=== PATIENT | female | born 1950 | race Caucasian/White ===

== ENCOUNTER 2020-04-10 10:45 | Outpatient (REF) | payer MEDICARE, MEDICAID, SELFPAY ==
[2020-04-10 12:10] LABS: Hematocrit 45.1 % (37-47); Hemoglobin 14.9 g/dl (12.0-16.0); Mean Corpuscular Hemoglobin 31.2 pg (27.0-33.0); Mean Corpuscular Volume 94.4 fL (80-98); Mean Platelet Volume 10.3 fL (9.4-12.3); Platelet Count 227 X10*3/uL (160-400); Red Blood Count 4.78 X10*6/uL (4.20-5.50); Red Cell Distribution Width 13.5 % (11.0-16.0); White Blood Count 7.3 X10*3/uL (4.8-10.8)
[2020-04-10 12:42] LABS: B Type Natriuretic Peptide 208 pg/mL (<100)
[2020-04-10 12:43] LABS: Anion Gap 13 (12-20); Blood Urea Nitrogen 15 mg/dL (9-16); Calcium 8.9 mg/dL (8.4-10.2); Carbon Dioxide 24 mmol/L (22-29); Chloride 105 mmol/L (96-108); Estimated Glomerular Filt Rate 46; Glucose Random 132 mg/dL (60-115); Magnesium 2.1 mg/dL (1.6-2.6); Potassium 4.4 mmol/l (3.3-5.1); Sodium 138 mmol/L (135-145)
== END 2020-04-10 10:46 | disposition home or self-care (01) ==
LOC: HO.LAB 10:45
PROVIDERS: PCP Internal Medicine; Visit Provider Nurse Practitioner Family
DX: I42.9 Cardiomyopathy, unspecified (principal)
CPT/HCPCS: 36415; 80048; 83735; 83880; 85027

== ENCOUNTER → 2020-04-11 12:43 | Outpatient (REF) | payer MEDICARE, MEDICAID, SELFPAY ==
--- NOTE | 2020-04-11 12:42 | CA_ITS ---
Transthoracic Echocardiogram Patient (Last, First, Middle): Florinda Parker L Gender: Female Date of : 1950 Age: 69 Procedure Date: 04/11/2020 Procedure Type: Transthoracic Echocardiogram Location: OP Height: 154.94 cm Weight: 56.7 kg BSA: 1.55 m2 Heart Rate: bpm BP: 116 / 56 mmHg Counter Server: [email or web address] Referring MD: Yady Marsh [employer]ITCH[employer] RECEPTIONIST-Rigo Symptoms: OTHER HYPERTROPHIC CARDIOMYOPATHY Study Quality: Fair, Contrast used ECG Rhythm: Sinus Conclusions: - 1. Moderate to severe LV systolic dysfunction with regional wall motion abnormality in LAD territory with LVEF of 30-35% with impaired relaxation filling pattern 2. Cardiac valvular Doppler within normal limits 3. Normal RV systolic pressure 4. No gross pericardial effusion Findings Procedure Information Contrast agent, definity, is being given per protocol without apparent complications. Left Ventricle Normal left ventricular cavity size. There is mildly increased left ventricular wall thickness. The left ventricular systolic function is moderate to severely decreased. The visually estimated ejection fraction is between 30-35%. There is evidence of regional wall motion abnormalities. Spectral Doppler is indicative of an impaired relaxation filling pattern. E/E prime ratio is between 8 and 15 consistent with indeterminate filling pressures. Wall Motion Rest Echo Findings The basal inferior and basal inferoseptal segments are hypokinetic. The apical anterior, apical septum, mid inferoseptal, and mid anteroseptal segments are akinetic. The apex segment is dyskinetic. All other scored wall segments showed normal motion. Right Ventricle Normal right ventricular cavity size and systolic function. There is an ICD wire seen in the right ventricle. Atria The left atrium is normal in size. There is no evidence of interatrial shunt. The right atrium is normal in size. Aortic Valve The aortic valve structure and function is likely normal. There is no aortic valve stenosis. There is no aortic valve regurgitation. Mitral Valve Likely normal mitral valve structure and function. There is trace mitral valve regurgitation. There is no mitral valve stenosis. Pulmonic Valve The pulmonic valve was not well visualized. Tricuspid Valve Normal tricuspid valve structure. There is trace tricuspid valve regurgitation. The right ventricular systolic pressure is normal. The right ventricular systolic pressure is 13 mmHg. Normal right atrial pressure. There is no evidence of pulmonary hypertension. Great Vessels All visible segments of the aorta are normal in size. The pulmonary artery was not well visualized. Venous The inferior vena cava is normal in size and collapses greater than 50% with inspiration. Pericardium/Pleural Prominent epicardial adipose tissue noted. There is no evidence of pericardial effusion. Prior Study Comparison Changes noted compared to prior study dated: 03/17/2018. LV systolic function is marginally reduced Measurements 2D Linear Measurements IVSd: 1.32 0.6-0.9/0.6-1.0 cm LVIDd: 3.86 3.9-5.3/4.2-5.9 cm LVIDd Index: 2.49 2.4-3.2/2.2-3.1 cm/m2 LVIDs: 3.02 2.0-3.6 cm LVPWd: 1.32 0.7-1.1 cm Ao Root: 3.00 2.1-3.5 cm LA Diam: 3.40 2.7-3.8/3.0-4.0 cm LAIDs Index: 2.19 1.5-2.3 cm/m2 LV Mass: 225.80 67-162/88-224 g LV Mass Index: 145.68 43-95/49-115 g/m2 LVOT Diam: 2.10 3.0+(-)1.3 cm 2D Systolic Function EF 4C: 31.60 >55% EF 2C: 30.80 >55% Mitral Valve MV Pk E: 0.32 MV PK A: 1.32 MV Decel Time: 92.00 E/A: 0.20 E'Lateral: 3.77 E'Medial: 3.87 E/E' Med: 8.30 E/E' Lat: 8.50 PHT: 27.00 MVA PHT: 8.15 Decel Larue: 3.46 Aortic Valve AoV Pk Quincy: 1.17 AoV Mn Quincy: 0.71 AoV VTI: 0.23 AoV Pk Grad: 5.00 Aov Mn Grad: 3.00 LESIA Cont.VTI: 2.35 LVOT LVOT Pk Quincy: 0.86 LVOT Mn Quincy: 0.52 LVOT VTI: 0.15 LVOT Pk Grad: 3.00 LVOT Mn Grad: 1.00 LVOT Diam: 2.10 LVOT Area: 3.46 Diastolic Function MV Pk E: 0.32 MV Pk A: 1.32 E/A: 0.20 E'Medial: 3.87 E/E' Med: 8.30 E' Laterial: 3.77 E/E' Lat: 8.50 Tricuspid Valve TR Pk Quincy: 1.56 TR Pk Grad: 10.00 RA Press: 3.00 RVSP: 13.00 Great Vessels Aorta Ao Root-2D: 3.00 2.0-3.7 cm Pulmonary Valve PV Pk Quincy: 1.07 Peak PV Grad: 5.00 Updated in Other Vendor System with Status of Final Adis Abdi MD electronically signed on 04/12/2020 9:30:12 AM with status of Final
== END ==
LOC: HO.CARD 12:43
PROVIDERS: PCP Internal Medicine; Visit Provider Nurse Practitioner Family
DX: I42.2 Other hypertrophic cardiomyopathy (principal)
CPT/HCPCS: 93306; Q9957

== ENCOUNTER → 2020-04-24 11:46 | Outpatient (BNVA) | payer MEDICARE, MEDICAID, SELFPAY | PROVIDERS: PCP Internal Medicine; Visit Provider Internal Medicine | DX: J44.9 Chronic obstructive pulmonary disease, unspecified (principal); J30.9 Allergic rhinitis, unspecified; Z79.899 Other long term (current) drug therapy | CPT/HCPCS: 99212 ==

== ENCOUNTER → 2020-06-27 12:38 | Outpatient (BNVA) | payer MEDICARE, MEDICAID, SELFPAY | PROVIDERS: PCP Internal Medicine; Visit Provider Internal Medicine Cardiovascular Disease | DX: Z45.02 Encounter for adjustment and management of automatic implantable cardiac defibrillator (principal); I25.10 Atherosclerotic heart disease of native coronary artery without angina pectoris; I50.20 Unspecified systolic (congestive) heart failure; I25.5 Ischemic cardiomyopathy | CPT/HCPCS: 93005; 99212 ==

== ENCOUNTER 2020-08-02 16:17 | Outpatient (REF) | payer MEDICARE, MEDICAID, SELFPAY ==
--- NOTE | ~2020-08-02 | CT_ITS ---
EXAMINATION: CT HEAD WITHOUT CONTRAST CLINICAL INFORMATION: Cerebellar ataxia. COMPARISON: 12/24/2019 TECHNIQUE: Contiguous axial imaging was performed from the skull base to vertex without intravenous administration of contrast. This CT examination was performed using dose optimization techniques as appropriate, variously including the following: *Automated exposure control *Adjustment of mA and/or kV according to patient size (this includes techniques or standardized protocols for targeted exams where dose is matched to indication/reason for exam; i.e. extremities or head) *Use of iterative reconstruction technique DLP: 674 mGy-cm. FINDINGS: There is no evidence of acute intracranial hemorrhage or territorial infarction. No abnormal mass effect or midline shift is seen. Vieyra to white matter differentiation is well preserved. No extra-axial fluid collections are identified. Mild cerebral volume loss with mild sulcal and ventricular prominence. Stable calcification in the right basal ganglia. [id number] periventricular deep white matter hypodensities, nonspecific, likely reflecting chronic small vessel ischemic disease. Evidence of prior left temporal craniotomy. Redemonstrated clip in the region of the left middle cerebral artery. The mastoid air cells and visualized portions of the paranasal sinuses are well aerated. CT/CT head/brain wo con IMPRESSION: No CT evidence of acute intracranial pathology. Chronic changes as detailed above.
== END 2020-08-02 16:18 | disposition home or self-care (01) ==
LOC: HO.CT 16:17
PROVIDERS: PCP Internal Medicine; Visit Provider Psychiatry & Neurology Neurology
DX: G11.9 Hereditary ataxia, unspecified (principal)
CPT/HCPCS: 70450

== ENCOUNTER 2020-08-09 20:42 | Emergency (ER) | payer MEDICARE, MEDICAID, SELFPAY ==
[2020-08-09 20:56] VITALS: BP 136/65; PULSE 52; PULSE 60; RESP 17; TEMP 36.4; O2SAT 96; BMI 26.0
[2020-08-09 21:03] LABS: Glucose, Whole Blood 238 mg/dL (60-115)
[2020-08-09 22:00] VITALS: BP 147/87; PULSE 63; RESP 16; TEMP 36.6; O2SAT 96
--- NOTE | 2020-08-09 22:21 | ECG_ITS ---
Test Reason : DIZZINESS Blood Pressure : / mmHG Vent. Rate : 054 BPM Atrial Rate : 054 BPM P-R Int : 160 ms QRS Dur : 086 ms QT Int : 456 ms P-R-T Axes : 067 -15 072 degrees QTc Int : 432 ms Sinus bradycardia Nonspecific ST and T wave abnormality No significant changes when compared with the previous EKG of 24 december 2019 Referred By: Hong Busch Electronically Signed By:JESUS LICONA
--- NOTE | 2020-08-09 22:24 | ED_ITS ---
HPI - General Adult General Chief complaint: Dizziness Stated complaint: WORSENING DIZZINESS Time Seen by Provider: 08/09/20 22:06 Source: patient Mode of arrival: ambulatory Limitations: language barrier (Monegasque speaking only, aerial photograph interpreter used) History of Present Illness HPI narrative: 70-year-old female who presents emergency department for evaluation of dizziness x1 week. She states the dizziness has been int ermittent. She describes the dizziness as a room spinning sensation. The dizziness is triggered by head movement especially if she turns her head to the left. She states that she closed her eyes and stays still the dizziness resolves. She states the dizziness got worse last night and today therefore she came to the emergency department for evaluation. She denied headache, nausea, vomiting, chest pain, shortness of breath, dyspnea on exertion, cough, new weakness. She states that both her legs are weak and she has a tingling sensation in both legs which is chronic. She denies any change in her bowel movements. Related Data Home Medications Medication Instructions Recorded Confirmed fluticasone propionate 220 INHALATION 03/04/20 06/27/20 mcg/actuation HFA aerosol inhaler glipizide 5 mg tablet mg PO 03/04/20 06/27/20 montelukast 10 mg tablet mg PO 03/04/20 06/27/20 nitroglycerin 0.4 mg/hr TOPICAL 03/04/20 06/27/20 transdermal 24 hour patch omeprazole 20 mg capsule,delayed mg PO 03/04/20 06/27/20 release paroxetine HCl 20 mg tablet mg PO 03/04/20 06/27/20 primidone 50 mg tablet mg PO 03/04/20 06/27/20 tiotropium bromide 18 mcg capsule INHALATION 03/04/20 06/27/20 with inhalation device aspirin 81 mg tablet,delayed 81 mg PO DAILY 06/27/20 release calcium carbonate 500 mg calcium 500 mg PO DAILY 06/27/20 (1,250 mg) tablet cholecalciferol (vitamin D3) 25 25 mcg PO DAILY 06/27/20 mcg (1,000 unit) capsule ezetimibe 10 mg tablet 10 mg PO DAILY tab 06/27/20 06/27/20 ferrous sulfate 325 mg (65 mg 325 mg PO DAILY 06/27/20 iron) tablet fluticasone propionate 220 1 puff INHALATION BID 06/27/20 mcg/actuation HFA aerosol inhaler furosemide 20 mg tablet 20 mg PO .three times a week tab 06/27/20 06/27/20 metoprolol tartrate 50 mg tablet 50 mg PO BID 06/27/20 primidone 50 mg tablet 50 mg PO BEDTIME 06/27/20 rosuvastatin 40 mg tablet 40 mg PO DAILY tab 06/27/20 06/27/20 Previous Rx's Medication Instructions Recorded tiotropium bromide 2.5 2 puff INHALATION QAM 30 Days #4 g 04/24/20 mcg/actuation mist for inhalation ticagrelor 60 mg tablet 60 mg PO BID 90 Days #180 tab 05/31/20 ranolazine 500 mg tablet,extended 500 mg PO BID 90 Days #180 tab 08/01/20 release,12 hr meclizine [Dramamine Less Drowsy] 25 mg PO TID PRN #20 tab 08/10/20 Allergies Allergy/AdvReac Type Severity Reaction Status Date / Time ibuprofen [From Motrin] Allergy Mild HEART Verified 04/24/20 12:01 PALPITATIONS Review of Systems Review of Systems: Yes all other systems are reviewed and are negative Neurologic: Reports Abnormal speech present [facility] Past Medical History Medical History Allergic rhinitis CAD (coronary artery disease) COPD (chronic obstructive pulmonary disease) Heart failure with reduced ejection fraction HTN (hypertension) Hyperlipidemia ICD (implantable cardioverter-defibrillator) in place Ischemic cardiomyopathy Surgical History History of implantable cardioverter-defibrillator (ICD) placement Hx of cardiac cath Stented coronary artery Family History Family History Father No problems noted. Mother CVD (cardiovascular disease) Diabetes Social History Social History Alcohol intake: never Smoking Status: Never smoker Use of substances other than those prescribed or required for medical reasons: No Advance Directives: No Advance Directives Information Provided: No Physical Exam Vital Signs: Vital Signs: Last Vital Signs Temp 98.0 F 08/09/20 23:17 Pulse 54 08/09/20 23:17 Resp 20 08/09/20 23:17 BP 135/46 L 08/09/20 23:17 Pulse Ox 96 08/09/20 23:17 Body Mass Index 26.0 Const: General: cooperative and healthy appearing Orientation/consciou sness: oriented to person and oriented to place Limitations: no limitations HENMT: Head: Yes normal to inspection, Yes normocephalic and Yes atraumatic Ears: external ears normal General nose exam: Normal external nose present Face and sinus: Yes normal facial exam Mouth: Normal oral and palatal mucosa present Throat: Yes posterior oropharynx normal Eyes: Periorbital: periorbital findings normal Eyelids: Yes eyelids normal Conjunctivae: conjunctivae normal Sclerae: sclerae normal Corneas: corneas normal Pupils: Equal, round and reactive pupils present EOM: Nystagmus present (Lateral nystagmus) Direct Ophthalmoscopy: normal light reflex Neck: Neck: Yes full ROM, Yes no lymphadenopathy, Yes no meningeal signs, Yes trachea midline and Yes supple Chest: Chest palpation & inspection: normal inspection of the chest and normal palpation of entire chest wall Resp: Effort & Inspection: normal respiratory effort and able to speak in complete sentences Auscultation: clear to auscultation bilaterally Cardio: Rate: regular rate Rhythm: regular rhythm Heart sounds: S1 normal heart sound present, S2 normal heart sound present and no murmurs GI: Inspection: Yes normal to inspection Palpation (GI): Soft to palpation, nontender, no guarding, not rigid and No hepatosplenomegaly present : General: Yes no CVA tenderness Back/Spine/Pelvis: Back: no CVA tenderness Cervical Spine: normal cervical lordosis Thoracic/Lumbar Spine: thoracic and lumbar spine normal to inspection Skin: Lesions: no lesions Rashes: no rashes Wounds: no wounds Neuro: General: oriented to person, oriented to place and no meningeal signs Cranial nerves: Yes CN's II-XII intact bilaterally, Yes Equal, round and reactive pupils present and Yes Nystagmus present (Lateral nystagmus) Cognition (Neuro): normal cognition Speech: Abnormal speech present Motor exam (neuro): 5/5 motor strength present throughout Extrem: General: Yes normal to inspection and Yes full ROM Psych: Appearance: well kempt Mental Status: mental status grossly normal Speech and movement: Normal speech and movement present Affect: normal affect Attitude: cooperative Thought process: Normal thought process present Thought content: Normal thought content present Course Course Course Narrative: 70-year-old female who presents emergency department for evaluation of vertigo like symptoms x1 week, worse times 24 hours, triggered by head movement. Examination did reveal lateral nystagmus otherwise was unremarkable. I did order laboratory evaluation on this patient given her extensive cardiac history. I also ordered meclizine 25 mg orally. 0010: The patient is feeling significantly better after receiving the meclizine. She states that her dizziness has resolved. The patient's 12 lead EKG was unremarkable. Laboratory evaluation was unremarkable except for a detec table troponin of 5.0. Given her presentation, I do not think that she has had myocardial injury is the cause of her dizziness and I believe that her symptoms are secondary to positional vertigo. I did discuss this with the patient. She was discharged home with a prescription for meclizine and advised to follow-up with her doctor in 2 days for re-evaluation and return if her symptoms get worse or if she develops any new symptoms that are concerning to her. Medical Decision Making Lab Data Result diagrams: 08/09/20 22:50 08/09/20 22:50 Labs: Lab Results 08/09/20 08/09/20 08/09/20 Range/Units 20:59 22:50 22:50 WBC 7.6 (4.8-10.8) X10*3/uL RBC 4.38 (4.20-5.50) X10*6/uL Hgb 13.4 (12.0-16.0) g/dl Hct 40.7 (37-47) % MCV 92.9 (80-98) fL MCH 30.6 (27.0-33.0) pg MCHC 32.9 (31.0-35.0) g/dl RDW 14.1 (11.0-16.0) % Plt Count 186 (160-400) X10*3/uL MPV 9.9 (9.4-12.3) fL Immature Gran % (Auto) 0.3 (0.0-0.4) % Neut % (Auto) 58.3 (45-73) % Lymph % (Auto) 25.4 (20-40) % Ocean % (Auto) 10.7 (2-11) % Eos % (Auto) 4.0 (0-4) % Baso % (Auto) 1.3 (0-2) % Lymph # (Auto) 1.9 (1.2-4.9) X10*3/uL Ocean # (Auto) 0.8 (0.1-1.2) X10*3/uL Eos # (Auto) 0.3 (0.0-0.4) X10*3/uL Baso # (Auto) 0.1 (0.0-0.2) X10*3/uL Abs Immat Gran (auto) 0.02 (0.00-0.03) X10*3/uL Absolute Neuts (auto) 4.4 (2.0-8.3) X10*3/uL Absolute Nucleated RBC 0.000 (0.0-0.012) X10*3/uL Nucleated RBC % (auto) 0.0 (0.0-0.2) /100WBC Sodium 136 (135-145) mmol/L Potassium 4.4 (3.3-5.1) mmol/L Chloride 107 (96-108) mmol/L Carbon Dioxide 24 (22-29) mmol/L Anion Gap 9 L (12-20) BUN 20 H (9-16) mg/dL Creatinine 1.07 (0.5-1.4) mg/dL Estim Creat Clear Calc 41.5 Estimated GFR 51 POC Glucose 238 H (60-115) mg/dL Random Glucose 161 H (60-115) mg/dL Calcium 8.7 (8.4-10.2) mg/dL Total Bilirubin 0.4 (0.0-1.0) mg/dL AST 24 (5-31) U/L ALT 21 (0-31) U/L Alkaline Phosphatase 68 (39-117) U/L Troponin I High Sens (<3.5-17.0) ng/L Total Protein 6.2 L (6.5-8.0) g/dL Albumin 3.7 (3.5-5.0) g/dL 08/09/20 Range/Units 22:50 WBC (4.8-10.8) X10*3/uL RBC (4.20-5.50) X10*6/uL Hgb (12.0-16.0) g/dl Hct (37-47) % MCV (80-98) fL MCH (27.0-33.0) pg MCHC (31.0-35.0) g/dl RDW (11.0-16.0) % Plt Count (160-400) X10*3/uL MPV (9.4-12.3) fL Immature Gran % (Auto) (0.0-0.4) % Neut % (Auto) (45-73) % Lymph % (Auto) (20-40) % Ocean % (Auto) (2-11) % Eos % (Auto) (0-4) % Baso % (Auto) (0-2) % Lymph # (Auto) (1.2-4.9) X10*3/uL Ocean # (Auto) (0.1-1.2) X10*3/uL Eos # (Auto) (0.0-0.4) X10*3/uL Baso # (Auto) (0.0-0.2) X10*3/uL Abs Immat Gran (auto) (0.00-0.03) X10*3/uL Absolute Neuts (auto) (2.0-8.3) X10*3/uL Absolute Nucleated RBC (0.0-0.012) X10*3/uL Nucleated RBC % (auto) (0.0-0.2) /100WBC Sodium (135-145) mmol/L Potassium (3.3-5.1) mmol/L Chloride (96-108) mmol/L Carbon Dioxide (22-29) mmol/L Anion Gap (12-20) BUN (9-16) mg/dL Creatinine (0.5-1.4) mg/dL Estim Creat Clear Calc Estimated GFR POC Glucose (60-115) mg/dL Random Glucose (60-115) mg/dL Calcium (8.4-10.2) mg/dL Total Bilirubin (0.0-1.0) mg/dL AST (5-31) U/L ALT (0-31) U/L Alkaline Phosphatase (39-117) U/L Troponin I High Sens 5.0 (<3.5-17.0) ng/L Total Protein (6.5-8.0) g/dL Albumin (3.5-5.0) g/dL ECG Data Attestation: I personally reviewed and interpreted this ECG as follows: Interpretation: 2247: Sinus bradycardia with a rate of 54, normal [place], QRS and QTC intervals, no T-wave abnormalities, no ST segment elevation, no ST segment depression, this is a normal EKG except for the bradycardia. Discharge Plan Discharge Clinical Impression: Benign paroxysmal positional vertigo Qualifiers: Laterality: unspecified laterality Qualified Code(s): H81.10 - Benign paroxysmal vertigo, unspecified ear Patient Disposition: Home, Self-Care Instructions: Benign Paroxysmal Positional Vertigo (ED) Additional Instructions: Your laboratory evaluation was unremarkable. Your symptoms are consistent with benign positional vertigo which is caused by the balance mechanism in your inner ear. This is sometimes caused by a viral infection and can last 2-3 weeks. Take meclizine 25 mg pills, 1 pill 3 times a day as needed for dizziness. Follow-up with your doctor in 2 days. Please return to the emergency department if your symptoms get worse or if you develop any symptoms that are concerning to you. Prescriptions: New meclizine [Dramamine Less Drowsy] 25 mg tablet 25 mg PO TID PRN (Reason: dizziness) Qty: 20 RF: 0 No Action ticagrelor [Brilinta] 60 mg tablet 60 mg PO BID 90 Days Qty: 180 RF: 1 ranolazine 500 mg tablet extended release 12 hr 500 mg PO BID 90 Days Qty: 180 RF: 1 Spiriva with HandiHaler 18 mcg capsule, w/inhalation device inhalation RF: 0 montelukast 10 mg tablet PO RF: 0 paroxetine HCl 20 mg tablet PO RF: 0 nitroglycerin 0.4 mg/hr patch 24 hour topical RF: 0 glipizide 5 mg tablet PO RF: 0 primidone 50 mg tablet PO RF: 0 omeprazole 20 mg capsule,delayed release(DR/EC) PO RF: 0 Flovent HFA 220 mcg/actuation HFA aerosol inhaler inhalation RF: 0 furosemide 20 mg tablet 20 mg PO .three times a week RF: 0 ezetimibe 10 mg tablet 10 mg PO DAILY RF: 0 rosuvastatin 40 mg tablet 40 mg PO DAILY RF: 0 Spiriva Respimat 2.5 mcg/actuation mist 2 puff inhalation QAM 30 Days Qty: 4 RF: 3 aspirin [Adult Low Dose Aspirin] 81 mg tablet,delayed release (DR/EC) 81 mg PO DAILY RF: 0 metoprolol tartrate 50 mg tablet 50 mg PO BID RF: 0 ferrous sulfate 325 mg (65 mg iron) tablet 325 mg PO DAILY RF: 0 calcium carbonate [Calcium 500] 500 mg calcium (1,250 mg) tablet 500 mg PO DAILY RF: 0 primidone 50 mg tablet 50 mg PO BEDTIME RF: 0 Flovent HFA 220 mcg/actuation HFA aerosol inhaler 1 puff inhalation BID RF: 0 cholecalciferol (vitamin D3) 25 mcg (1,000 unit) capsule 25 mcg PO DAILY RF: 0
[2020-08-09] MEDS: Meclizine HCl 25 MG TABLET PO (22:52)
[2020-08-09 22:59] LABS: MANUAL DIFF FLAG NO
[2020-08-09 23:00] LABS: Basophils Absolute Auto 0.1 X10*3/uL (0.0-0.2); Basophils Percent Auto 1.3 % (0-2); Eosinophils Absolute Auto 0.3 X10*3/uL (0.0-0.4); Hematocrit 40.7 % (37-47); Hemoglobin 13.4 g/dl (12.0-16.0); Imm Gran Abs Auto 0.02 X10*3/uL (0.00-0.03); Imm Gran Pct Auto 0.3 % (0.0-0.4); Lymphocytes Absolute Auto 1.9 X10*3/uL (1.2-4.9); Lymphocytes Percent Auto 25.4 % (20-40); Mean Corpuscular HGB Conc 32.9 g/dl (31.0-35.0); Mean Corpuscular Hemoglobin 30.6 pg (27.0-33.0); Mean Corpuscular Volume 92.9 fL (80-98); Mean Platelet Volume 9.9 fL (9.4-12.3); Monocytes Absolute Auto 0.8 X10*3/uL (0.1-1.2); Monocytes Percent Auto 10.7 % (2-11); Neutrophils Absolute Auto 4.4 X10*3/uL (2.0-8.3); Neutrophils Percent Auto 58.3 % (45-73); Platelet Count 186 X10*3/uL (160-400); Red Blood Count 4.38 X10*6/uL (4.20-5.50); Red Cell Distribution Width 14.1 % (11.0-16.0); White Blood Count 7.6 X10*3/uL (4.8-10.8)
[2020-08-09 23:17] VITALS: BP 135/46; PULSE 54; RESP 20; TEMP 36.7; O2SAT 96
[2020-08-09 23:21] LABS: Alanine Aminotransferase 21 U/L (0-31); Albumin Level 3.7 g/dL (3.5-5.0); Alkaline Phosphatase 68 U/L (39-117); Anion Gap 9 (12-20); Aspartate Amino Transferase 24 U/L (5-31); Bilirubin Total 0.4 mg/dL (0.0-1.0); Blood Urea Nitrogen 20 mg/dL (9-16); Calcium 8.7 mg/dL (8.4-10.2); Carbon Dioxide 24 mmol/L (22-29); Chloride 107 mmol/L (96-108); Creatinine Clr Calc Pharmacy 41.5; Estimated Glomerular Filt Rate 51; Glucose Random 161 mg/dL (60-115); Potassium 4.4 mmol/L (3.3-5.1); Sodium 136 mmol/L (135-145); Total Protein 6.2 g/dL (6.5-8.0)
[2020-08-10 00:21] VITALS: BP 136/69; PULSE 55; RESP 16; O2SAT 95
== END 2020-08-10 00:50 | disposition home or self-care (01) ==
PROVIDERS: Emergency Provider Emergency Medicine Emergency Medical Services
DX: H81.10 Benign paroxysmal vertigo, unspecified ear (principal); I11.0 Hypertensive heart disease with heart failure; I50.20 Unspecified systolic (congestive) heart failure; E78.5 Hyperlipidemia, unspecified; Z79.899 Other long term (current) drug therapy; Z95.810 Presence of automatic (implantable) cardiac defibrillator
CPT/HCPCS: 36415; 80053; 82947; 84484; 85025; 93005; 99283; 99284

== ENCOUNTER → 2020-08-28 11:14 | Outpatient (BNVA) | payer MEDICARE, MEDICAID, SELFPAY | PROVIDERS: PCP Internal Medicine; Visit Provider Internal Medicine | DX: J44.9 Chronic obstructive pulmonary disease, unspecified (principal); J30.9 Allergic rhinitis, unspecified; Z79.51 Long term (current) use of inhaled steroids; Z79.899 Other long term (current) drug therapy | CPT/HCPCS: 99212 ==

== ENCOUNTER → 2021-01-11 11:08 | Outpatient (BNVA) | payer MEDICARE, MEDICAID, SELFPAY | PROVIDERS: PCP Internal Medicine; Visit Provider Internal Medicine | DX: J44.9 Chronic obstructive pulmonary disease, unspecified (principal); J30.9 Allergic rhinitis, unspecified | CPT/HCPCS: 99212 ==

== ENCOUNTER 2021-01-24 12:01 | Outpatient (REF) | payer MEDICARE, MEDICAID, SELFPAY ==
--- NOTE | ~2021-01-24 | MM_ITS ---
EXAMINATION: MM SCREENING DIGITAL BREAST TOMOSYNTHESIS, BILATERAL CLINICAL INFORMATION: History infiltrating ductal cancer right breast 2012. Due for yearly. COMPARISON: Mammography: 11/06/2012, 10/22/2012, 10/15/2012 TECHNIQUE: Digital breast tomosynthesis is performed in both the craniocaudal and mediolateral oblique views along with computer-aided detection (CAD). Synthesized 2D images are generated from the tomosynthesis. Additional left MLO view is provided. FINDINGS: The breasts are heterogeneously dense, which may obscure small masses (ACR BI-RADS breast composition Category c). There are post therapy changes since prior mammography right breast with reduced breast size and scarring posterior 12:00 position. There is benign dystrophic calcification in the scar. There is a new ribbon shaped biopsy clip marker anterior 8:00 right breast overlying a smooth nodule. Both breasts have some scattered punctate benign round calcifications and there are a few scattered benign coarse round calcifications on each side. The left breast shows no interval mass or architectural abnormality or developing density. There is a pacemaker generator overlying and partly obscuring left axilla on MLO view. MM/MM tomosynthesis screening BI IMPRESSION: 1. No mammographic evidence of malignancy. 2. Post therapy changes right breast. ASSESSMENT: BI-RADS 2: Benign RECOMMENDATION: Routine annual mammography screening. This patient's information was entered into a reminder system with a target due date for their next mammogram.
== END 2021-01-24 12:02 | disposition home or self-care (01) ==
LOC: HO.MAMMO 12:01
PROVIDERS: PCP Internal Medicine; Visit Provider Internal Medicine
DX: Z12.31 Encounter for screening mammogram for malignant neoplasm of breast (principal)
CPT/HCPCS: 77063; 77067

== ENCOUNTER → 2021-02-07 13:46 | Outpatient (BNVA) | payer MEDICARE, MEDICAID, SELFPAY | PROVIDERS: PCP Internal Medicine; Referring Provider Internal Medicine; Visit Provider Nurse Practitioner Family | DX: I25.5 Ischemic cardiomyopathy (principal); I25.10 Atherosclerotic heart disease of native coronary artery without angina pectoris; I11.0 Hypertensive heart disease with heart failure; I50.20 Unspecified systolic (congestive) heart failure; E78.5 Hyperlipidemia, unspecified; Z87.891 Personal history of nicotine dependence; Z95.5 Presence of coronary angioplasty implant and graft; Z95.810 Presence of automatic (implantable) cardiac defibrillator | CPT/HCPCS: 99212 ==

== ENCOUNTER 2021-04-15 06:41 | Inpatient (IN) | payer MEDICARE, MEDICAID, SELFPAY ==
[2021-04-15] VITALS (9 sets, daily range): BP systolic 100–151; BP diastolic 52–94; PULSE 71–93; RESP 12–22; TEMP 36.6–36.8; O2SAT 94–98; BMI 22.8
--- NOTE | ~2021-04-15 | CT_ITS ---
EXAMINATION: CT HEAD WITHOUT CONTRAST CLINICAL INFORMATION: Confusion. COMPARISON: CT head August 02, 2020 TECHNIQUE: Contiguous axial imaging was performed from the skull base to vertex without intravenous administration of contrast. Coronal and sagittal reformatted images are performed at the CT scanner. [This CT examination was performed using dose optimization techniques as appropriate, variously including the following: *Automated exposure control *Adjustment of mA and/or kV according to patient size (this includes techniques or standardized protocols for targeted exams where dose is matched to indication/reason for exam; i.e. extremities or head) *Use of iterative reconstruction technique] DLP: 581 mGy-cm. FINDINGS: There is no evidence of acute intracranial hemorrhage or acute territorial infarction. No abnormal mass-effect or midline shift is seen. Vieyra to white matter differentiation is well preserved. No extra-axial fluid collections are identified. There is generalized global volume loss. There is mild prominence of the ventricles and the sulci . There is mild hypodensity of the periventricular white matter due to chronic small vessel ischemic disease. There are vascular calcifications of the internal carotid arteries bilaterally. Status post left temporofrontal parietal craniotomy. Surgical clip in the left middle cranial fossa near the middle cerebral artery. This does cause streak artifact. The mastoid air cells and visualized portions of the paranasal sinuses are well-aerated. CT/CT head/brain wo con IMPRESSION: No acute intracranial pathology.
--- NOTE | ~2021-04-15 | XR_ITS ---
EXAMINATION: XR CHEST CLINICAL INFORMATION: Chest pain. COMPARISON: 10/08/2019 portable chest. TECHNIQUE: Frontal view of the chest was obtained. FINDINGS: Support devices: Left-sided pacemaker device without abnormality or change. The lungs are clear. Coronary artery stents overlie the cardiac silhouette without interval change. The mediastinal structures are unremarkable. XR/XR chest 1V IMPRESSION: No acute cardiopulmonary process.
--- NOTE | 2021-04-15 07:11 | ECG_ITS ---
Test Reason : CHEST PAIN Blood Pressure : / mmHG Vent. Rate : 082 BPM Atrial Rate : 082 BPM P-R Int : 148 ms QRS Dur : 092 ms QT Int : 366 ms P-R-T Axes : 060 019 076 degrees QTc Int : 427 ms Normal sinus rhythm Nonspecific T wave abnormality ST elevation in Septal leads Abnormal ECG When compared with ECG of 09-AUG-2020 22:47, Vent. rate has increased BY 28 BPM T wave inversion now evident in Lateral leads Referred By: Ani Calderón Electronically Signed By:SASHA AHN MD
--- NOTE | 2021-04-15 07:22 | ED_ITS ---
HPI - Chest Pain General Chief Complaint: Chest Pain Stated Complaint: chest pain Time Seen by Provider: 04/15/21 07:13 History of Present Illness HPI narrative: Patient is a 70-year-old female with a history of coronary artery disease. Status post RI x4. Status post stent to the LAD. Last echo showed an EF of 35%. Status post AICD. Presented today with having chest pain that woke h er up. Positive shortness of breath. Radiate to the neck. Received nitro from EMS. Symptoms seems to be improved. No cough no congestion or upper respiratory symptoms. Patient received her coronavirus vaccine. Related Data Home Medications Medication Instructions Recorded Confirmed glipizide 5 mg tablet mg PO 03/04/20 02/07/21 montelukast 10 mg tablet mg PO 03/04/20 02/07/21 aspirin 81 mg tablet,delayed 81 mg PO DAILY 06/27/20 02/07/21 release (Adult Low Dose Aspirin) calcium carbonate 500 mg calcium 500 mg PO DAILY 06/27/20 02/07/21 (1,250 mg) tablet (Calcium 500) cholecalciferol (vitamin D3) 25 25 mcg PO DAILY 06/27/20 02/07/21 mcg (1,000 unit) capsule ferrous sulfate 325 mg (65 mg 325 mg PO DAILY 06/27/20 02/07/21 iron) tablet fluticasone propionate 220 1 puff INHALATION BID 06/27/20 02/07/21 mcg/actuation HFA aerosol inhaler (Flovent HFA) furosemide 20 mg tablet 20 mg PO .three times a week tab 06/27/20 02/07/21 primidone 50 mg tablet 50 mg PO BEDTIME 06/27/20 02/07/21 meclizine 25 mg tablet 25 mg PO DAILY PRN 08/28/20 02/07/21 clonazepam 0.5 mg tablet 0.5 mg PO DAILY 01/11/21 02/07/21 omeprazole 20 mg capsule,delayed 20 mg PO DAILY cap 02/07/21 02/07/21 release paroxetine HCl 20 mg tablet 20 mg PO tab 02/07/21 02/07/21 Previous Rx's Medication Instructions Recorded meclizine 25 mg tablet (Dramamine 25 mg PO TID PRN #20 tab 08/10/20 Less Drowsy) ticagrelor 60 mg tablet (Brilinta) 60 mg PO BID #60 tab 12/08/20 Ventolin HFA 90 mcg/actuation 2 puff INHALATION Q4-6H PRN 30 01/11/21 aerosol inhaler (albuterol sulfate) Days #18 g NS Spiriva Respimat 2.5 mcg/actuation 2 puff INHALATION QAM #4 g NS 01/29/21 solution for inhalation (tiotropium bromide) ranolazine 500 mg tablet,extended 500 mg PO BID 90 Days #180 tab 02/09/21 release,12 hr valsartan 40 mg tablet (Diovan) 40 mg PO DAILY 30 Days #30 tab 02/19/21 ezetimibe 10 mg tablet 10 mg PO DAILY #30 tab 03/12/21 nitroglycerin 0.4 mg/hr 1 patch TOPICAL DAILY #30 patch 03/12/21 transdermal 24 hour patch rosuvastatin 40 mg tablet 40 mg PO DAILY #30 tab 03/12/21 metoprolol tartrate 50 mg tablet 50 mg PO BID 90 Days #180 tab 04/12/21 Allergies Allergy/AdvReac Type Severity Reaction Status Date / Time ibuprofen [From Motrin] Allergy Mild HEART Verified 01/11/21 11:22 PALPITATIONS PMFSH Past Medical History Medical History Allergic rhinitis CAD (coronary artery disease) COPD (chronic obstructive pulmonary disease) Heart failure with reduced ejection fraction HTN (hypertension) Hyperlipidemia ICD (implantable cardioverter-defibrillator) in place Ischemic cardiomyopathy Surgical History History of implantable cardioverter-defibrillator (ICD) placement Hx of cardiac cath Stented coronary artery Family History Family History Father No problems noted. Mother CVD (cardiovascular disease) Diabetes Social History Social History Alcohol intake: never Patient Tobacco Use Status: Former Tobacco user Years Smoked: 40 years Advance Directives: No Advance Directives Information Provided: No Physical Exam Vital Signs: Vital Signs: Last Vital Signs Temp 97.8 F 04/15/21 06:50 Pulse 79 04/15/21 10:48 Resp 22 H 04/15/21 10:48 BP 100/53 L 04/15/21 10:48 Pulse Ox 96 04/15/21 10:48 Body Mass Index 22.8 MDM - Chest Pain MDM Narrative Medical decision making narrative: Positive chest pain relieved with nitroglycerin. Patient's EKG is unchanged. A 2nd set of troponin was done. It was unchanged state in the 40s range. Patient's pain is now completely relieved. Case discussed with cardiology. Keira with admission to [facility] for angina. Case discussed with hospitalist team. Medical Records Data Attestation: I reviewed the patient's medical records. Lab Data Attestation: I reviewed the patient's lab results. Result diagrams: 04/15/21 07:18 04/15/21 07:18 Labs: Lab Results 04/15/21 04/15/21 04/15/21 Range/Units 07:18 07:18 07:18 WBC 8.1 (4.8-10.8) X10*3/uL RBC 4.71 (4.20-5.50) X10*6/uL Hgb 14.4 (12.0-16.0) g/dl Hct 42.2 (37.0-47.0) % MCV 89.6 (80.0-98.0) fL MCH 30.6 (27.0-33.0) pg MCHC 34.1 (31.0-35.0) g/dl RDW 14.0 (11.0-16.0) % Plt Count 167 (160-400) X10*3/uL MPV 10.0 (9.4-12.3) fL Immature Gran % (Auto) 0.4 (0.0-0.4) % Neut % (Auto) 61.7 (45-73) % Lymph % (Auto) 22.2 (20-40) % [place]itch[place] % (Auto) 9.7 (2-11) % Eos % (Auto) 4.9 H (0-4) % Baso % (Auto) 1.1 (0-2) % Lymph # (Auto) 1.8 (1.2-4.9) X10*3/uL [place] # (Auto) 0.8 (0.1-1.2) X10*3/uL Eos # (Auto) 0.4 (0.0-0.4) X10*3/uL Baso # (Auto) 0.1 (0.0-0.2) X10*3/uL Abs Immat Gran (auto) 0.03 (0.00-0.03) X10*3/uL Absolute Neuts (auto) 5.0 (2.0-8.3) x10*3/uL Absolute Nucleated RBC 0.000 (0.0-0.012) X10*3/uL Nucleated RBC % (auto) 0.0 (0.0-0.2) /100WBC Sodium 138 (135-145) mmol/L Potassium 3.4 D (3.3-5.1) mmol/L Chloride 108 (96-108) mmol/L Carbon Dioxide 21 L (22-29) mmol/L Anion Gap 12 (12-20) BUN 15 (9-16) mg/dL Creatinine 0.93 (0.5-1.4) mg/dL Estim Creat Clear Calc 44.5 Estimated GFR 60 Random Glucose 129 H (60-115) mg/dL Calcium 8.8 (8.4-10.2) mg/dL Troponin I High Sens 42.1 H* (<3.5-17.0) ng/L COVID-19 (SAILAJA) (Negative) COVID-19 Clin Com 04/15/21 04/15/21 Range/Units 07:30 08:51 WBC (4.8-10.8) X10*3/uL RBC (4.20-5.50) X10*6/uL Hgb (12.0-16.0) g/dl Hct (37.0-47.0) % MCV (80.0-98.0) fL MCH (27.0-33.0) pg MCHC (31.0-35.0) g/dl RDW (11.0-16.0) % Plt Count (160-400) X10*3/uL MPV (9.4-12.3) fL Immature Gran % (Auto) (0.0-0.4) % Neut % (Auto) (45-73) % Lymph % (Auto) (20-40) % [place] % (Auto) (2-11) % Eos % (Auto) (0-4) % Baso % (Auto) (0-2) % Lymph # (Auto) (1.2-4.9) X10*3/uL [place] # (Auto) (0.1-1.2) X10*3/uL Eos # (Auto) (0.0-0.4) X10*3/uL Baso # (Auto) (0.0-0.2) X10*3/uL Abs Immat Gran (auto) (0.00-0.03) X10*3/uL Absolute Neuts (auto) (2.0-8.3) x10*3/uL Absolute Nucleated RBC (0.0-0.012) X10*3/uL Nucleated RBC % (auto) (0.0-0.2) /100WBC Sodium (135-145) mmol/L Potassium (3.3-5.1) mmol/L Chloride (96-108) mmol/L Carbon Dioxide (22-29) mmol/L Anion Gap (12-20) BUN (9-16) mg/dL Creatinine (0.5-1.4) mg/dL Estim Creat Clear Calc Estimated GFR Random Glucose (60-115) mg/dL Calcium (8.4-10.2) mg/dL Troponin I High Sens 40.3 H* (<3.5-17.0) ng/L COVID-19 (SAILAJA) Negative (Negative) COVID-19 Clin Com See Note Discharge Plan Discharge Clinical Impression: Unstable angina pectoris Patient Disposition: Admitted As Inpatient Prescriptions: No Action ticagrelor [Brilinta] 60 mg tablet 60 mg PO BID Qty: 60 RF: 5 albuterol sulfate [Ventolin HFA] 90 mcg/actuation HFA aerosol inhaler 2 puff inhalation Q4-6H PRN (Reason: shortness of breath or wheezing) 30 Days Qty: 18 RF: 3 Spiriva Respimat 2.5 mcg/actuation mist 2 puff inhalation QAM Qty: 4 RF: 3 ranolazine 500 mg tablet extended release 12 hr 500 mg PO BID 90 Days Qty: 180 RF: 1 valsartan [Diovan] 40 mg tablet 40 mg PO DAILY 30 Days Qty: 30 RF: 3 rosuvastatin 40 mg tablet 40 mg PO DAILY Qty: 30 RF: 5 ezetimibe 10 mg tablet 10 mg PO DAILY Qty: 30 RF: 5 nitroglycerin 0.4 mg/hr patch 24 hour 1 patch topical DAILY Qty: 30 RF: 5 metoprolol tartrate 50 mg tablet 50 mg PO BID 90 Days Qty: 180 RF: 1 meclizine [Dramamine Less Drowsy] 25 mg tablet 25 mg PO TID PRN (Reason: dizziness) Qty: 20 RF: 0 montelukast 10 mg tablet PO RF: 0 glipizide 5 mg tablet PO RF: 0 furosemide 20 mg tablet 20 mg PO .three times a week RF: 0 omeprazole 20 mg capsule,delayed release(DR/EC) 20 mg PO DAILY RF: 0 paroxetine HCl 20 mg tablet 20 mg PO RF: 0 aspirin [Adult Low Dose Aspirin] 81 mg tablet,delayed release (DR/EC) 81 mg PO DAILY RF: 0 ferrous sulfate 325 mg (65 mg iron) tablet 325 mg PO DAILY RF: 0 calcium carbonate [Calcium 500] 500 mg calcium (1,250 mg) tablet 500 mg PO DAILY RF: 0 primidone 50 mg tablet 50 mg PO BEDTIME RF: 0 Flovent HFA 220 mcg/actuation HFA aerosol inhaler 1 puff inhalation BID RF: 0 cholecalciferol (vitamin D3) 25 mcg (1,000 unit) capsule 25 mcg PO DAILY RF: 0 meclizine 25 mg tablet 25 mg PO DAILY PRNRF: 0 clonazepam 0.5 mg tablet 0.5 mg PO DAILY RF: 0
--- NOTE | 2021-04-15 07:22 | PC.NURSE ---
pt received in bed, A/O x 3. Indonesian speaking. Pt reports constant chest pain since 2am, similar to previous MIs. Seen by ED MD. Pt now c/p CP 01/16.
[2021-04-15 07:24] LABS: MANUAL DIFF FLAG NO
[2021-04-15] MEDS: Nitroglycerin 2 % Oint 1 GM Packet 0.5 INCH TRANSDERMA (07:27)
[2021-04-15 07:35] LABS: Basophils Absolute Auto 0.1 X10*3/uL (0.0-0.2); Basophils Percent Auto 1.1 % (0-2); Eosinophils Absolute Auto 0.4 X10*3/uL (0.0-0.4); Eosinophils Percent Auto 4.9 % (0-4); Hematocrit 42.2 % (37.0-47.0); Hemoglobin 14.4 g/dl (12.0-16.0); Imm Gran Abs Auto 0.03 X10*3/uL (0.00-0.03); Imm Gran Pct Auto 0.4 % (0.0-0.4); Lymphocytes Absolute Auto 1.8 X10*3/uL (1.2-4.9); Lymphocytes Percent Auto 22.2 % (20-40); Mean Corpuscular HGB Conc 34.1 g/dl (31.0-35.0); Mean Corpuscular Hemoglobin 30.6 pg (27.0-33.0); Mean Corpuscular Volume 89.6 fL (80.0-98.0); Monocytes Absolute Auto 0.8 X10*3/uL (0.1-1.2); Monocytes Percent Auto 9.7 % (2-11); Neutrophils Percent Auto 61.7 % (45-73); Platelet Count 167 X10*3/uL (160-400); Red Blood Count 4.71 X10*6/uL (4.20-5.50); White Blood Count 8.1 X10*3/uL (4.8-10.8)
[2021-04-15 07:39] LABS: Anion Gap 12 (12-20); Blood Urea Nitrogen 15 mg/dL (9-16); Calcium 8.8 mg/dL (8.4-10.2); Carbon Dioxide 21 mmol/L (22-29); Chloride 108 mmol/L (96-108); Creatinine Clr Calc Pharmacy 44.5; Estimated Glomerular Filt Rate 60; Glucose Random 129 mg/dL (60-115); Potassium 3.4 mmol/L (3.3-5.1); Sodium 138 mmol/L (135-145)
[2021-04-15 07:47] LABS: Troponin-I High Sensitivity 42.1 ng/L (<3.5-17.0)
[2021-04-15 08:06] LABS: COVID-19 Test Negative (Negative)
[2021-04-15 09:33] LABS: Troponin-I High Sensitivity 40.3 ng/L (<3.5-17.0)
--- NOTE | 2021-04-15 09:54 | ECG_ITS ---
Test Reason : CHEST PAIN Blood Pressure : / mmHG Vent. Rate : 074 BPM Atrial Rate : 074 BPM P-R Int : 156 ms QRS Dur : 084 ms QT Int : 368 ms P-R-T Axes : 056 003 055 degrees QTc Int : 408 ms Normal sinus rhythm Nonspecific T wave abnormality Intra-ventricular conduction delay Abnormal ECG No significant changes seen Referred By: Ani Calderón Electronically Signed By:SASHA AHN MD
--- NOTE | 2021-04-15 11:47 | PC.NURSE ---
patient a&o, family at bedside, cardiac catheterization technician nsr 80s, vss, pt denies chest pain at this time, pharmacy is at bedside doing med req for the room, will continue to monitor
--- NOTE | 2021-04-15 11:50 | PC.NURSE ---
called pharmacy for missing med
--- NOTE | 2021-04-15 12:15 | PC.NURSE ---
hospitalist in speaking with patient
--- NOTE | 2021-04-15 12:24 | P.HPHOSP_ITS ---
History of Present Illness Date of Service: 04/15/21 Attending physician on admission: Fred Kent Chief Complaint: Chest pain, elevated troponin 70-year-old female with history of coronary artery disease status post stent x4last stent was in 2014, history of cardiomyopathy has ICD, rhinitis, COPD, heart failure with ejection fraction reduced, hypertension, hyperlipidemia: She came to the hospital because of chest pain which started yesterday evening, she said she had constant pain, in the center of the chest, pressure type nonradiating, reproducible, worsen with cough. Also she said pain worsen with lying down. She said the pain was continuous until she was brought by the ambulance ,received aspirin in ambulance, also received nitroglycerin as per ED. She said 1st she started with headache then also neck pain and back pain and subsequently started to have chest pain. ED physician discussed the case with Cardiology and recommended-admit for angina. She is symptom free now. Has dry cough occasionally clear sputum for 1 month at night. Denies any shortness of breath or abdominal pain or fever or chills or nausea or vomiting Denies any cough Denies any weakness or numbness. Past medical history: As above. Lab imaging EKG personally reviewed and interpreted :BMP seems fine, EKG unchanged from before. Elevated troponin is range of 40 , flat. cxr: IMPRESSION: No acute cardiopulmonary process. Review of Systems Review of Systems: As above Yes all other systems are reviewed and are negative [facility] Medical History Allergic rhinitis CAD (coronary artery disease) COPD (chronic obstructive pulmonary disease) Heart failure with reduced ejection fraction HTN (hypertension) Hyperlipidemia ICD (implantable cardioverter-defibrillator) in place Ischemic cardiomyopathy Family History Father No problems noted. Mother CVD (cardiovascular disease) Diabetes Surgical History History of implantable cardioverter-defibrillator (ICD) placement Hx of cardiac cath Stented coronary artery Social History Alcohol intake: never Patient Tobacco Use Status: Former Tobacco user Years Smoked: 40 years Advance Directives: No Advance Directives Information Provided: No Meds Allergies Allergy/AdvReac Type Severity Reaction Status Date / Time ibuprofen [From Motrin] Allergy Mild HEART Verified 01/11/21 11:22 PALPITATIONS Active Medications: Current Medications Pharmacy Consult (Consult Rx Perform Med Rec) 1 each MISCELLANE ONCE PRN PRN Reason: Consult order Sodium Chloride (0.9 % Sodium Chloride Flush 3 Ml Syringe) [facility] Medications Medication Instructions Recorded Confirmed Last Taken Type glipizide 5 mg tablet 10 mg PO BID 03/04/20 04/15/21 04/14/21 History montelukast 10 mg tablet 10 mg PO DAILY 03/04/20 04/15/21 04/14/21 History aspirin 81 mg tablet,delayed 81 mg PO DAILY 06/27/20 04/15/21 04/14/21 History release (Adult Low Dose Aspirin) cholecalciferol (vitamin D3) 25 50 mcg PO DAILY 06/27/20 04/15/21 04/14/21 History mcg (1,000 unit) capsule ferrous sulfate 325 mg (65 mg 325 mg PO DAILY 06/27/20 04/15/21 04/14/21 History iron) tablet fluticasone propionate 220 1 puff INHALATION BID 06/27/20 04/15/21 Unknown History mcg/actuation HFA aerosol inhaler (Flovent HFA) primidone 50 mg tablet 50 mg PO TID 06/27/20 04/15/21 04/14/21 History paroxetine HCl 20 mg tablet 20 mg PO DAILY tab 02/07/21 04/15/21 04/14/21 History albuterol sulfate 90 mcg/actuation 2 puff INHALATION Q4H PRN 04/15/21 04/15/21 Unknown History aerosol inhaler (Ventolin HFA) calcium carbonate 600 mg calcium 1 tab PO DAILY 04/15/21 04/15/21 04/14/21 History (1,500 mg) tablet (Calcium) carbidopa 25 mg-levodopa 100 mg 1 tab PO TID 04/15/21 04/15/21 04/14/21 History tablet meclizine 25 mg tablet 1 tab PO TID PRN 04/15/21 04/15/21 Unknown History omeprazole 20 mg capsule,delayed 1 cap PO DAILY 04/15/21 04/15/21 04/14/21 History release tiotropium bromide 2.5 2 puff INHALATION DAILY 04/15/21 04/15/21 04/14/21 History mcg/actuation mist for inhalation (Spiriva Respimat) Physical Exam Vital Signs and Narrative: Vital Signs: Last Vital Signs Temp 98.2 F 04/15/21 11:42 Pulse 88 04/15/21 11:42 Resp 17 04/15/21 11:42 BP 104/84 04/15/21 11:42 Pulse Ox 95 04/15/21 11:42 Body Mass Index 22.8 Physical exam: Appearance: Average build [place] Islander-speaking woman, not in distress Eyes: Pupils equal, round and reactive to light.? Sclera nonicteric.? ENT: Pharynx normal.? Moist mucous membranes. cvs: rrr, [id number] , has ICD left upper pectoral area. res: clear to auscultation ,no rhonchii or wheezing abd: no rebound or guarding ,nt, bs present. ext pulses present , no cyanosis ,Gait well balanced well coordinated. neuro: axo3 , nonfocal. Results Labs CBC and Chem 7: 04/15/21 07:18 04/15/21 07:18 Labs: Laboratory Results - last 24 hr 04/15/21 04/15/21 04/15/21 07:18 07:18 07:18 MCV 89.6 MCH 30.6 MCHC 34.1 RDW 14.0 Plt Count 167 MPV 10.0 Immature Gran % (Auto) 0.4 Neut % (Auto) 61.7 Lymph % (Auto) 22.2 [place] % (Auto) 9.7 Eos % (Auto) 4.9 H Baso % (Auto) 1.1 Lymph # (Auto) 1.8 [place] # (Auto) 0.8 Eos # (Auto) 0.4 Baso # (Auto) 0.1 Abs Immat Gran (auto) 0.03 Absolute Neuts (auto) 5.0 Absolute Nucleated RBC 0.000 Nucleated RBC % (auto) 0.0 Anion Gap 12 Estim Creat Clear Calc 44.5 Estimated GFR 60 Random Glucose 129 H Calcium 8.8 Troponin I High Sens 42.1 H* COVID-19 (SAILAJA) COVID-19 Clin Com 04/15/21 04/15/21 07:30 08:51 MCV MCH MCHC RDW Plt Count MPV Immature Gran % (Auto) Neut % (Auto) Lymph % (Auto) [place] % (Auto) Eos % (Auto) Baso % (Auto) Lymph # (Auto) [place] # (Auto) Eos # (Auto) Baso # (Auto) Abs Immat Gran (auto) Absolute Neuts (auto) Absolute Nucleated RBC Nucleated RBC % (auto) Anion Gap Estim Creat Clear Calc Estimated GFR Random Glucose Calcium Troponin I High Sens 40.3 H* COVID-19 (SAILAJA) Negative COVID-19 Clin Com See Note Imaging Radiologist's Impressions: Impressions Chest X-Ray 04/15/21 07:11 IMPRESSION: No acute cardiopulmonary process. Assessment and Plan (1) Unstable angina pectoris: Status: Acute (2) ICD (implantable cardioverter-defibrillator) in place: Status: Acute (3) CAD (coronary artery disease): Status: Acute 70-year-old female with history of coronary artery disease status post stent in 2013, , cardiomyopathy, status post ICD, HF with preserved EF: Came to the hospital because of chest pain. 1. Chest pain: Possible unstable angina Troponin flat EKG unchanged Chest pain-free Received aspirin in ambulance, given nitro On aspirin, statin,birlilanta,beta-hilary, ntg, ronalzine Continue Lovenox If patient has chest pain again we will repeat EKG, troponin. 2. Cardiomyopathy/ status post ICD, HF with preserved EF: Has ICD, euvolemic. On valsartan and beta-hilary 3. htn: continue home meds. 4. Hyperlipidemia: Continue statin 5. COPD: stable,Continue albuterol, spriva, montelukast 6.dm: Fingersticks with sliding scale coverage Hold p.o. dm medications 7. dvt prophylax : on lovenox. Above management discussed with patient and patient's Mr. Dakota gaona [id number], also taken( phone number is [phone]). Management with blood thinner as well as continue tele monitoring and cardiology evaluation they both understand and agreement with the plan , also discussed code status patient is full code, time spent 70 minutes. Quality Stroke Does the patient have a stroke diagnosis?: No VTE Prior VTE?: No VTE Risk Level:: Medical - moderate - high VTE Device Contraindication: Patient Refused VTE Drug Contraindication: N/A - Med Ordered
--- NOTE | 2021-04-15 12:24 | PHA.MEDREC ---
Pharmacy Consult ? Medication Reconciliation Pharmacy has completed the medication reconciliation. Patient had medication list from 12/2020 with many discrepancies and dose changes. Verified with patient that anastrozole, lasix were discontinued and doses were changed on valsartan and brilinta. We went over each line of the medication list I prepped with patient, myself, her , and the ese teacher. Brilinta dose is now 60mg BID, and valsartan is 40mg QD. She states she uses flovent PRN, and does not use the nitro patch on a regular basis. Thanks Beatris Yang Pharm D
[2021-04-15] MEDS: PARoxetine HCL 20 MG TABLET PO (13:18)
[2021-04-15] MEDS: Ezetimibe 10 MG TABLET PO (13:18)
[2021-04-15] MEDS: Metoprolol Tartrate 50 MG TABLET PO ×2 (13:18→20:31)
[2021-04-15] MEDS: Cholecalciferol (Vitamin D3) 25 MCG TABLET 50 MCG PO (13:18)
[2021-04-15] MEDS: Ferrous Sulfate 324 MG TABLET.DR PO (13:18)
[2021-04-15] MEDS: Enoxaparin Sodium 60 MG/0.6 ML SYRINGE 55 MG SUBCUT (13:19)
[2021-04-15] MEDS: Primidone 50 MG TABLET PO ×2 (15:40→21:46)
[2021-04-15] MEDS: Carbidopa/Levodopa 25/100 TABLET 1 TAB PO ×2 (15:40→20:31)
--- NOTE | 2021-04-15 15:42 | PC.NURSE ---
patient a&ox3, campus monitor intact, vss, pt medicated per order, family at bedside, will continue to monitor.
[2021-04-15 16:50] LABS: Glucose, Whole Blood 127 mg/dL (60-115)
[2021-04-15] MEDS: Omeprazole 20 MG CAPSULE.DR PO (18:17)
[2021-04-15] MEDS: 0.9 % Sodium Chloride Flush 3 ML SYRINGE IVFLUSH (18:18)
--- NOTE | 2021-04-15 18:30 | PC.NURSE ---
patient a&o, ambulated to bathroom [facility] assist, family at bedside who brought in dinner for her, pt ate 100% of her dinner, no c/o pain or discomfort, will continue to monitor.
[2021-04-15 19:56] LABS: Glucose, Whole Blood 138 mg/dL (60-115)
[2021-04-15] MEDS: Atorvastatin Calcium 80 MG TABLET PO (20:31)
[2021-04-15] MEDS: Montelukast Sodium 10 MG TABLET PO (20:31)
--- NOTE | 2021-04-15 20:58 | PC.NURSE ---
rt called for flovent
--- NOTE | 2021-04-15 20:58 | PC.NURSE ---
pharmacy called for missing meds
[2021-04-15] MEDS: Ranolazine 500 MG TAB.ER.12H PO (21:46)
[2021-04-16] VITALS (11 sets, daily range): BP systolic 114–169; BP diastolic 62–84; PULSE 63–85; RESP 17–24; TEMP 36.4–37.1; O2SAT 92–98
[2021-04-16] MEDS: Enoxaparin Sodium 60 MG/0.6 ML SYRINGE 55 MG SUBCUT (02:18)
[2021-04-16 07:06] LABS: Hematocrit 44.5 % (37.0-47.0); Hemoglobin 14.9 g/dl (12.0-16.0); Mean Corpuscular HGB Conc 33.5 g/dl (31.0-35.0); Mean Corpuscular Hemoglobin 30.1 pg (27.0-33.0); Mean Corpuscular Volume 89.9 fL (80.0-98.0); Platelet Count 181 X10*3/uL (160-400); Red Blood Count 4.95 X10*6/uL (4.20-5.50); White Blood Count 8.4 X10*3/uL (4.8-10.8)
[2021-04-16 07:24] LABS: Glucose, Whole Blood 147 mg/dL (60-115)
[2021-04-16] MEDS: Omeprazole 20 MG CAPSULE.DR PO ×2 (07:24→16:08)
[2021-04-16] MEDS: Carbidopa/Levodopa 25/100 TABLET 1 TAB PO ×3 (08:19→22:31)
[2021-04-16] MEDS: Cholecalciferol (Vitamin D3) 25 MCG TABLET 50 MCG PO (08:19)
[2021-04-16] MEDS: Ezetimibe 10 MG TABLET PO (08:19)
[2021-04-16] MEDS: Nitroglycerin 0.4 MG PATCH.TD24 TRANSDERMA (08:19)
[2021-04-16] MEDS: Aspirin Enteric Coated 81 MG TABLET.DR PO (08:19)
[2021-04-16] MEDS: PARoxetine HCL 20 MG TABLET PO (08:19)
[2021-04-16] MEDS: Metoprolol Tartrate 50 MG TABLET PO ×2 (08:19→22:31)
[2021-04-16] MEDS: Ferrous Sulfate 324 MG TABLET.DR PO (08:19)
[2021-04-16] MEDS: Ranolazine 500 MG TAB.ER.12H PO ×2 (09:25→22:31)
[2021-04-16] MEDS: Primidone 50 MG TABLET PO ×3 (09:25→22:31)
[2021-04-16] MEDS: methylPREDNISolone Sod Succ 40 MG/ML VIAL IVPUSH (10:45)
[2021-04-16] MEDS: ALPRAZolam 0.5 MG TABLET PO (10:45)
[2021-04-16] MEDS: Albuterol/Iprat 2.5/0.5MG 3 ML AMPUL.NEB INHALE ×3 (11:26→20:25)
--- NOTE | 2021-04-16 11:45 | P.CONCA_ITS ---
History of Present Illness History of Present Illness Date of Service: 04/16/21 Chief complaint: chest pain, elevated troponins Narrative: This is a cardiology consultation regarding chest pain. She is usually followed up in our office and she has numerous medical comorbidities including ischemic cardiomyopathy, coronary artery disease, LAD stents, ICD, hypertension among others. The consultation is for evaluation chest pain, but I questioned her repeatedly with a fixed route bus operator and she states that she never had any chest pain or so. From H&P however, she came because of chest pain which is constant central chest pressure, nonradiating and worse with cough. Patient continues to deny this and she states she came rather because of shortness of breath. Since arrival, she feels that she has improved a lot. Review of Systems Review of Systems: Yes all other systems are reviewed and are negative Cardiovascular: Cardiovascular: Reports as per HPI, Reports no additional cardiovascular complaints, Denies acrocyanosis, Denies cool extremities, Denies painful fingertips, Denies chest pain, Denies chest pain at rest, Denies diaphoresis, Denies syncope, Denies irregular heart rhythm, Denies claudication, Denies leg edema, Denies lightheadedness, Denies palpitations and Reports dyspnea Respiratory: Respiratory: Reports dyspnea Neurologic: Denies syncope Endocrine: Endocrine: Denies palpitations PMFSH Past Medical History Medical History Allergic rhinitis CAD (coronary artery disease) COPD (chronic obstructive pulmonary disease) Heart failure with reduced ejection fraction HTN (hypertension) Hyperlipidemia ICD (implantable cardioverter-defibrillator) in place Ischemic cardiomyopathy Family History Family History Father No problems noted. Mother CVD (cardiovascular disease) Diabetes Surgical History Surgical History History of implantable cardioverter-defibrillator (ICD) placement Hx of cardiac cath Stented coronary artery Social History Social History Alcohol intake: never Patient Tobacco Use Status: Former Tobacco user Years Smoked: 40 years Use of substances other than those prescribed or required for medical reasons: No Advance Directives: No Advance Directives Information Provided: No Meds Allergies Allergy/AdvReac Type Severity Reaction Status Date / Time ibuprofen [From Motrin] Allergy Mild HEART Verified 01/11/21 11:22 PALPITATIONS Active Medications: Current Medications Albuterol Sulfate (Albuterol Sulfate 90 Mcg 8 Gm Inhaler) 2 puff INHALE Q4H PRN PRN Reason: wheezing Albuterol/Ipratropium (Albuterol/Iprat 2.5/0.5mg 3 Ml Ampul.Neb) 3 ml INHALE R Q4H WHILE AWAKE [facility] Last Admin: 04/16/21 11:26 Dose: 3 ml Documented by: Albuterol/Ipratropium (Albuterol/Iprat 2.5/0.5mg 3 Ml Ampul.Neb) 3 ml INHALE RQ4H WHILE AWAKE PRN PRN Reason: sob Aspirin (Aspirin Enteric Coated 81 Mg Tablet.) 81 mg PO DAILY [facility] Last Admin: 04/16/21 08:19 Dose: 81 mg Documented by: Atorvastatin Calcium (Atorvastatin Calcium 80 Mg Tablet) 80 mg PO BEDTIME [facility] Last Admin: 04/15/21 20:31 Dose: 80 mg Documented by: Calcium Carbonate (Calcium Carbonate 500 Mg Tablet) 500 mg PO DAILY [facility] Last Admin: 04/16/21 08:19 Dose: 500 mg Documented by: Carbidopa/Levodopa (Carbidopa/Levodopa 25/100 Tablet) 1 tab PO TID [facility] Last Admin: 04/16/21 08:19 Dose: 1 tab Documented by: Dextrose (Dextrose 50 % 25 Gm/50 Ml Vial) 25 gm IVPUSH Q15M PRN; Protocol PRN Reason: per Hypoglycemia Standing Ord. Ezetimibe (Ezetimibe 10 Mg Tablet) 10 mg PO DAILY [facility] Last Admin: 04/16/21 08:19 Dose: 10 mg Documented by: Enoxaparin Sodium (Enoxaparin Sodium 60 Mg/0.6 Ml Syringe) 55 mg 1 mg/kg (55 mg) SUBCUT Q12H [facility] Last Admin: 04/16/21 02:18 Dose: 55 mg Documented by: Ferrous Sulfate (Ferrous Sulfate 324 Mg Tablet.) 324 mg PO DAILY [facility] Last Admin: 04/16/21 08:19 Dose: 324 mg Documented by: Fluticasone Propionate (Fluticasone Propionate 250 Mcg Blst.W.Dev) 1 puff INHALE RBID [facility] Last Admin: 04/16/21 08:43 Dose: Not Given Documented by: Glucose (Glucose Gel 15 Gm Gel..Gram.) 15 gm PO Q15M PRN; Protocol PRN Reason: per Hypoglycemia Standing Ord. Insulin Human Lispro (Insulin Lispro 100 Unit/Ml 3 Ml Vial) 0 unit SUBCUT QIDACHS [facility]; Protocol Last Admin: 04/16/21 07:27 Dose: Not Given Documented by: Meclizine HCl (Meclizine Hcl 25 Mg Tablet) 25 mg PO TID PRN PRN Reason: dizziness Metoprolol Tartrate (Metoprolol Tartrate 50 Mg Tablet) 50 mg PO BID [facility]; Protocol Last Admin: 04/16/21 08:19 Dose: 50 mg Documented by: Montelukast Sodium (Montelukast Sodium 10 Mg Tablet) 10 mg PO BEDTIME [facility] Last Admin: 04/15/21 20:31 Dose: 10 mg Documented by: Nitroglycerin (Nitroglycerin 0.4 Mg Patch.Td24) 0.4 mg TRANSDERMA DAILY [facility]; Protocol Last Admin: 04/16/21 08:19 Dose: 0.4 mg Documented by: Patient Own Medication ( Ticagrelor 60 Mg) 1 each PO BID [facility] Last Admin: 04/16/21 08:29 Dose: 1 each Documented by: Omeprazole (Omeprazole 20 Mg Capsule.Dr) 20 mg PO BID@0630,1630 [facility] Last Admin: 04/16/21 07:24 Dose: 20 mg Documented by: Paroxetine HCl (Paroxetine Hcl 20 Mg Tablet) 20 mg PO DAILY [facility] Last Admin: 04/16/21 08:19 Dose: 20 mg Documented by: Pharmacy Consult (Consult Rx Perform Med Rec) 1 each MISCELLANE ONCE PRN PRN Reason: Consult order Prednisone (Prednisone 20 Mg Tablet) 40 mg PO DAILY [facility] Primidone (Primidone 50 Mg Tablet) 50 mg PO TID [facility] Last Admin: 04/16/21 09:25 Dose: 50 mg Documented by: Ranolazine (Ranolazine 500 Mg Tab.Er.12h) 500 mg PO BID [facility] Last Admin: 04/16/21 09:25 Dose: 500 mg Documented by: Sodium Chloride (0.9 % Sodium Chloride Flush 3 Ml Syringe) 3 ml IVFLUSH QSHIFT [facility] Last Admin: 04/16/21 07:27 Dose: Not Given Documented by: Tiotropium [place] (Tiotropium [place] 18 Mcg Cap.W.Dev) 2 puff INHALE RDAILY [facility] Last Admin: 04/16/21 08:36 Dose: 2 puff Documented by: Vitamin D (Cholecalciferol (Vitamin D3) 25 Mcg Tablet) 50 mcg PO DAILY [facility] Last Admin: 04/16/21 08:19 Dose: 50 mcg Documented by: Home Medications Medication Instructions Recorded Confirmed Last Taken Type glipizide 5 mg tablet 10 mg PO BID 03/04/20 04/15/21 04/14/21 History montelukast 10 mg tablet 10 mg PO DAILY 03/04/20 04/15/21 04/14/21 History aspirin 81 mg tablet,delayed 81 mg PO DAILY 06/27/20 04/15/21 04/14/21 History release (Adult Low Dose Aspirin) cholecalciferol (vitamin D3) 25 50 mcg PO DAILY 06/27/20 04/15/21 04/14/21 Histo ry mcg (1,000 unit) capsule ferrous sulfate 325 mg (65 mg 325 mg PO DAILY 06/27/20 04/15/21 04/14/21 History iron) tablet fluticasone propionate 220 1 puff INHALATION BID 06/27/20 04/15/21 Unknown History mcg/actuation HFA aerosol inhaler (Flovent HFA) primidone 50 mg tablet 50 mg PO TID 06/27/20 04/15/21 04/14/21 History paroxetine HCl 20 mg tablet 20 mg PO DAILY tab 02/07/21 04/15/21 04/14/21 History albuterol sulfate 90 mcg/actuation 2 puff INHALATION Q4H PRN 04/15/21 04/15/21 Unknown History aerosol inhaler (Ventolin HFA) calcium carbonate 600 mg calcium 1 tab PO DAILY 04/15/21 04/15/21 04/14/21 History (1,500 mg) tablet (Calcium) carbidopa 25 mg-levodopa 100 mg 1 tab PO TID 04/15/21 04/15/21 04/14/21 History tablet meclizine 25 mg tablet 1 tab PO TID PRN 04/15/21 04/15/21 Unknown History omeprazole 20 mg capsule,delayed 1 cap PO DAILY 04/15/21 04/15/21 04/14/21 History release tiotropium bromide 2.5 2 puff INHALATION DAILY 04/15/21 04/15/21 04/14/21 History mcg/actuation mist for inhalation (Spiriva Respimat) Physical Exam Vital Signs: Vital Signs: Last Vital Signs Temp 98.2 F 04/15/21 19:27 Pulse 65 04/16/21 11:26 Resp 24 H 04/16/21 09:28 BP 154/71 H 04/16/21 09:28 Pulse Ox 96 04/16/21 09:28 Body Mass Index 22.8 Const: General: cooperative and no acute distress HENMT: Other: Unremarkable Neck: Neck: Yes normal visual inspection Chest: Chest palpation & inspection: normal inspection of the chest Resp: Auscultation: clear to auscultation bilaterally, no crackles and no wheezes Cardio: Jugular venous distension: no JVD Palpation: normal PMI Heart sounds: S1 normal heart sound present, S2 normal heart sound present, no gallops, no murmurs and no rubs GI: Palpation (GI): Soft to palpation Back/Spine/Pelvis: Other: unremarkable Skin: General skin exam: no rashes or lesions noted Neuro: Cranial nerves: Yes Other cranial nerve findings present Extrem: General: Yes no clubbing, cyanosis or edema Psych: Mental Status: other Results Labs and Meds Result diagrams: 04/16/21 06:49 04/15/21 07:18 Lab results: Laboratory Results - last 24 hr 04/15/21 04/15/21 04/16/21 16:47 19:52 06:49 WBC 8.4 RBC 4.95 Hgb 14.9 Hct 44.5 MCV 89.9 MCH 30.1 MCHC 33.5 RDW 14.0 Plt Count 181 MPV 10.0 Absolute Nucleated RBC 0.000 Nucleated RBC % (auto) 0.0 POC Glucose 127 H 138 H 04/16/21 07:16 WBC RBC Hgb Hct MCV MCH MCHC RDW Plt Count MPV Absolute Nucleated RBC Nucleated RBC % (auto) POC Glucose 147 H Assessment and Plan (1) Precordial chest pain: Status: Acute (2) SOB (shortness of breath): Status: Acute (3) Atherosclerotic cardiovascular disease: Status: Acute (4) Acute on chronic systolic (congestive) heart failure: Status: Acute (5) Ischemic cardiomyopathy: Status: Acute (6) ICD (implantable cardioverter-defibrillator) in place: Status: Acute (7) COPD (chronic obstructive pulmonary disease): Status: Acute Cardiac catheterization data reviewed from 2017. At that time, she had patent LAD and diagonal stent. Mild unchanged plaque in the circumflex and right coronary arteries. Comment on cardiac catheterization was that she had elevated troponins at least on 3 occasions, but negative findings on angiogram. Hence suspected vasospasm or microvascular disease. At the current time, troponin is flat and slightly elevated at 42 and 40. Last echocardiogram was in 2019 that shows LAD territory wall motion abnormality and EF of 30-35%. EKG shows sinus rhythm and nonspecific ST-T changes. Cannot exclude old septal infarct. Chest x-ray is unremarkable and shows nothing acute. Otherwise, vital signs show slightly elevated blood pressures at about 169/84 but otherwise unremarkable. Overall, no clear etiology to explain her symptoms. Possible mild heart failure exacerbation. Does not sound like acute coronary syndrome either. Does not need therapeutic Lovenox. Continue antiplatelet regimen as per home meds. Also on ranolazine that may be continued if she can bring it. On beta-blockers, statins, Zetia and may remain on these. Procedures Date of Service Date of Service: 04/16/21
[2021-04-16 12:00] LABS: Glucose, Whole Blood 134 mg/dL (60-115)
--- NOTE | 2021-04-16 12:26 | P.PNIM_ITS ---
Subjective Subjective Date of Service: 04/16/21 Interval History: Chest pain, elevated troponin, asthma excerebation Review of Systems Denies any chest pain, seems anxious and says short of breath.. Has some dry cough Denies any nausea vomiting or abdominal pain or fever or chills or weakness numbness. Physical Exam Vital Signs: Vital Signs: Last Vital Signs Temp 98.8 F 04/16/21 11:55 Pulse 70 04/16/21 11:55 Resp 17 04/16/21 11:55 BP 117/69 04/16/21 11:55 Pulse Ox 96 04/16/21 11:55 Body Mass Index 22.8 Physical exam: Appearance:? Anxious,not in distress Eyes: Pupils equal, round and reactive to light.? Sclera nonicteric.? ENT: Pharynx normal.? Moist mucous membranes. cvs: rrr, [id number] , has ICD left upper pectoral area. res: air entry fair , has some rhonchii abd: no rebound or guarding ,nt, bs present. ext pulses present , no cyanosis ,Gait well balanced well coordinated. neuro: axo3 , nonfocal. Objective Data Active Medications Albuterol Sulfate (Albuterol Sulfate 90 Mcg 8 Gm Inhaler) 2 puff INHALE Q4H PRN PRN Reason: wheezing Albuterol/Ipratropium (Albuterol/Iprat 2.5/0.5mg 3 Ml Ampul.Neb) 3 ml INHALE RQ4H WHILE AWAKE [facility] Last Admin: 04/16/21 11:26 Dose: 3 ml Documented by: NAKIA Albuterol/Ipratropium (Albuterol/Iprat 2.5/0.5mg 3 Ml Ampul.Neb) 3 ml INHALE RQ4H WHILE AWAKE PRN PRN Reason: sob Aspirin (Aspirin Enteric Coated 81 Mg Tablet.) 81 mg PO DAILY [facility] Last Admin: 04/16/21 08:19 Dose: 81 mg Documented by: BRYAN Atorvastatin Calcium (Atorvastatin Calcium 80 Mg Tablet) 80 mg PO BEDTIME [facility] Last Admin: 04/15/21 20:31 Dose: 80 mg Documented by: JEFFSOC Calcium Carbonate (Calcium Carbonate 500 Mg Tablet) 500 mg PO DAILY [facility] Last Admin: 04/16/21 08:19 Dose: 500 mg Documented by: BRYAN Carbidopa/Levodopa (Carbidopa/Levodopa 25/100 Tablet) 1 tab PO TID [facility] Last Admin: 04/16/21 08:19 Dose: 1 tab Documented by: BRYAN Dextrose (Dextrose 50 % 25 Gm/50 Ml Vial) 25 gm IVPUSH Q15M PRN; Protocol PRN Reason: per Hypoglycemia Standing Ord. Ezetimibe (Ezetimibe 10 Mg Tablet) 10 mg PO DAILY [facility] Last Admin: 04/16/21 08:19 Dose: 10 mg Documented by: BRYAN Ferrous Sulfate (Ferrous Sulfate 324 Mg Tablet.Dr) 324 mg PO DAILY [facility] Last Admin: 04/16/21 08:19 Dose: 324 mg Documented by: BRYAN Fluticasone Propionate (Fluticasone Propionate 250 Mcg Blst.W.Dev) 1 puff INHALE RBID [facility] Last Admin: 04/16/21 08:43 Dose: Not Given Documented by: NAKIA Non-Admin Reason: Patient Refused Glucose (Glucose Gel 15 Gm Gel..Gram.) 15 gm PO Q15M PRN; Protocol PRN Reason: per Hypoglycemia Standing Ord. Insulin Human Lispro (Insulin Lispro 100 Unit/Ml 3 Ml Vial) 0 unit SUBCUT QIDACHS [facility]; Protocol Last Admin: 04/16/21 12:23 Dose: Not Given Documented by: BRYAN Non-Admin Reason: No Insulin Coverage Meclizine HCl (Meclizine Hcl 25 Mg Tablet) 25 mg PO TID PRN PRN Reason: dizziness Metoprolol Tartrate (Metoprolol Tartrate 50 Mg Tablet) 50 mg PO BID [facility]; Protocol Last Admin: 04/16/21 08:19 Dose: 50 mg Documented by: BRYAN Montelukast Sodium (Montelukast Sodium 10 Mg Tablet) 10 mg PO BEDTIME [facility] Last Admin: 04/15/21 20:31 Dose: 10 mg Documented by: FRANCHESCA Nitroglycerin (Nitroglycerin 0.4 Mg Patch.Td24) 0.4 mg TRANSDERMA DAILY [facility]; Protocol Last Admin: 04/16/21 08:19 Dose: 0.4 mg Documented by: BRYAN Patient Own Medication ( Ticagrelor 60 Mg) 1 each PO BID [facility] Last Admin: 04/16/21 08:29 Dose: 1 each Documented by: BRYAN Omeprazole (Omeprazole 20 Mg Capsule.Dr) 20 mg PO BID@0630,1630 [facility] Last Admin: 04/16/21 07:24 Dose: 20 mg Documented by: BRYAN Paroxetine HCl (Paroxetine Hcl 20 Mg Tablet) 20 mg PO DAILY [facility] Last Admin: 04/16/21 08:19 Dose: 20 mg Documented by: BRYAN Pharmacy Consult (Consult Rx Perform Med Rec) 1 each MISCELLANE ONCE PRN PRN Reason: Consult order Prednisone (Prednisone 20 Mg Tablet) 40 mg PO DAILY [facility] Primidone (Primidone 50 Mg Tablet) 50 mg PO TID [facility] Last Admin: 04/16/21 09:25 Dose: 50 mg Documented by: BRYAN Ranolazine (Ranolazine 500 Mg Tab.Er.12h) 500 mg PO BID [facility] Last Admin: 04/16/21 09:25 Dose: 500 mg Documented by: BRYAN Sodium Chloride (0.9 % Sodium Chloride Flush 3 Ml Syringe) 3 ml IVFLUSH QSHIFT [facility] Last Admin: 04/16/21 07:27 Dose: Not Given Documented by: BRYAN Non-Admin Reason: Med Not Available Tiotropium [place] (Tiotropium [place] 18 Mcg Cap.W.Dev) 2 puff INHALE RDAILY [facility] Last Admin: 04/16/21 08:36 Dose: 2 puff Documented by: NAKIA Vitamin D (Cholecalciferol (Vitamin D3) 25 Mcg Tablet) 50 mcg PO DAILY [facility] Last Admin: 04/16/21 08:19 Dose: 50 mcg Documented by: BRYAN Labs CBC & Chem 7: 04/16/21 06:49 04/15/21 07:18 Labs: Laboratory Results - last 24 hr 04/15/21 04/15/21 04/16/21 16:47 19:52 06:49 MCV 89.9 MCH 30.1 MCHC 33.5 RDW 14.0 Plt Count 181 MPV 10.0 Absolute Nucleated RBC 0.000 Nucleated RBC % (auto) 0.0 POC Glucose 127 H 138 H 04/16/21 04/16/21 07:16 11:52 MCV MCH MCHC RDW Plt Count MPV Absolute Nucleated RBC Nucleated RBC % (auto) POC Glucose 147 H 134 H Assessment and Plan (1) Acute on chronic systolic (congestive) heart failure: Status: Acute (2) Heart failure with reduced ejection fraction: Status: Acute Assessment and Plan: ?70-year-old female with history of coronary artery disease status post stent in 2013, , cardiomyopathy, status post ICD, HF with preserved EF:? Came to the hospital because of chest pain. 1. Chest pain:? Possible unstable angina Troponin flat EKG unchanged Chest pain-free Received aspirin in ambulance, given nitro On aspirin, statin,birlilanta,beta-hilary, ntg, ronalzine and Lovenox cardiology eval pending 2. Cardiomyopathy/ status post ICD, HF with preserved EF: Has ICD, euvolemic. On valsartan? and beta-hilary 3. htn: continue home meds. 4. Hyperlipidemia:? Continue statin 5. mild asthma /COPDexcerebation:? hold albuterol, spriva, montelukast added nebs and steriods 6.dm:? Fingersticks with sliding scale coverage Hold p.o. dm medications 7. dvt prophylax : on lovenox. Quality Stroke Does the patient have a stroke diagnosis?: No VTE Prior VTE?: No VTE Risk Level:: Medical - moderate - high VTE Device Contraindication: Patient Refused VTE Drug Contraindication: N/A - Med Ordered
[2021-04-16 15:27] LABS: Glucose, Whole Blood 164 mg/dL (60-115)
[2021-04-16] MEDS: Furosemide 20 MG/2 ML VIAL IVPUSH (16:08)
--- NOTE | 2021-04-16 16:49 | MHC.CM.PN ---
CM met with admitted patient with bed assignment pending. Pt is a bit confused. Talking about needing to vote for [facility]. Pt knows she is in the hospital and can answer most CM questions. IMM reviewed with patient and daughter, and signed per protocol 04/16/2021@ 1605. HCP on file. HCP/daughter Renetta Wyman. Lives with son Andrea Sosa. Pt has [employer] through [employer]. Pt says 32 hours/week. Daughter is unsure of hours. Pt has a cane, wheelchair and walker. Pt states she does not use the wheelchair. Daughter tells CM that pt has Parkinson's along with her bad heart . Pt fully vaccinated with Moderna. Pt and daughter agreeable to PT evaluation. Dr. Kent notified. D/c plan is probable [facility]. Pt is agreeable, but daughter is unsure if pt will go. Daughter would like her mother to go to rehab in [place]. Referrals placed. CM to follow for d/c needs.
[2021-04-16 18:49] LABS: Ammonia 22 umol/L (13-55)
[2021-04-16 18:53] LABS: Alanine Aminotransferase 13 U/L (0-31); Albumin Level 4.5 g/dL (3.5-5.0); Alkaline Phosphatase 102 U/L (39-117); Aspartate Amino Transferase 18 U/L (5-31); Bilirubin Direct 0.2 mg/dL (0.0-0.5); Bilirubin Total 0.6 mg/dL (0.0-1.0); Total Protein 7.8 g/dL (6.5-8.0)
[2021-04-16 20:07] LABS: Appearance Urine CLEAR; Color Urine YELLOW; Glucose Urine UA 250 MG/DL (NEG); Leukocyte Esterase Urine NEG (NEG); Nitrite Urine NEG (NEG); PH 5.5 (5.0-8.0); Specific Gravity - Urine 1.015 (1.005-1.025); Urine Blood TRACE (NEG); Urine Ketones NEG (NEG); Urine Protein NEG (NEG-TRACE)
[2021-04-16 20:22] LABS: Glucose, Whole Blood 317 mg/dL (60-115)
[2021-04-16 20:23] LABS: Bacteria Urine TRACE /LPF; Hyaline Casts Urine 0-2 /LPF; Squamous Epithelial Cell Urine TRACE /LPF; WBC Urine 0-2 /HPF (0-4)
[2021-04-16] MEDS: Insulin Lispro 100 UNIT/ML 3 ML VIAL SUBCUT (22:31)
[2021-04-16] MEDS: Montelukast Sodium 10 MG TABLET PO (22:31)
[2021-04-16] MEDS: Atorvastatin Calcium 80 MG TABLET PO (22:31)
[2021-04-16] MEDS: 0.9 % Sodium Chloride Flush 3 ML SYRINGE IVFLUSH (22:38)
[2021-04-17] VITALS (8 sets, daily range): BP systolic 106–110; BP diastolic 50–70; PULSE 50–85; RESP 16–18; TEMP 36.5–37.4; O2SAT 92–99; BMI 22.8
[2021-04-17] MEDS: Omeprazole 20 MG CAPSULE.DR PO ×2 (05:06→15:45)
--- NOTE | 2021-04-17 06:06 | PC.NURSE ---
pt resting throughout night with family at bedside, pt confused which family reports is new since being admitted for chest pain. alert to person and able to say birthday but otherwise confused to place and situation. 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 q2hour neuros all night remain stable. Md at bedside to see pt.
[2021-04-17] MEDS: Albuterol/Iprat 2.5/0.5MG 3 ML AMPUL.NEB INHALE ×2 (07:57→15:28)
[2021-04-17] MEDS: Fluticasone Propionate 250 MCG BLST.W.DEV 1 PUFF INHALE (07:57)
[2021-04-17 08:08] LABS: Glucose, Whole Blood 126 mg/dL (60-115)
[2021-04-17] MEDS: Primidone 50 MG TABLET PO ×2 (09:11→15:45)
[2021-04-17] MEDS: Aspirin Enteric Coated 81 MG TABLET.DR PO (09:11)
[2021-04-17] MEDS: Ferrous Sulfate 324 MG TABLET.DR PO (09:11)
[2021-04-17] MEDS: Ezetimibe 10 MG TABLET PO (09:11)
[2021-04-17] MEDS: Ranolazine 500 MG TAB.ER.12H PO (09:12)
[2021-04-17] MEDS: Metoprolol Tartrate 50 MG TABLET PO (09:12)
[2021-04-17] MEDS: Cholecalciferol (Vitamin D3) 25 MCG TABLET 50 MCG PO (09:12)
[2021-04-17] MEDS: PARoxetine HCL 20 MG TABLET PO (09:14)
[2021-04-17] MEDS: Carbidopa/Levodopa 25/100 TABLET 1 TAB PO ×2 (09:16→15:45)
[2021-04-17] MEDS: Nitroglycerin 0.4 MG PATCH.TD24 TRANSDERMA (09:16)
[2021-04-17] MEDS: 0.9 % Sodium Chloride Flush 3 ML SYRINGE IVFLUSH ×2 (09:20→15:45)
--- NOTE | 2021-04-17 11:01 | PM.PNCARD ---
Subjective Subjective Date of Service: 04/17/21 Interval history: States that she is fine. No cardiac complaints. Review of Systems Review of Systems Yes all other systems are reviewed and are negative Cardiovascular: Reports as per HPI, Reports no additional cardiovascular complaints, Denies acrocyanosis, Denies cool extremities, Denies painful fingertips, Denies chest pain, Denies chest pain at rest, Denies diaphoresis, Denies syncope, Denies irregular heart rhythm, Denies claudication, Denies leg edema, Denies lightheadedness, Denies palpitations and Reports dyspnea Respiratory: Reports dyspnea Denies syncope Endocrine: Denies palpitations Physical Exam Vital Signs: Last Vital Signs Temp 97.9 F 04/17/21 07:35 Pulse 85 04/17/21 09:16 Resp 18 04/17/21 07:35 BP 106/50 L 04/17/21 09:16 Pulse Ox 93 04/17/21 07:35 Body Mass Index 22.8 Const General: cooperative and no acute distress HENAL Other: Unremarkable Neck Neck: Yes normal visual inspection Chest Chest palpation & inspection: normal inspection of the chest Resp Auscultation: clear to auscultation bilaterally, no crackles and no wheezes Cardio Jugular venous distension: no JVD Palpation: normal PMI Heart sounds: S1 normal heart sound present, S2 normal heart sound present, no gallops, no murmurs and no rubs GI Palpation (GI): Soft to palpation Back/Spine/Pelvis Other: unremarkable Skin General skin exam: no rashes or lesions noted Neuro Cranial nerves: Yes Other cranial nerve findings present Extrem General: Yes no clubbing, cyanosis or edema Psych Mental Status: other Results Labs and Meds Result diagrams: 04/16/21 06:49 04/15/21 07:18 Lab results: Laboratory Results - last 24 hr 04/16/21 04/16/21 04/16/21 11:52 13:15 16:04 POC Glucose 134 H 164 H Total Bilirubin Direct Bilirubin AST ALT Alkaline Phosphatase Ammonia Total Protein Albumin Urine Color Cancelled Urine Appearance Cancelled Urine pH Cancelled Ur Specific [place] Cancelled Urine Protein Cancelled Urine Glucose (UA) Cancelled Urine Ketones Cancelled Urine Blood Cancelled Urine Nitrite Cancelled Ur Leukocyte Esterase Cancelled Urine RBC Urine WBC Ur Squamous Epith Cells Urine Bacteria Hyaline Casts 04/16/21 04/16/21 04/16/21 18:30 18:30 19:45 POC Glucose Total Bilirubin 0.6 Direct Bilirubin 0.2 AST 18 ALT 13 Alkaline Phosphatase 102 D Ammonia 22 Total Protein 7.8 D Albumin 4.5 D Urine Color YELLOW Urine Appearance CLEAR Urine pH 5.5 Ur Specific [place] 1.015 Urine Protein NEG Urine Glucose (UA) 250 H Urine Ketones NEG Urine Blood TRACE Urine Nitrite NEG Ur Leukocyte Esterase NEG Urine RBC 5-9 H Urine WBC 0-2 Ur Squamous Epith Cells TRACE Urine Bacteria TRACE Hyaline Casts 0-2 04/16/21 04/17/21 20:19 07:41 POC Glucose 317 H 126 H Total Bilirubin Direct Bilirubin AST ALT Alkaline Phosphatase Ammonia Total Protein Albumin Urine Color Urine Appearance Urine pH Ur Specific [place] Urine Protein Urine Glucose (UA) Urine Ketones Urine Blood Urine Nitrite Ur Leukocyte Esterase Urine RBC Urine WBC Ur Squamous Epith Cells Urine Bacteria Hyaline Casts Imaging Radiologist's impression: Impressions Head CT 04/16/21 18:12 IMPRESSION: No acute intracranial pathology. Progress Note: A&P Assessment and plan (1) Precordial chest pain: Status: Acute (2) SOB (shortness of breath): Status: Acute (3) Atherosclerotic cardiovascular disease: Status: Acute (4) Acute on chronic systolic (congestive) heart failure: Status: Acute (5) Ischemic cardiomyopathy: Status: Acute (6) ICD (implantable cardioverter-defibrillator) in place: Status: Acute (7) COPD (chronic obstructive pulmonary disease): Status: Acute Assessment and Plan: Cardiac catheterization data reviewed from 2017. At that time, she had patent LAD and diagonal stent. Mild unchanged plaque in the circumflex and right coronary arteries. Comment on cardiac catheterization was that she had elevated troponins at least on 3 occasions, but negative findings on angiogram. Hence suspected vasospasm or microvascular disease. At the current time, troponin is flat and slightly elevated at 42 and 40. Last echocardiogram was in 2020 that shows LAD territory wall motion abnormality and EF of 30-35%. EKG shows sinus rhythm and nonspecific ST-T changes. Cannot exclude old septal infarct. Chest x-ray is unremarkable and shows nothing acute. Otherwise, vital signs show slightly elevated blood pressures at about 169/84 but otherwise unremarkable- improved since admit and now normal. Overall, no clear etiology to explain her symptoms. Possible mild heart failure exacerbation. Episode of resolved microvascular angina vs vasospasm??. Does not sound like acute coronary syndrome either. Does not need therapeutic Lovenox. Continue antiplatelet regimen as per home meds. Also on ranolazine that may be continued if she can bring it. On beta-blockers, statins, Zetia and may remain on these. Fu in office. Fall Risk Details Current Medications: Current Medications Albuterol Sulfate (Albuterol Sulfate 90 Mcg 8 Gm Inhaler) 2 puff INHALE Q4H PRN PRN Reason: wheezing Albuterol/Ipratropium (Albuterol/Iprat 2.5/0.5mg 3 Ml Ampul.Neb) 3 ml INHALE RQ4H WHILE AWAKE [facility] Last Admin: 04/17/21 07:57 Dose: 3 ml Documented by: Albuterol/Ipratropium (Albuterol/Iprat 2.5/0.5mg 3 Ml Ampul.Neb) 3 ml INHALE RQ4H WHILE AWAKE PRN PRN Reason: sob Aspirin (Aspirin Enteric Coated 81 Mg Tablet.) 81 mg PO DAILY [facility] Last Admin: 04/17/21 09:11 Dose: 81 mg Documented by: Atorvastatin Calcium (Atorvastatin Calcium 80 Mg Tablet) 80 mg PO BEDTIME [facility] Last Admin: 04/16/21 22:31 Dose: 80 mg Documented by: Calcium Carbonate (Calcium Carbonate 500 Mg Tablet) 500 mg PO DAILY [facility] Last Admin: 04/17/21 09:12 Dose: 500 mg Documented by: Carbidopa/Levodopa (Carbidopa/Levodopa 25/100 Tablet) 1 tab PO TID [facility] Last Admin: 04/17/21 09:16 Dose: 1 tab Documented by: Dextrose (Dextrose 50 % 25 Gm/50 Ml Vial) 25 gm IVPUSH Q15M PRN; Protocol PRN Reason: per Hypoglycemia Standing Ord. Ezetimibe (Ezetimibe 10 Mg Tablet) 10 mg PO DAILY [facility] Last Admin: 04/17/21 09:11 Dose: 10 mg Documented by: Ferrous Sulfate (Ferrous Sulfate 324 Mg Tablet.) 324 mg PO DAILY [facility] Last Admin: 04/17/21 09:11 Dose: 324 mg Documented by: Fluticasone Propionate (Fluticasone Propionate 250 Mcg Blst.W.Dev) 1 puff INHALE RBID [facility] Last Admin: 04/17/21 07:57 Dose: 1 puff Documented by: Furosemide (Furosemide 20 Mg/2 Ml Vial) 20 mg IVPUSH DAILY [facility]; Protocol Last Admin: 04/17/21 09:51 Dose: Not Given Documented by: Glucose (Glucose Gel 15 Gm Gel..Gram.) 15 gm PO Q15M PRN; Protocol PRN Reason: per Hypoglycemia Standing Ord. Insulin Human Lispro (Insulin Lispro 100 Unit/Ml 3 Ml Vial) 0 unit SUBCUT QIDACHS [facility]; Protocol Last Admin: 04/17/21 09:19 Dose: Not Given Documented by: Meclizine HCl (Meclizine Hcl 25 Mg Tablet) 25 mg PO TID PRN PRN Reason: dizziness Metoprolol Tartrate (Metoprolol Tartrate 50 Mg Tablet) 50 mg PO BID [facility]; Protocol Last Admin: 04/17/21 09:12 Dose: 50 mg Documented by: Montelukast Sodium (Montelukast Sodium 10 Mg Tablet) 10 mg PO BEDTIME [facility] Last Admin: 04/16/21 22:31 Dose: 10 mg Documented by: Nitroglycerin (Nitroglycerin 0.4 Mg Patch.Td24) 0.4 mg TRANSDERMA DAILY [facility]; Protocol Last Admin: 04/17/21 09:16 Dose: 0.4 mg Documented by: Patient Own Medication ( Ticagrelor 60 Mg) 1 each PO BID [facility] Last Admin: 04/17/21 09:22 Dose: 1 each Documented by: Omeprazole (Omeprazole 20 Mg Capsule.Dr) 20 mg PO BID@0630,1630 [facility] Last Admin: 04/17/21 05:06 Dose: 20 mg Documented by: Paroxetine HCl (Paroxetine Hcl 20 Mg Tablet) 20 mg PO DAILY [facility] Last Admin: 04/17/21 09:14 Dose: 20 mg Documented by: Pharmacy Consult (Consult Rx Perform Med Rec) 1 each MISCELLANE ONCE PRN PRN Reason: Consult order Primidone (Primidone 50 Mg Tablet) 50 mg PO TID [facility] Last Admin: 04/17/21 09:11 Dose: 50 mg Documented by: Ranolazine (Ranolazine 500 Mg Tab.Er.12h) 500 mg PO BID [facility] Last Admin: 04/17/21 09:12 Dose: 500 mg Documented by: Sodium Chloride (0.9 % Sodium Chloride Flush 3 Ml Syringe) 3 ml IVFLUSH QSHIFT [facility] Last Admin: 04/17/21 09:20 Dose: 3 ml Documented by: Tiotropium [place] (Tiotropium [place] 18 Mcg Cap.W.Dev) 2 puff INHALE RDAILY [facility] Last Admin: 04/17/21 07:57 Dose: 2 puff Documented by: Vitamin D (Cholecalciferol (Vitamin D3) 25 Mcg Tablet) 50 mcg PO DAILY [facility] Last Admin: 04/17/21 09:12 Dose: 50 mcg Documented by: Time Spent With Patient Time: Total time spent is greater than 50% in coordination of care (as documented) at patient's floor/unit and/or counseling patient: Time with patient: less than 15 minutes Progress Note: Quality Stroke Does the patient have a stroke diagnosis?: No Procedures Date of Service Date of Service: 04/17/21
[2021-04-17 11:28] LABS: Glucose, Whole Blood 221 mg/dL (60-115)
[2021-04-17] MEDS: Insulin Lispro 100 UNIT/ML 3 ML VIAL SUBCUT (12:03)
--- NOTE | 2021-04-17 14:57 | PM.DS ---
DS: Providers Provider Date of Service: 04/17/21 Date of admission: 04/15/21 12:18 Date of discharge: 04/17/21 Primary care physician: Dilshad Morrell MD Consults: 04/15/21 11:35 Consult to Cardiology Routine Consulting Provider: Adis Abdi Reason for consultation: chest pain , elevated troponins Has provider been notified: No 04/16/21 17:41 Consult to Neurology Routine Consulting Provider: [facility] Reason for consultation: ams unclear, hx of parkinson dis Has provider been notified: No DS: Diagnosis Discharge Diagnosis (1) Precordial chest pain: Status: Acute (2) SOB (shortness of breath): Status: Acute (3) Atherosclerotic cardiovascular disease: Status: Acute (4) Acute on chronic systolic (congestive) heart failure: Status: Acute (5) Ischemic cardiomyopathy: Status: Acute (6) ICD (implantable cardioverter-defibrillator) in place: Status: Acute (7) COPD (chronic obstructive pulmonary disease): Status: Acute DS: Summary Hospital Course Hospital Course: This is a 70-year-old Kyrgyz-speaking female with past medical history of coronary artery disease status post stent in 2013, COPD, CHF with reduced ejection fraction, hypertension, hyperlipidemia, ICD in place and ischemic cardiomyopathy who presented to the hospital on 04/15 with complaints of chest pain. Patient underwent extensive workup including troponin which were 40 and 41, EKG showed no suggestive of ACS. Patient was evaluated by Cardiology, of from her cardiac catheterization from 2017 were reviewed , at that time patient had patent LAD and diagonal stent. Mild on change [place]h in the circumflex and right coronary arteries. Her chest pain is suspected to be microvascular angina versus vasospasm. She has no chest pain at this time with complete resolution of her symptoms. Patient also was treated for mild volume overload with IV Lasix. Patient is currently euvolemic. Cardiology recommended discharge on antiplatelet regimen as per home dose, ranolazine, beta-hilary, statin, aspirin and Zetia Patient developed acute confusion on 04/16, CT head was negative. MRI cannot be conducted as patient has an ICD that is not MRI compatible. She currently is alert and oriented x3. No acute complaints, no neurological deficits Patient follow-up outpatient with Cardiology Spoke to her daughter at length, if patient develops any acute neurological deficits to return to the hospital. Time Spent with Patient Time attestation: Total time spent providing and/or coordinating discharge services: Discharge coordination time: Greater than 30 minutes Quality: Stroke Does the patient have a stroke diagnosis?: No Physical Exam Vital Signs: Vital Signs: Last Vital Signs Temp 97.7 F 04/17/21 11:05 Pulse 63 04/17/21 11:05 Resp 18 04/17/21 11:05 BP 109/55 L 04/17/21 11:05 Pulse Ox 95 04/17/21 11:05 Body Mass Index 22.8 Const: General: cooperative and no acute distress Orientation/consciousness: patient oriented x3 Eyes: Pupils: Equal, round and reactive pupils present Resp: Effort & Inspection: normal respiratory effort, able to speak in complete sentences and abnormal respiratory pattern Auscultation: clear to auscultation bilaterally Cardio: Rate: regular rate Rhythm: regular rhythm GI: Palpation (GI): Soft to palpation Auscultation: normal bowel sounds Neuro: General: patient oriented x3 Cranial nerves: Yes Equal, round and reactive pupils present Cognition (Neuro): normal cognition Extrem: General: Yes normal to inspection and Yes no pedal edema DS: Data Data Completed and Pending Labs on day of discharge: Laboratory Results - last 24 hr 04/16/21 04/16/21 04/16/21 13:15 16:04 18:30 POC Glucose 164 H Total Bilirubin 0.6 Direct Bilirubin 0.2 AST 18 ALT 13 Alkaline Phosphatase 102 D Ammonia Total Protein 7.8 D Albumin 4.5 D Urine Color Cancelled Urine Appearance Cancelled Urine pH Cancelled Ur Specific [place] Cancelled Urine Protein Cancelled Urine Glucose (UA) Cancelled Urine Ketones Cancelled Urine Blood Cancelled Urine Nitrite Cancelled Ur Leukocyte Esterase Cancelled Urine RBC Urine WBC Ur Squamous Epith Cells Urine Bacteria Hyaline Casts 04/16/21 04/16/21 04/16/21 18:30 19:45 20:19 POC Glucose 317 H Total Bilirubin Direct Bilirubin AST ALT Alkaline Phosphatase Ammonia 22 Total Protein Albumin Urine Color YELLOW Urine Appearance CLEAR Urine pH 5.5 Ur Specific [place] 1.015 Urine Protein NEG Urine Glucose (UA) 250 H Urine Ketones NEG Urine Blood TRACE Urine Nitrite NEG Ur Leukocyte Esterase NEG Urine RBC 5-9 H Urine WBC 0-2 Ur Squamous Epith Cells TRACE Urine Bacteria TRACE Hyaline Casts 0-2 11/09/21 11/09/21 07:41 11:04 POC Glucose 126 H 221 H Total Bilirubin Direct Bilirubin AST ALT Alkaline Phosphatase Ammonia Total Protein Albumin Urine Color Urine Appearance Urine pH Ur Specific [place] Urine Protein Urine Glucose (UA) Urine Ketones Urine Blood Urine Nitrite Ur Leukocyte Esterase Urine RBC Urine WBC Ur Squamous Epith Cells Urine Bacteria Hyaline Casts Discharge Plan Discharge Patient Disposition: Home, Self-Care Discharge Diagnosis: Chest pain, CHF exacerbation Referrals: Dilshad Morrell MD [Primary Care Provider] - 1 Week Adis Abdi MD [Physician] - 1 Week Discharge Medications: Continued ticagrelor [Brilinta] 60 mg tablet 60 mg PO BID Qty: 60 RF: 5 ranolazine 500 mg tablet extended release 12 hr 500 mg PO BID 90 Days Qty: 180 RF: 1 valsartan [Diovan] 40 mg tablet 40 mg PO DAILY 30 Days Qty: 30 RF: 3 rosuvastatin 40 mg tablet 40 mg PO DAILY Qty: 30 RF: 5 ezetimibe 10 mg tablet 10 mg PO DAILY Qty: 30 RF: 5 nitroglycerin 0.4 mg/hr patch 24 hour 1 patch topical DAILY Qty: 30 RF: 5 metoprolol tartrate 50 mg tablet 50 mg PO BID 90 Days Qty: 180 RF: 1 calcium carbonate [Calcium 600] 600 mg calcium (1,500 mg) tablet 1 tab PO DAILY RF: 0 omeprazole 20 mg capsule,delayed release(DR/EC) 1 cap PO DAILY RF: 0 albuterol sulfate [Ventolin HFA] 90 mcg/actuation HFA aerosol inhaler 2 puff inhalation Q4H PRN (Reason: wheezing) RF: 0 carbidopa-levodopa 25-100 mg tablet 1 tab PO TID RF: 0 meclizine 25 mg tablet 1 tab PO TID PRN (Reason: dizziness) RF: 0 Spiriva Respimat 2.5 mcg/actuation mist 2 puff inhalation DAILY RF: 0 montelukast 10 mg tablet 10 mg PO DAILY RF: 0 glipizide 5 mg tablet 10 mg PO BID RF: 0 paroxetine HCl 20 mg tablet 20 mg PO DAILY RF: 0 aspirin [Adult Low Dose Aspirin] 81 mg tablet,delayed release (DR/EC) 81 mg PO DAILY RF: 0 ferrous sulfate 325 mg (65 mg iron) tablet 325 mg PO DAILY RF: 0 primidone 50 mg tablet 50 mg PO TID RF: 0 Flovent HFA 220 mcg/actuation HFA aerosol inhaler 1 puff inhalation BID RF: 0 cholecalciferol (vitamin D3) 25 mcg (1,000 unit) capsule 50 mcg PO DAILY RF: 0 Discharge Orders: Discharge Order (Routine); Ordered 04/17/21 Ordered By: Renu Mojica Diet: advance to usual diet Activity on Discharge: As tolerated Stand Alone Forms: Patient Portal Discharge page Care Plan Goals: Patient admitted to the hospital for evaluation of chest pain. Evaluated by Cardiology, no clear etiology of chest pain. No new changes on EKG, troponin remained flat with no significant elevation of troponin. She has been chest free for 2 days, continue aspirin, statin, Brilinta, beta-hilary, p.r.n. nitroglycerin, ranolazine Patient also has history of heart failure, felt to be in mild CHF exacerbation, received Lasix IV and is now euvolemic. Follow cardiology outpatient Health Concerns: Chest pain Plan of Treatment: Continue to follow-up with cardiology Continue home medications Assessment: As above
--- NOTE | 2021-04-17 14:58 | MHC.CM.PN ---
IMM 04/16/21 [id number] Chest pain is discharged to home today. No home services needed. Family is providing transportation home.
[2021-04-17 16:30] LABS: Glucose, Whole Blood 118 mg/dL (60-115)
== END 2021-04-17 18:29 | disposition home or self-care (01) | DRG 291 ==
LOC: HO.ED 11:27 → HO.EDOVER 12:27 → HO.IMC 04-16 16:00
PROVIDERS: Admitting Provider Internal Medicine; Emergency Provider Emergency Medicine Emergency Medical Services; PCP Internal Medicine; Visit Provider Internal Medicine
DX: I11.0 Hypertensive heart disease with heart failure (principal); I50.23 Acute on chronic systolic (congestive) heart failure; Z20.822 Contact with and (suspected) exposure to COVID-19; E78.5 Hyperlipidemia, unspecified; J44.9 Chronic obstructive pulmonary disease, unspecified; I25.5 Ischemic cardiomyopathy; Z87.891 Personal history of nicotine dependence; R07.2 Precordial pain; I25.10 Atherosclerotic heart disease of native coronary artery without angina pectoris; Z95.810 Presence of automatic (implantable) cardiac defibrillator; I25.2 Old myocardial infarction; Z88.6 Allergy status to analgesic agent; Z79.51 Long term (current) use of inhaled steroids; Z79.82 Long term (current) use of aspirin; Z79.899 Other long term (current) drug therapy
CPT/HCPCS: 36415; 70450; 71045; 80048; 80076; 81001; 81003; 82140; 82947; 84484; 85025; 85027; 87635; 93005; 94640; 94645; 96372; 99285; J1650; J1940; J2920

== ENCOUNTER → 2021-04-25 10:51 | Outpatient (BNVA) | payer MEDICARE, MEDICAID, SELFPAY | PROVIDERS: PCP Internal Medicine; Visit Provider Internal Medicine | DX: J44.9 Chronic obstructive pulmonary disease, unspecified (principal); J30.9 Allergic rhinitis, unspecified; R06.00 Dyspnea, unspecified; I25.10 Atherosclerotic heart disease of native coronary artery without angina pectoris; I25.5 Ischemic cardiomyopathy; I11.0 Hypertensive heart disease with heart failure; I50.20 Unspecified systolic (congestive) heart failure; E78.5 Hyperlipidemia, unspecified; Z87.891 Personal history of nicotine dependence; Z88.8 Allergy status to other drugs, medicaments and biological substances; Z95.5 Presence of coronary angioplasty implant and graft; Z95.810 Presence of automatic (implantable) cardiac defibrillator; Z98.890 Other specified postprocedural states; Z79.82 Long term (current) use of aspirin; Z79.84 Long term (current) use of oral hypoglycemic drugs; Z79.899 Other long term (current) drug therapy | CPT/HCPCS: 99212 ==

== ENCOUNTER → 2021-06-27 13:52 | Outpatient (REF) | payer MEDICARE, MEDICAID, SELFPAY ==
--- NOTE | 2021-06-27 13:59 | CA_ITS ---
Transthoracic Echocardiogram Patient (Last, First, Middle): Florinda Oconnell L Gender: Female Date of : 1950 Age: 70 Procedure Date: 06/27/2021 Procedure Type: Transthoracic Echocardiogram Location: OP Height: 157.48 cm Weight: 56.7 kg BSA: 1.57 m2 Heart Rate: bpm BP: 124 / 60 mmHg Dyer Helper: VH Referring MD: Yady Marsh [employer] Symptoms: I50.20 - Unspecified systolic (congestive) heart failure Study Quality: Fair ECG Rhythm: Sinus Conclusions: - 1. Severe LV systolic dysfunction with LVEF of 20-25% with grade 1 diastolic dysfunction 2. Normal cardiac valvular Doppler 3. Normal RV systolic pressure 4. No significant pericardial effusion Findings Left Ventricle Normal left ventricular cavity size. There is normal left ventricular wall thickness. The left ventricular systolic function is severely decreased. The visually estimated ejection fraction is between 20-25%. Spectral Doppler is indicative of an impaired relaxation filling pattern. E/E prime ratio is <8, consistent with normal filling pressures. Evidence suggests grade I (mild) diastolic dysfunction. Wall Motion Rest Echo Findings The apical inferior segment is hypokinetic. The anteroseptal wall, the apical anterior, mid anterior, and mid inferoseptal segments are akinetic. The apex segment is dyskinetic. All other scored wall segments showed normal motion. Right Ventricle Normal right ventricular cavity size and systolic function. There is an ICD wire seen in the right ventricle. Atria The left atrium is normal in size. Interatrial shunt cannot be excluded. The right atrium is normal in size. Aortic Valve The aortic valve structure and function is likely normal. There is no aortic valve stenosis. There is no aortic valve regurgitation. Mitral Valve There is mild anterior and posterior mitral leaflet thickening. There is trace mitral valve regurgitation. There is no mitral valve stenosis. Pulmonic Valve The pulmonic valve was not well visualized. Tricuspid Valve There is trace tricuspid valve regurgitation. The right ventricular systolic pressure is normal. The right ventricular systolic pressure is 13 mmHg. There is no evidence of pulmonary hypertension. Great Vessels All visible segments of the aorta are normal in size. The pulmonary artery was not well visualized. Venous The inferior vena cava is normal in size and collapses greater than 50% with inspiration. Pericardium/Pleural There is no evidence of pericardial effusion. Prior Study Comparison Changes noted compared to prior study dated: 04/11/2020. LV systolic function is reduced Measurements 2D Linear Measurements IVSd: 0.81 0.6-0.9/0.6-1.0 cm LVIDd: 4.92 3.9-5.3/4.2-5.9 cm LVIDd Index: 3.13 2.4-3.2/2.2-3.1 cm/m2 LVIDs: 3.85 2.0-3.6 cm LVPWd: 0.92 0.7-1.1 cm Ao Root: 2.70 2.1-3.5 cm LA Diam: 3.30 2.7-3.8/3.0-4.0 cm LAIDs Index: 2.10 1.5-2.3 cm/m2 LV Mass: 299.28 67-162/88-224 g LV Mass Index: 190.63 43-95/49-115 g/m2 LVOT Diam: 1.90 3.0+(-)1.3 cm 2D Systolic Function EF 4C: 19.40 >55% EF 2C: 23.30 >55% EF BiP: 19.90 >55% Mitral Valve MV Pk E: 0.42 MV PK A: 1.12 MV Decel Time: 117.00 E/A: 0.40 E'Lateral: 4.24 E'Medial: 3.48 E/E' Med: 12.00 E/E' Lat: 9.80 PHT: 34.00 MVA PHT: 6.47 Decel [place]: 3.54 Aortic Valve AoV Pk [place]: 1.13 AoV Mn [place]: 0.72 AoV VTI: 0.24 AoV Pk Grad: 5.00 Aov Mn Grad: 3.00 LESIA Cont.VTI: 1.92 LVOT LVOT Pk [place]: 0.73 LVOT Mn [place]: 0.47 LVOT VTI: 0.16 LVOT Pk Grad: 2.00 LVOT Mn Grad: 1.00 LVOT Diam: 1.90 LVOT Area: 2.84 Diastolic Function MV Pk E: 0.42 MV Pk A: 1.12 E/A: 0.40 E'Medial: 3.48 E/E' Med: 12.00 E' Laterial: 4.24 E/E' Lat: 9.80 Right Ventricle TAPSE (mm): 17.00 TVS' [place]: 11.00 Tricuspid Valve TR Pk [place]: 1.56 TR Pk Grad: 10.00 RA Press: 3.00 RVSP: 13.00 Great Vessels Aorta Ao Root-2D: 2.70 2.0-3.7 cm Ao Asc: 3.10 2.1-3.4 cm Pulmonary Valve PV Pk [place]: 0.86 Peak PV Grad: 3.00 Updated in Other Vendor System with Status of Final Adis Abdi MD electronically signed on 06/28/2021 8:23:19 AM with status of Final
== END ==
LOC: HO.CARD 13:52
PROVIDERS: Visit Provider Nurse Practitioner Family
DX: I25.10 Atherosclerotic heart disease of native coronary artery without angina pectoris (principal); I25.5 Ischemic cardiomyopathy; I50.20 Unspecified systolic (congestive) heart failure
CPT/HCPCS: 93306

== ENCOUNTER 2021-07-10 | Outpatient (REF) | payer MEDICARE, MEDICAID, SELFPAY ==
--- NOTE | ~2021-07-10 | CT_ITS ---
EXAMINATION: CT HEAD WITHOUT CONTRAST CLINICAL INFORMATION: Altered mental status. COMPARISON: CT brain 04/16/2021 and 06/24/2007. TECHNIQUE: Contiguous axial imaging was performed from the skull base to vertex without intravenous administration of contrast. This CT examination was performed using dose optimization techniques as appropriate, variously including the following: *Automated exposure control *Adjustment of mA and/or kV according to patient size (this includes techniques or standardized protocols for targeted exams where dose is matched to indication/reason for exam; i.e. extremities or head) *Use of iterative reconstruction technique DLP: 654 mGy-cm FINDINGS: There is no evidence of acute intracranial hemorrhage or territorial infarction. No abnormal mass effect or midline shift is seen. Vieyra to white matter differentiation is well preserved. No extra-axial fluid collections are identified. 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 The lateral ventricles are symmetrical but enlarged. There is diffuse periventricular hypodensity suggestive of chronic small vessel ischemic changes in both cerebral hemispheres. There is no edema or mass effect. Bone windows reveals frontal craniotomy with a lateral plate for stabilization. No calvarial fracture seen. The soft tissues are normal. CT/CT head/brain wo con IMPRESSION: No acute intracranial process seen. There is left frontal craniotomy with a left aneurysm clip present since 06/24/2007. Mild cerebral volume loss with chronic small vessel ischemic changes.
== END 2021-07-10 00:01 ==
LOC: HO.CT
PROVIDERS: Visit Provider Internal Medicine
DX: R41.82 Altered mental status, unspecified (principal)
CPT/HCPCS: 70450

== ENCOUNTER → 2021-07-31 08:20 | Outpatient (BNVA) | payer MEDICARE, MEDICAID, SELFPAY | PROVIDERS: PCP Internal Medicine; Referring Provider Internal Medicine; Visit Provider Internal Medicine Cardiovascular Disease | DX: Z45.02 Encounter for adjustment and management of automatic implantable cardiac defibrillator (principal); I25.10 Atherosclerotic heart disease of native coronary artery without angina pectoris; I50.20 Unspecified systolic (congestive) heart failure; I95.9 Hypotension, unspecified | CPT/HCPCS: 99212 ==

== ENCOUNTER → 2021-08-23 10:56 | Outpatient (BNVA) | payer MEDICARE, MEDICAID, SELFPAY | PROVIDERS: PCP Internal Medicine; Visit Provider Internal Medicine | DX: J44.9 Chronic obstructive pulmonary disease, unspecified (principal); J30.9 Allergic rhinitis, unspecified | CPT/HCPCS: 99212 ==

== ENCOUNTER → 2021-12-24 10:26 | Outpatient (BNVA) | payer MEDICARE, MEDICAID, SELFPAY | PROVIDERS: PCP Internal Medicine; Visit Provider Internal Medicine | DX: J44.9 Chronic obstructive pulmonary disease, unspecified (principal); J30.9 Allergic rhinitis, unspecified; Z79.899 Other long term (current) drug therapy | CPT/HCPCS: 94010; 99212; Q3014 ==

== ENCOUNTER 2022-01-30 12:14 | Outpatient (REF) | payer MEDICARE, MEDICAID, SELFPAY ==
--- NOTE | ~2022-01-30 | MM_ITS ---
EXAMINATION: MM SCREENING DIGITAL BREAST TOMOSYNTHESIS, BILATERAL CLINICAL INFORMATION: Screening. Asymptomatic. Status post right lumpectomy. COMPARISON: Mammography: 01/24/2021 and studies dating back to 07/19/2011. TECHNIQUE: Digital breast tomosynthesis is performed in both the craniocaudal and mediolateral oblique views along with computer-aided detection (CAD). Synthesized 2D images are generated from the tomosynthesis. FINDINGS: The breasts are heterogeneously dense, which may obscure small masses (ACR BI-RADS breast composition Category c). Postsurgical changes seen upper outer aspect of the right breast. There is a grouping of calcifications present in the upper outer aspect of the left breast, approximately 5 cm from the nipple, for which spot magnification views in craniocaudal and 90-degree mediolateral views are recommended. Pacemaker powerpack seen about the left axilla. MM/MM tomosynthesis screening BI IMPRESSION: Density with calcifications upper outer aspect of the left breast. Further evaluation as described. ASSESSMENT: BI-RADS 0: Incomplete - Need Additional Imaging Evaluation. RECOMMENDATION: 1. Additional views of the left breast. 2. Targeted ultrasound if warranted after review of the additional views. 3. Radiology department staff will contact the patient for additional imaging.
== END 2022-01-30 12:15 | disposition home or self-care (01) ==
LOC: HO.MAMMO 12:14
PROVIDERS: Visit Provider Internal Medicine
DX: Z12.31 Encounter for screening mammogram for malignant neoplasm of breast (principal)
CPT/HCPCS: 77063; 77067

== ENCOUNTER 2022-02-19 14:28 | Outpatient (REF) | payer MEDICARE, MEDICAID, SELFPAY ==
--- NOTE | ~2022-02-19 | MM_ITS ---
EXAMINATION: MM DIAGNOSTIC DIGITAL MAMMOGRAPHY, LEFT CLINICAL INFORMATION: Recall from screening for question of grouped calcifications upper outer left breast. Prior history right lumpectomy for IDC, 2013. COMPARISON: Mammography: 01/30/2022, 01/24/2021 TECHNIQUE: Digital mammography is performed in the following views: Magnification left CC, magnification exaggerated left CC, magnification left ML. FINDINGS: The breasts are heterogeneously dense, which may obscure small masses (ACR BI-RADS breast composition Category c). The additional magnification views show no grouped calcifications in the upper outer left breast. Fibroglandular densities are stable. There is a pacemaker generator overlying and partly obscuring the lower left axilla. Skin contours are smooth. Results are discussed with the patient and her family at time of visit. MM/MM added views LT IMPRESSION: Additional views show no grouped calcifications in the upper outer left breast. ASSESSMENT: BI-RADS 2: Benign RECOMMENDATION: Routine annual mammography screening. This patient's information was entered into a reminder system with a target due date for their next mammogram.
== END 2022-02-19 14:29 | disposition home or self-care (01) ==
LOC: HO.MAMMO 14:28
PROVIDERS: PCP Internal Medicine; Visit Provider Internal Medicine
DX: R92.2 Inconclusive mammogram (principal)
CPT/HCPCS: 77061; 77065

== ENCOUNTER 2022-02-20 09:37 | Outpatient (REF) | payer MEDICARE, MEDICAID, SELFPAY ==
[2022-02-20 10:24] LABS: MANUAL DIFF FLAG NO
[2022-02-20 11:30] LABS: Basophils Absolute Auto 0.1 X10*3/uL (0.0-0.2); Eosinophils Absolute Auto 0.5 X10*3/uL (0.0-0.4); Eosinophils Percent Auto 5.5 % (0-4); Hematocrit 38.4 % (37.0-47.0); Hemoglobin 12.5 g/dl (12.0-16.0); Imm Gran Abs Auto 0.08 X10*3/uL (0.00-0.03); Imm Gran Pct Auto 0.9 % (0.0-0.4); Lymphocytes Absolute Auto 1.4 X10*3/uL (1.2-4.9); Lymphocytes Percent Auto 15.3 % (20-40); Mean Corpuscular HGB Conc 32.6 g/dl (31.0-35.0); Mean Corpuscular Hemoglobin 33.2 pg (27.0-33.0); Mean Corpuscular Volume 102.1 fL (80.0-98.0); Monocytes Absolute Auto 0.9 X10*3/uL (0.1-1.2); Monocytes Percent Auto 9.4 % (2-11); Neutrophils Absolute Auto 6.3 x10*3/uL (2.0-8.3); Neutrophils Percent Auto 67.9 % (45-73); Platelet Count 209 X10*3/uL (160-400); Red Blood Count 3.76 X10*6/uL (4.20-5.50); Red Cell Distribution Width 14.6 % (11.0-16.0); White Blood Count 9.3 X10*3/uL (4.8-10.8)
[2022-02-20 12:21] LABS: Albumin Level 3.7 g/dL (3.5-5.0); Anion Gap 14 (12-20); Blood Urea Nitrogen 18 mg/dL (9-16); Carbon Dioxide 23 mmol/L (22-29); Chloride 110 mmol/L (96-108); Estimated Glomerular Filt Rate 49; Iron 121 mcg/dL (30-160); Percent Iron Saturation 43 % (15-50); Phosphorus 3.5 mg/dL (2.7-4.5); Potassium 4.6 mmol/L (3.3-5.1); Sodium 142 mmol/L (135-145); Total Iron Binding Capacity 283 mcg/dL (228-428); Unsaturated Iron Binding 162 ug/dL
[2022-02-20 12:23] LABS: Vitamin D 25-OH Total 46.8 ng/mL (>30)
[2022-02-21 14:02] LABS: PTHI 91 pg/mL (16-77)
== END 2022-02-20 09:38 | disposition home or self-care (01) ==
LOC: HO.LAB 09:37
PROVIDERS: PCP Internal Medicine; Visit Provider Internal Medicine Nephrology
DX: N18.4 Chronic kidney disease, stage 4 (severe) (principal); D63.1 Anemia in chronic kidney disease
CPT/HCPCS: 36415; 80051; 82040; 82306; 82310; 82565; 83540; 83735; 83970; 84100; 84520; 85025

== ENCOUNTER → 2022-05-14 14:18 | Outpatient (BNVA) | payer MEDICARE, MEDICAID, SELFPAY | PROVIDERS: PCP Internal Medicine; Referring Provider Internal Medicine; Visit Provider Nurse Practitioner Family | DX: I25.5 Ischemic cardiomyopathy (principal); I50.20 Unspecified systolic (congestive) heart failure; I25.10 Atherosclerotic heart disease of native coronary artery without angina pectoris; I10 Essential (primary) hypertension; E78.5 Hyperlipidemia, unspecified; Z95.810 Presence of automatic (implantable) cardiac defibrillator; Z95.5 Presence of coronary angioplasty implant and graft; Z98.890 Other specified postprocedural states; Z79.4 Long term (current) use of insulin; Z79.899 Other long term (current) drug therapy | CPT/HCPCS: 93005; 99212 ==

== ENCOUNTER → 2022-06-26 11:44 | Outpatient (BNVA) | payer MEDICARE, MEDICAID, SELFPAY | PROVIDERS: PCP Internal Medicine; Visit Provider Internal Medicine | DX: J44.9 Chronic obstructive pulmonary disease, unspecified (principal); J30.9 Allergic rhinitis, unspecified; Z79.899 Other long term (current) drug therapy | CPT/HCPCS: 99212 ==

== ENCOUNTER → 2022-08-12 12:27 | Outpatient (BNVA) | payer MEDICARE, MEDICAID, SELFPAY | PROVIDERS: PCP Internal Medicine; Referring Provider Internal Medicine; Visit Provider Internal Medicine Cardiovascular Disease | DX: Z13.89 Encounter for screening for other disorder (principal) ==

== ENCOUNTER → 2022-11-11 10:12 | Outpatient (BNVA) | payer MEDICARE, MEDICAID, SELFPAY | PROVIDERS: PCP Internal Medicine; Referring Provider Internal Medicine; Visit Provider Internal Medicine Cardiovascular Disease | DX: Z45.010 Encounter for checking and testing of cardiac pacemaker pulse generator [battery] (principal); I50.20 Unspecified systolic (congestive) heart failure; I25.10 Atherosclerotic heart disease of native coronary artery without angina pectoris | CPT/HCPCS: 99202; 99212 ==

== ENCOUNTER 2022-12-09 06:49 | Day surgery (SDC) | payer MEDICARE, MEDICAID, SELFPAY ==
[2022-12-06 09:48] VITALS: BMI 50.4
--- NOTE | 2022-12-06 09:49 | HO.ANESPROP2 ---
Documented by User: Deysi Farley NP 12/06/22 09:56 HPI - Anesthesia Eval Consult details Narrative: 72yo F for Pacemaker Generator Change Single ICD in situ (ischemic CMP) CAD with recurrent PCI in LAD territory stenting due to restenoses as well as a stent thrombosis - prolonged DAPT Dementia - daughter signs consent [facility] Active Problems Active Problems: All Active Problems (Updated 12/06/22 @ 09:14 by Smita Herrera RN) Implantable cardioverter-defibrillator (ICD) at end of battery life (Acute) Pacemaker generator end of life (Acute) Ischemic cardiomyopathy (Acute) ICD (implantable cardioverter-defibrillator) in place (Acute) Heart failure with reduced ejection fraction (Acute) CAD (coronary artery disease) (Acute) COPD (chronic obstructive pulmonary disease) (Acute) Hyperlipidemia (Acute) HTN (hypertension) (Acute) Allergic rhinitis (Acute) Past Medical History Medical History (Updated 12/06/22 @ 09:14 by Smita Herrera RN) Allergic rhinitis Atherosclerotic cardiovascular disease CAD (coronary artery disease) Cancer COPD (chronic obstructive pulmonary disease) COPD (chronic obstructive pulmonary disease) Dementia Diabetes Heart failure with reduced ejection fraction HTN (hypertension) Hx of radiation therapy Hyperlipidemia ICD (implantable cardioverter-defibrillator) in place Ischemic cardiomyopathy NSTEMI (non-ST elevated myocardial infarction) Osteoarthritis Paget disease of bone Renal insufficiency Schizophrenia TIA (transient ischemic attack) Family History Family History Father No problems noted. Mother CVD (cardiovascular disease) Diabetes Surgical History Surgical History (Updated 12/06/22 @ 09:15 by Smita Herrera RN) History of implantable cardioverter-defibrillator (ICD) placement Hx of breast biopsy Hx of cardiac cath Stented coronary artery Social History Social History Household Members: Family Housing: Apartment Are you a primary career services assistant to a significant other at home: No Do you presently have visiting nurse or other home services: Yes (nurse and KETTLE HAND) Alcohol intake: never Patient Tobacco Use Status: Former Tobacco user Years Smoked: 40 years Second Hand Smoke Exposure: No Use of substances other than those prescribed or required for medical reasons: No Have you been hit, kicked, punched, or otherwise hurt by someone within the past year? If so, by whom?: No Are you DNR?: No Advance Directives: Yes Advance Directives Information Provided: Yes Advance Directives on File: Yes Advance Directives Date on File: 07/16/21 Recently lost weight without trying: No Eating poorly because of decreased appetite: No Nutrition Risks: No Nutritional Risk Patient : No : No Poor oral hygiene: Yes (no teeth on top and bottom) service: No Current occupational status: retired Meds Allergies Allergy/AdvReac Type Severity Reaction Status Date / Time ibuprofen [From Motrin] Allergy Mild HEART Verified 11/11/22 11:22 PALPITATIONS Home Medications Medication Instructions Recorded Confirmed Last Taken Type montelukast 10 mg tablet 10 mg PO DAILY 03/04/20 12/05/22 04/14/21 History aspirin 81 mg tablet,delayed 81 mg PO DAILY 06/27/20 12/05/22 12/07/22 History release (Adult Low Dose Aspirin) cholecalciferol (vitamin D3) 25 50 mcg PO DAILY 06/27/20 12/05/22 04/14/21 History mcg (1,000 unit) capsule ferrous sulfate 325 mg (65 mg 325 mg PO DAILY 06/27/20 12/05/22 04/14/21 History iron) tablet fluticasone propionate 220 1 puff inhalation BID 06/27/20 12/05/22 Unknown History mcg/actuation HFA aerosol inhaler (Flovent HFA) albuterol sulfate 90 mcg/actuation 2 puff inhalation Q4H PRN wheezing 04/15/21 12/05/22 Unknown History aerosol inhaler (Ventolin HFA) omeprazole 20 mg capsule,delayed 20 mg PO DAILY 07/31/21 12/05/22 12/09/22 History release glipizide 5 mg tablet 10 mg PO BID 12/24/21 12/05/22 04/14/21 History quetiapine 50 mg tablet 50 mg PO BEDTIME 12/24/21 12/05/22 Unknown History atorvastatin 20 mg tablet 20 mg PO DAILY 05/14/22 12/05/22 Unknown History paroxetine HCl 10 mg tablet 5 mg PO DAILY 05/14/22 12/05/22 12/09/22 History Exam Exam Date and Time: December 06, 2022 0949 Pertinent Lab Results Pertinent Lab Results: Laboratory Tests 02/20/22 02/20/22 10:23 10:23 WBC 9.3 Hgb 12.5 Hct 38.4 Plt Count 209 Sodium 142 Potassium 4.6 D Chloride 110 H Carbon Dioxide 23 BUN 18 H Creatinine 1.10 Narrative Narrative: Cardiac Device Check 11/2022 Details: Single-chamber [facility] ICD in place.? Programmed in VVI at 40 beats per minute.? No major arrhythmias noted.? Ventricular pacing thresholds are better.? Reprogrammed to enhance battery life.? Ventricular sensing is excellent.? Pacing and shock lead impedance is stable.? Battery life is BOBO ECHO 2021 Conclusions: -? 1. Severe LV systolic dysfunction with LVEF of 20-25% with? ? grade 1 diastolic dysfunction? 2. Normal cardiac valvular Doppler ? 3. Normal RV systolic pressure ? 4. No significant pericardial effusion ?? Assessment and Plan Assessment Anesthesia Assessment: Chart Reviewed Documented by User: Starla Bragg MD 12/09/22 09:03 [facility] Past Medical History Medical History (Updated 12/06/22 @ 09:14 by Smita Herrera RN) Allergic rhinitis Atherosclerotic cardiovascular disease CAD (coronary artery disease) Cancer COPD (chronic obstructive pulmonary disease) COPD (chronic obstructive pulmonary disease) Dementia Diabetes Heart failure with reduced ejection fraction HTN (hypertension) Hx of radiation therapy Hyperlipidemia ICD (implantable cardioverter-defibrillator) in place Ischemic cardiomyopathy NSTEMI (non-ST elevated myocardial infarction) Osteoarthritis Paget disease of bone Renal insufficiency Schizophrenia TIA (transient ischemic attack) Family History Family History Father No problems noted. Mother CVD (cardiovascular disease) Diabetes Family history of problems with anesthesia: No Surgical History Surgical History (Updated 12/06/22 @ 09:15 by Smita Herrera RN) History of implantable cardioverter-defibrillator (ICD) placement Hx of breast biopsy Hx of cardiac cath Stented coronary artery History of Problems with Anesthesia: No Social History Social History Household Members: Family Housing: Apartment Are you a primary career services assistant to a significant other at home: No Do you presently have visiting nurse or other home services: Yes (nurse and KETTLE HAND) Alcohol intake: never Patient Tobacco Use Status: Former Tobacco user Years Smoked: 40 years Second Hand Smoke Exposure: No Use of substances other than those prescribed or required for medical reasons: No Have you been hit, kicked, punched, or otherwise hurt by someone within the past year? If so, by whom?: No Are you DNR?: No Advance Directives: Yes Advance Directives Information Provided: Yes Advance Directives on File: Yes Advance Directives Date on File: 07/16/21 Recently lost weight without trying: No Eating poorly because of decreased appetite: No Nutrition Risks: No Nutritional Risk Patient : No : No Poor oral hygiene: Yes (no teeth on top and bottom) service: No Current occupational status: retired [employer] Allergies Allergy/AdvReac Type Severity Reaction Status Date / Time ibuprofen [From Motrin] Allergy Mild HEART Verified 11/11/22 11:22 PALPITATIONS Home Medications Medication Instructions Recorded Confirmed Last Taken Type montelukast 10 mg tablet 10 mg PO DAILY 03/04/20 12/05/22 04/14/21 History aspirin 81 mg tablet,delayed 81 mg PO DAILY 06/27/20 12/05/22 12/07/22 History release (Adult Low Dose Aspirin) cholecalciferol (vitamin D3) 25 50 mcg PO DAILY 06/27/20 12/05/22 04/14/21 History mcg (1,000 unit) capsule ferrous sulfate 325 mg (65 mg 325 mg PO DAILY 06/27/20 12/05/22 04/14/21 History iron) tablet fluticasone propionate 220 1 puff inhalation BID 06/27/20 12/05/22 Unknown History mcg/actuation HFA aerosol inhaler (Flovent HFA) albuterol sulfate 90 mcg/actuation 2 puff inhalation Q4H PRN wheezing 04/15/21 12/05/22 Unknown History aerosol inhaler (Ventolin HFA) omeprazole 20 mg capsule,delayed 20 mg PO DAILY 07/31/21 12/05/22 12/09/22 History release glipizide 5 mg tablet 10 mg PO BID 12/24/21 12/05/22 04/14/21 History quetiapine 50 mg tablet 50 mg PO BEDTIME 12/24/21 12/05/22 Unknown History atorvastatin 20 mg tablet 20 mg PO DAILY 05/14/22 12/05/22 Unknown History paroxetine HCl 10 mg tablet 5 mg PO DAILY 05/14/22 12/05/22 12/09/22 History Exam Airway Mallampati Class: II TM Dist: >3cm Neck ROM: Full Denture: Upper Heart: rr Lungs: cta Assessment and Plan Assessment Anesthesia Assessment: Anesthesia Plan Discussed Final Anesthetic Review Family History of Problems with Anesthesia: No History of Problems with Anesthesia: No NPO: Yes ASA Class: III Final Preanesthetic Review: No Changes in Pt Med Stat, Meds/Allgs Chart Reviewed, Consent Obtained/Reviewed and Anes Risks/Benef Reviewed Patient Risk: Intermediate Procedure Risk: Intermediate Anesthetic Plan Anesthetic Plan: MAC: Disposition: Standard PACU
--- NOTE | 2022-12-06 16:24 | MHC.SHP ---
Pre-Procedural Eval Section A Date of Service: 12/06/22 The patient is an INPATIENT: No Changes since office visit: No Cold of Flu in the past 2 weeks, No New Medical Problems, No Changes in Medication and No Patient answered all questions The History & Physical has been completed within 30 days and I have reviewed it.: Yes Section B Chief Complaint: Encounter for checking and testing of cardiac pace Allergies: Allergies Allergy/AdvReac Type Severity Reaction Status Date / Time ibuprofen [From Motrin] Allergy Mild HEART Verified 11/11/22 11:22 PALPITATIONS Plan I have reviewed the history and physical and performed a pertinent physical examination on my patient. No changes have occurred unless specified. Time Spent With Patient Time: Total time managing care of this patient today ____ minutes.
[2022-12-09 07:56] VITALS: BMI 21.2
[2022-12-09 08:17] VITALS: BP 127/46; PULSE 57; RESP 16; TEMP 36.8; O2SAT 98
--- NOTE | 2022-12-09 10:01 | W.PM.OPN ---
Operative Note Operative Note Date of Service: 12/09/22 Narrative: Preoperative diagnosis: [] ICD generator depletion Postop diagnosis: [] Same Procedure [] replace ICD generator/battery Surgeon: [] Fito Autocad Detailer: [] naveed [place] Type of Anesthesia: [] MAC Indication for surgery: [] End of life generator Findings: EBL minimal Patient brought to the operating room, placed on operative table in a supine position, after adequate level of MAC anesthesia was induced, the left neck and chest were prepped and draped in usual sterile fashion. Using 1% lidocaine/0.5% Marcaine infiltration of the incision and pocket site of the generator, incision was made through the previous scar from the prior surgery and carried down through skin, subcutaneous tissue, where marked cicatrization scarring were encountered. Dissection own to the generator pocket was uneventfully accomplished. The generator pocket was identified and entered sharply. Uneventful enucleation of the generator was performed. Single lead was removed from the old generator and connected to a new generator and screwed in appropriately and was secured. Battery was returned to the pocket. This was tested by [facility] and was found to be in good working order. For specifics of sensing and capture, please refer to [facility]'s work sheet. Wound was irrigated, secured hemostasis, and closed using interrupted inverted dermal 3-0 Vicryl sutures followed by Steri-Strips and sterile dressing. Sponge, needle, and instrument counts reported correct. Patient tolerated the procedure well and emerged from anesthesia in stable condition. EBL minimal
[2022-12-09 10:06] VITALS: BP 102/60; PULSE 73; RESP 16; TEMP 36.6; O2SAT 97
[2022-12-09 10:21] VITALS: BP 113/89; PULSE 66; RESP 18; TEMP 36.4; O2SAT 97
== END 2022-12-09 11:06 | disposition home or self-care (01) ==
PROVIDERS: PCP Internal Medicine; Visit Provider Surgery
PROC: (CPT 33262; principal; 2022-12-09 09:20)
DX: T82.111A Breakdown (mechanical) of cardiac pulse generator (battery), initial encounter (principal); Y71.2 Prosthetic and other implants, materials and accessory cardiovascular devices associated with adverse incidents; Y92.9 Unspecified place or not applicable; I11.0 Hypertensive heart disease with heart failure; I50.20 Unspecified systolic (congestive) heart failure; I25.10 Atherosclerotic heart disease of native coronary artery without angina pectoris; J44.9 Chronic obstructive pulmonary disease, unspecified; Z79.899 Other long term (current) drug therapy
CPT/HCPCS: 33262; 82947; C1722; J0690

== ENCOUNTER → 2022-12-17 23:59 | Outpatient (BNV) | payer MEDICARE, MEDICAID, SELFPAY ==
--- NOTE | 2022-12-17 10:53 | MHC.OFFVIS ---
Intake Intake Visit Reasons: Remote Device Check- [facility] Allergies ibuprofen [From Motrin] Allergy (Mild, Verified 11/11/22 11:22) HEART PALPITATIONS PFSH Medical History (Updated 12/06/22 @ 09:14 by Smita Herrera, RN) Allergic rhinitis Atherosclerotic cardiovascular disease CAD (coronary artery disease) Cancer COPD (chronic obstructive pulmonary disease) COPD (chronic obstructive pulmonary disease) Dementia Diabetes Heart failure with reduced ejection fraction HTN (hypertension) Hx of radiation therapy Hyperlipidemia ICD (implantable cardioverter-defibrillator) in place Ischemic cardiomyopathy NSTEMI (non-ST elevated myocardial infarction) Osteoarthritis Paget disease of bone Renal insufficiency Schizophrenia TIA (transient ischemic attack) Surgical History (Updated 12/06/22 @ 09:15 by Smita Herrera, RN) History of implantable cardioverter-defibrillator (ICD) placement Hx of breast biopsy Hx of cardiac cath Stented coronary artery Family History Father No problems noted. Mother CVD (cardiovascular disease) Diabetes Social History Household Members: Family Housing: Apartment Are you a primary post acute care nurse practitioner to a significant other at home: No Do you presently have visiting nurse or other home services: Yes (nurse and INFORMATION TECHNOLOGY COORDINATOR) Alcohol intake: never Patient Tobacco Use Status: Former Tobacco user Years Smoked: 40 years Second Hand Smoke Exposure: No Advance Directives Date on File: 07/16/21 service: No Current occupational status: retired Office Procedures Cardiac Device Check Cardiac Device Check Details: Remote ICD check report generated 12/17/2022. ICD function is adequate. [id number] Cardiac Interrogation, implant defibrillator w/interim Procedure code (CPT) selection complete Coding Level of Care Code Procedure Only Diagnoses CPT Codes Cardiac Device Check - Cardiac Device 13: [id number] Cardiac Interrogation, implant defibrillator w/interim ([id number])
== END ==
PROVIDERS: PCP Internal Medicine; Visit Provider Internal Medicine Cardiovascular Disease
DX: I25.5 Ischemic cardiomyopathy (principal); Z95.810 Presence of automatic (implantable) cardiac defibrillator
CPT/HCPCS: 93295

== ENCOUNTER 2022-12-18 09:25 | Outpatient (AMB) | payer MEDICARE, MEDICAID, SELFPAY ==
[2022-12-18 09:32] VITALS: BP 125/57; PULSE 77; BMI 23.6
--- NOTE | 2022-12-18 09:32 | A.OFFVIS_ITS ---
Intake Vital Signs 12/18/22 09:32 Height 5 ft 1 in Weight 125 lb BMI 23.6 BP 125/57 L Blood Pressure Location Rt brachial Position Sitting Pulse 77 Intake Visit Reasons: S/P pacemaker generator change Intake Note: Patient here s/p pacemaker. Patient reports incision healing well. Denies bleeding or itch. Clicking Machine Operator Required: No Allergies ibuprofen [From Motrin] Allergy (Mild, Verified 12/18/22 09:33) HEART PALPITATIONS HPI HPI Comments History of Present Illness Details Patient presents with her Grand daughter status post pacemaker generator change. There are no wound issues or complaints. Patient is otherwise doing well. [facility] Medical History Allergic rhinitis Atherosclerotic cardiovascular disease CAD (coronary artery disease) Cancer COPD (chronic obstructive pulmonary disease) COPD (chronic obstructive pulmonary disease) Dementia Diabetes Heart failure with reduced ejection fraction HTN (hypertension) Hx of radiation therapy Hyperlipidemia ICD (implantable cardioverter-defibrillator) in place Ischemic cardiomyopathy NSTEMI (non-ST elevated myocardial infarction) Osteoarthritis Paget disease of bone Renal insufficiency Schizophrenia TIA (transient ischemic attack) Surgical History History of implantable cardioverter-defibrillator (ICD) placement Hx of breast biopsy Hx of cardiac cath Stented coronary artery Family History Father No problems noted. Mother CVD (cardiovascular disease) Diabetes Social History Household Members: Family Housing: Apartment Are you a primary patient care associate to a significant other at home: No Do you presently have visiting nurse or other home services: Yes (nurse and INSOLE AND HEEL STIFFENER) Alcohol intake: never Patient Tobacco Use Status: Former Tobacco user Years Smoked: 40 years Second Hand Smoke Exposure: No Advance Directives Date on File: 07/16/21 service: No Current occupational status: retired Physical Exam Vital Signs: Last Vital Signs Pulse 77 12/18/22 09:32 BP 125/57 L 12/18/22 09:32 BMI result Body Mass Index 23.6 Chest Other: Wound is clean dry and intact. Assessment & Plan Assessment & Plan (1) Pacemaker generator end of life: Code(s): Z45.010 - Encounter for checking and testing of cardiac pacemaker pulse generator [battery] (2) Implantable cardioverter-defibrillator (ICD) at end of battery life: Code(s): Z45.02 - Encounter for adjustment and management of automatic implantable cardiac defibrillator Plan Patient granddaughter have been given local instructions, she will follow-up [facility] She is also scheduled to follow up with Cardiology for her usual surveillance. Coding Level of Care Code Global (35318) Diagnoses Pacemaker generator end of life Z45.010 Implantable cardioverter-defibrillator (ICD) at end of battery life Z45.02
== END 2022-12-18 09:46 | disposition home or self-care (01) ==
PROVIDERS: PCP Internal Medicine; Visit Provider Surgery
DX: Z48.812 Encounter for surgical aftercare following surgery on the circulatory system (principal); Z95.0 Presence of cardiac pacemaker
CPT/HCPCS: 99024

== ENCOUNTER → 2022-12-18 09:25 | Outpatient (BNVA) | payer MEDICARE, MEDICAID, SELFPAY | PROVIDERS: PCP Internal Medicine; Visit Provider Surgery ==

== ENCOUNTER → 2023-01-06 23:59 | Outpatient (BNV) | payer MEDICARE, MEDICAID, SELFPAY ==
--- NOTE | 2023-01-08 14:40 | A.OFFVIS_ITS ---
Intake Intake Visit Reasons: Remote HF Monitoring- [facility] Allergies ibuprofen [From Motrin] Allergy (Mild, Verified 12/18/22 09:33) HEART PALPITATIONS PFSH Medical History Allergic rhinitis Atherosclerotic cardiovascular disease CAD (coronary artery disease) Cancer COPD (chronic obstructive pulmonary disease) COPD (chronic obstructive pulmonary disease) Dementia Diabetes Heart failure with reduced ejection fraction HTN (hypertension) Hx of radiation therapy Hyperlipidemia ICD (implantable cardioverter-defibrillator) in place Ischemic cardiomyopathy NSTEMI (non-ST elevated myocardial infarction) Osteoarthritis Paget disease of bone Renal insufficiency Schizophrenia TIA (transient ischemic attack) Surgical History History of implantable cardioverter-defibrillator (ICD) placement Hx of breast biopsy Hx of cardiac cath Stented coronary artery Family History Father No problems noted. Mother CVD (cardiovascular disease) Diabetes Social History Household Members: Family Housing: Apartment Are you a primary urgent care nurse practitioner to a significant other at home: No Do you presently have visiting nurse or other home services: Yes (nurse and DIGESTER OPERATOR HELPER) Alcohol intake: never Patient Tobacco Use Status: Former Tobacco user Years Smoked: 40 years Second Hand Smoke Exposure: No Advance Directives Date on File: 07/16/21 service: No Current occupational status: retired Office Procedures Cardiac Device Check Cardiac Device Check Details: Remote heart failure report generated 01/06/2023. Heart failure parameters are stable [id number] Cardiac Device Interrogation, cardio physiologic monitor Procedure code (CPT) selection complete Coding Level of Care Code Procedure Only Diagnoses CPT Codes Cardiac Device Check - Cardiac Device 15: [id number] Cardiac Device Interrogation, cardio physiologic monitor ([id number])
== END ==
PROVIDERS: PCP Internal Medicine; Visit Provider Internal Medicine Cardiovascular Disease
DX: I50.20 Unspecified systolic (congestive) heart failure (principal); Z95.810 Presence of automatic (implantable) cardiac defibrillator
CPT/HCPCS: 93297

== ENCOUNTER 2023-01-14 14:55 | Outpatient (AMB) | payer MEDICARE, MEDICAID, SELFPAY ==
--- NOTE | 2023-01-14 15:20 | A.OFFVIS_ITS ---
Intake Vital Signs 01/14/23 15:21 Height 5 ft 1 in Weight 123 lb 7.342 oz BMI 23.3 BP 110/72 Blood Pressure Location Lt brachial Position Sitting Pulse 73 Intake Visit Reasons: 2 month follow up Intake Note: 2 month follow-up with [facility] Fire Hydrant Operator Required: Yes Store Clerk Checker: Store Clerk Checker Present Accompanied by: Grand Child Allergies ibuprofen [From Motrin] Allergy (Mild, Verified 12/18/22 09:33) HEART PALPITATIONS Medication List - Last Reconciled 01/14/23 by Adis Abdi MD albuterol sulfate 90 mcg/actuation (Ventolin HFA) 2 puffs inhalation Q4H PRN aspirin (Adult Low Dose Aspirin) 81 mg PO DAILY atorvastatin 20 mg PO DAILY blood pressure test kit-medium As directed cholecalciferol (vitamin D3) 50 mcg PO DAILY ezetimibe 10 mg PO QPM ferrous sulfate 325 mg PO DAILY fluticasone propionate 220 mcg/actuation (Flovent HFA) 1 puff inhalation BID PRN glipizide 10 mg PO BID inhalational spacing device (Vortex Holding Chamber) As directed metoprolol tartrate 50 mg PO BID montelukast 10 mg PO DAILY omeprazole 20 mg PO DAILY paroxetine HCl 5 mg PO DAILY quetiapine 50 mg PO BEDTIME ranolazine ER 500 mg PO BID ticagrelor (Brilinta) 60 mg PO BID valsartan (Diovan) 20 mg (1/2 x 40 mg) PO DAILY 30 days HPI HPI Comments History of Present Illness Details Florinda comes for follow-up. As per the director of field sales she has had more cognitive issues. She recently underwent pulse generator change for ICD. She has done well. Denies any cardiac symptoms. Denies any progressive shortness of breath, orthopnea, PND. No lightheadedness, syncope, ICD discharge. Takes all her medications as prescribed. [facility] Medical History Allergic rhinitis Atherosclerotic cardiovascular disease CAD (coronary artery disease) Cancer COPD (chronic obstructive pulmonary disease) COPD (chronic obstructive pulmonary disease) Dementia Diabetes Heart failure with reduced ejection fraction HTN (hypertension) Hx of radiation therapy Hyperlipidemia ICD (implantable cardioverter-defibrillator) in place Ischemic cardiomyopathy NSTEMI (non-ST elevated myocardial infarction) Osteoarthritis Paget disease of bone Renal insufficiency Schizophrenia TIA (transient ischemic attack) Surgical History History of implantable cardioverter-defibrillator (ICD) placement Hx of breast biopsy Hx of cardiac cath Stented coronary artery Family History Father No problems noted. Mother CVD (cardiovascular disease) Diabetes Social History Household Members: Family Housing: Apartment Are you a primary progressive care unit registered nurse to a significant other at home: No Do you presently have visiting nurse or other home services: Yes (nurse and GUN SEALING MACHINE OPERATOR) Alcohol intake: never Patient Tobacco Use Status: Former Tobacco user Years Smoked: 40 years Second Hand Smoke Exposure: No Advance Directives Date on File: 07/16/21 service: No Current occupational status: retired Review of Systems Const Denies chills, Denies fatigue, Denies fever(s), Denies frequent falls, Denies weakness, Denies weight gain and Denies weight loss ENT Denies dizziness Card Denies chest pain, Denies leg edema, Denies lightheadedness, Denies palpitations, Denies dyspnea, Denies dyspnea on exertion, Denies orthopnea and Denies other (loss of consciousness) Resp Denies cough, Denies dyspnea and Denies dyspnea on exertion GI Denies hematochezia and Denies change in stool character Musc Denies abnormal gait, Denies muscle weakness, Denies numbness, Denies radiating pain into limb and Denies tingling Neuro Denies abnormal gait, Denies dizziness, Denies frequent falls, Denies numbness, Denies tingling and Denies weakness Endo Denies fatigue and Denies palpitations Physical Exam Vital Signs: Last Vital Signs Pulse 73 01/14/23 15:21 BP 110/72 01/14/23 15:21 BMI result Body Mass Index 23.3 Const General: cooperative, comfortable and no acute distress Neck Neck: Yes normal visual inspection and Yes no JVD Resp Effort & Inspection: normal respiratory effort Auscultation: clear to auscultation bilaterally, no crackles, no rales, no rho nchi and no wheezes Cardio Jugular venous distension: no JVD Rate: regular rate Rhythm: regular rhythm Heart sounds: S1 normal heart sound present, S2 normal heart sound present, no gallops, no murmurs and no rubs GI Inspection: Yes normal to inspection Extrem General: Yes normal to inspection Psych Appearance: grossly normal Mental Status: mental status grossly normal Speech and movement: Normal speech and movement present Office Procedures Cardiac Device Check Cardiac Device Check Details: Single-chamber [facility] ICD in place. Programmed in VVI at 40 beats per minute. No significant arrhythmias detected. Ventricular pacing thresholds excellent and reprogrammed to enhance battery life. Atrial sensing is excellent. Pacing and shock lead impedance is stable. Battery life is excellent at 10 years [id number] Cardiac Device Check, single lead implantable defibrillator Procedure code (CPT) selection complete Assessment & Plan Assessment & Plan (1) ICD (implantable cardioverter-defibrillator) in place: Code(s): Z95.810 - Presence of automatic (implantable) cardiac defibrillator Plan: ICD in place for secondary prevention with recent battery change. ICD is working well. Will follow remotely for heart failure as well as device check. Will follow up in the clinic in 6 months time. (2) Heart failure with reduced ejection fraction: Code(s): I50.20 - Unspecified systolic (congestive) heart failure Plan: Heart failure with reduced ejection fraction secondary to ischemic cardiomy opathy. Clinically euvolemic and well compensated. Continue current management with neurohormonal modulation with valsartan and metoprolol. Cannot titrate up due to low blood pressure. Clinically appears to be euvolemic and well compensated. Currently not on any diuretic regimen. Advised daily weight monitoring avoidance of salt loading. (3) CAD (coronary artery disease): Code(s): I25.10 - Atherosclerotic heart disease of samish coronary artery without angina pectoris Plan: CAD with apical infarct and dyskinetic segment with recurrent PCIs to LAD for stent thrombosis. Has done very well with prolonged dual antiplatelet therapy with no recurrent hospitalizations. Continue the same. Tolerating this therapy well. Also has done well with metoprolol and Ally Teran seen therapy. Complete smoking cessation was advised. Continue high-intensity statin therapy with Zetia to target goal LDL closer to 60 mg/dL. Follow up in the clinic in 6 months time, sooner p.r.n.. Thank you for allowing me to partake in her care Coding Level of Care Code Est Pt Level 4 (35150) Diagnoses ICD (implantable cardioverter-defibrillator) in place Z95.810 Heart failure with reduced ejection fraction I50.20 CAD (coronary artery disease) I25.10 CPT Codes Cardiac Device Check - Cardiac Device 4: [id number] Cardiac Device Check, single lead implantable defibrillator ([id number])
[2023-01-14 15:21] VITALS: BP 110/72; PULSE 73; BMI 23.3
== END 2023-01-14 15:52 | disposition home or self-care (01) ==
PROVIDERS: PCP Internal Medicine; Referring Provider Internal Medicine; Visit Provider Internal Medicine Cardiovascular Disease
DX: I50.20 Unspecified systolic (congestive) heart failure (principal); I25.10 Atherosclerotic heart disease of native coronary artery without angina pectoris; Z95.810 Presence of automatic (implantable) cardiac defibrillator
CPT/HCPCS: 93282; 99214

== ENCOUNTER → 2023-01-14 14:55 | Outpatient (BNVA) | payer MEDICARE, MEDICAID, SELFPAY | PROVIDERS: PCP Internal Medicine; Referring Provider Internal Medicine; Visit Provider Internal Medicine Cardiovascular Disease | DX: I25.5 Ischemic cardiomyopathy (principal); I25.10 Atherosclerotic heart disease of native coronary artery without angina pectoris; I21.4 Non-ST elevation (NSTEMI) myocardial infarction; I50.20 Unspecified systolic (congestive) heart failure; I11.0 Hypertensive heart disease with heart failure; Z87.891 Personal history of nicotine dependence; Z45.010 Encounter for checking and testing of cardiac pacemaker pulse generator [battery]; Z79.82 Long term (current) use of aspirin | CPT/HCPCS: 99212 ==

== ENCOUNTER 2023-02-05 13:56 | Outpatient (AMB) | payer MEDICARE, MEDICAID, SELFPAY ==
[2023-02-05 14:00] VITALS: BP 116/70; PULSE 69; O2SAT 98; BMI 23.5
--- NOTE | 2023-02-05 14:00 | MHC.OFFVIS ---
Intake Vital Signs 02/05/23 14:00 Height 5 ft 1 in Weight 124 lb 8.979 oz BMI 23.5 BP 116/70 Blood Pressure Location Rt brachial Position Sitting Pulse 69 Pulse Source Pulse Oximeter Pulse Oximetry (%) 98 Oxygen Delivery Method Room Air Intake Visit Reasons: COPD Edge Roller Required: No Allergies ibuprofen [From Motrin] Allergy (Mild, Verified 02/05/23 14:07) HEART PALPITATIONS Medication List - Last Reconciled 02/05/23 by Marija Barrera MD albuterol sulfate 90 mcg/actuation (Ventolin HFA) 2 puffs inhalation Q4H PRN aspirin (Adult Low Dose Aspirin) 81 mg PO DAILY atorvastatin 20 mg PO DAILY blood pressure test kit-medium As directed cholecalciferol (vitamin D3) 50 mcg PO DAILY ezetimibe 10 mg PO QPM ferrous sulfate 325 mg PO DAILY fluticasone propionate 220 mcg/actuation (Flovent HFA) 1 puff inhalation BID PRN glipizide 10 mg PO BID inhalational spacing device (Vortex Holding Chamber) As directed metoprolol tartrate 50 mg PO BID montelukast 10 mg PO DAILY omeprazole 20 mg PO DAILY paroxetine HCl 5 mg PO DAILY quetiapine 50 mg PO BEDTIME ranolazine ER 500 mg PO BID ticagrelor (Brilinta) 60 mg PO BID valsartan (Diovan) 20 mg (1/2 x 40 mg) PO DAILY 30 days Do you need a note to return to daycare/school/sports/work: No HPI COPD HPI Details 72 YEARS OLD FEMALE, VERY PLEASANT, COMES ACCOMPANIED BY HER SENIOR CYTOGENETICS LABORATORY DIRECTOR. DENIES ANY COUGH OR WHEEZING, AND SHORTNESS OF BREATH ON WALKING AROUND IS ALSO MUCH. LESS THAN BEFORE. SENIOR CYTOGENETICS LABORATORY DIRECTOR TELLS ME THAT SHE STARTED SMOKING A FEW CIGARETTES OFF AND ON, RECENTLY SHE HAS HAD CARDIAC ISSUES AND HAS A NEW PACEMAKER( ICD ) IMPLANTED SHE HAS HISTORY OF ALLERGIC RHINITIS BUT DENIES ANY NASAL CONGESTION OR POSTNASAL DRIP AT THIS TIME. [facility] Medical History Allergic rhinitis Atherosclerotic cardiovascular disease CAD (coronary artery disease) Cancer COPD (chronic obstructive pulmonary disease) COPD (chronic obstructive pulmonary disease) Dementia Diabetes Heart failure with reduced ejection fraction HTN (hypertension) Hx of radiation therapy Hyperlipidemia ICD (implantable cardioverter-defibrillator) in place Ischemic cardiomyopathy NSTEMI (non-ST elevated myocardial infarction) Osteoarthritis Paget disease of bone Renal insufficiency Schizophrenia TIA (transient ischemic attack) Surgical History History of implantable cardioverter-defibrillator (ICD) placement Hx of breast biopsy Hx of cardiac cath Stented coronary artery Family History Father No problems noted. Mother CVD (cardiovascular disease) Diabetes Social History Household Members: Family Housing: Apartment Are you a primary client care manager to a significant other at home: No Do you presently have visiting nurse or other home services: Yes (nurse and SENIOR CYTOGENETICS LABORATORY DIRECTOR) Alcohol intake: never Patient Tobacco Use Status: Former Tobacco user Years Smoked: 40 years Second Hand Smoke Exposure: No Advance Directives Date on File: 07/16/21 service: No Current occupational status: retired Review of Systems Const All systems reviewed & are unremarkable except as noted in HPI and below Denies weakness Eyes Reports no additional complaints ENT Denies dizziness Card Denies chest pain, Denies chest pain with activity, Denies syncope, Denies rapid heart rate, Denies pedal edema, Denies edema, Denies leg edema, Denies lightheadedness, Denies palpitations, Denies dyspnea, Denies dyspnea on exertion and Denies orthopnea Resp Denies cough, Denies dyspnea and Denies dyspnea on exertion GI Denies hematochezia and Denies change in stool character Reports no additional complaints Musc Denies abnormal gait, Denies muscle weakness, Denies numbness, Denies radiating pain into limb and Denies tingling Skin/Breast Reports system reviewed and no additional complaints, except as documented Neuro Denies abnormal gait, Denies dizziness, Denies syncope, Denies numbness, Denies tingling and Denies weakness Psych Reports depression (Controlled with med) Endo Denies palpitations Physical Exam Const General: comfortable, no acute distress, alert and awake Orientation/consciousness: patient oriented x3 HEENT Head: Yes normal to inspection General nose exam: No nasal polyps present and No nasal discharge present Face and sinus: Yes sinuses nontender Mouth: oropharynx normal Throat: Yes posterior oropharynx normal Eyes General: appearance normal, both eyes and all related structures Neck Neck: Yes normal visual inspection, Yes no lymphadenopathy, Yes trachea midline and Yes no JVD Thyroid: Thyroid normal Chest Chest palpation & inspection: normal inspection of the chest (HAS PACEMAKER BATTERY IN LEFT PECTORAL AREA), normal palpation of entire chest wall and no tenderness Resp Other: Percussion note is resonant, breath sounds are distant on both sides with prolonged expiratory phase. No wheezes rhonchi or crepitations are heard . Cardio Palpation: normal PMI and other (ICD in place) Rate: regular rate Rhythm: regular rhythm Heart sounds: no gallops and no murmurs GI Palpation (GI): Soft to palpation, nontender, No hepatosplenomegaly present and no masses Auscultation: normal bowel sounds Back/Spine/Pelvis Thoracic/Lumbar Spine: thoracic and lumbar spine normal to inspection Skin General skin exam: no rashes or lesions noted Neuro General: patient oriented x3 and no focal motor deficits Cranial nerves: Yes CN's II-XII intact bilaterally Cognition (Neuro): abnormal cognition (Mild to moderate memory loss) Extrem General: Yes normal to inspection, Yes no clubbing, cyanosis or edema and Yes no calf tenderness Psych Appearance: grossly normal and well kempt Speech and movement: Normal speech and movement present Assessment & Plan Assessment & Plan (1) COPD (chronic obstructive pulmonary disease): Comment: She does have MILD TO MODERATE degree of obstructive airway disorder, Seems to be well controlled at this time with the current medical regimen. Advised to continue: FLOVENT-220 , MAY REDUCED TO 1 PUFF B.I.D. AND INCREASE TO 2 PUFFS B.I.D. IF SHE HAS ANY INCREASE IN THE RESPIRATORY SYMPTOMS. ProAir HFA 2 puffs Q 4-6 hours p.r.n.( with a spacer ) Code(s): J44.9 - Chronic obstructive pulmonary disease, unspecified (2) Allergic rhinitis: Comment: Mild, remains well controlled . Continue using Montelukast 10 mg daily , Loratadine 10 mg once a day , only PRN . Code(s): J30.9 - Allergic rhinitis, unspecified Coding Level of Care Code Est Pt Level 3 (43759) Diagnoses COPD (chronic obstructive pulmonary disease) J44.9 Allergic rhinitis J30.9
== END 2023-02-05 14:13 | disposition home or self-care (01) ==
PROVIDERS: PCP Internal Medicine; Visit Provider Internal Medicine
DX: J44.9 Chronic obstructive pulmonary disease, unspecified (principal); J30.9 Allergic rhinitis, unspecified
CPT/HCPCS: 99213

== ENCOUNTER → 2023-02-05 13:56 | Outpatient (BNVA) | payer MEDICARE, MEDICAID, SELFPAY | PROVIDERS: PCP Internal Medicine; Visit Provider Internal Medicine | DX: J44.9 Chronic obstructive pulmonary disease, unspecified (principal); J30.9 Allergic rhinitis, unspecified; Z79.899 Other long term (current) drug therapy | CPT/HCPCS: 99212 ==

== ENCOUNTER → 2023-02-13 23:59 | Outpatient (BNV) | payer MEDICARE, MEDICAID, SELFPAY ==
--- NOTE | 2023-02-13 11:24 | MHC.OFFVIS ---
Intake Intake Visit Reasons: Remote ICD Check- [facility] Allergies ibuprofen [From Motrin] Allergy (Mild, Verified 02/05/23 14:07) HEART PALPITATIONS PFSH Medical History Allergic rhinitis Atherosclerotic cardiovascular disease CAD (coronary artery disease) Cancer COPD (chronic obstructive pulmonary disease) COPD (chronic obstructive pulmonary disease) Dementia Diabetes Heart failure with reduced ejection fraction HTN (hypertension) Hx of radiation therapy Hyperlipidemia ICD (implantable cardioverter-defibrillator) in place Ischemic cardiomyopathy NSTEMI (non-ST elevated myocardial infarction) Osteoarthritis Paget disease of bone Renal insufficiency Schizophrenia TIA (transient ischemic attack) Surgical History History of implantable cardioverter-defibrillator (ICD) placement Hx of breast biopsy Hx of cardiac cath Stented coronary artery Family History Father No problems noted. Mother CVD (cardiovascular disease) Diabetes Social History Household Members: Family Housing: Apartment Are you a primary field care advocate to a significant other at home: No Do you presently have visiting nurse or other home services: Yes (nurse and WELDER APPRENTICE ARC) Alcohol intake: never Patient Tobacco Use Status: Former Tobacco user Years Smoked: 40 years Second Hand Smoke Exposure: No Advance Directives Date on File: 07/16/21 service: No Current occupational status: retired Office Procedures Cardiac Device Check Cardiac Device Check Details: Remote ICD report generated 02/13/2023. ICD function is adequate [id number] Cardiac Interrogation, implant defibrillator w/interim Procedure code (CPT) selection complete Coding Level of Care Code Procedure Only CPT Codes Cardiac Device Check - Cardiac Device 13: [id number] Cardiac Interrogation, implant defibrillator w/interim ([id number])
== END ==
PROVIDERS: PCP Internal Medicine; Visit Provider Internal Medicine Cardiovascular Disease
DX: I25.5 Ischemic cardiomyopathy (principal); Z95.810 Presence of automatic (implantable) cardiac defibrillator
CPT/HCPCS: 93295

== ENCOUNTER → 2023-03-03 23:59 | Outpatient (BNV) | payer MEDICARE, MEDICAID, SELFPAY ==
--- NOTE | 2023-03-03 15:30 | MHC.OFFVIS ---
Intake Intake Visit Reasons: Remote HF monitoring- [facility] Allergies ibuprofen [From Motrin] Allergy (Mild, Verified 02/05/23 14:07) HEART PALPITATIONS PFSH Medical History Allergic rhinitis Atherosclerotic cardiovascular disease CAD (coronary artery disease) Cancer COPD (chronic obstructive pulmonary disease) COPD (chronic obstructive pulmonary disease) Dementia Diabetes Heart failure with reduced ejection fraction HTN (hypertension) Hx of radiation therapy Hyperlipidemia ICD (implantable cardioverter-defibrillator) in place Ischemic cardiomyopathy NSTEMI (non-ST elevated myocardial infarction) Osteoarthritis Paget disease of bone Renal insufficiency Schizophrenia TIA (transient ischemic attack) Surgical History History of implantable cardioverter-defibrillator (ICD) placement Hx of breast biopsy Hx of cardiac cath Stented coronary artery Family History Father No problems noted. Mother CVD (cardiovascular disease) Diabetes Social History Household Members: Family Housing: Apartment Are you a primary intensive care nurse to a significant other at home: No Do you presently have visiting nurse or other home services: Yes (nurse and RAW SILK GRADER) Alcohol intake: never Patient Tobacco Use Status: Former Tobacco user Years Smoked: 40 years Second Hand Smoke Exposure: No Advance Directives Date on File: 07/16/21 service: No Current occupational status: retired Office Procedures Cardiac Device Check Cardiac Device Check Details: Remote heart failure report generated 03/03/2023. Heart failure parameters are stable [id number] Cardiac Device Interrogation, cardio physiologic monitor Procedure code (CPT) selection complete Coding Level of Care Code Procedure Only CPT Codes Cardiac Device Check - Cardiac Device 15: [id number] Cardiac Device Interrogation, cardio physiologic monitor ([id number])
== END ==
PROVIDERS: PCP Internal Medicine; Visit Provider Internal Medicine Cardiovascular Disease
DX: I50.20 Unspecified systolic (congestive) heart failure (principal); Z95.810 Presence of automatic (implantable) cardiac defibrillator
CPT/HCPCS: 93297

== ENCOUNTER → 2023-03-10 10:45 | Outpatient (BNV) | payer MEDICARE, MEDICAID, SELFPAY | PROVIDERS: PCP Internal Medicine; Visit Provider Radiology Diagnostic Radiology | DX: Z12.31 Encounter for screening mammogram for malignant neoplasm of breast (principal) | CPT/HCPCS: 77063; 77067 ==

== ENCOUNTER 2023-03-10 10:48 | Outpatient (REF) | payer MEDICARE, MEDICAID, SELFPAY ==
--- NOTE | ~2023-03-10 | MM_ITS ---
EXAMINATION: MM SCREENING DIGITAL BREAST TOMOSYNTHESIS, BILATERAL CLINICAL INFORMATION: Screening. Asymptomatic. The patient has a history of treated right breast cancer. COMPARISON: Mammography: This study is compared with prior exams dating back to 2013. TECHNIQUE: Digital breast tomosynthesis is performed in both the craniocaudal and mediolateral oblique views along with computer-aided detection (CAD). Synthesized 2D images are generated from the tomosynthesis. FINDINGS: The breasts are heterogeneously dense, which may obscure small masses (ACR BI-RADS breast composition Category c). There are no significant masses, abnormal calcifications, or other abnormalities. Postsurgical changes are present in the upper outer quadrant of the right breast from prior breast cancer treatment. There is a biopsy tissue marker in the small, oval mass just inferior to the right posterior nipple line the anterior depth. There are few, bilateral, benign calcifications. There is a pacemaker at the superior aspect of the left side of the chest. MM/MM tomosynthesis screening BI IMPRESSION: No mammographic evidence of malignancy. ASSESSMENT: BI-RADS BI-RADS 2 - Benign Findings RECOMMENDATION: Routine annual mammography screening. 1 year F/U This examination should not preclude the clinical evaluation of a suspicious palpable abnormality. This patient's information was entered into a reminder system with a target due date for their next mammogram.
== END 2023-03-10 10:49 | disposition home or self-care (01) ==
LOC: HO.MAMMO 10:48
PROVIDERS: PCP Internal Medicine; Visit Provider Internal Medicine
DX: Z12.31 Encounter for screening mammogram for malignant neoplasm of breast (principal)
CPT/HCPCS: 77063; 77067

== ENCOUNTER → 2023-04-03 23:59 | Outpatient (BNV) | payer MEDICARE, MEDICAID, SELFPAY ==
--- NOTE | 2023-04-03 12:36 | A.OFFVIS_ITS ---
Intake Intake Visit Reasons: Remote HF Monitoring- [facility] Allergies ibuprofen [From Motrin] Allergy (Mild, Verified 02/05/23 14:07) HEART PALPITATIONS PFSH Medical History Allergic rhinitis Atherosclerotic cardiovascular disease CAD (coronary artery disease) Cancer COPD (chronic obstructive pulmonary disease) COPD (chronic obstructive pulmonary disease) Dementia Diabetes Heart failure with reduced ejection fraction HTN (hypertension) Hx of radiation therapy Hyperlipidemia ICD (implantable cardioverter-defibrillator) in place Ischemic cardiomyopathy NSTEMI (non-ST elevated myocardial infarction) Osteoarthritis Paget disease of bone Renal insufficiency Schizophrenia TIA (transient ischemic attack) Surgical History History of implantable cardioverter-defibrillator (ICD) placement Hx of breast biopsy Hx of cardiac cath Stented coronary artery Family History Father No problems noted. Mother CVD (cardiovascular disease) Diabetes Social History Household Members: Family Housing: Apartment Are you a primary healthcare associate to a significant other at home: No Do you presently have visiting nurse or other home services: Yes (nurse and S[employer]OTH [employer] WORKER COMPOSITES) Alcohol intake: never Patient Tobacco Use Status: Former Tobacco user Years Smoked: 40 years Second Hand Smoke Exposure: No Advance Directives Date on File: 07/16/21 service: No Current occupational status: retired Office Procedures Cardiac Device Check Cardiac Device Check Details: Remote heart failure report generated 04/03/2023. Heart failure parameters are stable [id number] Cardiac Device Interrogation, cardio physiologic monitor Procedure code (CPT) selection complete Coding Level of Care Code Procedure Only CPT Codes Cardiac Device Check - Cardiac Device 15: [id number] Cardiac Device Interrogation, cardio physiologic monitor ([id number])
== END ==
PROVIDERS: PCP Internal Medicine; Visit Provider Internal Medicine Cardiovascular Disease
DX: I50.20 Unspecified systolic (congestive) heart failure (principal); Z95.810 Presence of automatic (implantable) cardiac defibrillator
CPT/HCPCS: 93297

== ENCOUNTER → 2023-05-15 23:59 | Outpatient (BNV) | payer MEDICARE, MEDICAID, SELFPAY ==
--- NOTE | 2023-05-19 14:28 | A.OFFVIS_ITS ---
Intake Intake Visit Reasons: Remote Device Check- [facility] Allergies ibuprofen [From Motrin] Allergy (Mild, Verified 02/05/23 14:07) HEART PALPITATIONS PFSH Medical History Allergic rhinitis Atherosclerotic cardiovascular disease CAD (coronary artery disease) Cancer COPD (chronic obstructive pulmonary disease) COPD (chronic obstructive pulmonary disease) Dementia Diabetes Heart failure with reduced ejection fraction HTN (hypertension) Hx of radiation therapy Hyperlipidemia ICD (implantable cardioverter-defibrillator) in place Ischemic cardiomyopathy NSTEMI (non-ST elevated myocardial infarction) Osteoarthritis Paget disease of bone Renal insufficiency Schizophrenia TIA (transient ischemic attack) Surgical History History of implantable cardioverter-defibrillator (ICD) placement Hx of breast biopsy Hx of cardiac cath Stented coronary artery Family History Father No problems noted. Mother CVD (cardiovascular disease) Diabetes Social History Household Members: Family Housing: Apartment Are you a primary client care manager to a significant other at home: No Do you presently have visiting nurse or other home services: Yes (nurse and SIGN LANGUAGE TRANSLATOR) Alcohol intake: never Comment: family at bedside Patient Tobacco Use Status: Former Tobacco user Years Smoked: 40 years Second Hand Smoke Exposure: No Advance Directives Date on File: 07/16/21 service: No Current occupational status: retired Office Procedures Cardiac Device Check Cardiac Device Check Details: Remote ICD report generated 05/15/2023. ICD function is adequate [id number] Cardiac Interrogation, implant defibrillator w/interim Procedure code (CPT) selection complete Assessment & Plan Assessment & Plan (1) ICD (implantable cardioverter-defibrillator) in place: Code(s): Z95.810 - Presence of automatic (implantable) cardiac defibrillator Plan: See above Coding Level of Care Code Procedure Only Diagnoses ICD (implantable cardioverter-defibrillator) in place Z95.810 CPT Codes Cardiac Device Check - Cardiac Device 13: [id number] Cardiac Interrogation, implant defibrillator w/interim ([id number])
== END ==
PROVIDERS: PCP Internal Medicine; Visit Provider Internal Medicine Cardiovascular Disease
DX: I25.5 Ischemic cardiomyopathy (principal); Z95.810 Presence of automatic (implantable) cardiac defibrillator
CPT/HCPCS: 93295

== ENCOUNTER → 2023-05-16 23:59 | Outpatient (BNV) | payer MEDICARE, MEDICAID, SELFPAY ==
--- NOTE | 2023-05-19 11:31 | MHC.OFFVIS ---
Intake Intake Visit Reasons: Remote HF Monitoring- [facility] Allergies ibuprofen [From Motrin] Allergy (Mild, Verified 02/05/23 14:07) HEART PALPITATIONS PFSH Medical History Allergic rhinitis Atherosclerotic cardiovascular disease CAD (coronary artery disease) Cancer COPD (chronic obstructive pulmonary disease) COPD (chronic obstructive pulmonary disease) Dementia Diabetes Heart failure with reduced ejection fraction HTN (hypertension) Hx of radiation therapy Hyperlipidemia ICD (implantable cardioverter-defibrillator) in place Ischemic cardiomyopathy NSTEMI (non-ST elevated myocardial infarction) Osteoarthritis Paget disease of bone Renal insufficiency Schizophrenia TIA (transient ischemic attack) Surgical History History of implantable cardioverter-defibrillator (ICD) placement Hx of breast biopsy Hx of cardiac cath Stented coronary artery Family History Father No problems noted. Mother CVD (cardiovascular disease) Diabetes Social History Household Members: Family Housing: Apartment Are you a primary home care scheduler to a significant other at home: No Do you presently have visiting nurse or other home services: Yes (nurse and CRYSTAL REPORT DEVELOPER) Alcohol intake: never Comment: family at bedside Patient Tobacco Use Status: Former Tobacco user Years Smoked: 40 years Second Hand Smoke Exposure: No Advance Directives Date on File: 07/16/21 service: No Current occupational status: retired Office Procedures Cardiac Device Check Cardiac Device Check Details: Remote heart failure report generated 05/16/2023. Heart failure parameters are stable [id number] Cardiac Device Interrogation, cardio physiologic monitor Procedure code (CPT) selection complete Assessment & Plan Assessment & Plan (1) ICD (implantable cardioverter-defibrillator) in place: Code(s): Z95.810 - Presence of automatic (implantable) cardiac defibrillator Plan: See above Coding Level of Care Code Procedure Only Diagnoses ICD (implantable cardioverter-defibrillator) in place Z95.810 CPT Codes Cardiac Device Check - Cardiac Device 15: [id number] Cardiac Device Interrogation, cardio physiologic monitor ([id number])
== END ==
PROVIDERS: PCP Internal Medicine; Visit Provider Internal Medicine Cardiovascular Disease
DX: I50.20 Unspecified systolic (congestive) heart failure (principal); Z95.810 Presence of automatic (implantable) cardiac defibrillator
CPT/HCPCS: 93297

== ENCOUNTER → 2023-07-07 23:59 | Outpatient (BNV) | payer MEDICARE, MEDICAID, SELFPAY ==
--- NOTE | 2023-07-08 12:46 | MHC.OFFVIS ---
Intake Intake Visit Reasons: Remote HF Monitoring- [facility] Allergies ibuprofen [From Motrin] Allergy (Mild, Verified 02/05/23 14:07) HEART PALPITATIONS PFSH Medical History Allergic rhinitis Atherosclerotic cardiovascular disease CAD (coronary artery disease) Cancer COPD (chronic obstructive pulmonary disease) COPD (chronic obstructive pulmonary disease) Dementia Diabetes Heart failure with reduced ejection fraction HTN (hypertension) Hx of radiation therapy Hyperlipidemia ICD (implantable cardioverter-defibrillator) in place Ischemic cardiomyopathy NSTEMI (non-ST elevated myocardial infarction) Osteoarthritis Paget disease of bone Renal insufficiency Schizophrenia TIA (transient ischemic attack) Surgical History History of implantable cardioverter-defibrillator (ICD) placement Hx of breast biopsy Hx of cardiac cath Stented coronary artery Family History Father No problems noted. Mother CVD (cardiovascular disease) Diabetes Social History Household Members: Family Housing: Apartment Are you a primary intensive care ambulance paramedic to a significant other at home: No Do you presently have visiting nurse or other home services: Yes (nurse and TERMITE HELPER) Alcohol intake: never Comment: family at bedside Patient Tobacco Use Status: Former Tobacco user Years Smoked: 40 years Second Hand Smoke Exposure: No Advance Directives Date on File: 07/16/21 service: No Current occupational status: retired Office Procedures Cardiac Device Check Cardiac Device Check Details: Remote heart failure report generated 07/07/2023. Heart failure parameters are stable [id number] Cardiac Device Interrogation, cardio physiologic monitor Procedure code (CPT) selection complete Assessment & Plan Assessment & Plan (1) ICD (implantable cardioverter-defibrillator) in place: Code(s): Z95.810 - Presence of automatic (implantable) cardiac defibrillator Plan: See above Coding Level of Care Code Procedure Only Diagnoses ICD (implantable cardioverter-defibrillator) in place Z95.810 CPT Codes Cardiac Device Check - Cardiac Device 15: [id number] Cardiac Device Interrogation, cardio physiologic monitor ([id number])
== END ==
PROVIDERS: PCP Internal Medicine; Visit Provider Internal Medicine Cardiovascular Disease
DX: I50.20 Unspecified systolic (congestive) heart failure (principal); Z95.810 Presence of automatic (implantable) cardiac defibrillator
CPT/HCPCS: 93297

== ENCOUNTER 2023-07-17 10:14 | Outpatient (AMB) | payer MEDICARE, MEDICAID, SELFPAY ==
[2023-07-17 10:19] VITALS: BP 114/72; PULSE 70; BMI 23.7
--- NOTE | 2023-07-17 10:19 | A.OFFVIS_ITS ---
Intake Vital Signs 07/17/23 10:19 Height 5 ft 1 in Weight 125 lb 3.561 oz BMI 23.7 BP 114/72 Blood Pressure Location Lt brachial Position Sitting Pulse 70 Pulse Source Monitor Intake Visit Reasons: 6 mth f/up w/ device ck Party Plan Sales Consultant Required: Yes Party Plan Sales Consultant Language: Turkmen Seat Maker: Seat Maker Present Allergies ibuprofen [From Motrin] Allergy (Mild, Verified 07/17/23 10:21) HEART PALPITATIONS Medication List - Last Reconciled 07/17/23 by Yayd Marsh NP-C albuterol sulfate 90 mcg/actuation (Ventolin HFA) 2 puffs inhalation Q4H PRN aspirin (Adult Low Dose Aspirin) 81 mg PO DAILY atorvastatin 20 mg PO DAILY blood pressure test kit-medium As directed cholecalciferol (vitamin D3) 50 mcg PO DAILY ezetimibe 10 mg PO QPM ferrous sulfate 325 mg PO DAILY glipizide 10 mg PO BID inhalational spacing device (Vortex Holding Chamber) As directed metoprolol tartrate 50 mg PO BID montelukast 10 mg PO DAILY omeprazole 20 mg PO DAILY paroxetine HCl 5 mg PO DAILY quetiapine 50 mg PO BEDTIME ranolazine ER 500 mg PO BID ticagrelor (Brilinta) 60 mg PO BID valsartan 20 mg (1/2 x 40 mg) PO QPM HPI 6 mth f/up w/ device ck HPI Details Florinda is a 72-year-old female with past medical history of hypertension, hyperlipidemia, ischemic cardiomyopathy, heart failure with reduced EF, CAD with LAD stents, ICD who presents for follow-up. Today she reports she has been feeling well since her last visit in January. She has not had any chest discomfort at rest or with activity. She does have some shortness of breath with walking which she says is unchanged. She does only light activities admits to being mostly sedentary. No heart palpitations, lightheadedness, presyncope, syncope, falls. No PND, orthopnea or edema. She sleeps with 2 pillows which is her norm. Takes all her meds as directed. Granddaughter is present and assisting with Turkmen interpretation at their request. She reports that patient has some mild dementia. [facility] Medical History Diabetes Renal insufficiency Hx of radiation therapy Cancer Osteoarthritis Paget disease of bone Schizophrenia Dementia TIA (transient ischemic attack) NSTEMI (non-ST elevated myocardial infarction) COPD (chronic obstructive pulmonary disease) Atherosclerotic cardiovascular disease Heart failure with reduced ejection fraction ICD (implantable cardioverter-defibrillator) in place Hyperlipidemia HTN (hypertension) CAD (coronary artery disease) Ischemic cardiomyopathy COPD (chronic obstructive pulmonary disease) Allergic rhinitis Surgical History Hx of breast biopsy Stented coronary artery Hx of cardiac cath History of implantable cardioverter-defibrillator (ICD) placement Family History Father No problems noted. Mother CVD (cardiovascular disease) Diabetes Social History Household Members: Family Housing: Apartment Are you a primary hospice spiritual care coordinator to a significant other at home: No Do you presently have visiting nurse or other home services: Yes (nurse and HOME HEALTH CARE RESPIRATORY THERAPIST) Alcohol intake: never Comment: family at bedside Patient Tobacco Use Status: Former Tobacco user Years Smoked: 40 years Second Hand Smoke Exposure: No Advance Directives Date on File: 07/16/21 service: No Current occupational status: retired Review of Systems Const All systems reviewed & are unremarkable except as noted in HPI and below ENT Denies dizziness Card Denies chest pain, Denies chest pain at rest, Denies chest pain with activity, Denies rapid heart rate, Denies pedal edema, Denies edema, Denies leg edema, Denies lightheadedness, Denies palpitations, Denies dyspnea, Reports dyspnea on exertion and Denies orthopnea Resp Denies cough, Denies dyspnea and Reports dyspnea on exertion GI Denies hematochezia and Denies change in stool character Musc Denies abnormal gait, Denies limited range of motion, Denies muscle cramps, Denies muscle weakness, Denies numbness, Denies radiating pain into limb, Denies stiffness and Denies tingling Neuro Denies abnormal gait, Denies dizziness, Denies numbness and Denies tingling Endo Denies palpitations Physical Exam Vital Signs: Last Vital Signs Pulse 70 07/17/23 10:19 BP 114/72 07/17/23 10:19 BMI result Body Mass Index 23.7 Const General: cooperative, healthy appearing, comfortable and no acute distress Orientation/consciousness: patient oriented x3 Neck Neck: Yes normal visual inspection and Yes no JVD Chest Other: ICD site left upper chest benign Resp Effort & Inspection: normal respiratory effort Auscultation: clear to auscultation bilaterally, no crackles, no rales, no rhonchi and no wheezes Cardio Jugular venous distension: no JVD Rate: regular rate Rhythm: regular rhythm Heart sounds: S1 normal heart sound present, S2 normal heart sound present, no murmurs and no rubs Neuro General: patient oriented x3 Extrem General: Yes normal to inspection and No no pedal edema Psych Appearance: grossly normal Mental Status: mental status grossly normal Speech and movement: Normal speech and movement present Office Procedures Cardiac Device Check Cardiac Device Check Details: [facility] single-chamber ICD interrogation today, V amplitude and impedance no significant change, VVI mode, low rate 40, V paced less than 1%, no VT or VF, no alerts, battery 9.6 years [id number] Cardiac Device Check, single lead implantable defibrillator Procedure code (CPT) selection complete EKG Details: Today, read by me, normal sinus rhythm, nonspecific T-wave abnormality, rate 70, QTC 460 milliseconds [id number], Complete Assessment & Plan Assessment & Plan (1) Ischemic cardiomyopathy: Code(s): I25.5 - Ischemic cardiomyopathy Plan: Known history of ischemic cardiomyopathy. Last echo done 06/27/2021 showing EF 2 0-25%, grade 1 diastolic dysfunction. Single lead ICD in place. History of prior MS with stents to the LAD. No reports of anginal sounding symptoms. On exam she has no clinical signs of decompensated heart failure. She is on valsartan and metoprolol for neurohormonal modulation. She has not requiring diuretic therapy at this time. She does report some shortness of breath when walking distances but states this is unchanged in recent months. Signs and symptoms of heart failure reviewed with her. No recent labs in our system. Will reach out to her PCP at [facility] to obtain their most recent labs. Cardiology follow-up in 6 months, sooner if needed. Will update echo prior to that visit. (2) CAD (coronary artery disease): Code(s): I25.10 - Atherosclerotic heart disease of [place] coronary artery without angina pectoris Plan: History of CAD with LAD stents. No reports of anginal symptoms. She has been on dual anti-platelet therapy with aspirin and low-dose Brilinta. Prior note indicates that she has had problems with delayed stent thrombosis and will rem ain on dual antiplatelet therapy. Continue Zetia and atorvastatin with LDL goal less than 70. Obtaining last lipids from PCP office. Continue metoprolol. Signs and symptoms of angina reviewed. (3) ICD (implantable cardioverter-defibrillator) in place: Code(s): Z95.810 - Presence of automatic (implantable) cardiac defibrillator Plan: [facility] single-chamber ICD in place. Functioning normally on interrogation today. No VT or VF. Remote monitoring in use. Next office interrogation due in 6 months. (4) Heart failure with reduced ejection fraction: Code(s): I50.20 - Unspecified systolic (congestive) heart failure Plan: Stable as above (5) Hyperlipidemia: Code(s): E78.5 - Hyperlipidemia, unspecified Plan: [place] LDL goal less than 70 in patient with known CAD and coronary stent. Continue atorvastatin and Zetia. (6) HTN (hypertension): Code(s): I10 - Essential (primary) hypertension Plan: Well controlled at present. No med changes made. Plan Time spent on chart review, documentation, interview and assessment Orders: Orders CA echo transthoracic complete 5 Months I25.5 - Ischemic cardiomyopathy Coding Level of Care Code Est Pt Level 4 (77726) Diagnoses Ischemic cardiomyopathy I25.5 CAD (coronary artery disease) I25.10 ICD (implantable cardioverter-defibrillator) in place Z95.810 Heart failure with reduced ejection fraction I50.20 Hyperlipidemia E78.5 HTN (hypertension) I10 CPT Codes Cardiac Device Check - Cardiac Device 4: [id number] Cardiac Device Check, single lead implantable defibrillator ([id number]) EKG - CPT: 00208-[id number], Complete ([id number]) Time Spent (min) 30
== END 2023-07-17 10:58 | disposition home or self-care (01) ==
PROVIDERS: PCP Internal Medicine; Visit Provider Nurse Practitioner Family
DX: I25.5 Ischemic cardiomyopathy (principal); I25.10 Atherosclerotic heart disease of native coronary artery without angina pectoris; Z95.810 Presence of automatic (implantable) cardiac defibrillator; I50.20 Unspecified systolic (congestive) heart failure; E78.5 Hyperlipidemia, unspecified; I10 Essential (primary) hypertension
CPT/HCPCS: 93282; 99214

== ENCOUNTER → 2023-07-17 10:14 | Outpatient (BNVA) | payer MEDICARE, MEDICAID, SELFPAY | PROVIDERS: PCP Internal Medicine; Visit Provider Nurse Practitioner Family | DX: Z45.02 Encounter for adjustment and management of automatic implantable cardiac defibrillator (principal); I25.5 Ischemic cardiomyopathy; I25.10 Atherosclerotic heart disease of native coronary artery without angina pectoris; I11.0 Hypertensive heart disease with heart failure; I50.20 Unspecified systolic (congestive) heart failure; E78.5 Hyperlipidemia, unspecified | CPT/HCPCS: 93005; 99212 ==

== ENCOUNTER 2023-08-07 11:18 | Outpatient (AMB) | payer MEDICARE, MEDICAID, SELFPAY ==
--- NOTE | 2023-08-07 11:25 | MHC.OFFVIS ---
Intake Vital Signs 08/07/23 11:26 Height 5 ft 1 in Weight 125 lb 10.616 oz BMI 23.7 BP 94/62 Blood Pressure Location Rt brachial Position Sitting Pulse 66 Pulse Source Pulse Oximeter Pulse Oximetry (%) 99 Oxygen Delivery Method Room Air Intake Visit Reasons: COPD Intake Note: pt is here for follow up and had a cold beginning of the week, but patito does notice when she walks she gets short of breath and tired, pt does have nebulizer at home but has not had medication for it in a while, can they have a refill to have on hand for prn and also albuterol hfa needs refill also Central Lab Technician Required: No Allergies ibuprofen [From Motrin] Allergy (Mild, Verified 08/07/23 11:32) HEART PALPITATIONS Medication List - Last Reconciled 08/07/23 by Marija Barrera MD albuterol sulfate 90 mcg/actuation (Ventolin HFA) 2 puffs inhalation Q4H PRN aspirin (Adult Low Dose Aspirin) 81 mg PO DAILY atorvastatin 20 mg PO DAILY blood pressure test kit-medium As directed cholecalciferol (vitamin D3) 50 mcg PO DAILY ezetimibe 10 mg PO QPM ferrous sulfate 325 mg PO DAILY glipizide 10 mg PO BID inhalational spacing device (Vortex Holding Chamber) As directed metoprolol tartrate 50 mg PO BID montelukast 10 mg PO DAILY omeprazole 20 mg PO DAILY paroxetine HCl 5 mg PO DAILY quetiapine 50 mg PO BEDTIME ranolazine ER 500 mg PO BID ticagrelor (Brilinta) 60 mg PO BID valsartan 20 mg (1/2 x 40 mg) PO QPM Do you need a note to return to daycare/school/sports/work: No HPI COPD HPI Details 73 YEARS OLD VERY PLEASANT FEMALE COMES IN TODAY AFTER 6 MONTHS FOR FOLLOW-UP. HER GRANDDAUGHTER WHO IS ALSO READERS' ADVISORY SERVICE LIBRARIAN COMES ALONG WITH HER. ACCORDING TO THE GRANDDAUGHTER SHE HAS BEEN DOING VERY WELL BUT ABOUT A WEEK AGO SHE HAD SYMPTOMS. OF COLD WHICH ARE NOW RESOLVED THE ONLY MEDICINE SHE TAKES REGULARLY FOR HER ALLERGIC RHINITIS AND ASTHMA IS MONTELUKAST 10 MG DAILY. SHE DOES USE ALBUTEROL HFA ( VENTOLIN) 2 PUFFS Q 6 HOURS BUT ONLY ONCE IN A WHILE. SHE ALSO HAS A NEBULIZER AT HOME BUT DOES NOT HAVE THE SOLUTION( ALBUTEROL) PFSH Medical History Diabetes Renal insufficiency Hx of radiation therapy Cancer Osteoarthritis Paget disease of bone Schizophrenia Dementia TIA (transient ischemic attack) NSTEMI (non-ST elevated myocardial infarction) COPD (chronic obstructive pulmonary disease) Atherosclerotic cardiovascular disease Heart failure with reduced ejection fraction ICD (implantable cardioverter-defibrillator) in place Hyperlipidemia HTN (hypertension) CAD (coronary artery disease) Ischemic cardiomyopathy COPD (chronic obstructive pulmonary disease) Allergic rhinitis Surgical History Hx of breast biopsy Stented coronary artery Hx of cardiac cath History of implantable cardioverter-defibrillator (ICD) placement Family History Father No problems noted. Mother CVD (cardiovascular disease) Diabetes Social History Household Members: Family Housing: Apartment Are you a primary childcare worker to a significant other at home: No Do you presently have visiting nurse or other home services: Yes (nurse and READERS' ADVISORY SERVICE LIBRARIAN) Alcohol intake: never Comment: family at bedside Patient Tobacco Use Status: Former Tobacco user Years Smoked: 40 years Second Hand Smoke Exposure: No Advance Directives Date on File: 07/16/21 service: No Current occupational status: retired Review of Systems Const All systems reviewed & are unremarkable except as noted in HPI and below Denies weakness Eyes Reports no additional complaints ENT Denies dizziness Card Denies chest pain, Denies chest pain with activity, Denies syncope, Denies rapid heart rate, Denies pedal edema, Denies edema, Denies leg edema, Denies lightheadedness, Denies palpitations, Denies dyspnea, Denies dyspnea on exertion and Denies orthopnea Resp Denies cough, Denies dyspnea and Denies dyspnea on exertion GI Denies hematochezia and Denies change in stool character Reports no additional complaints Musc Denies abnormal gait, Denies muscle weakness, Denies numbness, Denies radiating pain into limb and Denies tingling Skin/Breast Reports system reviewed and no additional complaints, except as documented Neuro Denies abnormal gait, Denies dizziness, Denies syncope, Denies numbness, Denies tingling and Denies weakness Psych Reports depression (Controlled with med) Endo Denies palpitations Physical Exam Vital Signs: Last Vital Signs Pulse 66 08/07/23 11:26 BP 94/62 08/07/23 11:26 Pulse Ox 99 08/07/23 11:26 Oxygen Delivery Method Room Air 08/07/23 11:26 BMI result Body Mass Index 23.7 Const General: comfortable, no acute distress, alert and awake Orientation/consciousness: patient oriented x3 HEENT Head: Yes normal to inspection General nose exam: No nasal polyps present and No nasal discharge present Face and sinus: Yes sinuses nontender Mouth: oropharynx normal Throat: Yes posterior oropharynx normal Eyes General: appearance normal, both eyes and all related structures Neck Neck: Yes normal visual inspection, Yes no lymphadenopathy, Yes trachea midline and Yes no JVD Thyroid: Thyroid normal Chest Chest palpation & inspection: normal inspection of the chest (HAS PACEMAKER BATTERY IN LEFT PECTORAL AREA), normal palpation of entire chest wall and no tenderness Resp Other: Percussion note is resonant, breath sounds are distant on both sides with prolonged expiratory phase. No wheezes rhonchi or crepitations are heard . Cardio Palpation: normal PMI and other (ICD in place) Rate: regular rate Rhythm: regular rhythm Heart sounds: no gallops and no murmurs GI Palpation (GI): Soft to palpation, nontender, No hepatosplenomegaly present and no masses Auscultation: normal bowel sounds Back/Spine/Pelvis Thoracic/Lumbar Spine: thoracic and lumbar spine normal to inspection Skin General skin exam: no rashes or lesions noted Neuro General: patient oriented x3 and no focal motor deficits Cranial nerves: Yes CN's II-XII intact bilaterally Cognition (Neuro): abnormal cognition (Mild to moderate memory loss) Extrem General: Yes normal to inspection, Yes no clubbing, cyanosis or edema and Yes no calf tenderness Psych Appearance: grossly normal and well kempt Speech and movement: Normal speech and movement present Assessment & Plan Assessment & Plan (1) Allergic rhinitis: Comment: Mild, remains well controlled . Code(s): J30.9 - Allergic rhinitis, unspecified Plan: Continue using Montelukast 10 mg daily , Loratadine 10 mg once a day , only PRN . (2) COPD (chronic obstructive pulmonary disease): Comment: She does have MILD TO MODERATE degree of obstructive airway disorder, Seems to be well controlled at this time with the current medical regimen. Code(s): J44.9 - Chronic obstructive pulmonary disease, unspecified Plan: CONTINUE : NO NEED TO USE FLOVENT-220 PROAIR HFA 2 puffs Q 4-6 hours p.r.n. ALTERNATIVELY MAY USE ALBUTEROL SOLUTION IN THE NEBULIZER Q 4-6 HOURS P.R.N.. Medications: New albuterol sulfate 2.5 mg (6 mL) inhalation Q4-6H PRN 75 mL 2RF shortness of breath or wheezing 2 months Changed From albuterol sulfate 90 mcg/actuation (Ventolin HFA) 2 puffs inhalation Q4H PRN wheezing To albuterol sulfate 90 mcg/actuation (Ventolin HFA) 2 puffs inhalation Q4H 30 days PRN 8.5 grams 5RF wheezing Refilled inhalational spacing device (Vortex Holding Chamber) As directed 1 ea 0RF Coding Level of Care Code Est Pt Level 3 (26363) Diagnoses Allergic rhinitis J30.9 COPD (chronic obstructive pulmonary disease) J44.9
[2023-08-07 11:26] VITALS: BP 94/62; PULSE 66; O2SAT 99; BMI 23.7
== END 2023-08-07 11:43 | disposition home or self-care (01) ==
PROVIDERS: PCP Internal Medicine; Visit Provider Internal Medicine
DX: J30.9 Allergic rhinitis, unspecified (principal); J44.9 Chronic obstructive pulmonary disease, unspecified
CPT/HCPCS: 99213

== ENCOUNTER → 2023-08-07 11:18 | Outpatient (BNVA) | payer MEDICARE, MEDICAID, SELFPAY | PROVIDERS: PCP Internal Medicine; Visit Provider Internal Medicine | DX: J44.9 Chronic obstructive pulmonary disease, unspecified (principal); J30.9 Allergic rhinitis, unspecified | CPT/HCPCS: 99212 ==

== ENCOUNTER → 2023-08-14 23:59 | Outpatient (BNV) | payer MEDICARE, MEDICAID, SELFPAY ==
--- NOTE | 2023-08-18 15:52 | MHC.OFFVIS ---
Intake Intake Visit Reasons: Remote ICD Check- [facility] Allergies ibuprofen [From Motrin] Allergy (Mild, Verified 08/07/23 11:32) HEART PALPITATIONS PFSH Medical History Diabetes Renal insufficiency Hx of radiation therapy Cancer Osteoarthritis Paget disease of bone Schizophrenia Dementia TIA (transient ischemic attack) NSTEMI (non-ST elevated myocardial infarction) COPD (chronic obstructive pulmonary disease) Atherosclerotic cardiovascular disease Heart failure with reduced ejection fraction ICD (implantable cardioverter-defibrillator) in place Hyperlipidemia HTN (hypertension) CAD (coronary artery disease) Ischemic cardiomyopathy COPD (chronic obstructive pulmonary disease) Allergic rhinitis Surgical History Hx of breast biopsy Stented coronary artery Hx of cardiac cath History of implantable cardioverter-defibrillator (ICD) placement Family History Father No problems noted. 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 ICD function is adequate [id number] Cardiac Interrogation, implant defibrillator w/interim Procedure code (CPT) selection complete Assessment & Plan Assessment & Plan (1) ICD (implantable cardioverter-defibrillator) in place: Code(s): Z95.810 - Presence of automatic (implantable) cardiac defibrillator Plan: See above Coding Level of Care Code Procedure Only Diagnoses ICD (implantable cardioverter-defibrillator) in place Z95.810 CPT Codes Cardiac Device Check - Cardiac Device 13: [id number] Cardiac Interrogation, implant defibrillator w/interim ([id number])
== END ==
PROVIDERS: PCP Internal Medicine; Visit Provider Internal Medicine Cardiovascular Disease
DX: I25.5 Ischemic cardiomyopathy (principal); Z95.810 Presence of automatic (implantable) cardiac defibrillator
CPT/HCPCS: 93295

== ENCOUNTER → 2023-08-18 23:59 | Outpatient (BNV) | payer MEDICARE, MEDICAID, SELFPAY ==
--- NOTE | 2023-08-18 15:40 | MHC.OFFVIS ---
Intake Intake Visit Reasons: Remote HF Monitoring- [facility] Allergies ibuprofen [From Motrin] Allergy (Mild, Verified 08/07/23 11:32) HEART PALPITATIONS PFSH Medical History Diabetes Renal insufficiency Hx of radiation therapy Cancer Osteoarthritis Paget disease of bone Schizophrenia Dementia TIA (transient ischemic attack) NSTEMI (non-ST elevated myocardial infarction) COPD (chronic obstructive pulmonary disease) Atherosclerotic cardiovascular disease Heart failure with reduced ejection fraction ICD (implantable cardioverter-defibrillator) in place Hyperlipidemia HTN (hypertension) CAD (coronary artery disease) Ischemic cardiomyopathy COPD (chronic obstructive pulmonary disease) Allergic rhinitis Surgical History Hx of breast biopsy Stented coronary artery Hx of cardiac cath History of implantable cardioverter-defibrillator (ICD) placement Family History Father No problems noted. Mother CVD (cardiovascular disease) Diabetes Social History Household Members: Family Housing: Apartment Are you a primary animal care assistant to a significant other at home: No Do you presently have visiting nurse or other home services: Yes (nurse and FIRE PROTECTION FABRICATOR) Alcohol intake: never Comment: family at bedside Patient Tobacco Use Status: Former Tobacco user Years Smoked: 40 years Second Hand Smoke Exposure: No Advance Directives Date on File: 07/16/21 service: No Current occupational status: retired Office Procedures Cardiac Device Check Cardiac Device Check Details: Remote heart failure report generated 08/18/2023. Heart failure parameters are stable [id number] Cardiac Device Interrogation, cardio physiologic monitor Procedure code (CPT) selection complete Assessment & Plan Assessment & Plan (1) ICD (implantable cardioverter-defibrillator) in place: Code(s): Z95.810 - Presence of automatic (implantable) cardiac defibrillator Plan: See above Coding Level of Care Code Procedure Only Diagnoses ICD (implantable cardioverter-defibrillator) in place Z95.810 CPT Codes Cardiac Device Check - Cardiac Device 15: [id number] Cardiac Device Interrogation, cardio physiologic monitor ([id number])
== END ==
PROVIDERS: PCP Internal Medicine; Visit Provider Internal Medicine Cardiovascular Disease
DX: I50.20 Unspecified systolic (congestive) heart failure (principal); Z95.810 Presence of automatic (implantable) cardiac defibrillator
CPT/HCPCS: 93297

== ENCOUNTER → 2023-11-13 23:59 | Outpatient (BNV) | payer MEDICARE, MEDICAID, SELFPAY ==
--- NOTE | 2023-11-14 13:41 | MHC.OFFVIS ---
Intake Visit Reasons: Remote ICD Check- [facility] Allergies ibuprofen [From Motrin] Allergy (Mild, Verified 08/07/23 11:32) HEART PALPITATIONS PFSH Medical History Diabetes Renal insufficiency Hx of radiation therapy Cancer Osteoarthritis Paget disease of bone Schizophrenia Dementia TIA (transient ischemic attack) NSTEMI (non-ST elevated myocardial infarction) COPD (chronic obstructive pulmonary disease) Atherosclerotic cardiovascular disease Heart failure with reduced ejection fraction ICD (implantable cardioverter-defibrillator) in place Hyperlipidemia HTN (hypertension) CAD (coronary artery disease) Ischemic cardiomyopathy COPD (chronic obstructive pulmonary disease) Allergic rhinitis Surgical History Hx of breast biopsy Stented coronary artery Hx of cardiac cath History of implantable cardioverter-defibrillator (ICD) placement Family History Father No problems noted. 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 ICD function is adequate [id number] Cardiac Interrogation, implant defibrillator w/interim Procedure code (CPT) selection complete Assessment & Plan Assessment & Plan (1) ICD (implantable cardioverter-defibrillator) in place: Code(s): Z95.810 - Presence of automatic (implantable) cardiac defibrillator Category: Medical Plan: See above Coding Level of Care Code Procedure Only Diagnoses ICD (implantable cardioverter-defibrillator) in place Z95.810 CPT Codes Cardiac Device Check - Cardiac Device 13: [id number] Cardiac Interrogation, implant defibrillator w/interim ([id number])
== END ==
PROVIDERS: PCP Internal Medicine; Visit Provider Internal Medicine Cardiovascular Disease
DX: Z45.02 Encounter for adjustment and management of automatic implantable cardiac defibrillator (principal)
CPT/HCPCS: 93295

== ENCOUNTER → 2023-12-17 13:52 | Outpatient (REF) | payer MEDICARE, MEDICAID, SELFPAY ==
--- NOTE | 2023-12-17 13:55 | CA_ITS ---
Transthoracic Echocardiogram Patient (Last, First, Middle): Florinda Oconnell L Gender: Female Date of : 1950 Age: 73 Procedure Date: 12/17/2023 Procedure Type: Transthoracic Echocardiogram Location: OP Height: 154.94 cm Weight: 54.43 kg BSA: 1.52 m2 Heart Rate: bpm BP: 110 / [address] Commissioner: TO Referring MD: Yady Marsh PLANER TAILERAgatha Symptoms: I25.5 - Ischemic cardiomyopathy Study Quality: Fair Conclusions: - 1. Moderately reduced LV ejection fraction at 35-40% with underlying regional wall motion abnormality consistent with ischemic cardiomyopathy with elevated filling pressures 2. Cardiac valvular Doppler was within normal limits 3. No gross pericardial effusion Findings Procedure Information The study quality is limited by the patients inability to tolerate the test. Left Ventricle Normal left ventricular cavity size. There is normal left ventricular wall thickness. The left ventricular systolic function is moderately decreased. The visually estimated ejection fraction is between 35-40%. Spectral Doppler is indicative of an impaired relaxation filling pattern. Elevated filling pressures. E/E prime ratio is >15, consistent with elevated filling pressures. Wall Motion Rest Echo Findings The apical lateral segment is hypokinetic. The apical anterior, apical inferior, apical septum, mid inferoseptal, and mid anteroseptal segments are akinetic. The apex segment is dyskinetic. All other scored wall segments showed normal motion. Right Ventricle Normal right ventricular cavity size and systolic function. There is an ICD wire seen in the right ventricle. Atria The left atrium is normal in size. Interatrial shunt cannot be excluded. The right atrium is normal in size. Aortic Valve The aortic valve structure and function is likely normal. There is no aortic valve stenosis. There is no aortic valve regurgitation. Mitral Valve There is mild anterior and posterior mitral leaflet thickening. There is mild mitral annular calcification. There is trace mitral valve regurgitation. There is no mitral valve stenosis. Pulmonic Valve The pulmonic valve is likely normal. There is trace to mild pulmonic valve regurgitation. Tricuspid Valve Likely normal tricuspid valve structure and function. Tricuspid regurgitation envelope is inadequate for calculation of right ventricular systolic pressure. Normal right atrial pressure. Great Vessels All visible segments of the aorta are normal in size. The pulmonary artery was not well visualized. Venous The inferior vena cava is normal in size and collapses greater than 50% with inspiration. Pericardium/Pleural There is no evidence of pericardial effusion. Prior Study Comparison Changes noted compared to prior study dated: 06/27/2021. LV systolic function appears to have improved Measurements 2D Linear Measurements IVSd: 1.18 0.6-0.9/0.6-1.0 cm LVIDd: 3.93 3.9-5.3/4.2-5.9 cm LVIDd Index: 2.59 2.4-3.2/2.2-3.1 cm/m2 LVIDs: 2.89 2.0-3.6 cm LVPWd: 0.79 0.7-1.1 cm LA Diam: 3.30 2.7-3.8/3.0-4.0 cm LAIDs Index: 2.17 1.5-2.3 cm/m2 LV Mass: 150.03 67-162/88-224 g LV Mass Index: 98.71 43-95/49-115 g/m2 LVOT Diam: 2.00 3.0+(-)1.3 cm 2D Systolic Function EF 4C: 34.90 >55% EF 2C: 40.60 >55% EF BiP: 38.00 >55% Mitral Valve MV Pk E: 0.41 MV PK A: 0.96 MV Decel Time: 177.00 E/A: 0.40 E'Lateral: 2.61 E'Medial: 2.39 E/E' Med: 17.00 E/E' Lat: 15.60 PHT: 52.00 MVA PHT: 4.23 Decel Ob[place]: 2.30 Aortic Valve AoV Pk Quincy: 1.13 AoV Mn [place]: 0.74 AoV VTI: 0.23 AoV Pk Grad: 5.00 Aov Mn Grad: 3.00 LESIA Cont.VTI: 2.57 LVOT LVOT Pk [place]: 0.86 LVOT Mn [place]: 0.56 LVOT VTI: 0.19 LVOT Pk Grad: 3.00 LVOT Mn Grad: 1.00 LVOT Diam: 2.00 LVOT Area: 3.14 Diastolic Function MV Pk E: 0.41 MV Pk A: 0.96 E/A: 0.40 E'Medial: 2.39 E/E' Med: 17.00 E' Laterial: 2.61 E/E' Lat: 15.60 Right Ventricle TAPSE (mm): 16.80 TVS' [place]: 10.40 Tricuspid Valve RA Press: 3.00 Great Vessels Aorta Sinus of Valsalva: 3.05 2.0-3.5 cm Ao Asc: 2.90 2.1-3.4 cm Updated in Other Vendor System with Status of Final Adis Abdi MD electronically signed on 12/17/2023 3:32:22 PM with status of Final
== END ==
LOC: HO.CARD 13:52
PROVIDERS: PCP Internal Medicine; Visit Provider Nurse Practitioner Family
DX: I25.5 Ischemic cardiomyopathy (principal)
CPT/HCPCS: 93306

== ENCOUNTER → 2023-12-17 13:55 | Outpatient (BNV) | payer MEDICARE, MEDICAID, SELFPAY | PROVIDERS: PCP Internal Medicine; Visit Provider Internal Medicine Cardiovascular Disease | DX: I25.5 Ischemic cardiomyopathy (principal); I34.81 Nonrheumatic mitral (valve) annulus calcification; I37.1 Nonrheumatic pulmonary valve insufficiency | CPT/HCPCS: 93306 ==

== ENCOUNTER 2023-12-24 02:33 | Emergency (ER) | payer MEDICARE, MEDICAID, SELFPAY ==
--- NOTE | ~2023-12-24 | XR_ITS ---
EXAMINATION: XR CHEST CLINICAL INFORMATION: Dyspnea. COMPARISON: 04/15/2021. TECHNIQUE: Frontal view of the chest was obtained. FINDINGS: The lung volumes are low. The cardiomediastinal silhouette is within normal limits and stable. A single chamber pacer is in place. There is a lateral left lung base opacity. The bony structures and soft tissues are unremarkable. XR/XR chest 1V IMPRESSION: Lateral left lung base opacity could represent infiltrate and/or atelectasis.
[2023-12-24 02:36] VITALS: BP 132/74; BP 134/57; PULSE 65; PULSE 67; RESP 19; TEMP 36.5; O2SAT 95; O2SAT 97; BMI 23.3
[2023-12-24 02:45] LABS: Glucose, Whole Blood 93 mg/dL (60-115)
--- NOTE | 2023-12-24 02:48 | ECG_ITS ---
Test Reason : DYSPNEA Blood Pressure : / mmHG Vent. Rate : 062 BPM Atrial Rate : 062 BPM P-R Int : 162 ms QRS Dur : 086 ms QT Int : 370 ms P-R-T Axes : 050 -15 084 degrees QTc Int : 375 ms Poor data quality Normal sinus rhythm T wave abnormality, consider lateral ischemia Abnormal ECG When compared with ECG of 15-APR-2021 09:48, Criteria for Septal infarct are no longer Present Referred By: Vonda Yeung Electronically Signed By:SEDA CARPENTER MD
[2023-12-24 02:54] LABS: MANUAL DIFF FLAG NO
[2023-12-24 02:55] LABS: Basophils Absolute Auto 0.1 X10*3/uL (0.0-0.2); Eosinophils Absolute Auto 0.4 X10*3/uL (0.0-0.4); Eosinophils Percent Auto 4.7 % (0-4); Hematocrit 39.2 % (37.0-47.0); Hemoglobin 13.3 g/dl (12.0-16.0); Imm Gran Abs Auto 0.04 X10*3/uL (0.00-0.03); Imm Gran Pct Auto 0.5 % (0.0-0.4); Lymphocytes Absolute Auto 1.7 X10*3/uL (1.2-4.9); Lymphocytes Percent Auto 19.2 % (20-40); Mean Corpuscular HGB Conc 33.9 g/dl (31.0-35.0); Mean Corpuscular Hemoglobin 32.8 pg (27.0-33.0); Mean Corpuscular Volume 96.6 fL (80.0-98.0); Mean Platelet Volume 9.7 fL (9.4-12.3); Neutrophils Absolute Auto 5.6 x10*3/uL (2.0-8.3); Neutrophils Percent Auto 63.6 % (45-73); Platelet Count 166 X10*3/uL (160-400); Red Blood Count 4.06 X10*6/uL (4.20-5.50); Red Cell Distribution Width 13.9 % (11.0-16.0); White Blood Count 8.8 X10*3/uL (4.8-10.8)
--- NOTE | 2023-12-24 03:10 | ED_ITS ---
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 ) History of Present Illness ED Provider: TEMI HPI Narrative: 73 yo female with PMH of ischemic cardiomyopathy s/p ICD, CAD, COPD, HTN, HLD states at 2am she was watching TV then felt short of breath this lasted about 20 minutes. She denies cough, fevers, chest pain. She felt chills as well and shaky. It didn't go away so she called 911. MD elicited complaint: shortness of breath Pertinent past history: COPD and congestive heart failure Onset (ago): hour(s) (2am) Timing: now resolved Severity: mild Exacerbating factors: movement Relieving factors: nothing Known history of: COPD and congestive heart failure Associated symptoms: other (chills) Related Data Home Medications ?Medication ?Instructions ?Recorded ?Confirmed montelukast 10 mg tablet 10 mg PO DAILY 03/04/20 08/07/23 aspirin 81 mg tablet,delayed 81 mg PO DAILY 06/27/20 08/07/23 release (Adult Low Dose Aspirin) cholecalciferol (vitamin D3) 25 50 mcg PO DAILY 06/27/20 08/07/23 mcg (1,000 unit) capsule ferrous sulfate 325 mg (65 mg 325 mg PO DAILY 06/27/20 08/07/23 iron) tablet omeprazole 20 mg capsule,delayed 20 mg PO DAILY 07/31/21 08/07/23 release glipizide 5 mg tablet 10 mg PO BID 12/24/21 08/07/23 quetiapine 50 mg tablet 50 mg PO BEDTIME 12/24/21 08/07/23 atorvastatin 20 mg tablet 20 mg PO DAILY 05/14/22 08/07/23 paroxetine HCl 10 mg tablet 5 mg PO DAILY 05/14/22 08/07/23 Previous Rx's ?Medication ?Instructions ?Recorded blood pressure test kit-[facility] #1 ea 10/31/21 valsartan 40 mg tablet 20 mg (1/2 x 40 mg) PO QPM #15 tabs 04/10/23 ranolazine 500 mg tablet,extended 500 mg PO BID #180 tabs 04/28/23 release,12 hr ezetimibe 10 mg tablet 10 mg PO QPM #30 tabs 05/14/23 ticagrelor 60 mg tablet (Brilinta) 60 mg PO BID #60 tabs 05/14/23 albuterol sulfate 1.25 mg/3 mL 2.5 mg (6 mL) inhalation Q4-6H PRN 08/07/23 solution for nebulization shortness of breath or wheezing 2 months #75 mL albuterol sulfate 90 mcg/actuation 2 puff inhalation Q4H PRN wheezing 08/07/23 aerosol inhaler (Ventolin HFA) 30 days #8.5 grams inhalational spacing device #1 ea 08/07/23 (Vortex Holding Chamber) metoprolol tartrate 50 mg tablet 50 mg PO BID #60 tabs 09/11/23 amoxicillin 500 mg-potassium 1 tab PO BID #13 tabs 12/24/23 clavulanate 125 mg tablet (Augmentin) Allergies Allergy/AdvReac Type Severity Reaction Status Date / Time ibuprofen [From Motrin] Allergy Mild HEART Verified 12/24/23 02:40 PALPITATIONS Review of Systems 2 Review of Systems: Constitutional : No Fever, pos Chills ENT/Mouth : No sore throat, No Rhinorrhea, No Swallowing Difficulty Eyes: No Eye Pain, No Swelling, No Redness Cardiovascular : No Chest Pain, positive SOB, No Orthopnea, no Edema Respiratory : No Cough, No Sputum, No Wheezing, positive dyspnea Gastrointestinal : No Nausea, No Vomiting, No Diarrhea, No abdominal Pain, No Hematochezia, No Melena Genitourinary : No Dysuria, No Urinary Frequency, No Hematuria Musculoskeletal : No joint pain, No Myalgias Skin : No Skin Lesions, No rash Neuro : No Weakness, No Numbness, No Dizziness, No Headache Psych : No Anxiety/Panic, No Depression Heme/Lymph: No Bruising, No Lymphadenopathy Endocrine : No Polyuria, No Polydipsia All other systems reviewed and are negative PMFSH Past Medical History Attestation statement: The following information was validated with the patient. Source: old records reviewed Medical History Diabetes Renal insufficiency Hx of radiation therapy Cancer Osteoarthritis Paget disease of bone Schizophrenia Dementia TIA (transient ischemic attack) NSTEMI (non-ST elevated myocardial infarction) COPD (chronic obstructive pulmonary disease) Atherosclerotic cardiovascular disease Heart failure with reduced ejection fraction ICD (implantable cardioverter-defibrillator) in place Hyperlipidemia HTN (hypertension) CAD (coronary artery disease) Ischemic cardiomyopathy COPD (chronic obstructive pulmonary disease) Allergic rhinitis Surgical History Hx of breast biopsy Stented coronary artery Hx of cardiac cath History of implantable cardioverter-defibrillator (ICD) placement Family History Family History Father No problems noted. 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) Alcohol intake: never Comment: family at bedside Patient Tobacco Use Status: Former Tobacco user Years Smoked: 40 years Smoked in Last 30 Days: No Second Hand Smoke Exposure: No Use of substances other than those prescribed or required for medical reasons: No Advance Directives: Yes Advance Directives on File: Yes Advance Directives Date on File: 07/16/21 Do you have a plan to hurt others: No Plan service: No Current occupational status: retired Physical Exam 2 Vital Signs: Vital Signs: Last Vital Signs Temp 97.6 F 12/24/23 04:14 Pulse 69 12/24/23 04:14 Resp 17 12/24/23 04:14 BP 107/50 L 12/24/23 04:14 Pulse Ox 95 12/24/23 04:14 O2 Del Method Room Air 12/24/23 04:14 BMI result Body Mass Index 23.3 Appearance: Alert. Oriented X3. No acute distress. Eyes: Pupils equal, round and reactive to light. ENT: Pharynx normal. Neck: Normal inspection. Neck supple. CVS: Normal heart rate and rhythm. Pulses normal. Respiratory: No respiratory distress. Breath sounds crackles both bases Abdomen: Soft and nontender. Skin: Skin warm and dry. pale skin color. Normal skin turgor. Extremities: No lower extremity edema. No calf ttp Neuro: Oriented X 3. No motor deficit. No sensory deficit. Medical Decision Making Medical Decision Making MDM Narrative: 73 yo female with PMH of ischemic cardiomyopathy s/p ICD, CAD, COPD, HTN, HLD here with c/o having chills and shortness of breath at 2am - the shortness of breath was at rest and is now resolved she has no chest pain or leg edema at this time will obtain basic labs, EKG, CXR and trop x 2. Denies GIB or infectious symptoms. Differential Diagnosis Differential Diagnoses: The differential diagnosis associated with the presentation includes dyspnea, CHF, anemia, atypical ACS Admission/Observation Consideration of admission/observation: Escalation of care including admission/observation considered no hypoxia, BNP wnl, trop flat x 2, feels much better will treat as possible pneumonia family and patient reassured and feel comfortable to go home. Lab Data MDM Lab Attestation statement: I reviewed the patient's lab results. 12/24/23 02:49 12/24/23 02:49 Labs: Lab Results 12/24/23 12/24/23 12/24/23 Range/Units 02:40 02:49 05:06 WBC 8.8 (4.8-10.8) X10*3/uL RBC 4.06 L (4.20-5.50) X10*6/uL Hgb 13.3 (12.0-16.0) g/dl Hct 39.2 (37.0-47.0) % MCV 96.6 (80.0-98.0) fL MCH 32.8 (27.0-33.0) pg MCHC 33.9 (31.0-35.0) g/dl RDW 13.9 (11.0-16.0) % Plt Count 166 (160-400) X10*3/uL MPV 9.7 (9.4-12.3) fL Immature Gran % (Auto) 0.5 H (0.0-0.4) % Neut % (Auto) 63.6 (45-73) % Lymph % (Auto) 19.2 L (20-40) % [place] % (Auto) 11.0 (2-11) % Eos % (Auto) 4.7 H (0-4) % Baso % (Auto) 1.0 (0-2) % Lymph # (Auto) 1.7 (1.2-4.9) X10*3/uL [place] # (Auto) 1.0 (0.1-1.2) X10*3/uL Eos # (Auto) 0.4 (0.0-0.4) X10*3/uL Baso # (Auto) 0.1 (0.0-0.2) X10*3/uL Abs Immat Gran (auto) 0.04 H (0.00-0.03) X10*3/uL Absolute Neuts (auto) 5.6 (2.0-8.3) x10*3/uL Absolute Nucleated RBC 0.000 (0.0-0.012) X10*3/uL Nucleated RBC % (auto) 0.0 (0.0-0.2) /100WBC Sodium 141 (135-145) mmol/L Potassium 4.5 (3.3-5.1) mmol/L Chloride 111 H (96-108) mmol/L Carbon Dioxide 23 (22-29) mmol/L Anion Gap 12 (12-20) BUN 19 H (9-16) mg/dL Creatinine 0.99 (0.5-1.4) mg/dL Estim Creat Clear Calc 40.0 Estimated GFR 55 POC Glucose 93 (60-115) mg/dL Random Glucose 101 (60-115) mg/dL Calcium 9.5 (8.4-10.2) mg/dL Magnesium 2.0 (1.6-2.6) mg/dL Total Bilirubin 0.5 (0.0-1.0) mg/dL Direct Bilirubin 0.2 (0.0-0.5) mg/dL AST 23 (5-31) U/L ALT 30 (0-31) U/L Alkaline Phosphatase 66 (39-117) U/L Troponin I High Sens 4.4 3.5 (<3.5-17.0) ng/L B-Natriuretic Peptide 118 H (<100) pg/mL Total Protein 6.6 (6.5-8.0) g/dL Albumin 3.9 (3.5-5.0) g/dL Independent Interpretation I performed an independent interpretation of an: EKG and Plain X-Ray (LL opacity) Interpretation: Rate: 62 Rhythm: NSR [place]: normal Normal P waves. Normal SHELLIE. Normal QRS complex. ST T wave : no TRISTEN, artifact noted qTC: 375 prior studies: The study has been interpreted contemporaneously by me. . Radiology Impression Discussion of test interpretation with radiology: I have reviewed the radiologist's reading. Independent Historian Clinical information obtained from an independent historian. History obtained from or confirmed by: EMS External Record Review External record reviewed: Inpatient record Prescription Management I considered prescription management with: Antibiotic Discharge Plan Discharge Clinical Impression: Acute dyspnea Community acquired pneumonia Qualifiers: Laterality: left Lung location: lower lobe of lung Qualified Code(s): J18.9 - Pneumonia, unspecified organism Patient Disposition: Home, Self-Care Instructions: Community Acquired Pneumonia (ED), Dyspnea (ED) Additional Instructions: return for fevers, vomiting, worsening breathing, increased confusion, pain or any other concerns On amoxicillin-clavulanate, softer bowel movements are to be expected. Call your provider if you move your bowels more than 4 times a day, your bowel movements are almost all liquid, or you get a rash.? Prescriptions: New amoxicillin-pot clavulanate [Augmentin] 500-125 mg tablet 1 tab PO BID Qty: 13 0RF No Action (DME) blood pressure test kit-medium Kit See Rx Instructions .ROUTE .MEDSUPPLY Qty: 1 0RF Rx Instructions: As directed valsartan 40 mg tablet 20 mg PO QPM Qty: 15 11RF ranolazine 500 mg tablet extended release 12 hr 500 mg PO BID Qty: 180 3RF ezetimibe 10 mg tablet 10 mg PO QPM Qty: 30 11RF Brilinta 60 mg tablet 60 mg PO BID Qty: 60 11RF metoprolol tartrate 50 mg tablet 50 mg PO BID Qty: 60 6RF omeprazole 20 mg capsule,delayed release(DR/EC) 20 mg PO DAILY montelukast 10 mg tablet 10 mg PO DAILY glipizide 5 mg tablet 10 mg PO BID aspirin [Adult Low Dose Aspirin] 81 mg tablet,delayed release (DR/EC) 81 mg PO DAILY ferrous sulfate 325 mg (65 mg iron) tablet 325 mg PO DAILY cholecalciferol (vitamin D3) 25 mcg (1,000 unit) capsule 50 mcg PO DAILY quetiapine 50 mg tablet 50 mg PO BEDTIME paroxetine HCl 10 mg tablet 5 mg PO DAILY atorvastatin 20 mg tablet 20 mg PO DAILY albuterol sulfate [Ventolin HFA] 90 mcg/actuation HFA aerosol inhaler 2 puff inhalation Q4H PRN (Reason: wheezing) 30 Days Qty: 8.5 5RF (DME) Vortex Holding Chamber Spacer See Rx Instructions .Route Qty: 1 0RF Rx Instructions: As directed albuterol sulfate 1.25 mg/3 mL solution for nebulization 2.5 mg inhalation Q4-6H PRN (Reason: shortness of breath or wheezing) 60 Days Qty: 75 2RF Print Language: Greek
--- NOTE | 2023-12-24 03:10 | PC.NURSE ---
pt biba from home, a&ox4 but confused at baseline, respirations even and unlabored. pt reporting sudden onset of tremors and shortness of breath starting this afternoon. denies chest pain, n/v/d. 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 20G placed in right ac, labs obtained and sent to lab.
[2023-12-24 03:11] LABS: Alanine Aminotransferase 30 U/L (0-31); Albumin Level 3.9 g/dL (3.5-5.0); Alkaline Phosphatase 66 U/L (39-117); Anion Gap 12 (12-20); Aspartate Amino Transferase 23 U/L (5-31); Bilirubin Direct 0.2 mg/dL (0.0-0.5); Bilirubin Total 0.5 mg/dL (0.0-1.0); Blood Urea Nitrogen 19 mg/dL (9-16); Calcium 9.5 mg/dL (8.4-10.2); Carbon Dioxide 23 mmol/L (22-29); Chloride 111 mmol/L (96-108); Estimated Glomerular Filt Rate 55; Glucose Random 101 mg/dL (60-115); Potassium 4.5 mmol/L (3.3-5.1); Sodium 141 mmol/L (135-145); Total Protein 6.6 g/dL (6.5-8.0)
[2023-12-24 03:14] LABS: B Type Natriuretic Peptide 118 pg/mL (<100); Troponin-I High Sensitivity 4.4 ng/L (<3.5-17.0)
[2023-12-24 04:14] VITALS: BP 107/50; PULSE 69; RESP 17; TEMP 36.4; O2SAT 95
[2023-12-24 05:29] LABS: Troponin-I High Sensitivity 3.5 ng/L (<3.5-17.0)
[2023-12-24] MEDS: Amoxicillin/Potassium Clav 500 MG TABLET PO (05:59)
[2023-12-24 06:05] VITALS: BP 108/59; PULSE 66; RESP 20; TEMP 37.2; O2SAT 97
== END 2023-12-24 06:06 | disposition home or self-care (01) ==
PROVIDERS: Emergency Provider Emergency Medicine; PCP Internal Medicine
DX: J18.9 Pneumonia, unspecified organism (principal); R06.00 Dyspnea, unspecified; R06.02 Shortness of breath; I10 Essential (primary) hypertension; E78.5 Hyperlipidemia, unspecified; J44.9 Chronic obstructive pulmonary disease, unspecified; Z79.899 Other long term (current) drug therapy
CPT/HCPCS: 36415; 71045; 80048; 80076; 82947; 83735; 83880; 84484; 85025; 93005; 99283; 99285

== ENCOUNTER → 2023-12-24 02:48 | Outpatient (BNV) | payer MEDICARE, MEDICAID, SELFPAY | PROVIDERS: Emergency Provider Emergency Medicine; PCP Internal Medicine; Visit Provider Internal Medicine Cardiovascular Disease | DX: R94.31 Abnormal electrocardiogram [ECG] [EKG] (principal); R06.09 Other forms of dyspnea | CPT/HCPCS: 93010 ==

== ENCOUNTER 2024-01-12 12:48 | Outpatient (AMB) | payer MEDICARE, MEDICAID, SELFPAY ==
--- NOTE | 2024-01-12 13:09 | A.OFFVIS_ITS ---
Vital Signs 01/12/24 13:10 Height 5 ft 2 in Weight 123 lb 0.287 oz BMI 22.5 BP 120/80 Blood Pressure Location Lt brachial Position Sitting Pulse 60 Intake Visit Reasons: 6m w/device ck Intake Note: 6 month follow-up with [facility] check feeling good Special Delivery Mail Carrier Required: Yes Special Delivery Mail Carrier Name: [facility] Kennel Aide: Kennel Aide Present Accompanied by: Grand Child Allergies ibuprofen [From Motrin] Allergy (Mild, Verified 12/24/23 02:40) HEART PALPITATIONS Medication List - Last Reconciled 01/12/24 by Adis Abdi MD albuterol sulfate 2.5 mg (6 mL) inhalation Q4-6H PRN 2 months albuterol sulfate 90 mcg/actuation (Ventolin HFA) 2 puffs inhalation Q4H PRN 30 days aspirin (Adult Low Dose Aspirin) 81 mg PO DAILY atorvastatin 20 mg PO DAILY blood pressure test kit-medium As directed cholecalciferol (vitamin D3) 50 mcg PO DAILY ezetimibe 10 mg PO QPM ferrous sulfate 325 mg PO DAILY glipizide 10 mg PO BID inhalational spacing device (Vortex Holding Chamber) As directed metoprolol tartrate 50 mg PO BID montelukast 10 mg PO DAILY omeprazole 20 mg PO DAILY paroxetine HCl 5 mg PO DAILY quetiapine 50 mg PO BEDTIME ranolazine ER 500 mg PO BID ticagrelor (Brilinta) 60 mg PO BID valsartan 20 mg (1/2 x 40 mg) PO QPM HPI Comments Details: Florinda comes for follow-up. No cardiac symptoms. Presents here with a granddaughter. History obtained with help of transcription typist. Patient says she does not walk much because of balance issues but does not want to use a cane. She has not had any falls. She denies any exertional chest pain or shortness of breath. No orthopnea, PND, leg edema. No palpitations, lightheadedness, syncope, ICD discharge. [facility] Medical History Diabetes Renal insufficiency Hx of radiation therapy Cancer Osteoarthritis Paget disease of bone Schizophrenia Dementia TIA (transient ischemic attack) NSTEMI (non-ST elevated myocardial infarction) COPD (chronic obstructive pulmonary disease) Atherosclerotic cardiovascular disease Heart failure with reduced ejection fraction ICD (implantable cardioverter-defibrillator) in place Hyperlipidemia HTN (hypertension) CAD (coronary artery disease) Ischemic cardiomyopathy COPD (chronic obstructive pulmonary disease) Allergic rhinitis Surgical History (Updated 01/12/24 @ 13:49 by Adis Abdi MD) Pacemaker generator end of life Implantable cardioverter-defibrillator (ICD) at end of battery life Hx of breast biopsy Stented coronary artery Hx of cardiac cath History of implantable cardioverter-defibrillator (ICD) placement Family History Father No problems noted. Mother CVD (cardiovascular disease) Diabetes Social History Household Members: Family Housing: Apartment Are you a primary housekeeper child care to a significant other at home: No Do you presently have visiting nurse or other home services: Yes (nurse and SPRING ASSEMBLER SUPERVISOR) Alcohol intake: never Comment: family at bedside Patient Tobacco Use Status: Former Tobacco user Years Smoked: 40 years Second Hand Smoke Exposure: No Advance Directives Date on File: 07/16/21 service: No Current occupational status: retired Review of Systems Const Denies chills, Denies fatigue, Denies fever(s), Denies frequent falls, Denies weakness, Denies weight gain and Denies weight loss ENT Denies dizziness Card Denies chest pain, Denies leg edema, Denies lightheadedness, Denies palpitations, Denies dyspnea, Denies dyspnea on exertion, Denies orthopnea and Denies other (loss of consciousness) Resp Denies cough, Denies dyspnea and Denies dyspnea on exertion GI Denies hematochezia and Denies change in stool character Musc Denies abnormal gait, Denies muscle weakness, Denies numbness, Denies radiating pain into limb and Denies tingling Neuro Denies abnormal gait, Denies dizziness, Denies frequent falls, Denies numbness, Denies tingling and Denies weakness Endo Denies fatigue and Denies palpitations Physical Exam Vital Signs: Last Vital Signs Pulse 60 01/12/24 13:10 BP 120/80 01/12/24 13:10 BMI result Body Mass Index 22.5 Const General: cooperative, healthy appearing, comfortable and no acute distress Orientation/consciousness: patient oriented x3 Neck Neck: Yes normal visual inspection and Yes no JVD Chest Other: ICD site left upper chest benign Resp Effort & Inspection: normal respiratory effort Auscultation: clear to auscultation bilaterally, no crackles, no rales, no rhonchi and no wheezes Cardio Jugular venous distension: no JVD Rate: regular rate Rhythm: regular rhythm Heart sounds: S1 normal heart sound present, S2 normal heart sound present, no murmurs and no rubs Neuro General: patient oriented x3 Extrem General: Yes normal to inspection and No no pedal edema Psych Appearance: grossly normal Mental Status: mental status grossly normal Speech and movement: Normal speech and movement present Office Procedures Cardiac Device Check Cardiac Device Check Details: Single-chamber [facility] ICD in place. Programmed in VVI at 40 beats per minute. No arrhythmias noted. Pacing and shock lead impedance is stable. Pacing thresholds adequate. Ventricular sensing is adequate. Battery life is excellent [id number] Cardiac Device Check, single lead implantable defibrillator Procedure code (CPT) selection complete Assessment & Plan Assessment & Plan (1) Ischemic cardiomyopathy: Code(s): I25.5 - Ischemic cardiomyopathy Category: Medical Plan: [id number] LV systolic dysfunction without any signs or symptoms of heart failure in his elderly woman. She has limited exercise activity due to her imbalance. Advised her to walk with help of a support so she has no fall issues. Continue neurohormonal modulation with valsartan as well as metoprolol therapy. Signs and symptoms of heart failure were discussed. No indication for diuretic therapy. Advised to monitor for symptoms of heart failure report to me. (2) ICD (implantable cardioverter-defibrillator) in place: Code(s): Z95.810 - Presence of automatic (implantable) cardiac defibrillator Category: Medical Plan: ICD in place for secondary prevention with history of syncope as well as ischemi c cardiomyopathy. ICD is working well. Reprogrammed for adequate functioning. (3) CAD (coronary artery disease): Code(s): I25.10 - Atherosclerotic heart disease of [place] coronary artery without angina pectoris Category: Medical Plan: CAD with LAD territory myocardial infarction with repeated infarction with subacute stent thrombosis. She has done well with dual antiplatelet therapy prolonged. Continue the same. Also has done well with current antianginal therapy with metoprolol and Ranexa with no symptoms. Continue statin and ezetimibe therapy with target goal LDL less than 60 mg/dL. Will follow up in the clinic in 6 months time, sooner p.r.n.. Thank you for allowing me to partake in her care Coding Level of Care Code Est Pt Level 4 (59920) Diagnoses Ischemic cardiomyopathy I25.5 ICD (implantable cardioverter-defibrillator) in place Z95.810 CAD (coronary artery disease) I25.10 CPT Codes Cardiac Device Check - Cardiac Device 4: [id number] Cardiac Device Check, single lead implantable defibrillator ([id number])
[2024-01-12 13:10] VITALS: BP 120/80; PULSE 60; BMI 22.5
== END 2024-01-12 13:30 | disposition home or self-care (01) ==
PROVIDERS: PCP Internal Medicine; Referring Provider Internal Medicine; Visit Provider Internal Medicine Cardiovascular Disease
DX: I25.5 Ischemic cardiomyopathy (principal); Z95.810 Presence of automatic (implantable) cardiac defibrillator; I25.10 Atherosclerotic heart disease of native coronary artery without angina pectoris
CPT/HCPCS: 93282; 99214

== ENCOUNTER → 2024-01-12 12:48 | Outpatient (BNVA) | payer MEDICARE, MEDICAID, SELFPAY | PROVIDERS: PCP Internal Medicine; Visit Provider Internal Medicine Cardiovascular Disease | DX: I25.5 Ischemic cardiomyopathy (principal); I25.10 Atherosclerotic heart disease of native coronary artery without angina pectoris; Z45.02 Encounter for adjustment and management of automatic implantable cardiac defibrillator | CPT/HCPCS: 99212 ==

== ENCOUNTER 2024-01-29 10:52 | Outpatient (REF) | payer MEDICARE, MEDICAID, SELFPAY ==
[2024-01-29 12:49] LABS: Alanine Aminotransferase 26 U/L (0-31); Albumin Level 3.8 g/dL (3.5-5.0); Alkaline Phosphatase 61 U/L (39-117); Anion Gap 14 (12-20); Aspartate Amino Transferase 25 U/L (5-31); Bilirubin Direct 0.2 mg/dL (0.0-0.5); Bilirubin Total 0.6 mg/dL (0.0-1.0); Blood Urea Nitrogen 20 mg/dL (9-16); Calcium 9.4 mg/dL (8.4-10.2); Carbon Dioxide 18 mmol/L (22-29); Chloride 110 mmol/L (96-108); Cholesterol 96 mg/dL (<200); Estimated Glomerular Filt Rate 39; Glucose Random 193 mg/dL (60-115); HDL Cholesterol 46 mg/dL (>40); LDL Cholesterol Calculated 33 mg/dL (<100); Potassium 4.1 mmol/L (3.3-5.1); Sodium 138 mmol/L (135-145); Total Protein 6.7 g/dL (6.5-8.0); Triglycerides 85 mg/dL (<150)
[2024-01-29 13:10] LABS: TSH reflex Free T4 4.58 uIU/mL (0.32-4.0)
[2024-01-29 14:09] LABS: Reflex LDLD? No
== END 2024-01-29 10:53 | disposition home or self-care (01) ==
LOC: HO.HHCL 10:52
PROVIDERS: Visit Provider Internal Medicine
DX: E11.9 Type 2 diabetes mellitus without complications (principal); E78.2 Mixed hyperlipidemia
CPT/HCPCS: 36415; 80053; 80061; 82248; 84439; 84443

== ENCOUNTER 2024-02-05 10:56 | Outpatient (AMB) | payer MEDICARE, MEDICAID, SELFPAY ==
[2024-02-05 11:27] VITALS: BP 92/60; PULSE 75; O2SAT 98; BMI 22.1
--- NOTE | 2024-02-05 11:27 | MHC.OFFVIS ---
Vital Signs 02/05/24 11:27 Height 5 ft 2 in Weight 121 lb 0.25 oz BMI 22.1 BP 92/60 Blood Pressure Location Lt brachial Position Sitting Pulse 75 Pulse Source Pulse Oximeter Pulse Oximetry (%) 98 Oxygen Delivery Method Room Air Intake Visit Reasons: COPD Intake Note: pt is here for follow and states she does get tired with walking Transformation Manager Required: No Allergies ibuprofen [From Motrin] Allergy (Mild, Verified 02/05/24 11:41) HEART PALPITATIONS Medication List - Last Reconciled 02/05/24 by Marija Barrera MD albuterol sulfate 2.5 mg (6 mL) inhalation Q4-6H PRN 2 months albuterol sulfate 90 mcg/actuation (Ventolin HFA) 2 puffs inhalation Q4H PRN 30 days aspirin (Adult Low Dose Aspirin) 81 mg PO DAILY atorvastatin 20 mg PO DAILY blood pressure test kit-medium As directed cholecalciferol (vitamin D3) 50 mcg PO DAILY ezetimibe 10 mg PO QPM ferrous sulfate 325 mg PO DAILY glipizide 10 mg PO BID inhalational spacing device (Vortex Holding Chamber) As directed metoprolol tartrate 50 mg PO BID montelukast 10 mg PO DAILY omeprazole 20 mg PO DAILY paroxetine HCl 5 mg PO DAILY quetiapine 50 mg PO BEDTIME ranolazine ER 500 mg PO BID ticagrelor (Brilinta) 60 mg PO BID valsartan 20 mg (1/2 x 40 mg) PO QPM Do you need a note to return to daycare/school/sports/work: No HPI HPI COPD: Details: 73 years old female is here after 6 months for her pulmonary follow-up. Her breathing status has been very stable, with only mild intermittent nasal congestion and mild intermittent cough. Complains of shortness of breath on walking but this is part of her general fatigue. she complains of getting tired easily. According to her daughter she does not move much and wants to keep sitting during the daytime. She has been using albuterol only once in a while not on a daily basis. [facility] Medical History Diabetes Renal insufficiency Hx of radiation therapy Cancer Osteoarthritis Paget disease of bone Schizophrenia Dementia TIA (transient ischemic attack) NSTEMI (non-ST elevated myocardial infarction) COPD (chronic obstructive pulmonary disease) Atherosclerotic cardiovascular disease Heart failure with reduced ejection fraction ICD (implantable cardioverter-defibrillator) in place Hyperlipidemia HTN (hypertension) CAD (coronary artery disease) Ischemic cardiomyopathy COPD (chronic obstructive pulmonary disease) Allergic rhinitis Surgical History Pacemaker generator end of life Implantable cardioverter-defibrillator (ICD) at end of battery life Hx of breast biopsy Stented coronary artery Hx of cardiac cath History of implantable cardioverter-defibrillator (ICD) placement Family History Father No problems noted. Mother CVD (cardiovascular disease) Diabetes Social History Household Members: Family Housing: Apartment Are you a primary healthcare prof to a significant other at home: No Do you presently have visiting nurse or other home services: Yes (nurse and TAG WRITER) Alcohol intake: never Comment: family at bedside Patient Tobacco Use Status: Former Tobacco user Years Smoked: 40 years Second Hand Smoke Exposure: No Advance Directives Date on File: 07/16/21 service: No Current occupational status: retired Review of Systems Const All systems reviewed & are unremarkable except as noted in HPI and below Denies weakness Eyes Reports no additional complaints ENT Denies dizziness Card Denies chest pain, Denies chest pain with activity, Denies syncope, Denies rapid heart rate, Denies pedal edema, Denies edema, Denies leg edema, Denies lightheadedness, Denies palpitations, Denies dyspnea, Denies dyspnea on exertion and Denies orthopnea Resp Denies cough, Denies dyspnea and Denies dyspnea on exertion GI Denies hematochezia and Denies change in stool character Reports no additional complaints Musc Denies abnormal gait, Denies muscle weakness, Denies numbness, Denies radiating pain into limb and Denies tingling Skin/Breast Reports system reviewed and no additional complaints, except as documented Neuro Denies abnormal gait, Denies dizziness, Denies syncope, Denies numbness, Denies tingling and Denies weakness Psych Reports depression (Controlled with med) Endo Denies palpitations Physical Exam Vital Signs: Last Vital Signs Pulse 75 02/05/24 11:27 BP 92/60 02/05/24 11:27 Pulse Ox 98 02/05/24 11:27 Oxygen Delivery Method Room Air 02/05/24 11:27 BMI result Body Mass Index 22.1 Const General: comfortable, no acute distress, alert and awake Orientation/consciousness: patient oriented x3 HEENT Head: Yes normal to inspection General nose exam: No nasal polyps present and No nasal discharge present Face and sinus: Yes sinuses nontender Mouth: oropharynx normal Throat: Yes posterior oropharynx normal Eyes General: appearance normal, both eyes and all related structures Neck Neck: Yes normal visual inspection, Yes no lymphadenopathy, Yes trachea midline and Yes no JVD Thyroid: Thyroid normal Chest Chest palpation & inspection: normal inspection of the chest (HAS PACEMAKER BATTERY IN LEFT PECTORAL AREA), normal palpation of entire chest wall and no tenderness Resp Other: Percussion note is resonant, breath sounds are distant on both sides with prolonged expiratory phase. No wheezes rhonchi or crepitations are heard . Cardio Palpation: normal PMI and other (ICD in place) Rate: regular rate Rhythm: regular rhythm Heart sounds: no gallops and no murmurs GI Palpation (GI): Soft to palpation, nontender, No hepatosplenomegaly present and no masses Auscultation: normal bowel sounds Back/Spine/Pelvis Thoracic/Lumbar Spine: thoracic and lumbar spine normal to inspection Skin General skin exam: no rashes or lesions noted Neuro General: patient oriented x3 and no focal motor deficits Cranial nerves: Yes CN's II-XII intact bilaterally Cognition (Neuro): abnormal cognition (Mild to moderate memory loss) Extrem General: Yes normal to inspection, Yes no clubbing, cyanosis or edema and Yes no calf tenderness Psych Appearance: grossly normal and well kempt Speech and movement: Normal speech and movement present Assessment & Plan Assessment & Plan (1) COPD (chronic obstructive pulmonary disease): Comment: She does have MILD TO MODERATE degree of obstructive airway disorder, Seems to be well controlled at this time with the current medical regimen. Code(s): J44.9 - Chronic obstructive pulmonary disease, unspecified Category: Medical Plan: continue to use albuterol HFA 2 puffs Q 6 hours only p.r.n. if there is sustained cough or wheezing (2) Allergic rhinitis: Comment: Mild, remains well controlled . Code(s): J30.9 - Allergic rhinitis, unspecified Category: Medical Plan: continue to use montelukast 10 mg once a day. Coding Level of Care Code Est Pt Level 3 (60414) Diagnoses COPD (chronic obstructive pulmonary disease) J44.9 Allergic rhinitis J30.9
== END 2024-02-05 11:42 | disposition home or self-care (01) ==
PROVIDERS: PCP Internal Medicine; Visit Provider Internal Medicine
DX: J44.9 Chronic obstructive pulmonary disease, unspecified (principal); J30.9 Allergic rhinitis, unspecified
CPT/HCPCS: 99213

== ENCOUNTER → 2024-02-05 10:56 | Outpatient (BNVA) | payer MEDICARE, MEDICAID, SELFPAY | PROVIDERS: PCP Internal Medicine; Visit Provider Internal Medicine | DX: J44.9 Chronic obstructive pulmonary disease, unspecified (principal); J30.9 Allergic rhinitis, unspecified | CPT/HCPCS: 99212 ==

== ENCOUNTER → 2024-02-12 23:59 | Outpatient (BNV) | payer MEDICARE, MEDICAID, SELFPAY ==
--- NOTE | 2024-02-16 17:25 | MHC.OFFVIS ---
Intake Visit Reasons: Remote ICD check- [facility] Allergies ibuprofen [From Motrin] Allergy (Mild, Verified 02/05/24 11:41) HEART PALPITATIONS PFSH Medical History Diabetes Renal insufficiency Hx of radiation therapy Cancer Osteoarthritis Paget disease of bone Schizophrenia Dementia TIA (transient ischemic attack) NSTEMI (non-ST elevated myocardial infarction) COPD (chronic obstructive pulmonary disease) Atherosclerotic cardiovascular disease Heart failure with reduced ejection fraction ICD (implantable cardioverter-defibrillator) in place Hyperlipidemia HTN (hypertension) CAD (coronary artery disease) Ischemic cardiomyopathy COPD (chronic obstructive pulmonary disease) Allergic rhinitis Surgical History Pacemaker generator end of life Implantable cardioverter-defibrillator (ICD) at end of battery life Hx of breast biopsy Stented coronary artery Hx of cardiac cath History of implantable cardioverter-defibrillator (ICD) placement Family History Father No problems noted. Mother CVD (cardiovascular disease) Diabetes Social History Household Members: Family Housing: Apartment Are you a primary career and technology education teacher to a significant other at home: No Do you presently have visiting nurse or other home services: Yes (nurse and TRAFFIC REPORTER) Alcohol intake: never Comment: family at bedside Patient Tobacco Use Status: Former Tobacco user Years Smoked: 40 years Second Hand Smoke Exposure: No Advance Directives Date on File: 07/16/21 service: No Current occupational status: retired Office Procedures Cardiac Device Check Cardiac Device Check Details: Remote ICD report generated 02/12/2024. ICD function is adequate [id number] Cardiac Interrogation, implant defibrillator w/interim Procedure code (CPT) selection complete Assessment & Plan Assessment & Plan (1) ICD (implantable cardioverter-defibrillator) in place: Code(s): Z95.810 - Presence of automatic (implantable) cardiac defibrillator Category: Medical Plan: See above Coding Level of Care Code Procedure Only Diagnoses ICD (implantable cardioverter-defibrillator) in place Z95.810 CPT Codes Cardiac Device Check - Cardiac Device 13: [id number] Cardiac Interrogation, implant defibrillator w/interim ([id number])
== END ==
PROVIDERS: PCP Internal Medicine; Visit Provider Internal Medicine Cardiovascular Disease
DX: Z45.02 Encounter for adjustment and management of automatic implantable cardiac defibrillator (principal)
CPT/HCPCS: 93295

== ENCOUNTER → 2024-05-13 23:59 | Outpatient (BNV) | payer MEDICARE, MEDICAID, SELFPAY ==
--- NOTE | 2024-05-18 16:14 | A.OFFVIS_ITS ---
Intake Visit Reasons: Remote ICD check- [facility] Allergies ibuprofen [From Motrin] Allergy (Mild, Verified 02/05/24 11:41) HEART PALPITATIONS PFSH Medical History Diabetes Renal insufficiency Hx of radiation therapy Cancer Osteoarthritis Paget disease of bone Schizophrenia Dementia TIA (transient ischemic attack) NSTEMI (non-ST elevated myocardial infarction) COPD (chronic obstructive pulmonary disease) Atherosclerotic cardiovascular disease Heart failure with reduced ejection fraction ICD (implantable cardioverter-defibrillator) in place Hyperlipidemia HTN (hypertension) CAD (coronary artery disease) Ischemic cardiomyopathy COPD (chronic obstructive pulmonary disease) Allergic rhinitis Surgical History Pacemaker generator end of life Implantable cardioverter-defibrillator (ICD) at end of battery life Hx of breast biopsy Stented coronary artery Hx of cardiac cath History of implantable cardioverter-defibrillator (ICD) placement Family History Father No problems noted. Mother CVD (cardiovascular disease) Diabetes Social History Household Members: Family Housing: Apartment Are you a primary home health care case manager to a significant other at home: No Do you presently have visiting nurse or other home services: Yes (nurse and CERTIFIED REGISTERED LOCKSMITH) Alcohol intake: never Comment: family at bedside Patient Tobacco Use Status: Former Tobacco user Years Smoked: 40 years Second Hand Smoke Exposure: No Advance Directives Date on File: 07/16/21 service: No Current occupational status: retired Office Procedures Cardiac Device Check Cardiac Device Check Details: Remote ICD report generated 05/13/2024. ICD function is adequate [id number] Cardiac Interrogation, implant defibrillator w/interim Procedure code (CPT) selection complete Assessment & Plan Assessment & Plan (1) ICD (implantable cardioverter-defibrillator) in place: Code(s): Z95.810 - Presence of automatic (implantable) cardiac defibrillator Category: Medical Plan: See above Coding Level of Care Code Procedure Only Diagnoses ICD (implantable cardioverter-defibrillator) in place Z95.810 CPT Codes Cardiac Device Check - Cardiac Device 13: [id number] Cardiac Interrogation, implant defibrillator w/interim ([id number])
== END ==
PROVIDERS: PCP Internal Medicine; Visit Provider Internal Medicine Cardiovascular Disease
DX: Z45.02 Encounter for adjustment and management of automatic implantable cardiac defibrillator (principal)
CPT/HCPCS: 93295

== ENCOUNTER 2024-08-25 10:39 | Outpatient (AMB) | payer MEDICARE, MEDICAID, SELFPAY ==
[2024-08-25 10:43] VITALS: BP 122/60; PULSE 72
--- NOTE | 2024-08-25 10:43 | MHC.OFFVIS ---
Vital Signs 08/25/24 10:43 Height 5 ft 2 in BMI Reason not done Patient refused/unable BP 122/60 Blood Pressure Location Lt brachial Position Sitting Pulse 72 Pulse Source Monitor Intake Visit Reasons: 6 mth f/up Reduction Furnace Operator Helper Required: Yes Reduction Furnace Operator Helper Services: Reduction Furnace Operator Helper Offered & Declined Accompanied by: Daughter Allergies ibuprofen [From Motrin] Allergy (Mild, Verified 02/05/24 11:41) HEART PALPITATIONS Medication List - Last Reviewed 08/25/24 by Bettie Hopkins albuterol sulfate 90 mcg/actuation (Ventolin HFA) 2 puffs inhalation Q4H PRN 30 days albuterol sulfate 2.5 mg (6 mL) inhalation Q4-6H PRN 2 months aspirin (Adult Low Dose Aspirin) 81 mg PO DAILY atorvastatin 20 mg PO DAILY blood pressure test kit-medium As directed cholecalciferol (vitamin D3) 50 mcg PO DAILY ezetimibe 10 mg PO QPM ferrous sulfate 325 mg PO DAILY glipizide 10 mg PO BID inhalational spacing device (Vortex Holding Chamber) As directed melatonin 5 mg PO BEDTIME PRN metoprolol tartrate 50 mg PO BID montelukast 10 mg PO DAILY omeprazole 20 mg PO DAILY paroxetine HCl 5 mg PO DAILY quetiapine 50 mg PO BEDTIME ranolazine ER 500 mg PO BID ticagrelor (Brilinta) 60 mg PO BID valsartan 20 mg PO BID HPI Comments Details: Florinda comes for follow-up. She comes in a wheelchair, accompanied by her daughter. Daughter says she is not willing to use a walker. She was very shaky when she walks for some distance. She has not had any falls. Tolerance says she does not want to use assist device. She has not had any actual cardiac symptoms. Blood pressures been much better. She has not had any shortness of breath, orthopnea, PND, leg edema. No prolonged palpitation, irregular heartbeat, lightheadedness, syncope, ICD discharge. Taking all her medications. [facility] Medical History Diabetes Renal insufficiency Hx of radiation therapy Cancer Osteoarthritis Paget disease of bone Schizophrenia Dementia TIA (transient ischemic attack) NSTEMI (non-ST elevated myocardial infarction) COPD (chronic obstructive pulmonary disease) Atherosclerotic cardiovascular disease Heart failure with reduced ejection fraction ICD (implantable cardioverter-defibrillator) in place Hyperlipidemia HTN (hypertension) CAD (coronary artery disease) Ischemic cardiomyopathy COPD (chronic obstructive pulmonary disease) Allergic rhinitis Surgical History Pacemaker generator end of life Implantable cardioverter-defibrillator (ICD) at end of battery life Hx of breast biopsy Stented coronary artery Hx of cardiac cath History of implantable cardioverter-defibrillator (ICD) placement Family History Father No problems noted. Mother CVD (cardiovascular disease) Diabetes Social History Household Members: Family Housing: Apartment Are you a primary personal care service provider to a significant other at home: No Do you presently have visiting nurse or other home services: Yes (nurse and CASH SURRENDER CALCULATOR) Alcohol intake: never Comment: family at bedside Patient Tobacco Use Status: Former Tobacco user Years Smoked: 40 years Second Hand Smoke Exposure: No Advance Directives Date on File: 07/16/21 service: No Current occupational status: retired Review of Systems Const Denies weakness ENT Denies dizziness Card Denies chest pain, Denies chest pain with activity, Denies syncope, Denies rapid heart rate, Denies pedal edema, Denies edema, Denies leg edema, Denies lightheadedness, Denies palpitations, Denies dyspnea, Denies dyspnea on exertion and Denies orthopnea Resp Denies cough, Denies dyspnea and Denies dyspnea on exertion GI Denies hematochezia and Denies change in stool character Musc Denies abnormal gait, Denies muscle cramps, Denies muscle weakness, Denies numbness, Denies radiating pain into limb and Denies tingling Neuro Denies abnormal gait, Denies dizziness, Denies syncope, Denies numbness, Denies tingling and Denies weakness Endo Denies palpitations Physical Exam Vital Signs: Last Vital Signs Pulse 72 08/25/24 10:43 BP 122/60 08/25/24 10:43 Const General: cooperative, comfortable and no acute distress Nutritional Appearance: other (Frail elderly woman) Orientation/consciousness: patient oriented x3 Limitations: wheelchair Neck Neck: Yes normal visual inspection and Yes no JVD Chest Other: ICD site left upper chest benign Resp Effort & Inspection: normal respiratory effort Auscultation: clear to auscultation bilaterally, no crackles, no rales, no rhonchi and no wheezes Cardio Jugular venous distension: no JVD Rate: regular rate Rhythm: regular rhythm Heart sounds: S1 normal heart sound present, S2 normal heart sound present, no murmurs and no rubs Neuro General: patient oriented x3 Extrem General: Yes normal to inspection and No no pedal edema Psych Appearance: grossly normal Mental Status: mental status grossly normal Speech and movement: Normal speech and movement present Office Procedures Cardiac Device Check Cardiac Device Check Details: Single-chamber [place] ICD in place. Programmed in VVI at 40 beats per minute. Ventricular pacing thresholds adequate. Ventricular sensing is adequate. Pacing and shock lead impedance is stable. Battery life is at 8.6 years [id number] Cardiac Device Check, single lead implantable defibrillator Procedure code (CPT) selection complete Assessment & Plan Assessment & Plan (1) Heart failure with reduced ejection fraction: Code(s): I50.20 - Unspecified systolic (congestive) heart failure Category: Medical Plan: Heart failure with reduced ejection fraction, clinically euvolemic and well compensated. Continue current neurohormonal modulation valsartan and metoprolol therapy. Can not uptitrate therapy due to low blood pressure. Clinically appears to be euvolemic well compensated. Heart failure management discussed. Encouraged to use assist device to avoid falls. (2) ICD (implantable cardioverter-defibrillator) in place: Code(s): Z95.810 - Presence of automatic (implantable) cardiac defibrillator Category: Medical Plan: ICD in place for secondary prevention. ICD is working well. Reprogrammed for adequate function. Will follow remotely every 3 months and for heart failure. (3) CAD (coronary artery disease): Code(s): I25.10 - Atherosclerotic heart disease of [place] coronary artery without angina pectoris Category: Medical Plan: CAD is remained stable on dual antiplatelet therapy for long time with no recurrent InStent restenosis or thrombosis which was her issue in the past. Angina symptoms have resolved with metoprolol and ranolazine treatment. Continue the same. Continue aggressive lipid modification as well as diabetes control. Goal LDL less than 60 mg/dL. Goal hemoglobin A1c less than 7%. Will follow up in the clinic in 1 year's time, sooner p.r.n.. Thank you for allowing me to partake in his care Coding Level of Care Code Est Pt Level 4 (86322) Complex EM visit Add On G2211 Diagnoses Heart failure with reduced ejection fraction I50.20 ICD (implantable cardioverter-defibrillator) in place Z95.810 CAD (coronary artery disease) I25.10 CPT Codes Cardiac Device Check - Cardiac Device 4: [id number] Cardiac Device Check, single lead implantable defibrillator ([id number])
--- OUTSIDE RECORDS SUMMARY | 2024-08-25 12:40 | XMS_ITS | Encounter Summary ---
Author Organization [employer] Address [address] [place] [address] Care Team Providers Care Scoreboard Operator Name Role Phone Dilshad Lorenzana MD Primary Care Provide r Encounter Details Date Type Department Care Team (Late st Contact Info) Description 10/16/2022 Abstract [facility] MEDICINE [address] [place] [address] Dilshad Lorenzana MD [address] [place] [address] Social History Tobacco Use Types Packs/Day Years Used Date Smoking Tobacco: Never Assessed Depression Answer Date Recorded Patient Health Questionnaire-9 Score 0 10/01/2022 Depression Answer Date Recorded Patient Health Questionnaire-2 Score 0 10/01/2022 Comments Unknown Sex and Gender Information Value Date Recorded Sex Assigned at Female 04/08/2022 10:15 AM EDT Legal Sex Female 10:15 AM EDT Gender Identity Female 04/08/2022 10:15 AM EDT Sexual Orientation Straight 04/08/2022 10 :15 AM EDT COVID-19 Exposure Response Date Recorded In the last 10 days, have yo u been in contact with someone who was confirmed or suspected to have Coronavirus/COVID-19? No / Unsure 10/01/2022 10:55 AM EDT documented as of this encounter Plan of Treatment Upcoming Encounters Date Type Department Care Team (Late st Contact Info) Description 11/04/2024 2:15 PM EDT Office Visit [facility] MEDICINE [address] [place] [address] Dilshad Lorenzana MD [address] [place] [address] documented as of this encounter Goals Goal Patient Goal Type Associated Problems Recent Progress Patient-Stated? Author Patient will adhere to medication regimen General No Reyna Yanes, Josué documented as of this encounter Procedures Procedure Name Priority Date/Time Associated Diagnosis Comments POCT FECAL IMMUNOCHEMICAL Routine 10/30/2021 11:51 AM EDT documented in this encounter Results * POCT Fecal Immunochemical Test (10/30/2021 11:51 AM EDT) Fecal Immunochemical Test Nonreactive Stool Rectal contents / Unknown 10/30/2021 11:51 AM EDT Narrative Yvette Mares - 10/30/2021 11:51 AM EDT Results were negative us Historical Provider POINT OF CARE TEST ENTER/ EDIT ORDERABLES Final Result documented in this encounter Visit Diagnoses Not on filedocumented in this encounter Additional Health Concerns Assessment Noted Time PHQ-9 Depression Total Score: 0 10/02/19 23 11:14 AM EDT documented as of this encounter Care Teams Scoreboard Operator Relationship Specialty Start Date End Date Dilshad Lorenzana MD [address] [place] [address] PCP - General Internal Medicine 04/11/[address] Scan Special Procedures Technologist 03/27/23 06/27/23 [facility] 08/08/21 documented as of this encounter
--- OUTSIDE RECORDS SUMMARY | 2024-08-25 12:40 | XMS_ITS | Clinical Summary ---
Author Organization [facility] Address [address] [place] [address] [address] [place] [address] Care Team Providers Care Renewals Specialist Name Role Phone Dilshad Lorenzana MD Primary Care Provide r Allergies Active Allergy Reactions Criticality Noted Date Comments Ibuprofen 12/26/2011 Other reaction(s): rapid heart rate, TACHYCARDIA Other reaction(s): rapid heart rate Lisinopril Cough 02/07/2017 Medications PARoxetine (Paxil) 10 MG tablet TAKE 1/2 TABLET BY MOUTH EVERY MORNING 022 Active docusate sodium (Colace) 100 MG capsuleIndication s:Constipation, unspecified constipation type TAKE 1 CAPSULE BY MOUTH AT BEDTIME NEEDED 90 capsule 3 023 Active valsartan (Diovan) 40 MG tablet TAKE 1/2 TABLET BY MOUTH EVERY EVENING 023 Active Brilinta 60 MG tablet TAKE 1 TABLET BY MOUTH TWICE DAILY IN THE MORNING AND IN THE EVENING 023 Active ranolazine (Ranexa) 500 MG 12 hr tablet TAKE 1 TABLET BY MOUTH TWICE DAILY IN THE MORNING AND IN THE EVENING 023 Active QUEtiapine (SEROquel) 50 MG tablet Take 50 mg by mouth at bedtime. 023 Active metoprolol tartrate (Lopressor) 50 MG tablet TAKE 1 TABLET BY MOUTH TWICE DAILY IN THE MORNING AND IN THE EVENING 023 Active ezetimibe (Zetia) 10 MG tablet Take 10 mg by mouth at bedtime. Active Vitamin D High Potency 25 MCG (1000 UT) capsule TAKE 2 CAPSULES BY MOUTH TWICE DAILY IN THE MORNING AND EVENING Active albuterol (Ventolin HFA) 108 (90 Base) MCG/ACT inhaler Inhale 2 puffs Every 4-6 hours as needed. Active melatonin 5 MG tabletIndications :Primary insomnia Take 1 tablet by mouth at bedtime as needed for sleep 90 tablet 3 024 Active Blood Pressure Monitor kit Check blood pressure twice a wee. Dx hypertension 1 kit 024 Active Aspirin Low Dose 81 MG EC tablet TAKE 1 TABLET BY MOUTH EVERY MORNING 90 tablet 1 024 Active omeprazole (PriLOSEC) [address] capsule TAKE 1 CAPSULE BY MOUTH EVERY MORNING BEFORE A MEAL 90 capsule 1 024 Active glucose blood (Contour Next Test) test stripIndications: Type 1 diabetes mellitus without complications (CMS/HCC) TEST BLOOD SUGAR TWICE DAILY 200 each 3 024 Active TRUEplus Lancets 33G miscIndications:T ype 2 diabetes mellitus without complications (CMS/HCC) USE DIRECTED TO TEST BLOOD SUGAR EVERY DAY 100 each 11 024 Active atorvastatin (Lipitor) 20 MG tabletIndications :Mixed hyperlipidemia TAKE 1 TABLET BY MOUTH EVERY EVENING 90 tablet 3 025 Active Ferrous Sulfate (iron) 325 (65 Fe) MG tabletIndications :Iron deficiency TAKE 1 TABLET BY MOUTH TWICE DAILY IN THE MORNING AND IN THE EVENING 180 tablet 1 Active glipiZIDE (Glucotrol) 5 MG tablet TAKE 1 TABLET BY MOUTH TWICE DAILY IN THE MORNING AND IN THE EVENING WITH FOOD 60 tablet 3 Active montelukast (Singulair) 10 MG tablet TAKE 1 TABLET BY MOUTH EVERY EVENING 30 tablet 3 025 Active atorvastatin (Lipitor) 20 MG tabletIndications :Mixed hyperlipidemia TAKE 1 TABLET BY MOUTH EVERY EVENING 90 tablet 3 024 2024 Discontinued FeroSul 325 (65 Fe) MG tabletIndications :Iron deficiency TAKE 1 TABLET BY MOUTH TWICE DAILY IN THE MORNING AND IN THE EVENING 180 tablet 1 024 2024 Discontinued montelukast (Singulair) 10 MG tablet TAKE 1 TABLET BY MOUTH EVERY EVENING 30 tablet 025 2024 Discontinued glipiZIDE (Glucotrol) 5 MG tablet TAKE 1 TABLET BY MOUTH TWICE DAILY IN THE MORNING AND IN THE EVENING WITH FOOD 60 tablet 025 2024 Discontinued Active Problems Problem Noted Date Diagnosed Date Heart failure with reduced ejection fraction 04/2024 Dementia with behavioral disturbance 10/01/2022 Assessment & Plan (01/29/2024 9:40 AM EDT): Pt here for a f/u Being followed by Neurologist. last note 06/18/2022 Currently on Primidone, and Quetapine 50 mg po qhs ( Started by Neurology ) Likely multifactorial, DDx includes Lewy Body dementia, vascular dementia, Continue following with Neurologist. Assessment & Plan (09/18/2023 2:39 PM EDT): Pt here for a f/u Being followed by Neurologist. last note 06/18/2022 Currently on Primidone, and Quetapine 50 mg po qhs ( Started by Neurology ) Likely multifactorial, DDx includes Lewy Body dementia, vascular dementia, Continue following with Neurologist. Assessment & Plan (10/01/2022 11:09 AM EDT): Pt here for a f/u Being followed by Neurologist. last note 12/11/2021 Patient has tremors and prescribed Sinemet, but discontinued. Currently on Primidone, and Quetapine 50 mg po qhs ( Started by Neurology ) Likely multifactorial, DDx includes Lewy Body dementia, vascular dementia, Continue following with Neurologist. Generalized ischemic myocardial dysfunction 09/08 Assessment & Plan (09/18/2023 2:42 PM EDT): Pt with Hx of CAD and recent CP sx thought to be microvessel angina vs vasospasm Under the care of software configuration specialist Dr Abdi, last visit 08/18/2023 Previous Cardiac cath showed: No culprit lesion Patent LAD and Diagonal stent, mild plaque LCx and RCA LVEF 35% with apical/distal anterior hypokinesis Plan from Cards 07/31/2021 was to cont: ASA, Brilinta, Zetia, rosuvastatin, metoprolol, and Diovan but if BP was difficult to control they might discontinue her Diovan Last echo 05/08/2020 shows EF 30-35%, positive regional wall motion abnormalities. Single lead [[facility]] ICD in place. History of prior [place] and stents to the LAD. Recommendations was to continue aggressive secondary risk factor modification according to ATP III guidelines Assessment & Plan (10/01/2022 11:12 AM EDT): Pt with Hx of CAD and recent CP sx thought to be microvessel angina vs vasospasm Under the care of software configuration specialist Dr Abdi, last visit 07/31/2021 televisit Previous Cardiac cath showed: No culprit lesion Patent LAD and Diagonal stent, mild plaque LCx and RCA LVEF 35% with apical/distal anterior hypokinesis Plan from Cards 07/31/2021 was to cont: ASA, Brilinta, Zetia, rosuvastatin, metoprolol, and Diovan but if BP was difficult to control they might discontinue her Diovan Last echo 05/08/2020 shows EF 30-35%, positive regional wall motion abnormalities. Single lead [[facility]] ICD in place. History of prior [place] and stents to the LAD. Recommendations was to continue aggressive secondary risk factor modification according to ATP III guidelines Anxiety 10/01/2022 Assessment & Plan (10/01/2022 2:50 PM EDT): Pt is here for a f/u Pt seeing a Psychotherapist at [facility] She is on Paxil 10 mg po qhs Elevated TSH 10/01/2022 Assessment & Plan (10/01/2022 2:52 PM EDT): Mild elevation last year, will repeat Preventative health care 10/01/2022 Assessment & Plan (09/18/2023 2:45 PM EDT): Mammogram: 03/10/2023 Pap Smear: 11/06/2002, she REFUSES a repeat Colonoscopy: Pt refuses, last minute cancelled appointment Patient refuses colorectal cancer screening. I have discussed with patient the benefits of this screening test. Despite this continues to refuse and verbalizes understanding that by doing this she is putting him/herself at risk of deadly conditions such as colon cancer. Pt has been advice to let me know if she changes her mind at any time. Assessment & Plan (10/01/2022 2:55 PM EDT): Mammogram: 02/19/2022 Birads 2 Pap Smear: 11/06/2002, she REFUSES a repeat Colonoscopy: Pt refuses, last minute cancelled appointment Patient refuses colorectal cancer screening. I have discussed with patient the benefits of this screening test. Despite this continues to refuse and verbalizes understanding that by doing this she is putting him/herself at risk of deadly conditions such as colon cancer. Pt has been advice to let me know if she changes her mind at any time. 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 Pt will continue to f/u with Neurologist, last seen 06/2022 Assessment & Plan (10/01/2022 3:05 PM EDT): Pt under the care of Neurologist Pt reports her tremor has worsened, to the point that she has fallen twice and once sustaining a laceration that required stitches. Pt will continue to f/u with Neurologist Stage 3b chronic kidney disease 02/25/2022 Assessment & Plan (09/18/2023 2:43 PM EDT): Previously referred to Nephrology Assessment & Plan (10/01/2022 3:06 PM EDT): Previously referred to Nephrology Diabetes mellitus 08/05/2014 Assessment & Plan (01/29/2024 10:22 AM EDT): Pt here for a f/u Hgb A1c 01/29/2024: 5.7 She is on a regimen: Glipizide 5 mg po 1 tab in am and 1 tab at pm pt cannot take metformin due to CKD. cannot take any thiazolidinediones due to CHF, very opposed to insulin in the past but agreeable in the future if necessary. Plan: Continue current regimen for now Eye exam 03/13/2017 Microalbumin 11/18/2019 was 37 Pt on an ARB Diovan Foot check risk of zero Pt reports compliance with Asa 81 mg po daily Pt advised to: adhere to diabetic diet check your blood sugars regularly check your feet on a daily basis Assessment & Plan (09/18/2023 2:57 PM EDT): Pt here for a f/u Hgb A1c 09/18/2023: 5.6 She is on a regimen: Glipizide 5 mg po 1 tab in am and 1 tab at pm pt cannot take metformin due to CKD. cannot take any thiazolidinediones due to CHF, very opposed to insulin in the past but agreeable in the future if necessary. Plan: Continue current regimen for now Eye exam 03/13/2017 Microalbumin 11/18/2019 was 37 Pt on an ARB Diovan Foot check risk of zero Pt reports compliance with Asa 81 mg po daily Pt advised to: adhere to diabetic diet check your blood sugars regularly check your feet on a daily basis Assessment & Plan (06/28/2023 5:00 PM EST): Fasting CBG bw 120 to 150s ,few readings in 70s today CBG 146 after ate and Hb1AC capillary 6.1 Pt on Glipizide From PCP records pt cannot take metformin due to CKD.cannot take any thiazolidinediones due to CHF, and wanted to hold on insulin -send blood glucose stripts today -offered today Covid and flu vaccine today but refuse -advised to f w PCP in next 3 mo for annual exam for chronic conditions f up Assessment & Plan (10/01/2022 11:19 AM EDT): Pt here for a f/u Hgb A1c 10/01/2022: 6.0 She is on a regimen: Glipizide 10 mg po 1 tab in am and 1 tab at pm pt cannot take metformin due to CKD. cannot take any thiazolidinediones due to CHF, very opposed to insulin in the past but agreeable in the future if necessary. Plan: Continue current regimen for now Eye exam 03/13/2017 Microalbumin 11/18/2019 was 37 Pt on an ARB Diovan Foot check risk of zero Pt reports compliance with Asa 81 mg po daily Pt advised to: adhere to diabetic diet check your blood sugars regularly check your feet on a daily basis Malignant neoplasm of central part of female lilibeth ast 11/10/2012 Assessment & Plan (10/01/2022 3:04 PM EDT): Pt with a Hx of Breast CA pathologies stage IA, pT1c N0 M0 grade 2 infiltrating ductal carcinoma of the right breast, ER/NH positive and HER-2/evelyn negative. She is s/p completion of whole breast radiation therapy as part of breast conserving management for an early stage node-negative right side breast cancer. She is no longer taking anastrozole and is being followed by Dr Becker, last seen 11/03/2018 He recommended yearly mammograms and prn f/u with him Implantable cardioverter-defibrillator (ICD) in situ 06/11/2012 Assessment & Plan (09/18/2023 2:43 PM EDT): Under the care of cardiology, last interrogated 08/2023 Assessment & Plan (10/01/2022 3:07 PM EDT): Under the care of cardiology Atypical angina 06/11/2012 Hyperlipidemia 02/27/2012 Assessment & Plan (01/29/2024 9:42 AM EDT): Pt here for a f/u Most recent lipid profile from: 09/27/2021 shows a total cholesterol: 94 triglycerides of: 88 HDL of: 42 and LDL of: 35 Currently she is suppossed to be on a regimen of: Crestor 40 mg po q pm and Zetia 10 mg po q pm plan: continue current regimen. Repeat Lipid profile , pt did not do it. Assessment & Plan (09/18/2023 2:44 PM EDT): Pt here for a f/u Most recent lipid profile from: 09/27/2021 shows a total cholesterol: 94 triglycerides of: 88 HDL of: 42 and LDL of: 35 Currently she is suppossed to be on a regimen of: Crestor 40 mg po q pm and Zetia 10 mg po q pm plan: continue current regimen. Repeat Lipid profile Assessment & Plan (10/01/2022 2:46 PM EDT): Pt here for a f/u Most recent lipid profile from: 09/27/2021 shows a total cholesterol: 94 triglycerides of: 88 HDL of: 42 and LDL of: 35 Currently she is suppossed to be on a regimen of: Crestor 40 mg po q pm and Zetia 10 mg po q pm plan: continue current regimen. Coronary artery disease involving cowlitz coronar y artery 11/26/2011 Assessment & Plan (01/29/2024 10:30 AM EDT): Under the care of cardiology, last seen 11/13/2023 Assessment & Plan (10/01/2022 3:07 PM EDT): Under the care of cardiology Essential hypertension 10/25/2011 Assessment & Plan (01/29/2024 9:40 AM EDT): Here for a follow up BP controlled She is on a regimen of: Diovan 20 mg po daily and Metoprolol 50 mg BID prescribed by Cardiology , previous visit I discussed case with her Slp Teacher Dr. Abdi. Most recent electrolytes, Bun and Creatinine done on: 02/20/2022 showed and elevated Cr. 1.10 Today will order a repeat BMP. Pt did not do it last time I ordered. Patient was referred to our MTM program she would benefit from med boxes and home delivery of medications. Assessment & Plan (09/18/2023 2:41 PM EDT): Here for a follow up BP controlled She is on a regimen of: Diovan 20 mg po daily and Metoprolol 50 mg BID prescribed by Cardiology , previous visit I discussed case with her Slp Teacher Dr. Abdi. Most recent electrolytes, Bun and Creatinine done on: 02/20/2022 showed and elevated Cr. 1.10 Today will order a repeat BMP Patient was referred to our MTM program she would benefit from med boxes and home delivery of medications. Assessment & Plan (10/01/2022 11:11 AM EDT): BP controlled She is on a regimen of: Diovan 20 mg po daily and Metoprolol 50 mg BID prescribed by Cardiology , previous visit I discussed case with her Slp Teacher Dr. Abdi. Most recent electrolytes, Bun and Creatinine done on: 08/21/2021 showed and elevated Cr. 1.61 Patient was referred to our MTM program she would benefit from med boxes and home delivery of medications. Arthropathy 09/02/2011 Chronic obstructive pulmonary disease 07/03/2011 Resolved Problems Problem Noted Date Diagnosed Date Resolved Date Acute non-ST segment elevati on myocardial infarction 02/07/2017 09/18/2023 Encounters Date Type Department Care Team Description 08/24/2024 Orders Only [facility] [address], [place] [address] Dilshad Lorenzana MD Type 2 diabetes mellitus without complication, without long-term current use of insulin ([facility]) (Primary Dx) 08/24/2024 Telephone [facility] [address] [place], [place] [id number] Amy Juarez, manager policy 08/13/2024 Telephone [facility] [address], [place] [address] Amy Juarez, RN Durable Medical Equipment 08/11/2024 Refill [facility] [address], [place] [address] Rehana Durham MD 08/05/2024 Refill [facility] [address], [place] [address] Dilshad Lorenzana MD Mixed hyperlipidemia; Iron deficiency 07/23/2024 Telephone [facility] [address], [place] [id number] Dilshad Lorenzana MD Chart Prep 07/20/2024 Telephone [facility] [address], [place] [address] Amy Juarez, RN FYI from [facility] 07/15/2024 Refill [facility] [address] [facility] [address], [place] [address] Katherin Ring ANP 06/11/2024 Refill [facility] [address] [place] [address] Sury Gutierrez MD from Last 3 Months Immunizations Name Administration Dates Next Due Influenza High-dose Quadriva lent Preservative Free 02/27/2021,03/24/2020 Influenza injectable quadriv alent IIV4 with preservative 05/14/2016 Influenza injectable quadriv alent preservative free 03/04/2019 Influenza, High Dose Seasona l, Preservative Free 03/03/2018,03/18/2017 Influenza, IIV3, injectable 03/29/2014, 1 Influenza, Split (incl. idania fied surface antigen) 04/10/2015,02/25/2013,02/13/2012 Moderna Covid-19 Vaccine 12+ 09/01/2020,08/04/19 21 Pneumococcal Conjugate PCV 13 10/29/2016 Pneumococcal Polysaccharide PPSV23 10/30/2015,,11/01/2005 Pneumococcal, Unspecified 11/01/2005 TD (adult), 2 Lf tetanus tox oid, preservative free, adsorbed 08/07/2017,05/18/1998 Tdap 12/24/2019 Social History Tobacco Use Types Packs/Day Years Used Date Smoking Tobacco: Never Passive Smoke Exposure: Never Smokeless Tobacco: Never Tobacco Cessation:Counseling Given: Not Answered Depression Answer Date Recorded Patient Health Questionnaire-9 Score 2 01/29/2024 Patient Health Questionnaire-9 Score 2 01/29/2024 Last PHQ-9: Questionnaire Data Not on file 0 01/29/2024 Housing Stability Answer Date Recorded What is your housing situation today? I have gianluca meza 03/26/[address] you li ve. Do you have problems with any of the following? None of the above 03/26/2023 Food Insecurity Answer Date Recorded Within the past 12 months, y ou worried that your food would run out before you got money to buy more: Never True 03/26/2023 Within the past 12 months,th e food you bought just didn't last and you didn't have enough money to get more: Never True Transportation Answer Date Recorded In the past 12 months, has l ack of transportation kept you from medical appts, meetings, work or from getting things needed for daily living? No 03/26/2023 Utilities Answer Date Recorded In the past 12 months, has t he electric, gas, oil or water company threatened to shut off services in your home? No 03/26/2023 Depression Answer Date Recorded Patient Health Questionnaire-2 Score 2 01/29/2024 Comments Unknown Sex and Gender Information Value Date Recorded Sex Assigned at Female 04/08/2022 10:15 AM EDT Legal Sex Female 10:15 AM EDT Gender Identity Female 04/08/2022 10:15 AM EDT Sexual Orientation Straight 04/08/2022 10 :15 AM EDT Last Filed Vital Signs Vital Sign Reading Time Taken Comments Blood Pressure 118/66 01/29/2024 10:16 AM EDT Pulse 76 01/29/2024 10:16 AM EDT Temperature 36.1 ??C (97 ??F) 01/29/2024 10:16 AM EDT Respiratory Rate 20 01/29/2024 10:16 AM EDT Oxygen Saturation 99% 09/18/2023 2:46 PM EDT Inhaled Oxygen Concentration - - Weight 56.8 kg (125 lb 3.2 oz) 01/29/2024 10:16 AM EDT Height 154.9 cm (5' 1 ) 01/29/2024 10:16 AM EDT Body Mass Index 23.66 01/29/2024 10:16 AM EDT Plan of Treatment Upcoming Encounters Date Type Department Care Team (Late st Contact Info) Description 11/04/2024 2:15 PM EDT Office Visit [facility] [address] [place] [address] Dilshad Lorenzana MD [address] [place] [address] Health Maintenance Due Date Last Done Comments CT Colonography 1950 Colonoscopy 1950 FIT DNA/Cologuard 1950 FOBT 1950 Sigmoidoscopy 1950 Diabetes: Foot Exam 1960 Eye Exam 1960 Alcohol/Substance Use Screening 1962 Zoster Vaccines (1 of 2) 2000 RSV Patients and Patients Aged 60 years or older (1 - Risk 60-74 years 1-dose series) 2010 Diabetes: Urine Protein Screening 03/28/2021 03/28/2020 Colorectal Cancer Screening 10/30/2022 FIT 10/30/2022 10/30/2021 COVID-19 Vaccine ( season) 2024 09/01/2020, 08/04/2020 Influenza Vaccine (#1) 2024 , 03/24/2020, 03/04/2019, Additional history exists Mammogram 03/10/2024 03/10/2023, 02/07, 01/30/2022, Additional history exists Diabetes: Hemoglobin A1C 07/31/2024 024, 09/18/2023, 06/26/2023, Additional history exists SDOH Screening 09/08/2024 09/09/2023 Depression Screening 01/28/2025 01/29/2024, 01/29/20 24 Lipid Panel 01/28/2025 01/29/2024, 09/08, 03/09/2021, Additional history exists Tobacco Screening 01/28/2025 01/29/2024 DTaP/Tdap/Td Vaccines (2 - Td or Tdap) 12/23/2029 12/24/2019, 08/07/2017, 05/18/1998 Pneumococcal Vaccine: 50+ Years Completed 10/29/2016, 10/30/2015, 04/10/2015, Additional history exists Hepatitis C Screening Completed 08/14/2021 HIB Vaccines Aged Out No longer eligi ble based on patient's age to complete this topic HPV Vaccines Aged Out No longer eligi ble based on patient's age to complete this topic Hepatitis A Vaccines Aged Out No long er eligible based on patient's age to complete this topic Hepatitis B Vaccines Aged Out No long er eligible based on patient's age to complete this topic IPV Vaccines Aged Out No longer eligi ble based on patient's age to complete this topic Meningococcal Vaccine Aged Out No clotilde dario eligible based on patient's age to complete this topic RSV under 20 months Aged Out No longe r eligible based on patient's age to complete this topic Rotavirus Vaccines Aged Out No longer eligible based on patient's age to complete this topic Goals Goal Patient Goal Type Associated Problems Recent Progress Patient-Stated? Author Patient will adhere to medication regimen Reyna Rose PharmD Procedures Procedure Name Priority Date/Time Associated Diagnosis Comments LIPID PANEL, STANDARD Routine 01/29/2024 10:57 AM EDT Type 2 diabetes mellitus without complication, without long-term current use of insulin (CMS/HCC) POCT GLYCOSYLATED HEMOGLOBIN (HGB A1C) Routine 01/29/2024 10:18 AM EDT Type 2 diabetes mellitus without complication, without long-term current use of insulin (CMS/HCC) BI MAMMOGRAM SCREENING TOMOSYNTHESIS BILATERAL Routine 03/10/2023 11:15 AM EDT POCT FECAL IMMUNOCHEMICAL Routine 10/30/2021 11:51 AM EDT ZZZ HISTORICAL HEPATITIS C AB W/REFL TO HCV RNA, QN, PCR Routine 08/14/2021 10:54 AM EST ALBUMIN, RANDOM URINE W/CREATININE Routine 03/28/2020 11:25 AM EDT from Last 3 Months or Most Recently Relevant to Health Maintenance Results * Lipid Panel, Standard (01/29/2024 10:57 AM EDT) Triglycerides 85 <150 mg/dL [facility] Comment:Desirable Triglyceri de: less than 150 mg/dLBorderline High Triglyceride 150-199 mg/dLHigh Triglyceride: 200-499 mg/dLVery High Triglyceride: greater than or equal to 5OO mg/dL Cholesterol 96 <200 mg/dL [facility] Comment:Desirable Cholestero l: less than 200 mg/dLBorderline High Cholesterol: 200-239 mg/dLHigh Cholesterol: greater than 239 mg/dL LDL Cholesterol Calculated 33 <100 mg/dL [facility] Comment:Desirable LDL: less than 100 mg/dLNear Optimal/Above Optimal LDL: 110- 129 mg/dLBorderline High LDL: 130-159 mg/dLHigh LDL: 160-189 mg/dLVery High LDL: greater than or equal to 190 mg/dL HDL Cholesterol 46 >40 mg/dL [facility] Comment:Desirable HDL: great er than 40 mg/dL Note: This HDL assay may give artificially low results in patients with liver disease. Blood Venous blood specimen / Unknown 01/29/2024 10:57 AM EDT 01/29/2024 12:03 PM EDT us Dilshad Amanda MD LAB BLOOD ORDERABLES Final Result [facility] [address] [place] [address] [phone] * POCT glycosylated hemoglobin (Hgb A1c) (01/29/2024 10:18 AM EDT) Hemoglobin A1C 5.7 4.0 - 6.0 % QC Media Lot # [id number] Lot# Expiration Date 82 Blood Capillary blood specimen / Unknown 01/29/2024 10:18 AM EDT Dilshad Amanda MD POINT OF CARE TEST EN TER/EDIT ORDERABLES Final Result * BI Mammogram Screening Tomosynthesis Bilateral (03/10/2023 11:15 AM EDT) Anatomical Region Laterality Modality Breast Bilateral Mammography 03/10/2023 11:1 5 AM EDT Narrative 03/30/2023 7:00 PM EDT ? [facility] ? [address] ?[place] [address] ? Mammography Report ? Signed ? Patient: Elena Gerardo,Florinda L ?MR ?? #: [id number] ? : 1950 ?Acct:[id number] ? Age/Sex: 72 / F ?ADM Date: 10/02/23 ? Loc: HO.MAMMO ? Attending Dr: Dilshad Morrell MD ? Ordering Physician: Dilshad Morrell MD ?Resu ?? lts: 2Benign Findings ? Date of Service: 03/10/23 ?Follow Up: 1 Year From Orig ?? inal Mammogram ? Procedure(s): MM tomosynthesis screening BI ?? Accession Number(s): [id number] ? cc: Dilshad Morrell MD ? EXAMINATION: ?? MM SCREENING DIGITAL BREAST TOMOSYNTHESIS, BILATERAL ? CLINICAL INFORMATION: ? Screening. Asymptomatic. ? The patient has a history of treated right breast cancer. ? COMPARISON: ?? Mammography: This study is compared with prior exams dating back to ?? 2012. ? TECHNIQUE: ?? Digital breast tomosynthesis is performed in both the craniocaudal and ?? mediolateral oblique views along with computer-aided detection (CAD). ?? Synthesized 2D images are generated from the tomosynthesis. ? FINDINGS: ?? The breasts are heterogeneously dense, which may obscure small masses ?? (ACR BI-RADS breast composition Category c). ? There are no significant masses, abnormal calcifications, or other ?? abnormalities. ? Postsurgical changes are present in the upper outer quadrant of the ?? right breast from prior breast cancer treatment. ? There is a biopsy tissue marker in the small, oval mass just inferior ?? to the right posterior nipple line the anterior depth. ? There are few, bilateral, benign calcifications. ? There is a pacemaker at the superior aspect of the left side of the ?? chest. ? MM/MM tomosynthesis screening BI ?? IMPRESSION: ?? No mammographic evidence of malignancy. ? ASSESSMENT: ? BI-RADS BI-RADS 2 - Benign Findings ? RECOMMENDATION: ?? Routine annual mammography screening. ? 1 year F/U ? This examination should not preclude the clinical evaluation of a ?? suspicious palpable abnormality. ? This patient's information was entered into a reminder system with a ?? target due date for their next mammogram. ? Dictated By: ?Tanna Gonzalez MD ? Signed By: ?<Electronically signed by Tanna Gonzalez MD in OV> ? 03/30/23 1856 ? DD/ 1115 ? TD/TT: ? Booster Pump Operator: ? Procedure Note Donvijayter, Image - 03/30/2023 [facility] [address] [place] [address] Mammography Report Signed Patient: Florinda Oconnell LMR #: [id number] : [id number]:[id number] Age/Sex: 72 / FADM Date: 03/10/23 Loc: [facility] Attending Dr: Dilshad Morrell MD Ordering Physician: Dilshad Morrell MDResu lts: 2Benign Findings Date of Service: 03/10/23Follow Up: 1 Year From [facility] Mammogram Procedure(s): MM tomosynthesis screening BI Accession Number(s): [id number] cc: Dilshad Morrell MD EXAMINATION: MM SCREENING DIGITAL BREAST TOMOSYNTHESIS, BILATERAL CLINICAL INFORMATION: Screening. Asymptomatic. The patient has a history of treated right breast cancer. COMPARISON: Mammography: This study is compared with prior exams dating back to 2013. TECHNIQUE: Digital breast tomosynthesis is performed in both the craniocaudal and mediolateral oblique views along with computer-aided detection (CAD). Synthesized 2D images are generated from the tomosynthesis. FINDINGS: The breasts are heterogeneously dense, which may obscure small masses (ACR BI-RADS breast composition Category c). There are no significant masses, abnormal calcifications, or other abnormalities. Postsurgical changes are present in the upper outer quadrant of the right breast from prior breast cancer treatment. There is a biopsy tissue marker in the small, oval mass just inferior to the right posterior nipple line the anterior depth. There are few, bilateral, benign calcifications. There is a pacemaker at the superior aspect of the left side of the chest. MM/MM tomosynthesis screening BI IMPRESSION: No mammographic evidence of malignancy. ASSESSMENT: BI-RADS BI-RADS 2 - Benign Findings RECOMMENDATION: Routine annual mammography screening. 1 year F/U This examination should not preclude the clinical evaluation of a suspicious palpable abnormality. This patient's information was entered into a reminder system with a target due date for their next mammogram. Dictated By: Tanna Gonzalez MD Signed By: <Electronically signed by Tanna Gonzalez MD in OV> 03/30/23 1856 DD/ 1115 TD/TT: Booster Pump Operator: Dilshad Amanda MD IMG BI PROCEDURES Fin al Result * POCT Fecal Immunochemical Test (10/30/2021 11:51 AM EDT) Fecal Immunochemical Test Nonreactive Stool Rectal contents / Unknown 10/30/2021 11:51 AM EDT Yvette Murrell - 10/30/2021 11:51 AM EDT Results were negative Historical Provider POINT OF CARE TEST ENTER/ EDIT ORDERABLES Final Result * HEPATITIS C AB W/REFL TO HCV RNA, QN, PCR (08/14/2021 10:54 AM EST) HEPATITIS C ANTIBODY NON-REACT ROSALINE NON-REACT ROSALINE [facility] INDEX 0.01 <1.00 [facility] Comment: ?? HCV antibody was non-reactive. There is no laboratory ?? evidence of HCV infection. ?? In most cases, no further action is required. However, if recent HCV exposure is suspected, a test for HCV RNA (test code 43488) is suggested. ?? For additional information please refer to http://education.[employer]/faq/REU60f8 (This link is being provided for informational/ educational purposes only.) ?? 08/14/2021 10:5 4 AM EST Dilshad Amanda MD HISTORICAL/NON ORDERA BLE LABS Final Result Performing Organization Address [facility] de Phone Number [facility] [address] * ALBUMIN, RANDOM URINE W/CREATININE (03/28/2020 11:25 AM EDT) Creatinine, Urine 94 20 - 275 mg/dL [facility] Microalbumin Urine 1.1 See Note: mg/dL [facility] Comment: Reference Range: ?? Reference Range Not established Microalb/Creat Ratio 12 <30 mcg/mg creat [facility] Comment: ?? The ADA defines abnormalities in albumin excretion as follows: ?? Category ? Result (mcg/mg creatinine) ?? Normal ?<30 Microalbuminuria ? 30-299 ?? Clinical albuminuria ?? > OR = 300 ?? The ADA recommends that at least two of three specimens collected within a 3-6 month period be abnormal before considering a patient to be within a diagnostic category. 03/28/2020 11:2 5 AM EDT Dilshad Amanda MD LAB URINE ORDERABLES Final Result Performing Organization Address [facility] de Phone Number [facility] [address] from Last 3 Months or Most Recently Relevant to Health Maintenance Insurance [address] [place] [address] [facility] STANDARD MEDICARE Care Teams Renewals Specialist Relationship Specialty Start Date End Date Dilshad Lorenzana MD [address] [place] [phone] PCP - General Internal Medicine 04/11/14 [employer] 08/08/21
--- OUTSIDE RECORDS SUMMARY | 2024-08-25 12:40 | XMS_ITS | Encounter Summary ---
Author Organization [employer] Address [address] [facility] 7t [place] [address] Care Team Providers Care Laborer Tin Can Name Role Phone Dilshad Lorenzana MD Primary Care Provide r Reason for Visit * Reason Comments Med Refill Encounter Details Date Type Department Care Team ([facility] st Contact Info) Description 08/11/2024 Refill [facility] MEDICINE [address] [place], [place] [phone] Rehana Durham MD [address] [place], [place] [phone] Social History Tobacco Use Types Packs/Day Years Used Date Smoking Tobacco: Never Passive Smoke Exposure: Never Smokeless Tobacco: Never Depression Answer Date Recorded Patient Health Questionnaire-9 [...] Orientation Straight 04/08/2022 10 :15 AM EDT documented as of this encounter Plan of Treatment Upcoming Encounters Date Type Department Care Team (Late st Contact Info) Description 11/04/2024 2:15 PM EDT Office Visit [facility] MED[facility] [address] [place] [address] Dilshad Lorenzana MD [address] [place] [address] documented as of this encounter Goals Goal Patient Goal Type Associated Problems Recent Progress Patient-Stated? Author Patient will adhere to medication regimen Reyna Rose, Josué documented as of this encounter Visit Diagnoses Not on filedocumented in this encounter Additional Health Concerns Assessment Noted Time PHQ-9 Depression Total Score: 2 01/29/20 24 10:17 AM EDT documented as of this encounter Care Teams Laborer Tin Can Relationship Specialty Start Date End Date Dilshad Lorenzana MD [address] [place] [address] PCP - General Internal Medicine 04/11/14 [employer] 08/08/21 documented as of this encounter
--- OUTSIDE RECORDS SUMMARY | 2024-08-25 12:40 | XMS_ITS | Encounter Summary ---
Author Organization [employer] Address [address] [facility] 7t [place] [address] Care Team Providers Care Senior Controls Analyst Name Role Phone Dilshad Lorenzana MD Primary Care Provide r Encounter Details Date Type Department Care Team (Late st Contact Info) Description 09/11/2022 Orders Only [facility] MED & PEDS [address] [place] [address] Adelita Hart LPN Social History Tobacco Use Types Packs/Day Years Used Date Smoking Tobacco: Never Assessed Comments Unknown Sex and Gender Information Value [...] Description 11/04/2024 2:15 PM EDT Office Visit [facility] MED[facility]INE [address] [place] [address] Dilshad Lorenzana MD 230 [place], [place] [phone] documented as of this encounter Visit Diagnoses Not on filedocumented in this encounter Care Teams Senior Controls Analyst Relationship Specialty Start Date End Date Dilshad Lorenzana MD [address] [place] [address] PCP - General Internal Medicine 04/11/14 Flor Matthews Hospital Director 03/27/23 06/27/23 [employer] 08/08/21 documented as of this encounter
--- OUTSIDE RECORDS SUMMARY | 2024-08-25 12:40 | XMS_ITS | Encounter Summary ---
Author Organization [employer] Address 75 [facility] 7t [place] [address] Care Team Providers Care Oracle Hyperion Consultant Name Role Phone Dilshad Lorenzana MD Primary Care Provide r Encounter Details Date Type Department Care Team (Late st Contact Info) Description 07/30/2022 Orders Only [facility] PED[facility] [address] [place] [address] Adelita Hart LPN Social History Tobacco Use [...] Description 11/04/2024 2:15 PM EDT Office Visit [facility] 230 [place] [address] Dilshad Lorenzana MD 230 [place], [place] [phone] documented as of this encounter Visit Diagnoses Not on filedocumented in this encounter Care Teams Oracle Hyperion Consultant Relationship Specialty Start Date End Date Dilshad Lornezana MD [address] [place] [address] PCP - General Internal Medicine 04/11/14 Flor Matthews Petroleum Engineering Professor 03/27/23 06/27/23 [employer] 08/08/21 documented as of this encounter
--- OUTSIDE RECORDS SUMMARY | 2024-08-25 12:40 | XMS_ITS | Encounter Summary ---
Author Organization [employer] Address [address] [facility] 7t [place] [address] Care Team Providers Care It Applications Manager Name Role Phone Dilshad Lorenzana MD Primary Care Provide r Reason for Referral * Consultation (Routine) - Authorized Specialty Diagnoses / Procedures Referred By Leighton salmon Referred To Contact Podiatry Diagnoses Type 2 diabetes mellitus without complication, without long-term current use of insulin ([facility]) Dilshad Lorenzana MD [address] [place] [address] Phone: tel: fax: Ej Burns DPM [address] [facility] [address] [place] [address] Phone: tel: fax: Referral ID Status Reason Start Date Expiration Date Visits Requested Visits Authorized [id number] Authorized Specialty Services Required 08/24/2024 08/24/2025 1 1 Encounter Details Date Type Department Care Team (Late st Contact Info) Description 08/24/2024 Orders Only [facility] MEDICINE [address] [place], [place] [phone] Dilshad Lorenzana MD 230 [place], [place] [phone] Type 2 diabetes mellitus without complication, without long-term current use of insulin ([facility]) (Primary Dx) Social History Tobacco Use Types Packs/Day Years [...] Description 11/04/2024 2:15 PM EDT Office Visit [facility] MEDICINE [address] [place], [place] [phone] Dilshad Lorenzana MD [address] [place] [address] Scheduled Referrals Name Type Priority Associated Diagnoses Orde r Schedule Referral to Podiatry Outpatient Referral Routine Type 2 diabetes mellitus without complication, without long-term current use of insulin ([facility]) Expected: 08/24/2024 (Approximate), Expires: 08/24/2025 documented as of this encounter Goals Goal Patient Goal Type Associated Problems Recent Progress Patient-Stated? Author Patient will adhere to medication regimen General Reyna Mariscal, PharmD documented as of this encounter Visit Diagnoses Diagnosis Type 2 diabetes mellitus without complication, without long-term current use of insulin ([facility])- Primary documented in this encounter Additional Health Concerns Assessment Noted Time PHQ-9 Depression Total Score: 2 01/29/20 24 10:17 AM EDT documented as of this encounter Care Teams It Applications Manager Relationship Specialty Start Date End Date Dilshad Lorenzana MD [address] [place] [address] PCP - General Internal Medicine 04/11/14 [employer] 08/08/21 documented as of this encounter
--- OUTSIDE RECORDS SUMMARY | 2024-08-25 12:40 | XMS_ITS | Encounter Summary ---
Author Organization [employer] Address [address] [facility] 7t [place] [address] Care Team Providers Care Soil Fertility Extension Specialist Name Role Phone Dilshad Lorenzana MD Primary Care Provide r Reason for Visit * Reason Onset Date Comments Referral 08/24/2024 Encounter Details Date Type Department Care Team (Late st Contact Info) Description 08/24/2024 Telephone [facility] MEDICINE 230 [place] [address] Amy Juarez, RN 230 [place] [address] Referral Social History Tobacco Use Types Packs/Day Years [...] AM EDT documented as of this encounter Miscellaneous Notes * Telephone Encounter - Amy Juarez RN - 08/24/2024 11:46 AM EDT Spoke with pt's LEIDY Downey ([facility]) who is requesting podiatry referral for pt as she has ingrown toenails documented in this encounter Plan of Treatment Upcoming Encounters Date Type Department Care Team (Late st Contact Info) Description 11/04/2024 2:15 PM EDT Office Visit [facility] MEDICINE [address] [place] [phone] Dilshad Lorenzana MD [address] [place] [phone] documented as of this encounter Goals Goal Patient Goal Type Associated Problems Recent Progress Patient-Stated? Author Patient will adhere to medication regimen General No Reyna Yanes, PharmD documented as of this encounter Visit Diagnoses Not on filedocumented in this encounter Additional Health Concerns Assessment Noted Time PHQ-9 Depression Total Score: 2 01/29/20 24 10:17 AM EDT documented as of this encounter Care Teams Soil Fertility Extension Specialist Relationship Specialty Start Date End Date Dilshad Lorenzana MD [address] [place] [address] PCP - General Internal Medicine 04/11/14 [employer] 08/08/21 documented as of this encounter
--- OUTSIDE RECORDS SUMMARY | 2024-08-25 12:40 | XMS_ITS | Clinical Summary ---
Author Organization [facility] Address [address] [facility] [address] [place] [address] Phone Care Team Providers Care Plastic Extruding Machine Operator Name Role Phone Dilshad Mccrary MD Primary Care Provider Unav ailable Allergies Active Allergy Reactions Criticality Noted Date Comments Ibuprofen 12/13/2021 Other reaction(s): rapid heart rate Lisinopril Other (see comments) 02/07/2017 Medications valsartan (DIOVAN) 40 MG tablet Take 20 mg by mouth 1 (one) time each day in the evening 11/23/2021 Active Spiriva Respimat 2.5 MCG/ACT aerosol solution INHALE 2 PUFFS BY MOUTH EVERY MORNING 11/23/2021 Active Brilinta 60 MG tablet Take 1 tablet by mouth every morning and evening 11/23/2021 Active rosuvastatin (CRESTOR) 40 MG tablet Take 40 mg by mouth 03/25/2016 Active ranolazine (RANEXA) 500 MG 12 hr tablet Take 500 mg by mouth every morning and evening 11/23/2021 Active QUEtiapine (SEROquel) 50 MG tablet Take 50 mg by mouth at bed time 11/23/2021 Active omeprazole (PriLOSEC) [address] capsule Take 20 mg by mouth 11/23/2021 Active montelukast (SINGULAIR) 10 MG tablet Take 10 mg by mouth at bed time 11/23/2021 Active metoprolol tartrate (LOPRESSOR) 50 MG tablet Take 50 mg by mouth every morning and evening 11/23/2021 Active Melatonin 5 MG tablet TAKE 1 TABLET BY MOUTH ONCE DAILY NEEDED FOR SLEEP 11/23/2021 Active ferrous sulfate 325 (65 Fe) MG EC tablet Take 325 mg by mouth 12/05/2015 Active glipiZIDE (GLUCOTROL) 5 MG tablet TAKE 1 TABLET BY MOUTH TWICE DAILY IN THE MORNING AND IN THE EVENING WITH MEALS 11/23/2021 Active ezetimibe (ZETIA) 10 MG tablet Take 10 mg by mouth at bed time 11/23/2021 Active Vitamin D High Potency 25 MCG (1000 UT) capsule TAKE 2 CAPSULES BY MOUTH TWICE DAILY IN THE MORNING AND EVENING 11/23/2021 Active Aspirin Low Dose 81 MG EC tablet Take 81 mg by mouth 11/23/2021 Active atorvastatin (LIPITOR) 20 MG tablet Take 20 mg by mouth at bed time 11/23/2021 Active PARoxetine (PAXIL) 10 MG tablet Take 5 mg by mouth every morning 11/18/2022 Active Active Problems Problem Noted Date Diagnosed Date Stage 3a chronic kidney disease 02/25/2022 Malignant neoplasm of central portion of female breast 12/13/2021 Hypertensive disorder 12/13/2021 Generalized ischemic myocardial dysfunction 12/2021 Epigastric discomfort 12/13/2021 Chronic obstructive pulmonary disease 12/13/2021 Immunizations Name Administration Dates Next Due Influenza Split 04/10/2015,02/25/2013,02/13/2012 Influenza Split High Dose Pr eservative Free IM 03/03/2018,03/18/2017 Influenza, Quadrivalent, Preservative Free 03/04 Influenza, Quadrivalent, With Preservative 05/14 Moderna SARS-COV-2 09/01/2020,08/04/2020 Pneumococcal Conjugate 13-Valent 10/29/2016 Pneumococcal Polysaccharide 10/30/2015, 5,11/01/2005 Pneumococcal, Unspecified 11/01/2005 Td 08/07/2017,05/18/1998 Tdap 12/24/2019 Family History Relation Status Comments Father Mother Social History Tobacco Use Types Packs/Day Years Used Date Smoking Tobacco: Never Smokeless Tobacco: Never Tobacco Cessation:Counseling Given: Not Answered Alcohol Use Standard Drinks/Week Comments Not Currently 0 (1 standard drink = 0.6 oz pur e alcohol) Comments Unknown Sex and Gender Information Value Date Recorded Sex Assigned at Not on file Legal Sex Female 3:00 PM EDT Gender Identity Not on file Sexual Orientation Not on file Last Filed Vital Signs Vital Sign Reading Time Taken Comments Blood Pressure 119/59 11/24/2023 2:34 PM EDT Pulse 68 11/24/2023 2:34 PM EDT Temperature - - Respiratory Rate - - Oxygen Saturation 96% 11/24/2023 2:34 PM EDT Inhaled Oxygen Concentration - - Weight 56.1 kg (123 lb 9.6 oz) 11/24/2023 2:34 P M EDT Height - - Body Mass Index - - Plan of Treatment Upcoming Encounters Date Type Department Care Team (Late st Contact Info) Description 11/29/2024 2:15 PM EDT Office Visit [facility] [address] [place] [phone] Maulik Flynn MD [address] [facility] [address] [place] [address] Health Maintenance Due Date Last Done Comments Breast Cancer Screening 1950 Colorectal Cancer Screening: Annual FOBT 1999 Colorectal Cancer Screening: Colonoscopy 1999 Colorectal Cancer Screening: Sigmoidoscopy 1999 Diabetes: Ophthalmology Exam 12/02/2022 Diabetes: Pedal Pulse Checked 12/02/2022 Diabetes: Sensory Foot Exam 12/02/2022 Diabetes: Visual Foot Exam 12/02/2022 Diabetes: Hemoglobin A1C 12/18/2023 09/18/2023 Influenza Vaccine (#1) 2024 9, 03/03/2018, 03/18/2017, Additional history exists Pneumococcal Vaccine: 65+ Years Completed 10/29/2016, 10/30/2015, 04/10/2015, Additional history exists Hepatitis B Vaccine Aged Out No longe r eligible based on patient's age to complete this topic Insurance [place]ID [place] Care Teams Plastic Extruding Machine Operator Relationship Specialty Start Date End Date Dilshad Mccrary MD PCP - General Internal Medicine 09/26/21
--- OUTSIDE RECORDS SUMMARY | 2024-08-25 12:40 | XMS_ITS | Encounter Summary ---
Author Organization [employer] Address 75 [facility] 7t [place] [address] Care Team Providers Care Veterinary Medicine Teacher Name Role Phone Dilshad Lorenzana MD Primary Care Provide r Encounter Details Date Type Department Care Team (Late st Contact Info) Description 06/27/2022 Orders Only [facility] CHC MED & PEDS [address] [place] [address] Adelita Hart LPN Social History Tobacco Use [...] Description 11/04/2024 2:15 PM EDT Office Visit [facility] MEDICINE 230 [place] [address] Dilshad Lorenzana MD 230 [place], [place] [phone] documented as of this encounter Visit Diagnoses Not on filedocumented in this encounter Care Teams Veterinary Medicine Teacher Relationship Specialty Start Date End Date Dilshad Loreznana MD [address] [place] [address] PCP - General Internal Medicine 04/11/14 Flor Matthews Candle Wrapping Machine Operator 03/27/23 06/27/23 [employer] 08/08/21 documented as of this encounter
--- OUTSIDE RECORDS SUMMARY | 2024-08-25 12:40 | XMS_ITS | Encounter Summary ---
Author Organization [employer] Address [address] [facility] 7t [place] [address] Care Team Providers Care Partner Marketing Intern Name Role Phone Dilshad Lorenzana MD Primary Care Provide r Encounter Details Date Type Department Care Team (Late st Contact Info) Description 08/26/2022 Orders Only [facility] CHC MED & PEDS [address] [place] [address] Adelita Hart LPN Social History Tobacco Use [...] Description 11/04/2024 2:15 PM EDT Office Visit [facility] MEDICINE 230 [place] [address] Dilshad Lorenzana MD 230 [place], [place] [phone] documented as of this encounter Visit Diagnoses Not on filedocumented in this encounter Care Teams Partner Marketing Intern Relationship Specialty Start Date End Date Dilshad Lorenzana MD [address] [place] [address] PCP - General Internal Medicine 04/11/14 Flor Matthews Process Excellence Manager 03/27/23 06/27/23 [employer] 08/08/21 documented as of this encounter
--- OUTSIDE RECORDS SUMMARY | 2024-08-25 12:40 | XMS_ITS | Encounter Summary ---
Author Organization [employer] Address 75 [facility] 7t [place] [address] Care Team Providers Care Transit Mixer Operator Name Role Phone Dilshad Lorenzana MD Primary Care Provide r Reason for Visit * Reason Comments Med Refill Encounter Details Date Type Department Care Team ([facility] st Contact Info) Description 08/05/2024 Refill [facility] MEDICINE [address] [place], [place] [phone] Dilshad Lorenzana MD 230 [place], [place] [phone] Mixed hyperlipidemia; Iron deficiency Social History Tobacco Use Types Packs/Day Years [...] Description 11/04/2024 2:15 PM EDT Office Visit [facility] MEDICINE [address] [place] [address] Dilshad Lorenzana MD [address] [place] [address] documented as of this encounter Goals Goal Patient Goal Type Associated Problems Recent Progress Patient-Stated? Author Patient will adhere to medication regimen Reyna Rose, Josué documented as of this encounter Visit Diagnoses Diagnosis Mixed hyperlipidemia Iron deficiency Disorders of iron metabolism documented in this encounter Additional Health Concerns Assessment Noted Time PHQ-9 Depression Total Score: 2 01/29/20 24 10:17 AM EDT documented as of this encounter Care Teams Transit Mixer Operator Relationship Specialty Start Date End Date Dilshad Lorenzana MD [address] [place] [address] PCP - General Internal Medicine 04/11/14 [employer] 08/08/21 documented as of this encounter
--- OUTSIDE RECORDS SUMMARY | 2024-08-25 12:40 | XMS_ITS | Encounter Summary ---
Author Organization [employer] Address [address] [facility] 7t [place] [address] Care Team Providers Care Chainstitch Pants Outseamer Name Role Phone Dilshad Lorenzana MD Primary Care Provide r Reason for Visit * Reason Onset Date Comments Durable Medical Equipment 08/13/2024 Encounter Details Date Type Department Care Team (Late st Contact Info) Description 08/13/2024 Telephone [facility] MED[facility]INE [address] [place], [place] [phone] Amy Juarez, RN [address] [place], [place] [phone] Durable Medical Equipment Social History Tobacco Use Types Packs/Day Years [...] encounter Miscellaneous Notes * Telephone Encounter - Claudia Arce - 08/20/2024 12:53 PM EDT RX for Wheel chair signed and faxed to Rosemary . Confirmation received and sent to scan. If patient calls to check status on above, please advise them to contact Rosemary at [phone]. * Telephone Encounter - Claudia Arce - 08/16/2024 8:43 AM EDT DME RX for transport Wheel chair generated and placed on providers desk for signature. * Telephone Encounter - Amy Juarez RN - 08/13/2024 1:42 PM EST Spoke with LEIDY Downey in person who is requesting DME transport chair for pt. Reports pt becomingmore difficult to move around and bring out of the house. documented in this encounter Plan of Treatment Upcoming Encounters Date Type Department Care Team (Late st Contact Info) Description 11/04/2024 2:15 PM EDT Office Visit [address] [address] Dilshad Lorenzana MD [address] [place] [address] documented as of this encounter Goals Goal Patient Goal Type Associated Problems Recent Progress Patient-Stated? Author Patient will adhere to medication regimen Reyna Rose, Josué documented as of this encounter Visit Diagnoses Not on filedocumented in this encounter Additional Health Concerns Assessment Noted Time PHQ-9 Depression Total Score: 2 01/29/20 24 10:17 AM EDT documented as of this encounter Care Teams Chainstitch Pants Outseamer Relationship Specialty Start Date End Date Dilshad Lorenzana MD [address] [place] [address] PCP - General Internal Medicine 04/11/14 [place] 08/08/21 documented as of this encounter
== END 2024-08-25 12:41 | disposition home or self-care (01) ==
LOC: HO.HCS 10:39
PROVIDERS: PCP Internal Medicine; Visit Provider Internal Medicine Cardiovascular Disease
DX: I50.20 Unspecified systolic (congestive) heart failure (principal); Z95.810 Presence of automatic (implantable) cardiac defibrillator; I25.10 Atherosclerotic heart disease of native coronary artery without angina pectoris
CPT/HCPCS: 93282; 99214; G2211

== ENCOUNTER → 2024-08-25 10:39 | Outpatient (BNVA) | payer MEDICARE, MEDICAID, SELFPAY | PROVIDERS: PCP Internal Medicine; Visit Provider Internal Medicine Cardiovascular Disease | DX: I50.20 Unspecified systolic (congestive) heart failure (principal); I25.10 Atherosclerotic heart disease of native coronary artery without angina pectoris; Z87.891 Personal history of nicotine dependence; Z95.810 Presence of automatic (implantable) cardiac defibrillator | CPT/HCPCS: 99212 ==

== ENCOUNTER 2024-09-22 13:44 | Outpatient (AMB) | payer MEDICARE, MEDICAID, SELFPAY ==
[2024-09-22 13:50] VITALS: BP 120/64; PULSE 62; O2SAT 98; BMI 22.3
--- NOTE | 2024-09-22 13:50 | A.OFFVIS_ITS ---
Vital Signs 09/22/24 13:50 Height 5 ft 2 in Weight 122 lb BMI 22.3 BP 120/64 Blood Pressure Location Lt brachial Position Sitting Pulse 62 Pulse Source Pulse Oximeter Pulse Oximetry (%) 98 Oxygen Delivery Method Room Air Intake Visit Reasons: COPD Intake Note: pt is here for follow up and states she does get short of breath, mostly walking in the house, Bread Dough Mixer Required: No Allergies ibuprofen [From Motrin] Allergy (Mild, Verified 09/22/24 14:24) HEART PALPITATIONS Medication List - Last Reconciled 09/22/24 by Marija Barrera MD albuterol sulfate 90 mcg/actuation (Ventolin HFA) 2 puffs inhalation Q4H PRN 30 days albuterol sulfate 2.5 mg (6 mL) inhalation Q4-6H PRN 2 months aspirin (Adult Low Dose Aspirin) 81 mg PO DAILY atorvastatin 20 mg PO DAILY blood pressure test kit-medium As directed cholecalciferol (vitamin D3) 50 mcg PO DAILY ezetimibe 10 mg PO QPM ferrous sulfate 325 mg PO DAILY glipizide 10 mg PO BID inhalational spacing device (Vortex Holding Chamber) As directed melatonin 5 mg PO BEDTIME PRN metoprolol tartrate 50 mg PO BID montelukast 10 mg PO DAILY omeprazole 20 mg PO DAILY paroxetine HCl 5 mg PO DAILY quetiapine 50 mg PO BEDTIME ranolazine ER 500 mg PO BID ticagrelor (Brilinta) 60 mg PO BID valsartan 20 mg PO BID Do you need a note to return to daycare/school/sports/work: No HPI HPI COPD: Details: THIS 74 YEARS OLD FEMALE IS PLEASANTLY CONFUSED. COMES IN WHEELCHAIR SHE HAS SOME IMBALANCE WHEN WALKING. SHE CLAIMS THAT SHE HAS NO TROUBLE IN BREATHING, SHE HAS NO ACTIVE COUGH OR WHEEZING. SHE DOES HAVE ALBUTEROL ON HAND BUT HARDLY NEEDS TO USE IT. SHE HAS MILD INTERMITTENT NASAL CONGESTION. SHE DOES HAVE MONTELUKAST TABLET ON HAND BUT ACCORDING TO HER DAUGHTER SHE DOES NOT USE IT REGULARLY. [facility] Medical History Diabetes Renal insufficiency Hx of radiation therapy Cancer Osteoarthritis Paget disease of bone Schizophrenia Dementia TIA (transient ischemic attack) NSTEMI (non-ST elevated myocardial infarction) COPD (chronic obstructive pulmonary disease) Atherosclerotic cardiovascular disease Heart failure with reduced ejection fraction ICD (implantable cardioverter-defibrillator) in place Hyperlipidemia HTN (hypertension) CAD (coronary artery disease) Ischemic cardiomyopathy COPD (chronic obstructive pulmonary disease) Allergic rhinitis Surgical History Pacemaker generator end of life Implantable cardioverter-defibrillator (ICD) at end of battery life Hx of breast biopsy Stented coronary artery Hx of cardiac cath History of implantable cardioverter-defibrillator (ICD) placement Family History Father No problems noted. Mother CVD (cardiovascular disease) Diabetes Social History Household Members: Family Housing: Apartment Are you a primary care clinician to a significant other at home: No Do you presently have visiting nurse or other home services: Yes (nurse and CERTIFIED PHARMACIST ASSISTANT) Alcohol intake: never Comment: family at bedside Patient Tobacco Use Status: Former Tobacco user Years Smoked: 40 years Second Hand Smoke Exposure: No Advance Directives Date on File: 07/16/21 service: No Current occupational status: retired Review of Systems Const All systems reviewed & are unremarkable except as noted in HPI and below Denies weakness Eyes Reports no additional complaints ENT Denies dizziness Card Denies chest pain, Denies chest pain with activity, Denies syncope, Denies rapid heart rate, Denies pedal edema, Denies edema, Denies leg edema, Denies lightheadedness, Denies palpitations, Denies dyspnea, Denies dyspnea on exertion and Denies orthopnea Resp Denies cough, Denies dyspnea and Denies dyspnea on exertion GI Denies hematochezia and Denies change in stool character Reports no additional complaints Musc Denies abnormal gait, Denies muscle weakness, Denies numbness, Denies radiating pain into limb and Denies tingling Skin/Breast Reports system reviewed and no additional complaints, except as documented Neuro Denies abnormal gait, Denies dizziness, Denies syncope, Denies numbness, Denies tingling and Denies weakness Psych Reports depression (Controlled with med) Endo Denies palpitations Physical Exam Vital Signs: Last Vital Signs Pulse 62 09/22/24 13:50 BP 120/64 09/22/24 13:50 Pulse Ox 98 09/22/24 13:50 Oxygen Delivery Method Room Air 09/22/24 13:50 BMI result Body Mass Index 22.3 Const General: comfortable, no acute distress, alert and awake Orientation/consciousness: patient oriented x3 HEENT Head: Yes normal to inspection General nose exam: No nasal polyps present and No nasal discharge present Face and sinus: Yes sinuses nontender Mouth: oropharynx normal Throat: Yes posterior oropharynx normal Eyes General: appearance normal, both eyes and all related structures Neck Neck: Yes normal visual inspection, Yes no lymphadenopathy, Yes trachea midline and Yes no JVD Thyroid: Thyroid normal Chest Chest palpation & inspection: normal inspection of the chest (HAS PACEMAKER BATTERY IN LEFT PECTORAL AREA), normal palpation of entire chest wall and no tenderness Resp Other: Percussion note is resonant, breath sounds are distant on both sides with prolonged expiratory phase. No wheezes rhonchi or crepitations are heard . Cardio Palpation: normal PMI and other (ICD in place) Rate: regular rate Rhythm: regular rhythm Heart sounds: no gallops and no murmurs GI Palpation (GI): Soft to palpation, nontender, No hepatosplenomegaly present and no masses Auscultation: normal bowel sounds Back/Spine/Pelvis Thoracic/Lumbar Spine: thoracic and lumbar spine normal to inspection Skin General skin exam: no rashes or lesions noted Neuro General: patient oriented x3 and no focal motor deficits Cranial nerves: Yes CN's II-XII intact bilaterally Cognition (Neuro): abnormal cognition (Mild to moderate memory loss) Extrem General: Yes normal to inspection, Yes no clubbing, cyanosis or edema and Yes no calf tenderness Psych Appearance: grossly normal and well kempt Speech and movement: Normal speech and movement present Assessment & Plan Assessment & Plan (1) COPD (chronic obstructive pulmonary disease): Comment: She does have MILD TO MODERATE degree of obstructive airway disorder, Seems to be well controlled at this time with the current medical regimen. Code(s): J44.9 - Chronic obstructive pulmonary disease, unspecified Category: Medical Plan: USE ALBUTEROL HFA 2 PUFFS Q 6 HOURS ONLY P.R.N./ ALTERNATIVELY MAY USE ALBUTEROL SOLUTION IN THE NEBULIZER Q 4-6 HOURS P.R.N.. DOES NOT NEED ANY CONTROLLER AGENTS. (2) Allergic rhinitis: Comment: Mild, remains well controlled . Currently she is not using montelukast regularly, . And still doing okay Code(s): J30.9 - Allergic rhinitis, unspecified Category: Medical Plan: Start using montelukast 10 mg once a day if the nasal symptoms get any worse. Use cetirizine 10 mg once a day p.r.n. Coding Level of Care Code Est Pt Level 3 (48241) Diagnoses COPD (chronic obstructive pulmonary disease) J44.9 Allergic rhinitis J30.9
--- OUTSIDE RECORDS SUMMARY | 2024-09-22 16:23 | XMS_ITS | Encounter Summary ---
Author Organization [employer] Address [address] [facility] [address] 7[address] [place] [address] Care Team Providers Care Auto Transmission Specialist Name Role Phone Dilshad Lorenzana MD Primary Care Provide r Encounter Details Date Type Department Care Team (Late st Contact Info) Description 10/16/2022 Abstract [facility] MEDICINE [address] [place] [address] Dilshad Lorenzana MD [address] [place] [address] Social History Tobacco Use Types Packs/Day Years [...] Description 11/04/2024 2:15 PM EDT Office Visit [facility] [address] [place] [address] Dilshad Lorenzana MD [address] [place] [address] documented as of this encounter Goals Goal [...] documented as of this encounter Care Teams Auto Transmission Specialist Relationship Specialty Start Date End Date Dilshad Lorenzana MD [address] [place] [address] PCP - General Internal Medicine 04/11/14 Flor Matthews Confidential Investigator 03/27/23 06/27/23 [employer] 08/08/21 documented as of this encounter
--- OUTSIDE RECORDS SUMMARY | 2024-09-22 16:23 | XMS_ITS | Encounter Summary ---
Author Organization [employer] Address [address] [facility] 7t [place] [address] Care Team Providers Care Qa Software Test Engineer Name Role Phone Dilshad Lorenzana MD Primary Care Provide r Encounter Details Date Type Department Care Team (Late st Contact Info) Description 07/30/2022 Orders Only [facility] MED & PEDS [address] [place] [address] Adelita Hart LPN Social History Tobacco Use [...] Description 11/04/2024 2:15 PM EDT Office Visit [facility] MEDICINE [address] [place] [address] Dilshad Lorenzana MD [address] [place], [place] [phone] documented as of this encounter Visit Diagnoses Not on filedocumented in this encounter Care Teams Qa Software Test Engineer Relationship Specialty Start Date End Date Dilshad Lorenzana MD [address] [place] [id number] PCP - General Internal Medicine 04/11/14 Flor Matthews Stacker Tender 03/27/23 06/27/23 [facility] 08/08/21 documented as of this encounter
--- OUTSIDE RECORDS SUMMARY | 2024-09-22 16:23 | XMS_ITS | Clinical Summary ---
Author Organization [facility] Address [address] [place] [id number] Phone Care Team Providers Care Poultry Barn Manager Name Role Phone Dilshad Mccrary MD Primary [...] 12/13/2021 Chronic obstructive pulmonary disease 12/13/2021 Immunizations Immunization Administration Dates Next Due Influenza Split 04/10/2015,02/25/2013,02/13/2012 [...] Visit [facility] [address] [place] [id number] Maulik Flynn MD [address] [facility] [address] [place] [address] Health Maintenance Due Date Last Done Comments Breast Cancer Screening 1950 Colorectal Cancer Screening: Annual FOBT 1999 Colorectal Cancer Screening: Colonoscopy 1999 Colorectal Cancer Screening: Sigmoidoscopy 1999 Diabetes: Ophthalmology Exam 12/02/2022 Diabetes: Pedal Pulse Checked 12/02/2022 Diabetes: Sensory Foot Exam 12/02/2022 Diabetes: Visual Foot Exam 12/02/2022 Diabetes: Hemoglobin A1C 12/18/2023 09/18/2023 Influenza Vaccine (Season Ended) 2025 03/04/2019, 03/03/2018, 03/18/2017, Additional history exists Pneumococcal Vaccine: 50+ Years Completed 10/29/2016, 10/30/2015, 04/10/2015, Additional history exists Hepatitis B Vaccine Aged Out No longe r eligible based on patient's age to complete this topic Insurance Medicare Medicaid [place] Medicare Medicaid [place] Care Teams Poultry Barn Manager Relationship Specialty Start Date End Date Dilshad Mccrary MD PCP - General Internal Medicine 09/26/21
--- OUTSIDE RECORDS SUMMARY | 2024-09-22 16:23 | XMS_ITS | Encounter Summary ---
Author Organization [employer] Address [address] [facility] 7t [place] [address] Care Team Providers Care Peoplesoft Financials Name Role Phone Dilshad Lorenzana MD Primary Care Provide r Encounter Details Date Type Department Care Team (Late st Contact Info) Description 08/26/2022 Orders Only [facility] MED & PEDS [address] [place] [address] Adelita Hart LPN Social History Tobacco Use [...] Description 11/04/2024 2:15 PM EDT Office Visit [facility] MEDICINE [address] [place] [address] Dilshad Lorenzana MD [address] [place], [place] [phone] documented as of this encounter Visit Diagnoses Not on filedocumented in this encounter Care Teams [employer] Financials Relationship Specialty Start Date End Date Dilshad Lorenzana MD [address] [place] [address] PCP - General Internal Medicine 04/11/14 Flor Matthews Auto Suspension And Steering Mechanic 03/27/23 06/27/23 [employer] 08/08/21 documented as of this encounter
--- OUTSIDE RECORDS SUMMARY | 2024-09-22 16:23 | XMS_ITS | Clinical Summary ---
Author Organization [employer] Address [address] [place] [address] 7t [place] [address] Care Team Providers Care Power Plant Mechanic Name Role Phone Dilshad Lorenzana MD Primary [...] Take 10 mg by mouth at bedtime. 023 Active Vitamin D High Potency 25 MCG [...] wee. Dx hypertension 1 kit 024 Active omeprazole (PriLOSEC) [address] capsule TAKE 1 CAPSULE BY MOUTH EVERY MORNING BEFORE A MEAL 90 capsule 1 024 Active glucose blood (Contour Next Test) test stripIndications: Type 1 diabetes mellitus without complications ([facility]/HCC) TEST BLOOD SUGAR TWICE DAILY 200 each 3 024 Active TRUEplus Lancets 33G miscIndications:T ype 2 diabetes mellitus without complications (CMS/[facility]) USE DIRECTED TO TEST BLOOD SUGAR EVERY DAY 100 each 11 024 Active atorvastatin (Lipitor) 20 MG tabletIndications :Mixed hyperlipidemia TAKE 1 TABLET BY MOUTH EVERY EVENING 90 tablet 3 025 Active Ferrous Sulfate (iron) 325 (65 Fe) MG tabletIndications :Iron deficiency TAKE 1 TABLET BY MOUTH TWICE DAILY IN THE MORNING AND IN THE EVENING 180 tablet 1 025 Active glipiZIDE (Glucotrol) 5 MG tablet TAKE 1 TABLET BY MOUTH TWICE DAILY IN THE MORNING AND IN THE EVENING WITH FOOD 60 tablet 3 025 Active montelukast (Singulair) 10 MG tablet TAKE 1 TABLET BY MOUTH EVERY EVENING 30 tablet 3 025 Active Aspirin Low Dose 81 MG EC tablet TAKE 1 TABLET BY MOUTH EVERY MORNING 90 tablet 1 025 Active Aspirin Low Dose 81 MG EC tablet TAKE 1 TABLET BY MOUTH EVERY MORNING 90 tablet 1 024 2024 Discontinued Active Problems Problem Noted Date [...] angina vs vasospasm Under the care of application packaging specialist Dr Abdi, last visit 08/18/2023 Previous [...] Nathan] ICD in place. History of prior IA and stents to the LAD. Recommendations was to continue aggressive secondary risk factor modification according to ATP III guidelines Assessment & Plan (10/01/2022 11:12 AM EDT): Pt with Hx of CAD and recent CP sx thought to be microvessel angina vs vasospasm Under the care of application packaging specialist Dr Abdi, last visit 07/31/2021 televisit [...] Nathan] ICD in place. History of prior IA and stents to the LAD. Recommendations was to continue aggressive secondary risk factor modification according to ATP III guidelines Anxiety 10/01/2022 Assessment & Plan (10/01/2022 2:50 PM EDT): Pt is here for a f/u Pt seeing a Psychotherapist at [facility] She is on Paxil 10 mg po [...] infiltrating ductal carcinoma of the right breast, ER/NM positive and HER-2/evelyn negative. She is s/p [...] continue current regimen. Coronary artery disease involving [place] coronar y artery 11/26/2011 Assessment & Plan [...] previous visit I discussed case with her Application Administrator Dr. Abdi. Most recent electrolytes, Bun and [...] previous visit I discussed case with her Application Administrator Dr. Abdi. Most recent electrolytes, Bun and [...] previous visit I discussed case with her Application Administrator Dr. Abdi. Most recent electrolytes, Bun and [...] Encounters Date Type Department Care Team Description 09/02/2024 Refill [facility] [place] [address] Dilshad Lorenzana MD 08/24/2024 Orders Only [facility] [place] [address] Dilshad Lorenzana MD Type 2 diabetes mellitus without complication, without long-term current use of insulin ([facility]) (Primary Dx) 08/24/2024 Telephone [facility] [place] [address] Amy Juarez, warehouse engineer 08/13/2024 Telephone [facility] [address] [place] [address] Amy Juarez, RN Durable Medical Equipment 08/11/2024 Refill [facility] [address] [place] [address] Rehana Durham MD 08/05/2024 Refill [facility] [address] [place] [address] Dilshad Lorenzana MD Mixed hyperlipidemia; Iron deficiency 07/23/2024 Telephone [facility] [address] [place] [address] Dilshad Lorenzana MD Chart Prep 07/20/2024 Telephone [facility] [place] [address] Amy Juarez, RN FYI from [facility] 07/15/2024 Refill [facility] [address] [place] [address] Katherin Ring ANP from Last 3 Months Immunizations Name Administration [...] your housing situation today? I have gianluca derrick 03/26/[address] you li [...] Description 11/04/2024 2:15 PM EDT Office Visit [facility] [address] [place] [address] Dilshad Lorenzana MD [address] [place] [address] Health Maintenance Due Date Last Done Comments [...] adhere to medication regimen General No Reyna Yanes PharmD Procedures Procedure Name Priority Date/Time Associated Diagnosis Comments LIPID PANEL, STANDARD Routine 01/29/2024 10:57 AM EDT Type 2 diabetes mellitus without complication, without long-term current use of insulin ([facility]) POCT GLYCOSYLATED HEMOGLOBIN (HGB A1C) Routine 01/29/2024 [...] 10:57 AM EDT) Triglycerides 85 <150 mg/dL [facility] Comment:Desirable Triglyceri de: less than 150 mg/dLBorderline High Triglyceride 150-199 mg/dLHigh Triglyceride: 200-499 mg/dLVery High Triglyceride: greater than or equal to 5OO mg/dL Cholesterol 96 <200 mg/dL [facility] Comment:Desirable Cholestero l: less than 200 mg/dLBorderline High Cholesterol: 200-239 mg/dLHigh Cholesterol: greater than 239 mg/dL LDL Cholesterol Calculated 33 <100 mg/dL [facility] Comment:Desirable LDL: less than 100 mg/dLNear Optimal/Above Optimal LDL: 110- 129 mg/dLBorderline High LDL: 130-159 mg/dLHigh LDL: 160-189 mg/dLVery High LDL: greater than or equal to 190 mg/dL HDL Cholesterol 46 >40 mg/dL [facility] Comment:Desirable HDL: great er than 40 mg/dL Note: This HDL assay may give artificially low results in patients with liver disease. Blood Venous blood specimen / Unknown 01/29/2024 10:57 AM EDT 01/29/2024 12:03 PM EDT us Dilshad Amanda MD LAB BLOOD ORDERABLES Final Result [facility] [address] [place] [address] [phone] * POCT glycosylated hemoglobin (Hgb A1c) (01/29/2024 10:18 AM EDT) Hemoglobin A1C 5.7 4.0 - 6.0 % QC Media Lot # [id number] Lot# Expiration Date [id number] Blood Capillary blood specimen / Unknown 01/29/2024 10:18 AM EDT us Dilshad Amanda MD POINT OF CARE TEST EN TER/EDIT ORDERABLES Final Result * BI Mammogram Screening Tomosynthesis Bilateral (03/10/2023 11:15 AM EDT) Anatomical Region Laterality Modality Breast Bilateral Mammography 03/10/2023 11:1 5 AM EDT Narrative 03/30/2023 7:00 PM EDT ? [facility] [place] ? [address] ?[place] [address] ? Mammography Report ? Signed ? Patient: Elena Gerardo,Florinda L ?MR ?? #: [id number] ? : 1950 ?Acct:[id number] ? Age/Sex: 72 / F ?ADM Date: 03/10/ ? Loc: HO.MAMMO ? Attending Dr: Dilshad Morrell MD ? Ordering Physician: Dilshad Morrell MD ?Resu ?? lts: 2Benign Findings ? Date of Service: 03/10/23 ?Follow Up: 1 Year From Orig ?? inal Mammogram ? Procedure(s): MM tomosynthesis screening BI ?? Accession Number(s): [id number] ? cc: Dilshad Morrell MD ? EXAMINATION: [...] by Tanna Gonzalez MD in OV> ? 10/ 1856 ? DD/ 1115 ? TD/TT: ? Senior Climate Advisor: ? Procedure Note Donotuseinterpreter, Image - 03/30/2023 [facility] [address] [place] [address] Mammography Report Signed Patient: Florinda Oconnell LMR #: [id number] : 1Acct:[id number] Age/Sex: 72 / FADM Date: 03/10/23 Loc: FITO Attending Dr: Dilshad Morrell MD Ordering Physician: Dilshad Morrell MDResu lts: 2Benign Findings Date of Service: 03/10/23Follow Up: 1 Year From [facility] Mammogram Procedure(s): MM tomosynthesis screening BI Accession Number(s): [id number] cc: Dilshad Morrell MD EXAMINATION: MM SCREENING [...] in OV> 03/30/23 1856 DD/ 1115 TD/TT: Senior Climate Advisor: Dilshad Aamnda MD IMG BI PROCEDURES Fin al Result [...] HEPATITIS C ANTIBODY NON-REACT ROSALINE NON-REACT ROSALINE [facility] INDEX 0.01 <1.00 [facility] Comment: ?? HCV antibody was non-reactive. There is no laboratory ?? evidence of HCV infection. ?? In most cases, no further action is required. However, if recent HCV exposure is suspected, a test for HCV RNA (test code 50378) is suggested. ?? For additional information please refer to [email or web address] Oy/faq/HBZ85o7 (This link is being provided for informational/ educational purposes only.) ?? 08/14/2021 10:5 4 AM EST Dilshad Amanda MD HISTORICAL/NON ORDERA BLE LABS Final Result [facility] [place] [address], [place] * ALBUMIN, RANDOM URINE W/CREATININE (03/28/2020 11:25 [...] diagnostic category. 03/28/2020 11:2 5 AM EDT us Dilshad Amanda MD LAB URINE ORDERABLES Final Result [facility] [address] from Last 3 Months or Most Recently Relevant to Health Maintenance Insurance [facility] STANDARD MEDICARE Care Teams Power Plant Mechanic Relationship Specialty Start Date End Date Dilshad Lorenzana MD [address] [place] [phone] PCP - General Internal Medicine 04/11/14 [employer] 08/08/21
--- OUTSIDE RECORDS SUMMARY | 2024-09-22 16:23 | XMS_ITS | Encounter Summary ---
Author Organization [employer] Address [address] [facility] 7t [place] [address] Care Team Providers Care Soa Integration Architect Name Role Phone Dilshad Lorenzana MD Primary Care Provide r Encounter Details Date Type Department Care Team (Late st Contact Info) Description 09/11/2022 Orders Only [facility] MED & PEDS [address] [place] [address] Adelita Hart LPN Social History Tobacco Use [...] Description 11/04/2024 2:15 PM EDT Office Visit [facility] MEDICINE [address] [place] [address] Dilshad Lorenzana MD [address] [place], [place] [phone] documented as of this encounter Visit Diagnoses Not on filedocumented in this encounter Care Teams Soa Integration Architect Relationship Specialty Start Date End Date Dilshad Lorenzana MD [address] [place] [address] PCP - General Internal Medicine 04/11/14 Flor Matthews Diploma Dental Assistant 03/27/23 06/27/23 [employer] 08/08/21 documented as of this encounter
--- OUTSIDE RECORDS SUMMARY | 2024-09-22 16:23 | XMS_ITS | Clinical Summary ---
Author Organization [facility] Address [address] [place] [address] Care Team Providers Care Washer Machine Name Role Phone Unavailable Primary Care Provider Unavailabl e Social History Tobacco Use Types Packs/Day Years Used Date Smoking Tobacco: Never Assessed Sex and Gender Information Value Date Recorded Sex Assigned at Not on file Gender Identity Not on file Sexual Orientation Not on file Plan of Treatment Not on file
--- OUTSIDE RECORDS SUMMARY | 2024-09-22 16:23 | XMS_ITS | Encounter Summary ---
Author Organization [employer] Address [address] [facility] 7t [place] [address] Care Team Providers Care Bootmaker Hand Name Role Phone Dilshad Lorenzana MD Primary Care Provide r Encounter Details Date Type Department Care Team (Late st Contact Info) Description 06/27/[address] [facility] MED & PEDS [address] [place] [address] Adelita Hart LPN Social History Tobacco Use [...] Description 11/04/2024 2:15 PM EDT Office Visit [facility] MEDICINE [address] [place] [address] Dilshad Lorenzana MD [address] [place], [place] [phone] documented as of this encounter Visit Diagnoses Not on filedocumented in this encounter Care Teams Bootmaker Hand Relationship Specialty Start Date End Date Dilshad Lorenzana MD [address] [place] [address] PCP - General Internal Medicine 04/11/14 Flor Matthews Careers Adviser 03/27/23 06/27/23 Pyramid [employer] 08/08/21 documented as of this encounter
== END 2024-09-22 14:15 | disposition home or self-care (01) ==
LOC: HO.HPS 13:44
PROVIDERS: PCP Internal Medicine; Visit Provider Internal Medicine
DX: J44.9 Chronic obstructive pulmonary disease, unspecified (principal); J30.9 Allergic rhinitis, unspecified
CPT/HCPCS: 99213

== ENCOUNTER → 2024-09-22 13:44 | Outpatient (BNVA) | payer MEDICARE, MEDICAID, SELFPAY | PROVIDERS: PCP Internal Medicine; Visit Provider Internal Medicine | DX: J44.9 Chronic obstructive pulmonary disease, unspecified (principal); J30.9 Allergic rhinitis, unspecified | CPT/HCPCS: 99212 ==

== ENCOUNTER → 2024-11-11 23:59 | Outpatient (BNV) | payer MEDICARE, MEDICAID, SELFPAY ==
--- NOTE | 2024-11-15 11:33 | MHC.OFFVIS ---
Intake Visit Reasons: Remote ICD check- St sean Allergies ibuprofen [From Motrin] Allergy (Mild, Verified 09/22/24 14:24) HEART PALPITATIONS PFSH Medical History Diabetes Renal insufficiency Hx of radiation therapy Cancer Osteoarthritis Paget disease of bone Schizophrenia Dementia TIA (transient ischemic attack) NSTEMI (non-ST elevated myocardial infarction) COPD (chronic obstructive pulmonary disease) Atherosclerotic cardiovascular disease Heart failure with reduced ejection fraction ICD (implantable cardioverter-defibrillator) in place Hyperlipidemia HTN (hypertension) CAD (coronary artery disease) Ischemic cardiomyopathy COPD (chronic obstructive pulmonary disease) Allergic rhinitis Surgical History Pacemaker generator end of life Implantable cardioverter-defibrillator (ICD) at end of battery life Hx of breast biopsy Stented coronary artery Hx of cardiac cath History of implantable cardioverter-defibrillator (ICD) placement Family History Father No problems noted. Mother CVD (cardiovascular disease) Diabetes Social History Household Members: Family Housing: Apartment Are you a primary family day care worker to a significant other at home: No Do you presently have visiting nurse or other home services: Yes (nurse and PATIENT FINANCIAL ADVOCATE) Alcohol intake: never Comment: family at bedside Patient Tobacco Use Status: Former Tobacco user Years Smoked: 40 years Second Hand Smoke Exposure: No Advance Directives Date on File: 07/16/21 service: No Current occupational status: retired Office Procedures Cardiac Device Check Cardiac Device Check Details: Remote ICD report generated 11/11/2024. ICD function is adequate [id number] Cardiac Interrogation, implant defibrillator w/interim Procedure code (CPT) selection complete Assessment & Plan Assessment & Plan (1) ICD (implantable cardioverter-defibrillator) in place: Code(s): Z95.810 - Presence of automatic (implantable) cardiac defibrillator Category: Medical Plan: See above Coding Level of Care Code Procedure Only Diagnoses ICD (implantable cardioverter-defibrillator) in place Z95.810 CPT Codes Cardiac Device Check - Cardiac Device 13: [id number] Cardiac Interrogation, implant defibrillator w/interim ([id number])
== END ==
PROVIDERS: PCP Internal Medicine; Visit Provider Internal Medicine Cardiovascular Disease
DX: Z45.02 Encounter for adjustment and management of automatic implantable cardiac defibrillator (principal)
CPT/HCPCS: 93295

== ENCOUNTER 2024-12-29 13:36 | Outpatient (REF) | payer MEDICARE, MEDICAID, SELFPAY ==
--- OUTSIDE RECORDS SUMMARY | 2024-12-29 14:11 | XMS_ITS | Clinical Summary ---
Author Organization [facility] Address [address] [address] [facility] [place] [address] Phone Care Team Providers Care Forest Nursery Supervisor Name Role Phone Dilshad Mccrary MD Primary [...] Care Team (Late st Contact Info) Description 01/24/2025 3:00 PM EDT Office Visit [facility] [address] [place] [address] Maulik Flynn MD [address] [facility] [address] [place] [address] Health Maintenance Due Date Last Done Comments Breast Cancer Screening 1950 Colorectal Cancer Screening: Annual FOBT 1999 Colorectal Cancer Screening: Colonoscopy 1999 Colorectal Cancer Screening: Sigmoidoscopy 1999 Diabetes: Ophthalmology Exam 11/08/2024 Diabetes: Pedal Pulse Checked 11/08/2024 Diabetes: Sensory Foot Exam 11/08/2024 Diabetes: Visual Foot Exam 11/08/2024 Diabetes: Hemoglobin A1C 02/04/2025 11/04/2024, 04/1 06/2023 Influenza Vaccine (#1) 2025 9, 03/03/2018, 03/18/2017, Additional history exists Pneumococcal Vaccine: 50+ Years Completed 10/29/2016, 10/30/2015, 04/10/2015, Additional history exists Hepatitis B Vaccine Aged Out No longe r eligible based on patient's age to complete this topic Insurance Medicare Medicaid [place] Medicare Medicaid [place] Care Teams Forest Nursery Supervisor Relationship Specialty Start Date End Date Dilshad Mccrary MD PCP - General Internal Medicine 09/26/21
--- OUTSIDE RECORDS SUMMARY | 2024-12-29 14:11 | XMS_ITS | Encounter Summary ---
Author Organization [employer] Address [address] [facility] 7[address] [place] [address] Care Team Providers Care City Tax Auditor Name Role Phone Dilshad Lorenzana MD Primary Care Provide r Encounter Details Date Type Department Care Team ([facility] st Contact Info) Description 06/27/2022 Orders Only [facility] MED & PEDS [address] [place] [address] Adelita Hart LPN Social History Tobacco Use Types Packs/Day Years Used Date Smoking Tobacco: Never Assessed Comments Unknown Sex and Gender Information Value Date Recorded Sex Assigned at Female 04/08/2022 10:15 AM EDT Legal Sex Female 10:15 AM EDT Gender Identity Female 04/08/2022 10:15 AM EDT Sexual Orientation Straight 04/08/2022 10 :15 AM EDT documented as of this encounter Plan of Treatment Not on file documented as of this encounter Visit Diagnoses Not on filedocumented in this encounter Care Teams City Tax Auditor Relationship Specialty Start Date End Date Dilshad Lorenzana MD [address] [place] [address] PCP - General Internal Medicine 04/11/14 Flor Matthews Station Installer And Repairer 03/27/23 06/27/23 [employer] 08/08/21 documented as of this encounter
--- OUTSIDE RECORDS SUMMARY | 2024-12-29 14:11 | XMS_ITS | Clinical Summary ---
Author Organization [facility] Address [address] [place] [address] Phone Care Team Providers Care Devil Tender Name Role Phone Dilshad Morrell MD Primary Care Provi cherry Allergies Active Allergy Reactions Criticality Noted Date Comments Ibuprofen 11/24/2024 Encounters Date Type Department Care Team Description 11/24/2024 2:30 PM EDT Consult Orthopedic Surgery [facility] [address] [phone] José Manuel Dye DPM Controlled type 2 diabetes with neuropathy (CMS/HCC V24, CMS/HCC V28) (Primary Dx); Arthritis of both feet; Hammertoes of both feet; Dermatophytosis, nail from Last 3 Months Social History Tobacco Use Types Packs/Day Years Used Date Smoking Tobacco: Never Assessed Comments Unknown Sex and Gender Information Value Date Recorded Sex Assigned at Not on file Legal Sex Female 11:16 AM EDT Gender Identity Not on file Sexual Orientation Not on file Plan of Treatment Upcoming Encounters Date Type Department Care Team ([facility] st Contact Info) Description 02/16/2025 2:45 PM EDT Office Visit Orthopedic Surgery [place] [address] [phone] José Manuel Dye DPM [address] [address] Health Maintenance Due Date Last Done Comments Breast Cancer Screening 1950 Diabetes: Annual GFR (Glomerular Filtration Rate) 1950 Diabetes: Annual Foot Exam 1960 Diabetes: Annual Retina Eye Exam 1960 Zoster Vaccines (1 of 2) 1969 RSV Immunization Adult Patients (1 - Risk 60-74 years 1-dose series) 2010 COVID-19 Vaccine (3 - Moderna risk series) 09/29/2020 09/01/2020, 08/04/2020 Depression Screening 06/09/2024 Colorectal Cancer Screening: Colonoscopy 09/29/2024 Diabetes: Annual Urine Albumin-Creatinine Ratio (uACR) 09/29/2024 Falls Risk Assessment 09/29/2024 Hepatitis C Screening 09/29/2024 Medicare Annual Wellness Visit 09/29/2024 Osteoporosis Screening (Bone Density Screening) 09/29/2024 Social Influencers of Health Screening 09/29/2024 Hypertension/CHF/CAD Annual BMP Blood Test 11/25/2024 Influenza Vaccine (#1) 2025 , 03/24/2020, 03/04/2019, Additional history exists Diabetes: Blood Sugar Control Test (HGBA1C) 05/07/2025 11/04/2024 Cholesterol Screening (Lipid Panel) 01/28/2029 01/29/2024 DTaP,Tdap,and Td Vaccines (4 - Td or Tdap) 12/23/2029 12/24/2019, 08/07/2017, 05/18/1998 Pneumococcal Vaccine: 50+ Years Completed 10/29/2016, 10/30/2015, 04/10/2015, Additional history exists HIB Vaccines Aged Out No longer eligi [...] on patient's age to complete this topic MMR Vaccines Aged Out No longer eligi ble based on patient's age to complete this topic Meningococcal ACWY Vaccine Aged Out N o longer eligible based on patient's age to complete this topic Meningococcal B Vaccine Aged Out No l onger eligible based on patient's age to complete this topic RSV Immunization Patients Under 20 months Aged Out No longer eligible based on patient's age to complete this topic Varicella Vaccines Aged Out No longer eligible based on patient's age to complete this topic Insurance [address] [place] [address] MEDICARE MEDICAID - [place] Care Teams Devil Tender Relationship Specialty Start Date End Date Dilshad Morrell MD [address] [place] [address] [place] [address] PCP - General Internal Medicine 09/28/24
--- OUTSIDE RECORDS SUMMARY | 2024-12-29 14:11 | XMS_ITS | Clinical Summary ---
Author Organization [facility] Address [address] [place] [address] Care Team Providers Care Bed Spring Maker Name Role Phone Unavailable Primary Care Provider Unavailabl e Social History Tobacco Use Types Packs/Day Years Used Date Smoking Tobacco: Never Assessed Sex and Gender Information Value Date Recorded Sex Assigned at Not on file Gender Identity Not on file Sexual Orientation Not on file Plan of Treatment Not on file
== END 2024-12-29 13:37 | disposition home or self-care (01) ==
LOC: HO.MAMMO 13:36
PROVIDERS: PCP Internal Medicine; Visit Provider Internal Medicine
DX: Z12.31 Encounter for screening mammogram for malignant neoplasm of breast (principal)
CPT/HCPCS: 77063; 77067

== ENCOUNTER → 2024-12-29 13:45 | Outpatient (BNV) | payer MEDICARE, MEDICAID, SELFPAY | PROVIDERS: PCP Internal Medicine; Visit Provider Radiology Body Imaging | DX: Z12.31 Encounter for screening mammogram for malignant neoplasm of breast (principal) | CPT/HCPCS: 77063; 77067 ==

== ENCOUNTER 2025-01-18 08:31 | Outpatient (REF) | payer MEDICARE, MEDICAID, SELFPAY ==
--- OUTSIDE RECORDS SUMMARY | 2025-01-18 08:48 | XMS_ITS | Encounter Summary ---
Author Organization [employer] Address [address] [facility] 7t [place] [address] Care Team Providers Care Last Code Striper Name Role Phone Dilshad Lorenzana MD Primary Care Provide r Encounter Details Date Type Department Care Team ([facility] st Contact Info) Description 06/27/2022 Orders Only [facility] MED & PEDS [address] [place] [address] Adelita Hart LPN Social History Tobacco Use [...] on filedocumented in this encounter Care Teams Last Code Striper Relationship Specialty Start Date End Date Dilshad Lorenzana MD [address] [place] [address] PCP - General Internal Medicine 04/11/14 Flor Matthews Voice Instructor 03/27/23 06/27/23 [employer] (T/[employer]) 08/08/21 documented as of this encounter
--- OUTSIDE RECORDS SUMMARY | 2025-01-18 08:48 | XMS_ITS | Clinical Summary ---
Author Organization [facility] Address [address] [place] [address] Care Team Providers Care Telegraph Lineman Name Role Phone Unavailable Primary Care Provider Unavailabl e Social History Tobacco Use Types Packs/Day Years Used Date Smoking Tobacco: Never Assessed Sex and Gender Information Value Date Recorded Sex Assigned at Not on file Gender Identity Not on file Sexual Orientation Not on file Plan of Treatment Not on file
--- OUTSIDE RECORDS SUMMARY | 2025-01-18 08:48 | XMS_ITS | Clinical Summary ---
Author Organization [facility] Address [address] [address] [place] [address] Phone Care Team Providers Care Parks And Recreation Manager Name Role Phone Dilshad Mccrary MD [...] Visit [facility] [address] [place] [phone] Maulik Flynn MD [address] [facility] [address] [place] [address] Health Maintenance Due Date Last [...] Medicaid [place] Medicare Medicaid [place] Care Teams Parks And Recreation Manager Relationship Specialty Start Date End Date Dilshad Mccrary MD PCP - General Internal Medicine 09/26/21
--- OUTSIDE RECORDS SUMMARY | 2025-01-18 08:49 | XMS_ITS | Clinical Summary ---
Author Organization [facility] Address [address] [place] [address] Phone Care Team Providers Care Loading Supervisor Name Role Phone Dilshad Morrell MD Primary Care Provi cherry Allergies Active Allergy Reactions Criticality Noted Date Comments Ibuprofen 11/24/2024 Encounters Date Type Department Care Team Description 11/24/2024 2:30 PM EDT Consult Orthopedic Surgery [facility] [address] [phone] José Manuel Dye DPM Controlled type 2 [...] Upcoming Encounters Date Type Department Care Team ([facility] st Contact Info) Description 02/16/2025 2:45 PM EDT Office Visit Orthopedic Surgery [place] [address] [phone] José Manuel Dye DPM [address] [address] Health Maintenance Due Date Last Done Comments [...] age to complete this topic Insurance [address] [place] [address] MEDICARE MEDICAID - [place] Care Teams Loading Supervisor Relationship Specialty Start Date End Date Dilshad Morrell MD [address] [place] [address] [place] [address] PCP - General Internal Medicine 09/28/24
[2025-01-18 11:09] LABS: Anion Gap 12 (12-20); Blood Urea Nitrogen 16 mg/dL (9-16); Calcium 8.8 mg/dL (8.4-10.2); Carbon Dioxide 23 mmol/L (22-29); Chloride 111 mmol/L (96-108); Cholesterol 81 mg/dL (<200); Estimated Glomerular Filt Rate 56; HDL Cholesterol 37 mg/dL (>40); Potassium 3.8 mmol/L (3.3-5.1); Sodium 142 mmol/L (135-145); Triglycerides 94 mg/dL (<150)
== END 2025-01-18 08:32 | disposition home or self-care (01) ==
LOC: HO.LHD 08:31
PROVIDERS: Visit Provider Internal Medicine
DX: I10 Essential (primary) hypertension (principal); E78.2 Mixed hyperlipidemia; E11.9 Type 2 diabetes mellitus without complications; E03.9 Hypothyroidism, unspecified; R79.89 Other specified abnormal findings of blood chemistry
CPT/HCPCS: 36415; 80048; 80061; 84443

== ENCOUNTER 2025-01-21 13:04 | Outpatient (REF) | payer MEDICARE, MEDICAID, SELFPAY ==
--- OUTSIDE RECORDS SUMMARY | 2025-01-21 13:07 | XMS_ITS | Encounter Summary ---
Author Organization [employer] Address [address] [facility] 7[address] [place] [address] Care Team Providers Care Social Group Worker Name Role Phone Dilshad Lorenzana MD Primary Care Provide r Encounter Details Date Type Department Care Team ([facility] st Contact Info) Description 06/27/2022 Orders Only [facility] MED & PEDS [address] [place] [address] Adelita Hart LPN Social History Tobacco Use [...] on filedocumented in this encounter Care Teams Social Group Worker Relationship Specialty Start Date End Date Dilshad Lorenzana MD [address] [place] [address] PCP - General Internal Medicine 04/11/14 Flor Matthews President Sales And Marketing 03/27/23 06/27/23 [employer] 08/08/21 documented as of this encounter
--- OUTSIDE RECORDS SUMMARY | 2025-01-21 13:07 | XMS_ITS | Clinical Summary ---
Author Organization [facility] Address [address] [facility] [address] [place] [address] Phone Care Team Providers Care Cardiovascular Radiologic Technologist Name Role Phone Dilshad Mccrary MD Primary [...] Visit [facility] [address] [place] [phone] Maulik Flynn MD [address] [facility] [address] [place] [address] Health Maintenance Due Date Last [...] Medicaid [place] Medicare Medicaid [place] Care Teams Cardiovascular Radiologic Technologist Relationship Specialty Start Date End Date Dilshad Mccrary MD PCP - General Internal Medicine 09/26/21
--- OUTSIDE RECORDS SUMMARY | 2025-01-21 13:07 | XMS_ITS | Clinical Summary ---
Author Organization [facility] Address [address] [place] [address] Phone Care Team Providers Care Inner Diameter Grinder Tool Name Role Phone Dilshad Morrell MD Primary Care Provi cherry Allergies Active Allergy Reactions Criticality Noted Date Comments Ibuprofen 11/24/2024 Encounters Date Type Department Care Team Description 11/24/2024 2:30 PM EDT Consult Orthopedic Surgery [facility] [address] [phone] José Manuel Dye DPM Controlled type 2 [...] Upcoming Encounters Date Type Department Care Team ([facility] st Contact Info) Description 02/16/2025 2:45 PM EDT Office Visit Orthopedic Surgery [place] [address] [phone] José Manuel Dye DPM [address] [address] Health Maintenance Due Date Last Done Comments [...] age to complete this topic Insurance [address] [place] [address] MEDICARE MEDICAID - [place] Care Teams Inner Diameter Grinder Tool Relationship Specialty Start Date End Date Dilshad Morrell MD [address] [place] [address] [place] [address] PCP - General Internal Medicine 09/28/24
--- OUTSIDE RECORDS SUMMARY | 2025-01-21 13:07 | XMS_ITS | Clinical Summary ---
Author Organization [facility] Address [address] [place] [address] Care Team Providers Care Pss Delivery Professional Name Role Phone Unavailable Primary Care Provider Unavailabl e Social History Tobacco Use Types Packs/Day Years Used Date Smoking Tobacco: Never Assessed Sex and Gender Information Value Date Recorded Sex Assigned at Not on file Gender Identity Not on file Sexual Orientation Not on file Plan of Treatment Not on file
[2025-01-21 14:33] LABS: Microalbum/Creatinine Ratio Ur 5.3 ug/mg cr (<30)
== END 2025-01-21 13:05 | disposition home or self-care (01) ==
LOC: HO.HHCLNP 13:04
PROVIDERS: Visit Provider Internal Medicine
DX: E11.9 Type 2 diabetes mellitus without complications (principal)
CPT/HCPCS: 82043; 82570

== ENCOUNTER → 2025-02-10 23:59 | Outpatient (BNV) | payer MEDICARE, MEDICAID, SELFPAY ==
--- NOTE | 2025-02-15 13:23 | A.OFFVIS_ITS ---
Intake Visit Reasons: Remote ICD check- St sean Allergies ibuprofen (From Motrin) Allergy (Mild, Verified 09/22/24 14:24) HEART PALPITATIONS PFSH Medical History Diabetes Renal insufficiency Hx of radiation therapy Cancer Osteoarthritis Paget disease of bone Schizophrenia Dementia TIA (transient ischemic attack) NSTEMI (non-ST elevated myocardial infarction) COPD (chronic obstructive pulmonary disease) Atherosclerotic cardiovascular disease Heart failure with reduced ejection fraction ICD (implantable cardioverter-defibrillator) in place Hyperlipidemia HTN (hypertension) CAD (coronary artery disease) Ischemic cardiomyopathy COPD (chronic obstructive pulmonary disease) Allergic rhinitis Surgical History Pacemaker generator end of life Implantable cardioverter-defibrillator (ICD) at end of battery life Hx of breast biopsy Stented coronary artery Hx of cardiac cath History of implantable cardioverter-defibrillator (ICD) placement Family History Father No problems noted. Mother CVD (cardiovascular disease) Diabetes Social History Household Members: Family Housing: Apartment Are you a primary career professional to a significant other at home: No Do you presently have visiting nurse or other home services: Yes (nurse and SPRING INSPECTOR) Alcohol intake: never Comment: family at bedside Patient Tobacco Use Status: Former Tobacco user Years Smoked: 40 years Second Hand Smoke Exposure: No Advance Directives Date on File: 07/16/21 service: No Current occupational status: retired Office Procedures Cardiac Device Check Cardiac Device Check Details: Remote ICD report generated 02/10/2025. ICD function is adequate [id number] Cardiac Interrogation, implant defibrillator w/interim Procedure code (CPT) selection complete Assessment & Plan Assessment & Plan (1) ICD (implantable cardioverter-defibrillator) in place: Code(s): Z95.810 - Presence of automatic (implantable) cardiac defibrillator Category: Medical Plan: See above Coding Level of Care Code Procedure Only Diagnoses ICD (implantable cardioverter-defibrillator) in place Z95.810 CPT Codes Cardiac Device Check - Cardiac Device 13: [id number] Cardiac Interrogation, implant defibrillator w/interim ([id number])
== END ==
PROVIDERS: PCP Internal Medicine; Visit Provider Internal Medicine Cardiovascular Disease
DX: Z45.02 Encounter for adjustment and management of automatic implantable cardiac defibrillator (principal)
CPT/HCPCS: 93295

== ENCOUNTER 2025-03-30 15:02 | Outpatient (AMB) | payer MEDICARE, MEDICAID, SELFPAY ==
[2025-03-30 15:10] VITALS: BP 102/60; PULSE 71; O2SAT 95
--- NOTE | 2025-03-30 15:10 | A.OFFVIS_ITS ---
Vital Signs 03/30/25 15:10 Height 5 ft 2 in BP 102/60 Blood Pressure Location Lt brachial Position Sitting Pulse 71 Pulse Source Pulse Oximeter Pulse Oximetry (%) 95 Oxygen Delivery Method Room Air Intake Visit Reasons: COPD Intake Note: pt is here for follow up and states she is doing well. Has full family support at home., little heavy breathing with walking, she does not walk much Insurance Risk Manager Required: No Allergies ibuprofen (From Motrin) Allergy (Mild, Verified 03/30/25 15:29) HEART PALPITATIONS Medication List - Last Reconciled 03/30/25 by Marija Barrera MD albuterol sulfate 90 mcg/actuation (Ventolin HFA) 2 puffs inhalation Q4H PRN 30 days albuterol sulfate 2.5 mg (6 mL) inhalation Q4-6H PRN 2 months aspirin (Adult Low Dose Aspirin) 81 mg PO DAILY atorvastatin 20 mg PO DAILY blood pressure test kit-medium As directed cholecalciferol (vitamin D3) 50 mcg PO DAILY ezetimibe 10 mg PO QPM ferrous sulfate 325 mg PO DAILY glipizide 10 mg PO BID inhalational spacing device (Vortex Holding Chamber) As directed melatonin 5 mg PO BEDTIME PRN metoprolol tartrate 50 mg PO BID montelukast 10 mg PO DAILY omeprazole 20 mg PO DAILY paroxetine HCl 5 mg PO DAILY quetiapine 50 mg PO BEDTIME 30 days ranolazine ER 500 mg PO BID ticagrelor (Brilinta) 60 mg PO BID valsartan 20 mg PO BID Do you need a note to return to daycare/school/sports/work: No HPI HPI COPD: Details: This 74 years old female, case of chronic anxiety and dementia, as well as impaired locomotion, and uses wheelchair mostly. She has full support and care at home. She is brought to the office by her daughter. Claims that her breathing has been okay. She uses albuterol in the nebulizer only p.r.n. not on a daily basis. She does use montelukast 10 mg daily, and has very little nasal congestion or postnasal drip From the respiratory point of view she has remained very stable. [facility] Medical History Diabetes Renal insufficiency Hx of radiation therapy Cancer Osteoarthritis Paget disease of bone Schizophrenia Dementia TIA (transient ischemic attack) NSTEMI (non-ST elevated myocardial infarction) COPD (chronic obstructive pulmonary disease) Atherosclerotic cardiovascular disease Heart failure with reduced ejection fraction ICD (implantable cardioverter-defibrillator) in place Hyperlipidemia HTN (hypertension) CAD (coronary artery disease) Ischemic cardiomyopathy COPD (chronic obstructive pulmonary disease) Allergic rhinitis Surgical History Pacemaker generator end of life Implantable cardioverter-defibrillator (ICD) at end of battery life Hx of breast biopsy Stented coronary artery Hx of cardiac cath History of implantable cardioverter-defibrillator (ICD) placement Family History Father No problems noted. Mother CVD (cardiovascular disease) Diabetes Social History Household Members: Family Housing: Apartment Are you a primary transitions rn care coordinator to a significant other at home: No Do you presently have visiting nurse or other home services: Yes (nurse and MASSAGE OPERATOR) Alcohol intake: never Comment: family at bedside Patient Tobacco Use Status: Former Tobacco user Years Smoked: 40 years Second Hand Smoke Exposure: No Advance Directives Date on File: 07/16/21 service: No Current occupational status: retired Review of Systems Const All systems reviewed & are unremarkable except as noted in HPI and below Denies weakness Eyes Reports no additional complaints ENT Denies dizziness Card Denies chest pain, Denies chest pain with activity, Denies syncope, Denies rapid heart rate, Denies pedal edema, Denies edema, Denies leg edema, Denies lightheadedness, Denies palpitations, Denies dyspnea, Denies dyspnea on exertion and Denies orthopnea Resp Denies cough, Denies dyspnea and Denies dyspnea on exertion GI Denies hematochezia and Denies change in stool character Reports no additional complaints Musc Denies abnormal gait, Denies muscle weakness, Denies numbness, Denies radiating pain into limb and Denies tingling Skin/Breast Reports system reviewed and no additional complaints, except as documented Neuro Denies abnormal gait, Denies dizziness, Denies syncope, Denies numbness, Denies tingling and Denies weakness Psych Reports depression (Controlled with med) Endo Denies palpitations Physical Exam Vital Signs: Last Vital Signs Pulse 71 03/30/25 15:10 BP 102/60 03/30/25 15:10 Pulse Ox 95 03/30/25 15:10 Oxygen Delivery Method Room Air 03/30/25 15:10 Const General: comfortable, no acute distress, alert and awake Orientation/consciousness: patient oriented x3 HEENT Head: Yes normal to inspection General nose exam: No nasal polyps present and No nasal discharge present Face and sinus: Yes sinuses nontender Mouth: oropharynx normal Throat: Yes posterior oropharynx normal Eyes General: appearance normal, both eyes and all related structures Neck Neck: Yes normal visual inspection, Yes no lymphadenopathy, Yes trachea midline and Yes no JVD Thyroid: Thyroid normal Chest Chest palpation & inspection: normal inspection of the chest (HAS PACEMAKER BATTERY IN LEFT PECTORAL AREA), normal palpation of entire chest wall and no tenderness Resp Other: Percussion note is resonant, breath sounds are distant on both sides with prolonged expiratory phase. No wheezes rhonchi or crepitations are heard . Cardio Palpation: normal PMI and other (ICD in place) Rate: regular rate Rhythm: regular rhythm Heart sounds: no gallops and no murmurs GI Palpation (GI): Soft to palpation, nontender, No hepatosplenomegaly present and no masses Auscultation: normal bowel sounds Back/Spine/Pelvis Thoracic/Lumbar Spine: thoracic and lumbar spine normal to inspection Skin General skin exam: no rashes or lesions noted Neuro General: patient oriented x3 and no focal motor deficits Cranial nerves: Yes CN's II-XII intact bilaterally Cognition (Neuro): abnormal cognition (Mild to moderate memory loss) Extrem General: Yes normal to inspection, Yes no clubbing, cyanosis or edema and Yes no calf tenderness Psych Appearance: grossly normal and well kempt Speech and movement: Normal speech and movement present Assessment & Plan Assessment & Plan (1) COPD (chronic obstructive pulmonary disease): Comment: She does have MILD TO MODERATE degree of obstructive airway disorder, Seems to be well controlled at this time with the current medical regimen. Code(s): J44.9 - Chronic obstructive pulmonary disease, unspecified Category: Medical Plan: Patient does not like to use any controller agent. She is content with using albuterol solution in the nebulizer only p.r.n. if she has any bouts of cough or wheezing. (2) Allergic rhinitis: Comment: Mild, remains well controlled . Currently she is not using montelukast regularly, . And still doing okay Code(s): J30.9 - Allergic rhinitis, unspecified Category: Medical Plan: Continue montelukast 10 mg once a day Coding Level of Care Code Est Pt Level 3 (23060) Diagnoses COPD (chronic obstructive pulmonary disease) J44.9 Allergic rhinitis J30.9
--- OUTSIDE RECORDS SUMMARY | 2025-03-30 21:20 | XMS_ITS | Clinical Summary ---
Author Organization [employer] Address [address] [place] [address] 7[address] [place] [address] Care Team Providers Care Food Runner Name Role Phone Dilshad Lorenzana MD Primary [...] puffs Every 4-6 hours as needed. Active Blood Pressure Monitor kit Check blood pressure twice a wee. Dx hypertension 1 kit Active glucose blood (Contour Next Test) test stripIndications: Type 1 diabetes mellitus without complications (HCC) TEST BLOOD SUGAR TWICE DAILY 200 each 3 024 Active TRUEplus Lancets 33G miscIndications:T ype 2 diabetes mellitus without complications (HCC) USE DIRECTED TO TEST BLOOD SUGAR EVERY DAY 100 each 11 Active atorvastatin (Lipitor) 20 MG tabletIndications :Mixed hyperlipidemia TAKE 1 TABLET BY MOUTH EVERY EVENING 90 tablet 3 025 Active omeprazole (PriLOSEC) [address] capsule TAKE 1 CAPSULE BY MOUTH EVERY MORNING BEFORE A MEAL 90 capsule 1 025 Active melatonin 5 MG tabletIndications :Primary insomnia TAKE 1 TABLET BY MOUTH AT BEDTIME NEEDED FOR SLEEP 90 tablet 3 025 Active montelukast (Singulair) 10 MG tablet TAKE 1 TABLET BY MOUTH EVERY EVENING 30 tablet 3 025 Active glipiZIDE (Glucotrol) 5 MG tablet TAKE 1 TABLET BY MOUTH TWICE DAILY IN THE MORNING AND IN THE EVENING WITH FOOD 60 tablet 3 025 Active Ferrous Sulfate (iron) 325 (65 Fe) MG tabletIndications :Iron deficiency TAKE 1 TABLET BY MOUTH TWICE DAILY IN THE MORNING AND IN THE EVENING 180 tablet 1 025 Active Aspirin Low Dose 81 MG EC tablet TAKE 1 TABLET BY MOUTH EVERY MORNING 90 tablet 1 025 Active Aspirin Low Dose 81 MG EC tablet TAKE 1 TABLET BY MOUTH EVERY MORNING 90 tablet 1 025 2024 Discontinued Active Problems Problem Noted Date Diagnosed Date Heart failure with reduced ejection fraction 04/2024 Assessment & Plan (11/04/2024 2:16 PM EDT): Last seen by Cardiology 08/25/2024 Their impression was that patient was clinically euvolemic and well compensated. They recommended to Continue current neurohormonal modulation valsartan and metoprolol therapy. Can not uptitrate therapy due to low blood pressure. Dementia with behavioral disturbance (CMS/HCC) 0 10/01/2022 Assessment & Plan (11/04/2024 2:20 PM EDT): Pt here for a f/u Being followed by Neurologist. last note 06/18/2022 Currently on Primidone, and Quetapine 50 mg po qhs ( Started by Neurology ) Likely multifactorial, DDx includes Lewy Body dementia, vascular dementia, Continue following with Neurologist. Assessment & Plan (01/29/2024 9:40 AM EDT): [...] ischemic myocardial dysfunction 09/08 Assessment & Plan (11/04/2024 2:15 PM EDT): Pt here for a follow up Pt with Hx of CAD and recent CP sx thought to be microvessel angina vs vasospasm Under the care of event marketing specialist Dr Abdi, last visit 08/25/2024 Previous Cardiac cath showed: No culprit lesion Patent LAD and Diagonal stent, mild plaque LCx and RCA LVEF 35% with apical/distal anterior hypokinesis ECHO 05/08/2020 shows EF 30-35%, positive regional wall motion abnormalities. Single lead [[facility]] ICD in place. History of prior [place] and stents to the LAD. Recommendations was to continue aggressive secondary risk factor modification according to ATP III guidelines Assessment & Plan (09/18/2023 2:42 PM EDT): Pt with Hx of CAD and recent CP sx thought to be microvessel angina vs vasospasm Under the care of event marketing specialist Dr Abdi, last visit 08/18/2023 Previous [...] Nathan] ICD in place. History of prior [place] and stents to the LAD. Recommendations was to continue aggressive secondary risk factor modification according to ATP III guidelines Assessment & Plan (10/01/2022 11:12 AM EDT): Pt with Hx of CAD and recent CP sx thought to be microvessel angina vs vasospasm Under the care of event marketing specialist Dr Abdi, last visit 07/31/2021 televisit [...] Nathan] ICD in place. History of prior [place] and stents to the LAD. Recommendations was to continue aggressive secondary risk factor modification according to ATP III guidelines Anxiety 10/01/2022 Assessment & Plan (11/04/2024 2:20 PM EDT): Pt is here for a f/u Pt seeing a Psychotherapist at [facility] She is on Paxil 10 mg po qhs Assessment & Plan (10/01/2022 2:50 PM EDT): Pt is here for a f/u Pt seeing a Psychotherapist at [facility] She is on Paxil 10 mg po qhs Elevated TSH 10/01/2022 Assessment & Plan (11/04/2024 2:18 PM EDT): Mild elevation, will repeat Lab Results Component Value Date TSH 4.58 (H) 01/29/2024 Assessment & Plan (10/01/2022 2:52 PM EDT): Mild elevation last year, will repeat Preventative health care 10/01/2022 Assessment & Plan (11/04/2024 2:19 PM EDT): Mammogram: 03/10/2023 Pap Smear: 11/06/2002, [...] mind at any time. 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 Assessment & Plan (11/04/2024 2:20 PM EDT): Pt under the care of Neurologist Pt will continue to f/u with Neurologist, last seen 06/2022 Assessment & Plan (09/18/2023 2:40 PM EDT): [...] with Neurologist Stage 3b chronic kidney disease ([facility]) 2021 Assessment & Plan (11/04/2024 2:19 PM EDT): Previously referred to Nephrology Assessment & Plan (09/18/2023 2:43 PM EDT): Previously referred to Nephrology Assessment & Plan (10/01/2022 3:06 PM EDT): Previously referred to Nephrology Diabetes mellitus 08/05/2014 Assessment & Plan (11/04/2024 3:49 PM EDT): Pt here for a f/u Hgb A1c 11/04/2024: 5.8 from 5.7 She is on a regimen: Glipizide 5 mg po 1 tab in am and 1 tab at pm pt cannot take metformin due to CKD. cannot take any thiazolidinediones due to CHF. Plan: Continue current regimen Eye exam 03/13/2017 Microalbumin 11/18/2019 was 37 Pt on an ARB Diovan, will repeat Foot check risk of zero Pt reports compliance with Asa 81 mg po daily Pt advised to: adhere to diabetic diet check your blood sugars regularly check your feet on a daily basis Assessment & Plan (01/29/2024 10:22 AM EDT): [...] on a daily basis Malignant neoplasm of centra l part of female breast (CMS/HCC) 11/10/2012 Assessment & Plan (11/04/2024 2:19 PM EDT): Pt with a Hx of Breast CA pathologies stage IA, pT1c N0 M0 grade 2 infiltrating ductal carcinoma of the right breast, ER/MD positive and HER-2/evelyn negative. She is s/p completion of whole breast radiation therapy as part of breast conserving management for an early stage node-negative right side breast cancer. She is no longer taking anastrozole and is being followed by Dr Becker, last seen 11/03/2018 He recommended yearly mammograms and prn f/u with him Assessment & Plan (10/01/2022 3:04 PM EDT): Pt with a Hx of Breast CA pathologies stage IA, pT1c N0 M0 grade 2 infiltrating ductal carcinoma of the right breast, ER/MD positive and HER-2/evelyn negative. She is s/p [...] angina 06/11/2012 Hyperlipidemia 02/27/2012 Assessment & Plan (11/04/2024 2:30 PM EDT): Pt here for a f/u Most recent lipid profile from: Lab Results Component Value Date TRIG 85 01/29/2024 CHOL 96 01/29/2024 LDLCHOLCAL 33 01/29/2024 HDL 46 01/29/2024 Currently she is on a regimen of: Lipitor 20 mg po q pm and Zetia 10 mg po q pm plan: continue current regimen. Repeat Lipid profile prior to next visit Assessment & Plan (01/29/2024 9:42 AM EDT): [...] continue current regimen. Coronary artery disease involving elem coronar y artery 11/26/2011 Assessment & Plan (11/04/2024 2:17 PM EDT): Under the care of cardiology, last seen 08/25/2024 Assessment & Plan (01/29/2024 10:30 AM EDT): Under the care of cardiology, last seen 11/13/2023 Assessment & Plan (10/01/2022 3:07 PM EDT): Under the care of cardiology Essential hypertension 10/25/2011 Assessment & Plan (11/04/2024 2:17 PM EDT): Here for a follow up BP controlled She is on a regimen of: Diovan 20 mg po daily and Metoprolol 50 mg BID prescribed by Cardiology Dr. Abdi. Most recent electrolytes, Bun and Creatinine done on: Lab Results Component Value Date NA 138 01/29/2024 NA 142 02/20/2022 NA 142 02/20/2022 K 4.1 01/29/2024 K 4.6 02/20/2022 K 4.6 02/20/2022 CL 110 (H) 01/29/2024 CL 110 (H) 02/20/2022 CL 110 (H) 02/20/2022 BUN 20 (H) 01/29/2024 BUN 18 (H) 02/20/2022 BUN 18 (H) 02/20/2022 CREATININE 1.33 01/29/2024 CREATININE 1.10 02/20/2022 CREATININE 1.10 02/20/2022 Today will order a repeat BMP. Pt did not do it last time I ordered. Patient was referred to our MTM program she would benefit from med boxes and home delivery of medications. Assessment & Plan (01/29/2024 9:40 AM EDT): Here for a follow up BP controlled She is on a regimen of: Diovan 20 mg po daily and Metoprolol 50 mg BID prescribed by Cardiology , previous visit I discussed case with her Magnetic Resonance Imaging Coordinator Dr. Abdi. Most recent electrolytes, Bun and [...] previous visit I discussed case with her Magnetic Resonance Imaging Coordinator Dr. Abdi. Most recent electrolytes, Bun and [...] previous visit I discussed case with her Magnetic Resonance Imaging Coordinator Dr. Abdi. Most recent electrolytes, Bun and [...] Encounters Date Type Department Care Team Description 03/01/2025 Refill [facility] [address] [place] [address] Dilshad Lorenzana MD 01/31/2025 Refill [facility] [address] [place] [address] Dilshad Lorenzana MD Iron deficiency 01/17/2025 Telephone [facility] [address] [place] [address] Amy Juarez, nuclear power plant engineer Orders from Last 3 Months Immunizations Immunization Administration Dates Next Due Influenza High-dose Quadriva [...] Answer Date Recorded Patient Health Questionnaire-9 Score 15 11/04/2024 Patient Health Questionnaire-9 Score 15 11/04/2024 Last PHQ-9: Questionnaire Data Not on file 0 11/04/2024 Housing Stability Answer Date Recorded What is your housing situation today? I have gianluca sing 11/04/[address] you li ve. Do you have problems with any of the following? None of the above 11/04/2024 Food Insecurity Answer Date Recorded Within the past 12 months, y ou worried that your food would run out before you got money to buy more: Never True 11/04/2024 Within the past 12 months,th e food you bought just didn't last and you didn't have enough money to get more: Never True Transportation Answer Date Recorded In the past 12 months, has l ack of transportation kept you from medical appts, meetings, work or from getting things needed for daily living? No 11/04/2024 Utilities Answer Date Recorded In the past 12 months, has t he electric, gas, oil or water company threatened to shut off services in your home? No 11/04/2024 Depression Answer Date Recorded Patient Health Questionnaire-2 Score 4 11/04/2024 Internet Access Answer Date Recorded Internet Access Q1 Yes 11/04/2024 Internet Access Q2 Not on file 11/04/2024 Comments Unknown Sex and Gender Information Value Date Recorded Sex Assigned at Female 04/08/2022 10:15 AM EDT Legal Sex Female 10:15 AM EDT Gender Identity Female 04/08/2022 10:15 AM EDT Sexual Orientation Straight 04/08/2022 10 :15 AM EDT Last Filed Vital Signs Vital Sign Reading Time Taken Comments Blood Pressure 118/72 11/04/2024 2:09 PM EDT Pulse 70 11/04/2024 2:09 PM EDT Temperature 36.1 C (97 F) 01/29/2024 10:16 AM EDT Respiratory Rate 20 11/04/2024 2:09 PM EDT Oxygen Saturation 98% 11/04/2024 2:09 PM EDT Inhaled Oxygen Concentration - - Weight 55.2 kg (121 lb 9.6 oz) 11/04/2024 2:09 P M EDT Height 154.9 cm (5' 1 ) 01/29/2024 10:16 AM EDT Body Mass Index 22.98 01/29/2024 10:16 AM EDT Plan of Treatment Upcoming Encounters Date Type Department Care Team (Late st Contact Info) Description 05/03/2025 2:30 PM EST Office Visit [facility] [address] [place], [place] [phone] Dilshad Lorenzana MD [address] [place] [address] Health Maintenance Due Date Last Done Comments CT Colonography 1950 Colonoscopy 1950 FIT DNA/Cologuard 1950 FOBT 1950 Sigmoidoscopy 1950 Diabetes: Foot Exam 1960 Eye Exam 1960 Alcohol/Substance Use Screening 1962 Zoster Vaccines (1 of 2) 2000 RSV Patients and Patients Aged 60 years or older (1 - Risk 60-74 years 1-dose series) 2010 Colorectal Cancer Screening 10/30/2022 FIT 10/30/2022 10/30/2021 Tobacco Screening 01/28/2025 01/29/2024 COVID-19 Vaccine ( season) 2025 09/01/2020, 08/04/2020 Influenza Vaccine (#1) 2025 , 03/24/2020, 03/04/2019, Additional history exists Depression Monitoring 05/07/2025 11/04/2024, 025 Diabetes: Hemoglobin A1C 05/07/2025 025, 01/29/2024, 09/18/2023, Additional history exists SDOH Screening 11/04/2025 11/04/2024 Mammogram 12/29/2025 12/29/2024, 10/0 07/2022, 02/19/2022, Additional history exists Lipid Panel 01/18/2026 01/18/2025, 082 07/2023, 09/27/2021, Additional history exists Diabetes: Urine Protein Screening 01/21/2026 01/21/2025, 03/28/2020 DTaP/Tdap/Td Vaccines (2 - Td or Tdap) [...] medication regimen General No Reyna Yanes, Josué Procedures Procedure Name Priority Date/Time Associated Diagnosis Comments ALBUMIN, RANDOM URINE W/CREATININE Routine 01/21/2025 10:30 AM EDT Type 2 diabetes mellitus without complication, without long-term current use of insulin (CMS/HCC) TSH W/REFLEX TO FT4 Routine 01/18/2025 1 0:39 AM EDT Elevated TSH Hypothyroidism, unspecified type BASIC METABOLIC PANEL Routine 01/18/2025 10:39 AM EDT Essential hypertension LIPID PANEL, STANDARD Routine 01/18/2025 10:39 AM EDT Type 2 diabetes mellitus without complication, without long-term current use of insulin (CMS/HCC) Mixed hyperlipidemia BI MAMMOGRAM SCREENING TOMOSYNTHESIS BILATERAL Routine 12/29/2024 1:40 PM EDT Breast cancer screening by mammogram POCT GLYCATED HEMOGLOBIN, TOTAL Routine 11/04/2024 2:35 PM EDT Type 2 diabetes mellitus without complication, without long-term current use of insulin (CMS/HCC) POCT FECAL IMMUNOCHEMICAL Routine 10/30/2021 11:51 AM EDT ZZZ HISTORICAL HEPATITIS C AB W/REFL TO HCV RNA, QN, PCR Routine 08/14/2021 10:54 AM EST from Last 3 Months or Most Recently Relevant to Health Maintenance Results * Albumin, Random Urine W/Creatinine (01/21/2025 10:30 AM EDT) Creatinine, Urine 131.44 mg/dL [facility] Microalbumin Urine 7.0 mg/L [facility] Microalbum Creatinine Ratio Ur 5.3 <30 ug/mg cr [facility] Comment:Albumin/Creatinine R at Reference Ranges: Normal: < 30 ug/mg creatinine Microalbuminuria: 30 - 300 ug/mg creatinineClinical Albuminuria: > 300 ug/mg creatinine Urine (Urine, Random) 01/21/2025 10:30 AM EDT 01/21/2025 1:05 PM EDT Dilshad Amanda MD LAB URINE ORDERABLES Final Result Performing Organization Address [facility]/ZIP Co de Phone Number [facility] [address] [place] [phone] * TSH with Reflex to Free T4 (01/18/2025 10:39 AM EDT) Pathologist [facility] TSH reflex Free T4 3.26 0.32 - 4.0 uIU/mL [facility] Blood Venous blood specimen / Unknown 01/18/2025 10:39 AM EDT 01/18/2025 10:39 AM EDT Dilshad Amanda MD LAB BLOOD ORDERABLES Final Result Performing Organization Address [facility]/ZIP Co de Phone Number [facility] [address] [place] [phone] * (ABNORMAL) Lipid Panel, Standard (01/18/2025 10:39 AM EDT) Triglycerides 94 <150 mg/dL [facility] Comment:Desirable Triglyceri de: less than 150 mg/dLBorderline High Triglyceride 150-199 mg/dLHigh Triglyceride: 200-499 mg/dLVery High Triglyceride: greater than or equal to 5OO mg/dL Cholesterol 81 <200 mg/dL [facility] Comment:Desirable Cholestero l: less than 200 mg/dLBorderline High Cholesterol: 200-239 mg/dLHigh Cholesterol: greater than 239 mg/dL LDL Cholesterol Calculated 26 <100 mg/dL [facility] Comment:Desirable LDL: less than 100 mg/dLNear Optimal/Above Optimal LDL: 110- 129 mg/dLBorderline High LDL: 130-159 mg/dLHigh LDL: 160-189 mg/dLVery High LDL: greater than or equal to 190 mg/dL HDL Cholesterol 37(L) >40 mg/dL [facility] Comment:Desirable HDL: great er than 40 mg/dL Note: This HDL assay may give artificially low results in patients with liver disease. Blood Venous blood specimen / Unknown 01/18/2025 10:39 AM EDT 01/18/2025 10:39 AM EDT us Dilshad Amanda MD LAB BLOOD ORDERABLES Final Result [facility] [address] [place] [phone] * (ABNORMAL) Basic Metabolic Panel (01/18/2025 10:39 AM EDT) Sodium 142 135 - 145 mmol/L [facility] Potassium 3.8 3.3 - 5.1 mmol/L [facility] Chloride 111(H) 96 - 108 mmol/L [facility] Carbon Dioxide 23 22 - 29 mmol/L [facility] Anion Gap 12 12 - 20 [facility] Urea Nitrogen (BUN) 16 9 - 16 mg/dL [facility] Creatinine, Serum 0.97 0.5 - 1.4 mg/dL [facility] Estimated Glomerular Filt Rate 56 [facility] Comment:Chronic Kidney Disea se: Estimated GFR < 60 mL/min/1.32o3Erivmc Kidney Disease: Estimated GFR < 15 mL/min/1.73m2 Glucose 113 60 - 115 mg/dL [facility] Calcium 8.8 8.4 - 10.2 mg/dL [facility] Blood Venous blood specimen / Unknown 01/18/2025 10:39 AM EDT 01/18/2025 10:39 AM EDT us Dilshad Amanda MD LAB BLOOD ORDERABLES Final Result [facility] [address] [place] [phone] * BI Mammogram Screening Tomosynthesis Bilateral (12/29/2024 1:40 PM EDT) Anatomical Region Laterality Modality Breast Bilateral Mammography 12/29/2024 1:40 PM EDT Narrative 01/04/2025 7:21 PM EDT [address] [place] [address] Mammography Report Signed Patient: Florinda Oconnell MR #: [id number] : 1950 Acct:[id number] Age/Sex: 74 / F ADM Date: 12/29/24 Loc: [facility] Attending Dr: Dilshad Morrell MD Ordering Physician: Dilshad Morrell MD Resu lts: 2Benign Findings Date of Service: 12/29/24 Follow Up: 1 Year From [facility] Mammogram Procedure(s): MM tomosynthesis screening BI Accession Number(s): [id number] cc: Dilshad Morrell MD EXAMINATION: MM SCREENING DIGITAL BREAST TOMOSYNTHESIS, BILATERAL CLINICAL INFORMATION: Screening. Asymptomatic. Personal history of right breast cancer, status post lumpectomy. COMPARISON: Comparison made to multiple prior, most recent March 10, 2023, and most remote of January 25, 2021. TECHNIQUE: Digital breast tomosynthesis is performed in both the craniocaudal and mediolateral oblique views along with computer-aided detection (CAD). Synthesized 2D images are generated from the tomosynthesis. Best possible images according to the technologist's notes. The region of the left chest pacemaker could not be included on today's images. FINDINGS: BREAST COMPOSITION: The breasts are heterogeneously dense, which may obscure small masses (ACR BI-RADS breast composition Category c). RIGHT BREAST: Post lumpectomy changes. Tissue marker from previous needle core biopsy. No significant masses, suspicious calcifications or other abnormalities are seen. LEFT BREAST: No significant masses, suspicious calcifications or other abnormalities are seen. MM/MM tomosynthesis screening BI IMPRESSION: BILATERAL BREASTS: Benign, no mammographic evidence of malignancy. Normal interval follow-up is recommended in 12 months. ASSESSMENT: BI-RADS 2 - Benign Findings RECOMMENDATION: Routine annual mammography screening. FOLLOW-UP: 1 year F/U This examination should not preclude the clinical evaluation of a suspicious palpable abnormality. This patient's information was entered into a reminder system with a target due date for their next mammogram. Electronically signed by: Williams Farooq MD 01/04/2025 07:18 PM EDT Dictated By: Williams Farooq MD Signed By: <Electronically signed by Williams Farooq MD in OV> 01/04/25 1918 DD/ 1340 TD/TT: 12/29/24 1403 Knitting Machine Fixer: Procedure Note Donotuseinterpreter, Image - 01/04/2025 [facility] [address] [place], [place] [address] Mammography Report Signed Patient: Florinda Oconnell LMR #: [id number] : 1950cct:[id number] Age/Sex: 74 / FADM Date: 12/29/24 Loc: [facility] Attending Dr: Dilshad Morrell MD Ordering Physician: Dilshad Morrell MDResu lts: 2Benign Findings Date of Service: 12/29/24Follow Up: 1 Year From Orig inal Mammogram Procedure(s): MM tomosynthesis screening BI Accession Number(s): [id number] cc: Dilshad Morrell MD EXAMINATION: MM SCREENING DIGITAL BREAST TOMOSYNTHESIS, BILATERAL CLINICAL INFORMATION: Screening. Asymptomatic. Personal history of right breast cancer, status post lumpectomy. COMPARISON: Comparison made to multiple prior, most recent March 10, 2023, and most remote of January 25, 2021. TECHNIQUE: Digital breast tomosynthesis is performed in both the craniocaudal and mediolateral oblique views along with computer-aided detection (CAD). Synthesized 2D images are generated from the tomosynthesis. Best possible images according to the technologist's notes. The region of the left chest pacemaker could not be included on today's images. FINDINGS: BREAST COMPOSITION: The breasts are heterogeneously dense, which may obscure small masses (ACR BI-RADS breast composition Category c). RIGHT BREAST: Post lumpectomy changes. Tissue marker from previous needle core biopsy. No significant masses, suspicious calcifications or other abnormalities are seen. LEFT BREAST: No significant masses, suspicious calcifications or other abnormalities are seen. MM/MM tomosynthesis screening BI IMPRESSION: BILATERAL BREASTS: Benign, no mammographic evidence of malignancy. Normal interval follow-up is recommended in 12 months. ASSESSMENT: BI-RADS 2 - Benign Findings RECOMMENDATION: Routine annual mammography screening. FOLLOW-UP: 1 year F/U This examination should not preclude the clinical evaluation of a suspicious palpable abnormality. This patient's information was entered into a reminder system with a target due date for their next mammogram. Electronically signed by: Williams Farooq MD 01/04/2025 07:18 PM EDT Dictated By: Williams Farooq MD Signed By: <Electronically signed by Williams Farooq MD in OV> 01/04/25 1918 DD/ 1340 TD/TT: 12/29/24 1403 Knitting Machine Fixer: Dilshad Amanda MD IMG BI PROCEDURES Fin al Result * POCT HGB A1C (11/04/2024 2:35 PM EDT) Hemoglobin A1C 5.8 4.0 - 6.0 % QC Media Lot # [id number] Lot# Expiration Date Blood 11/04/2024 2:35 PM EDT Dilshad Amanda MD POINT OF CARE TEST EN TER/EDIT ORDERABLES Final Result * POCT Fecal Immunochemical Test (10/30/2021 [...] ANTIBODY NON-REACT ROSALINE NON-REACT ROSALINE [facility] INDEX 0.01 <1.00 [facility] Comment: HCV antibody was non-reactive. There is no laboratory evidence of HCV infection. In most cases, no further action is required. However, if recent HCV exposure is suspected, a test for HCV RNA (test code 31671) is suggested. For additional information please refer to http://education.[employer]/faq/WMG36a3 (This link is being provided for informational/ educational purposes only.) 08/14/2021 10:5 4 AM EST Dilshad Amanda MD HISTORICAL/NON ORDERA BLE LABS Final Result [facility] [address] from Last 3 Months or Most Recently Relevant to Health Maintenance Insurance [facility] STANDARD MEDICARE Care Teams Food Runner Relationship Specialty Start Date End Date Dilshad Lorenzana MD [address] [place] [phone] PCP - General Internal Medicine 04/11/14 Simple Car Wash 08/08/21
--- OUTSIDE RECORDS SUMMARY | 2025-03-30 21:20 | XMS_ITS | Encounter Summary ---
Author Organization [employer] Address [address] [facility] [address] [place] [address] Care Team Providers Care Fire Management Specialist Name Role Phone Dilshad Lorenzana MD Primary Care Provide r Encounter Details Date Type Department Care Team (Late st Contact Info) Description 06/27/2022 Orders Only [facility] CHC MED & PEDS [address] [place] [address] Adelita Hart LPN Social History Tobacco Use [...] Description 05/03/2025 2:30 PM EST Office Visit [facility] MEDICINE [address] [place] [address] Dilshad Lorenzana MD [address] [place], [place] [phone] documented as of this encounter Visit Diagnoses Not on filedocumented in this encounter Care Teams Fire Management Specialist Relationship Specialty Start Date End Date Dilshad Lorenzana MD [address] [place] [id number] PCP - General Internal Medicine 04/11/14 Flor Matthews Collections Professional 03/27/23 06/27/23 [employer] 08/08/21 documented as of this encounter
--- OUTSIDE RECORDS SUMMARY | 2025-03-30 21:20 | XMS_ITS | Encounter Summary ---
Author Organization [employer] Address [address] [facility] 7t [place] [address] Care Team Providers Care Counter Caser Name Role Phone Dilshad Lorenzana MD Primary Care Provide r Encounter Details Date Type Department Care Team (Late st Contact Info) Description 10/16/2022 Abstract [facility] MEDICINE [address] [place] [address] Dilshad Lorenzana MD [address] [place] [address] Social History Tobacco Use Types Packs/Day Years [...] Description 05/03/2025 2:30 PM EST Office Visit [facility] MEDICINE [address] [facility] [place] [address] Dilshad Lorenzana MD [address] [place] [address] documented as of this encounter Goals Goal [...] documented as of this encounter Care Teams Counter Caser Relationship Specialty Start Date End Date Dilshad Lorenzana MD [address] [place] [address] PCP - General Internal Medicine 04/11/14 Flor Matthews Consumer Product Advisor 03/27/23 06/27/23 [employer] 08/08/21 documented as of this encounter
--- OUTSIDE RECORDS SUMMARY | 2025-03-30 21:20 | XMS_ITS | Encounter Summary ---
Author Organization [employer] Address [address] [facility] [address] [place] [address] Care Team Providers Care Bit Sharpener Operator Name Role Phone Dilshad Lorenzana MD Primary Care Provide r Encounter Details Date Type Department Care Team (Late st Contact Info) Description 09/11/2022 Orders Only [facility] CHC MED & PEDS [address] [place] [address] Adelita Hart LPN Social History Tobacco Use [...] Description 05/03/2025 2:30 PM EST Office Visit [facility] MEDICINE [address] [place] [address] Dilshad Lorenzana MD [address] [place], [place] [phone] documented as of this encounter Visit Diagnoses Not on filedocumented in this encounter Care Teams Bit Sharpener Operator Relationship Specialty Start Date End Date Dilshad Lorenzana MD [address] [place] [id number] PCP - General Internal Medicine 04/11/14 Flor Matthews Substance Abuse Nurse 03/27/23 06/27/23 [employer] 08/08/21 documented as of this encounter
--- OUTSIDE RECORDS SUMMARY | 2025-03-30 21:20 | XMS_ITS | Encounter Summary ---
Author Organization [employer] Address [address] [facility] 7[address] [place] [address] Care Team Providers Care Cad Technician Name Role Phone Dilshad Lorenzana MD Primary Care Provide r Encounter Details Date Type Department Care Team (Late st Contact Info) Description 08/26/2022 Orders Only [facility] CHC MED & PEDS [address] [place] [address] Adelita Hart LPN Social History Tobacco Use [...] Description 05/03/2025 2:30 PM EST Office Visit [facility] MEDICINE [address] [place] [address] Dilshad Lorenzana MD [address] [place], [place] [phone] documented as of this encounter Visit Diagnoses Not on filedocumented in this encounter Care Teams Cad Technician Relationship Specialty Start Date End Date Dilshad Lorenzana MD [address] [place] [id number] PCP - General Internal Medicine 04/11/14 Flor Matthews Production Proofreader 03/27/23 06/27/23 [employer] 08/08/21 documented as of this encounter
--- OUTSIDE RECORDS SUMMARY | 2025-03-30 21:20 | XMS_ITS | Encounter Summary ---
Author Organization [employer] Address [address] [facility] [address] [place] [address] Care Team Providers Care Sugarcane Research Technician Name Role Phone Dilshad Lorenzana MD Primary Care Provide r Encounter Details Date Type Department Care Team (Late st Contact Info) Description 07/30/2022 Orders Only [facility] CHC MED & PEDS [address] [place] [address] Adelita Hart LPN Social History Tobacco Use [...] Description 05/03/2025 2:30 PM EST Office Visit [facility] MEDICINE [address] [place] [address] Dilshad Lorenzana MD [address] [place], [place] [phone] documented as of this encounter Visit Diagnoses Not on filedocumented in this encounter Care Teams Sugarcane Research Technician Relationship Specialty Start Date End Date Dilshad Lorenzana MD [address] [place] [id number] PCP - General Internal Medicine 04/11/14 Flor Matthews Hoof Trimmer 03/27/23 06/27/23 [employer] 08/08/21 documented as of this encounter
--- OUTSIDE RECORDS SUMMARY | 2025-03-30 21:20 | XMS_ITS | Clinical Summary ---
Author Organization [facility] Address [address] [place] [address] Phone Care Team Providers Care Shank Burnisher Name Role Phone Dilshad Morrell MD Primary Care Provi cherry Allergies Active Allergy Reactions Criticality Noted Date Comments Ibuprofen 11/24/2024 Social History Tobacco Use Types Packs/Day Years Used Date Smoking Tobacco: Never Assessed Comments Unknown Sex and Gender Information Value Date Recorded Sex Assigned at Not on file Legal Sex Female 11:16 AM EDT Gender Identity Not on file Sexual Orientation Not on file Plan of Treatment Health Maintenance Due Date Last Done Comments Breast Cancer Screening 1950 Colorectal Cancer Screening: Colonoscopy 1950 Diabetes: Annual GFR (Glomerular Filtration Rate) 1950 Diabetes: Annual Foot Exam 1960 Diabetes: Annual Retina Eye Exam 1960 Zoster Vaccines (1 of 2) 1969 RSV Immunization Adult Patients (1 - Risk 50-74 years 1-dose series) 2000 COVID-19 Vaccine (3 - Moderna risk series) 09/29/2020 09/01/2020, 08/04/2020 Depression Screening 06/09/2024 Diabetes: Annual Urine Albumin-Creatinine Ratio (uACR) 09/29/2024 [...] to complete this topic Insurance MEDICARE MEDICAID - [place] Care Teams Shank Burnisher Relationship Specialty Start Date End Date Dilshad Morrell MD [address] [place] [address] [place] [address] PCP - General Internal Medicine 09/28/24
--- OUTSIDE RECORDS SUMMARY | 2025-03-30 21:20 | XMS_ITS | Clinical Summary ---
Author Organization [facility] Address [address] [place] [address] Care Team Providers Care Elementary School Director Name Role Phone Unavailable Primary Care Provider Unavailabl e Social History Tobacco Use Types Packs/Day Years Used Date Smoking Tobacco: Never Assessed Sex and Gender Information Value Date Recorded Sex Assigned at Not on file Gender Identity Not on file Sexual Orientation Not on file Plan of Treatment Not on file
== END 2025-03-30 15:29 | disposition home or self-care (01) ==
LOC: HO.HPS 15:02
PROVIDERS: PCP Internal Medicine; Visit Provider Internal Medicine
DX: J44.9 Chronic obstructive pulmonary disease, unspecified (principal); J30.9 Allergic rhinitis, unspecified
CPT/HCPCS: 99213

== ENCOUNTER → 2025-03-30 15:02 | Outpatient (BNVA) | payer MEDICARE, MEDICAID, SELFPAY | PROVIDERS: PCP Internal Medicine; Visit Provider Internal Medicine | DX: J44.9 Chronic obstructive pulmonary disease, unspecified (principal); J30.9 Allergic rhinitis, unspecified; Z87.891 Personal history of nicotine dependence | CPT/HCPCS: 99212 ==

== ENCOUNTER → 2025-05-25 14:19 | Outpatient (BNV) | payer MEDICARE, MEDICAID, SELFPAY | PROVIDERS: PCP Internal Medicine; Visit Provider Internal Medicine Cardiovascular Disease | DX: Z45.02 Encounter for adjustment and management of automatic implantable cardiac defibrillator (principal) | CPT/HCPCS: 93297 ==

== ENCOUNTER → 2025-05-25 15:02 | Outpatient (BNV) | payer MEDICARE, MEDICAID, SELFPAY | PROVIDERS: PCP Internal Medicine; Visit Provider Internal Medicine Cardiovascular Disease | DX: Z45.02 Encounter for adjustment and management of automatic implantable cardiac defibrillator (principal) | CPT/HCPCS: 93295 ==

== ENCOUNTER 2025-05-26 12:55 | Emergency (ER) | payer MEDICARE, MEDICAID, SELFPAY ==
--- NOTE | ~2025-05-26 | CT_ITS ---
EXAMINATION: CT ABDOMEN AND PELVIS WITHOUT CONTRAST CLINICAL INFORMATION: Limited historian, diffuse abd pain, R/O colitis COMPARISON: None available. TECHNIQUE: Multidetector volumetric imaging was performed from the superior aspect of the liver through the pubic symphysis. Sagittal and coronal reformatted images were obtained on the technologist's workstation. This CT examination was performed using dose optimization techniques as appropriate, variously including the following: *Automated exposure control *Adjustment of mA and/or kV according to patient size (this includes techniques or standardized protocols for targeted exams where dose is matched to indication/reason for exam; i.e. extremities or head) *Use of iterative reconstruction technique FINDINGS: Motion degrades many images. Pacemaker leads result in streak artifacts that limit local evaluation. LOWER CHEST: No confluent consolidation. No pleural effusion. Mild posterior atelectasis. Respiratory motion limits evaluation for pulmonary nodules. LIVER: No hepatomegaly. No obvious focal lesions. GALLBLADDER AND BILIARY TREE: Nondistended gallbladder. No gallstones. Evaluation for gallbladder wall thickening is limited due to motion. No biliary ductal dilatation. PANCREAS: Unremarkable. SPLEEN: No splenomegaly. ADRENAL GLANDS: No nodules. KIDNEYS AND URETERS: No obvious renal stones or renal lesions. No hydronephrosis on either side. GASTROINTESTINAL TRACT: Small hiatal hernia. No bowel distention. Small bowel and colonic loops appear to be filled with fluid. Normal appendix in the right lower quadrant. No obvious bowel wall thickening or surrounding inflammatory changes. PERITONEUM/RETROPERITONEUM: No free fluid or free air. ABDOMINAL WALL: No significant hernia is appreciated. LYMPH NODES: No lymphadenopathy. VASCULAR: No abdominal aortic aneurysm. Large amount of vascular calcifications. PELVIC VISCERA: Urinary bladder is decompressed. Uterus appear unremarkable. OSSEOUS STRUCTURES: No acute findings. CT/CT abdomen pelvis wo IV con IMPRESSION: Partially limited examination due to motion. 1. No acute findings in the abdomen/pelvis. 2. No obvious findings suggestive of colitis. Electronically signed by: Williams Farooq MD 05/26/2025 04:23 PM [facility]
--- NOTE | ~2025-05-26 | XR_ITS ---
EXAMINATION: XR CHEST CLINICAL INFORMATION: Chest pain COMPARISON: December 24, 2023 TECHNIQUE: 2 views of the chest were obtained. FINDINGS: Again seen is a single lead pacemaker extending to the right atrium, unchanged. There are vascular stents in the region of the left atrium. Cardiac size is enlarged. Lungs are clear. There is no definite pleural effusion. There is a new triangular opacity in the left lung base visible on the frontal projection. XR/XR chest 2V IMPRESSION: Suspected left basilar atelectasis, pneumonia not entirely excluded. Otherwise, stable chest x-ray Electronically signed by: Steve Boone MD 05/26/2025 02:00 PM [facility]
[2025-05-26 13:31] VITALS: BP 110/63; BP 135/66; PULSE 103; PULSE 104; RESP 18; TEMP 37.8; O2SAT 95; O2SAT 96; BMI 29.3
[2025-05-26 13:36] VITALS: RESP 18
--- NOTE | 2025-05-26 13:38 | ECG_ITS ---
Test Reason : FALL Blood Pressure : */* mmHG Vent. Rate : 107 BPM Atrial Rate : 107 BPM P-R Int : 150 ms QRS Dur : 78 ms QT Int : 328 ms P-R-T Axes : 58 5 83 degrees QTcB Int : 437 ms Sinus tachycardia with occasional Premature ventricular complexes Septal infarct , age undetermined Abnormal ECG When compared with ECG of 24-Dec-2023 02:52, Premature ventricular complexes are now Present Vent. rate has increased by 45 bpm Septal infarct is now Present Nonspecific T wave abnormality has replaced inverted T waves in Lateral leads QT has lengthened Referred By: Generic ED Physician Electronically Signed By: Kvng Jeffries
--- NOTE | 2025-05-26 13:41 | PC.NURSE ---
Marlon at bedside who reports pt have large dark brown loose stool and vomiting. No sick contacts in home. She also states pt reported CP at home. Pt denies pain at present.
--- NOTE | 2025-05-26 14:24 | PC.NURSE ---
IV established and blood obtained/sent. Viral swabs obtained as well. Unable to obtain rectal at this time d/t dominguez space. Pt restful on side. Denies pain, no acute n/v/d at this time. Daughter at bedside
[2025-05-26 14:28] LABS: Hematocrit 41.9 % (37.0-47.0); Hemoglobin 14.0 g/dl (12.0-16.0); Imm Gran Abs Auto 0.12 X10*3/uL (0.00-0.03); Imm Gran Pct Auto 0.9 % (0.0-0.4); Lymphocytes Absolute Auto 0.4 X10*3/uL (1.2-4.9); MANUAL DIFF FLAG SCAN; Mean Corpuscular HGB Conc 33.4 g/dl (31.0-35.0); Mean Corpuscular Hemoglobin 32.7 pg (27.0-33.0); Mean Corpuscular Volume 97.9 fL (80.0-98.0); NRBC Abs Auto 0.020 X10*3/uL (0.0-0.012); NRBC Pct Auto 0.1 /100WBC (0.0-0.2); Platelet Count 156 X10*3/uL (160-400); Red Blood Count 4.28 X10*6/uL (4.20-5.50); SCAN SMEAR FLAG 1; White Blood Count 14.1 X10*3/uL (4.8-10.8)
--- NOTE | 2025-05-26 14:31 | ED.NAVMDI ---
HPI - Nausea/Vomiting/Diarrhea General Chief complaint: Nausea/Vomiting/Diarrhea Stated complaint: N/V PER EMS Time Seen by Provider: 05/26/25 14:20 Source: patient, family (Daughter) and EMS Mode of arrival: EMS Limitations: physical limitation (Due to dementia) History of Present Illness ED Provider: DR. Trujillo HPI Narrative: 74-year-old Austrian-speaking female PMHx dementia, CAD s/p stent in 2013, COPD, CHF with reduced ejection fraction, HTN, HLD, ICD, ischemic cardiomyopathy who presented with her daughter for evaluation of multiple episodes of nausea, vomiting, diarrhea that is nonbloody loose stool, no sick contacts, no recent travel, no recent use of antibiotic, patient complained to her family of chest pain after she vomited, daughter called 911 for hospital transportation patient in the hospital has no symptoms. Related Data Home Medications ?Medication ?Instructions ?Recorded ?Confirmed montelukast 10 mg tablet 10 mg PO DAILY 03/04/20 03/30/25 aspirin 81 mg tablet,delayed 81 mg PO DAILY 06/27/20 03/30/25 release (Adult Low Dose Aspirin) cholecalciferol (vitamin D3) 25 50 mcg PO DAILY 06/27/20 03/30/25 mcg (1,000 unit) capsule ferrous sulfate 325 mg (65 mg 325 mg PO DAILY 06/27/20 03/30/25 iron) tablet omeprazole 20 mg capsule,delayed 20 mg PO DAILY 07/31/21 03/30/25 release glipizide 5 mg tablet 10 mg PO BID 12/24/21 03/30/25 atorvastatin 20 mg tablet 20 mg PO DAILY 05/14/22 03/30/25 paroxetine HCl 10 mg tablet 5 mg PO DAILY 05/14/22 03/30/25 melatonin 5 mg tablet 5 mg PO BEDTIME PRN insomnia 08/25/24 03/30/25 Previous Rx's ?Medication ?Instructions ?Recorded blood pressure test kit-medium #1 ea 10/31/21 albuterol sulfate 90 mcg/actuation 2 puff inhalation Q4H PRN wheezing 08/07/23 aerosol inhaler (Ventolin HFA) 30 days #8.5 grams inhalational spacing device #1 ea 08/07/23 (Vortex Holding Chamber) albuterol sulfate 1.25 mg/3 mL 2.5 mg (6 mL) inhalation Q4-6H PRN 03/01/24 solution for nebulization shortness of breath or wheezing 2 months #75 mL quetiapine 50 mg tablet 50 mg PO BEDTIME 30 days #30 tabs 01/12/25 ticagrelor 60 mg tablet (Brilinta) 60 mg PO BID #180 tabs 02/08/25 metoprolol tartrate 50 mg tablet 50 mg PO BID #180 tabs 04/04/25 valsartan 40 mg tablet 20 mg (1/2 x 40 mg) PO QPM #45 tabs 04/04/25 ranolazine 500 mg tablet,extended 500 mg PO BID #180 tabs 05/02/25 release,12 hr ezetimibe 10 mg tablet 10 mg PO QPM #90 tabs 05/09/25 loperamide 2 mg capsule (Imodium 2 mg PO Q6H PRN loose stool #7 caps 05/26/25 A-D) omeprazole 20 mg capsule,delayed 20 mg PO DAILY #14 caps 05/26/25 release ondansetron 4 mg disintegrating 4 mg PO Q8H PRN nausea and 05/26/25 tablet vomiting #5 tabs Allergies Allergy/AdvReac Type Severity Reaction Status Date / Time ibuprofen (From Motrin) Allergy Mild HEART Verified 05/26/25 13:33 PALPITATIONS Review of Systems Review of Systems: All other systems are reviewed and are negative Constitutional: Reports as per HPI and Reports no additional constitutional complaints Eyes: Reports as per HPI and Reports no additional eye complaints Reports system reviewed and no additional complaints, except as documented Cardiovascular: Reports as per HPI and Reports no additional cardiovascular complaints Respiratory: Reports as per HPI and Reports no additional respiratory complaints Gastrointestinal: Reports as per HPI and Reports no additional gastrointestinal complaints Genitourinary: Reports no additional female genitourinary complaints Musculoskeletal: Reports no additional musculoskeletal complaints Skin/Breast: Reports system reviewed and no additional complaints, except as docu Psychiatric: Reports no additional psychiatric complaints Endocrine: Reports no additional endocrine complaints Hematologic/Lymphatic: Reports no additional hematologic/lymphatic complaints Allergic/Immunologic: Reports no additional allergic/immunologic complaints Reports system reviewed and no additional complaints, except as documented and Reports Abnormal speech present PMFSH Past Medical History Medical History Diabetes Renal insufficiency Hx of radiation therapy Cancer Osteoarthritis Paget disease of bone Schizophrenia Dementia TIA (transient ischemic attack) NSTEMI (non-ST elevated myocardial infarction) COPD (chronic obstructive pulmonary disease) Atherosclerotic cardiovascular disease Heart failure with reduced ejection fraction ICD (implantable cardioverter-defibrillator) in place Hyperlipidemia HTN (hypertension) CAD (coronary artery disease) Ischemic cardiomyopathy COPD (chronic obstructive pulmonary disease) Allergic rhinitis Surgical History Pacemaker generator end of life Implantable cardioverter-defibrillator (ICD) at end of battery life Hx of breast biopsy Stented coronary artery Hx of cardiac cath History of implantable cardioverter-defibrillator (ICD) placement Family History Family History Father No problems noted. Mother CVD (cardiovascular disease) Diabetes Social History Social History Household Members: Family Housing: Apartment Are you a primary cna caregiver to a significant other at home: No Do you presently have visiting nurse or other home services: Yes (nurse and UTILITY ENGINEER) Alcohol intake: never Comment: family at bedside Patient Tobacco Use Status: Former Tobacco user Years Smoked: 40 years Smoked in Last 30 Days: No Second Hand Smoke Exposure: No Use of substances other than those prescribed or required for medical reasons: No Advance Directives: Yes Advance Directives on File: Yes Advance Directives Date on File: 07/16/21 service: No Current occupational status: retired Physical Exam Vital Signs: Vital Signs: Last Vital Signs Temp 99.0 F 05/26/25 19:17 Pulse 106 H 05/26/25 19:17 Resp 22 H 05/26/25 19:17 BP 120/65 05/26/25 19:17 Pulse Ox 94 05/26/25 19:17 O2 Del Method Room Air 05/26/25 19:17 BMI result Body Mass Index 29.3 Vital signs have been reviewed and appear to be correct. Blood pressure elevated. Heart rate normal. Respiratory rate normal. Temperature normal. Oxygen saturation normal. Appearance: Alert. Oriented X3. No acute distress. Head: Normal external exam. Normocephalic. Atraumatic. No Jenkins signs noted. No raccoon eyes noted Eyes: PERRLA. EOMI. Conjunctiva and sclera normal. Eyelids normal. ENT: TM's Normal. Pharynx normal. Uvula midline. Moist mucous membranes. No trismus noted. No drooling noted. No muffled voice noted. Neck: Normal inspection. Neck supple. FROM. No adenopathy. Thyroid Normal. No meningeal signs. No neck mass noted. CVS: Normal heart rate and rhythm. Heart sound normal. No murmurs noted. Pulses normal throughout. Respiratory: No respiratory distress. Painless inspiration. Breath sounds normal. No wheezes/rales/rhonchi noted. Chest nontender. No accessory muscle usage noted or decreased air movement noted. Abdomen: Soft and nontender. Bowel sounds normal in all 4 quadrants. No distention noted. No organomegaly noted. No visible injury noted. Back: No CVA tenderness. Full range of motion noted. Skin: Skin warm and dry. Normal skin color. Normal skin turgor. No rashes/lesions/lacerations noted. Extremities: No lower extremity edema. Extremities exhibit normal range of motion. Extremities nontender. Neuro: Oriented X 3. Cranial nerve exam: II-XII are grossly intact No motor deficit. No sensory deficit. Reflexes normal. Course Reevaluation(s) Reevaluation #1: A 74-year-old female came in with nausea, vomiting, and nonbloody watery diarrhea x1 day. CT abdomen and pelvis is unremarkable for acute intra-abdominal pathology, +leukocytosis with shift likely secondary to gastroenteritis, patient is able to tolerate fluids and toast without vomiting, as per daughter patient's diarrhea has improved, will discharge on PPI, anti nausea medication, and Imodium for diarrhea. As chest x-ray raising small concern of pneumonia CT abdomen pelvis did not reveal pneumonia at the bases of lung. Time: 19:57 Medical Decision Making Differential Diagnosis Differential Diagnoses: The differential diagnosis associated with the presentation includes (Gastroenteritis, colitis, diverticulitis, hypovolemia, dehydration, COLBY, severe anemia, rectal bleed.) Admission/Observation Consideration of admission/observation: Escalation of care including admission/observation considered Lab Data MDM Lab Attestation statement: I reviewed the patient's lab results. 05/26/25 14:20 05/26/25 15:14 Labs: Lab Results 05/26/25 05/26/25 05/26/25 Range/Units 14:20 15:14 15:47 WBC 14.1 H (4.8-10.8) X10*3/uL RBC 4.28 (4.20-5.50) X10*6/uL Hgb 14.0 (12.0-16.0) g/dl Hct 41.9 (37.0-47.0) % MCV 97.9 (80.0-98.0) fL MCH 32.7 (27.0-33.0) pg MCHC 33.4 (31.0-35.0) g/dl RDW 13.9 (11.0-16.0) % Plt Count 156 L (160-400) X10*3/uL MPV 9.6 (9.4-12.3) fL Immature Gran % (Auto) 0.9 H (0.0-0.4) % Neut % (Auto) 91.2 H (45-73) % Lymph % (Auto) 2.6 L (20-40) % [place] % (Auto) 4.5 (2-11) % Eos % (Auto) 0.5 (0-4) % Baso % (Auto) 0.3 (0-2) % Lymph # (Auto) 0.4 L (1.2-4.9) X10*3/uL [place] # (Auto) 0.6 (0.1-1.2) X10*3/uL Eos # (Auto) 0.1 (0.0-0.4) X10*3/uL Baso # (Auto) 0.0 (0.0-0.2) X10*3/uL Abs Immat Gran (auto) 0.12 H (0.00-0.03) X10*3/uL Absolute Neuts (auto) 12.9 H (2.0-8.3) x10*3/uL Absolute Nucleated RBC 0.020 H (0.0-0.012) X10*3/uL Nucleated RBC % (auto) 0.1 (0.0-0.2) /100WBC Smear Tech's Comments VERIFIED Sodium 139 (135-145) mmol/L Potassium 3.9 (3.3-5.1) mmol/L Chloride 113 H (96-108) mmol/L Carbon Dioxide 17 L (22-29) mmol/L Anion Gap 13 (12-20) BUN 26 H (9-16) mg/dL Creatinine 1.26 (0.5-1.4) mg/dL Estim Creat Clear Calc 33.7 Estimated GFR 42 Random Glucose 173 H (60-115) mg/dL Calcium 8.8 (8.4-10.2) mg/dL Total Bilirubin 0.5 (0.0-1.0) mg/dL Direct Bilirubin 0.2 (0.0-0.5) mg/dL AST 44 H (5-31) U/L ALT 53 H (0-31) U/L Alkaline Phosphatase 66 (39-117) U/L Troponin I High Sens 14.5 D (<3.5-17.0) ng/L Total Protein 6.5 (6.5-8.0) g/dL Albumin 4.0 (3.5-5.0) g/dL Lipase 12 (8-78) U/L Urine Color Dark Yellow Urine Appearance Clear Urine pH 5.5 (5.0-9.0) Ur Specific [place] 1.025 (1.005-1.025) Urine Protein 30 (1+) H (Neg-Trace) mg/dL Urine Glucose (UA) 500 H (Negative) mg/dL Urine Ketones Trace (Negative) mg/dL Urine Blood Negative (Negative) Urine Nitrite Negative (Negative) Ur Leukocyte Esterase Negative (Negative) Urine RBC 0-2 (0-2) /HPF Urine WBC 0-5 (0-5) /HPF Ur Squamous Epith Cells 0-2 (0-2) /HPF Urine Bacteria None Seen (None Seen) Hyaline Casts 0-2 (0-2) /LPF Stool Occult Blood (NEGATIVE) Influenza Type A (PCR) NEGATIVE (Negative) Influenza Type B (PCR) NEGATIVE (Negative) RSV RNA Qual (PCR) NEGATIVE (Negative) SARS-CoV-2 RNA (RT-PCR) NEGATIVE (Negative) 05/26/25 Range/Units 18:53 WBC (4.8-10.8) X10*3/uL RBC (4.20-5.50) X10*6/uL Hgb (12.0-16.0) g/dl Hct (37.0-47.0) % MCV (80.0-98.0) fL MCH (27.0-33.0) pg MCHC (31.0-35.0) g/dl RDW (11.0-16.0) % Plt Count (160-400) X10*3/uL MPV (9.4-12.3) fL Immature Gran % (Auto) (0.0-0.4) % Neut % (Auto) (45-73) % Lymph % (Auto) (20-40) % [place] % (Auto) (2-11) % Eos % (Auto) (0-4) % Baso % (Auto) (0-2) % Lymph # (Auto) (1.2-4.9) X10*3/uL [place] # (Auto) (0.1-1.2) X10*3/uL Eos # (Auto) (0.0-0.4) X10*3/uL Baso # (Auto) (0.0-0.2) X10*3/uL Abs Immat Gran (auto) (0.00-0.03) X10*3/uL Absolute Neuts (auto) (2.0-8.3) x10*3/uL Absolute Nucleated RBC (0.0-0.012) X10*3/uL Nucleated RBC % (auto) (0.0-0.2) /100WBC Smear Tech's Comments Sodium (135-145) mmol/L Potassium (3.3-5.1) mmol/L Chloride (96-108) mmol/L Carbon Dioxide (22-29) mmol/L Anion Gap (12-20) BUN (9-16) mg/dL Creatinine (0.5-1.4) mg/dL Estim Creat Clear Calc Estimated GFR Random Glucose (60-115) mg/dL Calcium (8.4-10.2) mg/dL Total Bilirubin (0.0-1.0) mg/dL Direct Bilirubin (0.0-0.5) mg/dL AST (5-31) U/L ALT (0-31) U/L Alkaline Phosphatase (39-117) U/L Troponin I High Sens (<3.5-17.0) ng/L Total Protein (6.5-8.0) g/dL Albumin (3.5-5.0) g/dL Lipase (8-78) U/L Urine Color Urine Appearance Urine pH (5.0-9.0) Ur Specific [place] (1.005-1.025) Urine Protein (Neg-Trace) mg/dL Urine Glucose (UA) (Negative) mg/dL Urine Ketones (Negative) mg/dL Urine Blood (Negative) Urine Nitrite (Negative) Ur Leukocyte Esterase (Negative) Urine RBC (0-2) /HPF Urine WBC (0-5) /HPF Ur Squamous Epith Cells (0-2) /HPF Urine Bacteria (None Seen) Hyaline Casts (0-2) /LPF Stool Occult Blood POSITIVE (NEGATIVE) Influenza Type A (PCR) (Negative) Influenza Type B (PCR) (Negative) RSV RNA Qual (PCR) (Negative) SARS-CoV-2 RNA (RT-PCR) (Negative) Independent Interpretation I performed an independent interpretation of an: Plain X-Ray (Chest:Suspected left basilar atelectasis, pneumonia not entirely excluded. Otherwise, stable chest x-ray) and CT Scan (Abdomen pelvis:. No acute findings in the abdomen/pelvis. 2. No obvious findings suggestive of colitis. ) Radiology Impression Discussion of test interpretation with radiology: I have reviewed the radiologist's reading. Discharge Plan Discharge Clinical Impression: Gastroenteritis Patient Disposition: Home, Self-Care Instructions: Gastroenteritis (ED) Prescriptions: New omeprazole 20 mg capsule,delayed release(DR/EC) 20 mg PO DAILY Qty: 14 0RF ondansetron 4 mg tablet,disintegrating 4 mg PO Q8H PRN (Reason: nausea and vomiting) Qty: 5 0RF loperamide [Imodium A-D] 2 mg capsule 2 mg PO Q6H PRN (Reason: loose stool) Qty: 7 0RF No Action (DME) blood pressure test kit-medium Kit See Rx Instructions .ROUTE .MEDSUPPLY Qty: 1 0RF Rx Instructions: As directed albuterol sulfate 1.25 mg/3 mL solution for nebulization 2.5 mg inhalation Q4-6H PRN (Reason: shortness of breath or wheezing) 60 Days Qty: 75 2RF quetiapine 50 mg tablet 50 mg PO BEDTIME 30 Days Qty: 30 5RF ticagrelor [Brilinta] 60 mg tablet 60 mg PO BID Qty: 180 3RF valsartan 40 mg tablet 20 mg PO QPM Qty: 45 3RF metoprolol tartrate 50 mg tablet 50 mg PO BID Qty: 180 3RF ranolazine 500 mg tablet extended release 12 hr 500 mg PO BID Qty: 180 3RF ezetimibe 10 mg tablet 10 mg PO QPM Qty: 90 3RF omeprazole 20 mg capsule,delayed release(DR/EC) 20 mg PO DAILY montelukast 10 mg tablet 10 mg PO DAILY glipizide 5 mg tablet 10 mg PO BID aspirin [Adult Low Dose Aspirin] 81 mg tablet,delayed release (DR/EC) 81 mg PO DAILY ferrous sulfate 325 mg (65 mg iron) tablet 325 mg PO DAILY cholecalciferol (vitamin D3) 25 mcg (1,000 unit) capsule 50 mcg PO DAILY paroxetine HCl 10 mg tablet 5 mg PO DAILY atorvastatin 20 mg tablet 20 mg PO DAILY albuterol sulfate [Ventolin HFA] 90 mcg/actuation HFA aerosol inhaler 2 puff inhalation Q4H PRN (Reason: wheezing) 30 Days Qty: 8.5 5RF (DME) Vortex Holding Chamber Spacer See Rx Instructions .Route Qty: 1 0RF Rx Instructions: As directed melatonin 5 mg tablet 5 mg PO BEDTIME PRN (Reason: insomnia) Print Language: Austrian
[2025-05-26 15:05] LABS: Resp Syncy Virus RNA Qual PCR NEGATIVE (Negative); SARS COV2 PCR INHOUSE NEGATIVE (Negative)
[2025-05-26 15:16] VITALS: PULSE 111; RESP 20; TEMP 38.1
[2025-05-26 15:41] LABS: Alanine Aminotransferase 53 U/L (0-31); Albumin Level 4.0 g/dL (3.5-5.0); Alkaline Phosphatase 66 U/L (39-117); Anion Gap 13 (12-20); Aspartate Amino Transferase 44 U/L (5-31); Blood Urea Nitrogen 26 mg/dL (9-16); Calcium 8.8 mg/dL (8.4-10.2); Carbon Dioxide 17 mmol/L (22-29); Chloride 113 mmol/L (96-108); Creatinine Clr Calc Pharmacy 33.7; Estimated Glomerular Filt Rate 42; Lipase 12 U/L (8-78); Potassium 3.9 mmol/L (3.3-5.1); Sodium 139 mmol/L (135-145); Total Protein 6.5 g/dL (6.5-8.0)
[2025-05-26 15:49] LABS: Troponin-I High Sensitivity 14.5 ng/L (<3.5-17.0)
[2025-05-26 15:54] VITALS: BP 106/70; PULSE 111; RESP 20; O2SAT 95
[2025-05-26 15:57] LABS: Appearance Urine Clear; Glucose Urine UA 500 mg/dL (Negative); PH 5.5 (5.0-9.0); Specific Gravity - Urine 1.025 (1.005-1.025); UMIC TRIGGER UACC YES
--- OUTSIDE RECORDS SUMMARY | 2025-05-26 18:21 | XMS_ITS | Clinical Summary ---
Author Organization [facility] Prior to 11/06/24 Address [address] [place] [address] Care Team Providers Care Analytical Manager Name Role Phone Unavailable Primary Care Provider Unavailabl e Social History Tobacco Use Types Packs/Day Years Used Date Smoking Tobacco: Never Assessed Sex and Gender Information Value Date Recorded Sex Assigned at Not on file Gender Identity Not on file Sexual Orientation Not on file Plan of Treatment Not on file
--- OUTSIDE RECORDS SUMMARY | 2025-05-26 18:21 | XMS_ITS | Encounter Summary ---
Author Organization [employer] Address [address] [facility] [address] [place] [address] Care Team Providers Care Changer Fixer Name Role Phone Dilshad Lorenzana MD Primary Care Provide r Encounter Details Date Type Department Care Team (Late st Contact Info) Description 06/27/[address] [facility] [address] [place] [address] Adelita Hart LPN Social History Tobacco Use [...] on filedocumented in this encounter Care Teams Changer Fixer Relationship Specialty Start Date End Date Dilshad Lorenzana MD [address] [place] [address] PCP - General Internal Medicine 04/11/14 Flor Matthews Trestle Builder 03/27/23 06/27/23 [employer] 08/08/21 documented as of this encounter
--- OUTSIDE RECORDS SUMMARY | 2025-05-26 18:21 | XMS_ITS | Clinical Summary ---
Author Organization [address] [facility] Address [address] [place] [address] Phone Care Team Providers Care Director Of Solutions Architecture Name Role Phone Dilsahd Morrell MD Primary Care Provi cherry Allergies [...] Insurance MEDICARE MEDICAID - [place] Care Teams Director Of Solutions Architecture Relationship Specialty Start Date End Date Dilshad Morrell MD [address] [place] [address] [place] [address] PCP - General Internal Medicine 09/28/24
--- OUTSIDE RECORDS SUMMARY | 2025-05-26 18:21 | XMS_ITS | Clinical Summary ---
Author Organization [employer] Address [address] [facility] [address] [place] [address] Care Team Providers Care Cage Manager Name Role Phone Dilshad Lorenzana MD Primary Care Provide r Allergies Active Allergy Reactions Criticality Noted Date Comments Ibuprofen 12/26/2011 Other reaction(s): rapid heart rate, TACHYCARDIA Other reaction(s): rapid heart rate Lisinopril Cough 02/07/2017 Medications PARoxetine (Paxil) 10 MG tablet TAKE 1/2 TABLET BY MOUTH EVERY MORNING 06/07/20 22 Active docusate sodium (Colace) 100 MG capsuleIndications :Constipation, unspecified constipation type TAKE 1 CAPSULE BY MOUTH AT BEDTIME NEEDED 90 capsule 3 08/28/19 23 Active valsartan (Diovan) 40 MG tablet TAKE 1/2 TABLET BY MOUTH EVERY EVENING 09/20/19 23 Active Brilinta 60 MG tablet TAKE 1 TABLET BY MOUTH TWICE DAILY IN THE MORNING AND IN THE EVENING 09/20/19 23 Active ranolazine (Ranexa) 500 MG 12 hr tablet TAKE 1 TABLET BY MOUTH TWICE DAILY IN THE MORNING AND IN THE EVENING 08/23/19 23 Active QUEtiapine (SEROquel) 50 MG tablet Take 50 mg by mouth at bedtime. 09/20/19 23 Active metoprolol tartrate (Lopressor) 50 MG tablet TAKE 1 TABLET BY MOUTH TWICE DAILY IN THE MORNING AND IN THE EVENING 09/20/19 23 Active ezetimibe (Zetia) 10 MG tablet Take 10 mg by mouth at bedtime. 09/20/19 23 Active Vitamin D High Potency 25 MCG (1000 UT) capsule TAKE 2 CAPSULES BY MOUTH TWICE DAILY IN THE MORNING AND EVENING 09/20/19 23 Active albuterol (Ventolin HFA) 108 (90 Base) MCG/ACT inhaler Inhale 2 puffs Every 4-6 hours as needed. Active Blood Pressure Monitor kit Check blood pressure twice a wee. Dx hypertension 1 kit 10/14/19 24 Active glucose blood (Contour Next Test) test stripIndications:T ype 1 diabetes mellitus without complications (HCC) TEST BLOOD SUGAR TWICE DAILY 200 each 3 05/25/20 24 Active TRUEplus Lancets 33G miscIndications:Ty pe 2 diabetes mellitus without complications (HCC) USE DIRECTED TO TEST BLOOD SUGAR EVERY DAY 100 each 11 05/27/20 24 Active atorvastatin (Lipitor) 20 MG tabletIndications: Mixed hyperlipidemia TAKE 1 TABLET BY MOUTH EVERY EVENING 90 tablet 3 5 9:49 AM EST 08/05/19 25 Active melatonin 5 MG tabletIndications: Primary insomnia TAKE 1 TABLET BY MOUTH AT BEDTIME NEEDED FOR SLEEP 90 tablet 3 10/20/19 25 Active Ferrous Sulfate (iron) 325 (65 Fe) MG tabletIndications: Iron deficiency TAKE 1 TABLET BY MOUTH TWICE DAILY IN THE MORNING AND IN THE EVENING 180 tablet 1 02/02/20 25 Active Aspirin Low Dose 81 MG EC tablet TAKE 1 TABLET BY MOUTH EVERY MORNING 90 tablet 1 03/01/20 25 Active glipiZIDE (Glucotrol) 5 MG tablet TAKE 1 TABLET BY MOUTH TWICE DAILY IN THE MORNING AND IN THE EVENING WITH FOOD 60 tablet 3 04/05/20 25 Active montelukast (Singulair) 10 MG tablet TAKE 1 TABLET BY MOUTH EVERY EVENING 30 tablet 3 04/05/20 25 Active omeprazole (PriLOSEC) [address] capsule TAKE 1 CAPSULE BY MOUTH EVERY MORNING BEFORE A MEAL 90 capsule 1 04/05/20 25 Active Active Problems Problem Noted Date Diagnosed [...] disturbance (CMS/HCC) 0 10/01/2022 Assessment & Plan (04/28/2025 3:54 PM EST): Pt here for a f/u Being followed by Neurologist. last note 06/18/2022 on record, but daughter reports she was seen recently. Currently on Primidone, and Quetapine 50 mg po qhs ( Started by Neurology ) Likely multifactorial, Diferential Dx includes Lewy Body dementia, vascular dementia, Continue following with Neurologist. Assessment & Plan (11/04/2024 2:20 PM EDT): [...] angina vs vasospasm Under the care of production specialist Dr Abdi, last visit 08/25/2024 Previous Cardiac cath showed: No culprit lesion Patent LAD and Diagonal stent, mild plaque LCx and RCA LVEF 35% with apical/distal anterior hypokinesis ECHO 05/08/2020 shows EF 30-35%, positive regional wall motion abnormalities. Single lead [[facility]] ICD in place. History of prior ND and stents to the LAD. Recommendations was to continue aggressive secondary risk factor modification according to ATP III guidelines Assessment & Plan (09/18/2023 2:42 PM EDT): Pt with Hx of CAD and recent CP sx thought to be microvessel angina vs vasospasm Under the care of production specialist Dr Abdi, last visit 08/18/2023 Previous [...] Nathan] ICD in place. History of prior ND and stents to the LAD. Recommendations was to continue aggressive secondary risk factor modification according to ATP III guidelines Assessment & Plan (10/01/2022 11:12 AM EDT): Pt with Hx of CAD and recent CP sx thought to be microvessel angina vs vasospasm Under the care of production specialist Dr Abdi, last visit 07/31/2021 televisit [...] Nathan] ICD in place. History of prior ND and stents to the LAD. Recommendations was to continue aggressive secondary risk factor modification according to ATP III guidelines Anxiety 10/01/2022 Assessment & Plan (11/04/2024 2:20 PM EDT): Pt is here for a f/u Pt seeing a Psychotherapist at [facility] She is on Paxil 10 mg po qhs Assessment & Plan (10/01/2022 2:50 PM EDT): Pt is here for a f/u Pt seeing a Psychotherapist at [facility] She is on Paxil 10 mg po qhs Elevated TSH 10/01/2022 Assessment & Plan (04/28/2025 3:47 PM EST): Normalized Lab Results Component Value Date TSH 3.26 01/18/2025 Assessment & Plan (11/04/2024 2:18 PM EDT): Mild elevation, will repeat Lab Results Component Value Date TSH 4.58 (H) 01/29/2024 Assessment & Plan (10/01/2022 2:52 PM EDT): Mild elevation last year, will repeat Preventative health care 10/01/2022 Assessment & Plan (04/28/2025 3:46 PM EST): Mammogram: 12/29/2024 Negative Pap Smear: 11/06/2002, she REFUSES a repeat [...] mind at any time. Assessment & Plan (11/04/2024 2:19 PM EDT): [...] with Neurologist Stage 3b chronic kidney disease ([facility]) 2021 Assessment & Plan (04/28/2025 3:37 PM EST): Under the care of Nephrology. Last seen 01/24/2025 Assessment & Plan (11/04/2024 2:19 PM EDT): Previously referred to Nephrology Assessment & Plan (09/18/2023 2:43 PM EDT): Previously referred to Nephrology Assessment & Plan (10/01/2022 3:06 PM EDT): Previously referred to Nephrology Diabetes mellitus 08/05/2014 Assessment & Plan (04/28/2025 3:57 PM EST): Pt here for a f/u Hgb A1c 04/28/2025: 6.0 from 5.8 She is on a regimen: Glipizide 5 mg po 1 tab in am and 1 tab at pm pt cannot take metformin due to CKD. cannot take any thiazolidinediones due to CHF. Plan: Continue current regimen Eye exam 03/13/2017 Microalbumin 01/21/2025 was 7 Pt on an ARB Diovan. Foot check risk of zero Pt reports compliance with Asa 81 mg po daily Pt advised to: adhere to diabetic diet check your blood sugars regularly check your feet on a daily basis Assessment & Plan (11/04/2024 3:49 PM EDT): [...] infiltrating ductal carcinoma of the right breast, ER/ID positive and HER-2/evelyn negative. She is s/p [...] infiltrating ductal carcinoma of the right breast, ER/ID positive and HER-2/evelyn negative. She is s/p completion of whole breast radiation therapy as part of breast conserving management for an early stage node-negative right side breast cancer. She is no longer taking anastrozole and is being followed by Dr Becker, last seen 11/03/2018 He recommended yearly mammograms and prn f/u with him Implantable cardioverter-defibrillator (ICD) in situ 06/11/2012 Assessment & Plan (04/28/2025 3:41 PM EST): Under the care of cardiology, last interrogated 02/15/2025 Assessment & Plan (09/18/2023 2:43 PM EDT): Under the care of cardiology, last interrogated 08/2023 Assessment & Plan (10/01/2022 3:07 PM EDT): Under the care of cardiology Atypical angina 06/11/2012 Hyperlipidemia 02/27/2012 Assessment & Plan (04/28/2025 3:41 PM EST): Pt here for a f/u Most recent lipid profile from: Lab Results Component Value Date TRIG 94 01/18/2025 TRIG 85 01/29/2024 CHOL 81 01/18/2025 CHOL 96 01/29/2024 LDLCHOLCAL 26 01/18/2025 LDLCHOLCAL 33 01/29/2024 HDL 37 (L) 01/18/2025 HDL 46 01/29/2024 Currently she is on a regimen of: Lipitor 20 mg po q pm and Zetia 10 mg po q pm plan: continue current regimen. Assessment & Plan (11/04/2024 2:30 PM EDT): [...] continue current regimen. Coronary artery disease involving qawalangin coronar y artery 11/26/2011 Assessment & Plan (11/04/2024 2:17 PM EDT): Under the care of cardiology, last seen 08/25/2024 Assessment & Plan (01/29/2024 10:30 AM EDT): Under the care of cardiology, last seen 11/13/2023 Assessment & Plan (10/01/2022 3:07 PM EDT): Under the care of cardiology Essential hypertension 10/25/2011 Assessment & Plan (04/28/2025 3:41 PM EST): Here for a follow up BP controlled She is on a regimen of: Diovan 20 mg po daily and Metoprolol 50 mg BID prescribed by Cardiology Dr. Abdi. Most recent electrolytes, Bun and Creatinine done on: Lab Results Component Value Date NA 142 01/18/2025 NA 138 01/29/2024 K 3.8 01/18/2025 K 4.1 01/29/2024 CL 111 (H) 01/18/2025 CL 110 (H) 01/29/2024 BUN 16 01/18/2025 BUN 20 (H) 01/29/2024 CREATININE 0.97 01/18/2025 CREATININE 1.33 01/29/2024 Plan: Continue current regimen Assessment & Plan (11/04/2024 2:17 PM EDT): [...] previous visit I discussed case with her Financial Institution Vice President Dr. Abdi. Most recent electrolytes, Bun and [...] previous visit I discussed case with her Financial Institution Vice President Dr. Abdi. Most recent electrolytes, Bun and [...] previous visit I discussed case with her Financial Institution Vice President Dr. Abdi. Most recent electrolytes, Bun and Creatinine done on: 08/21/2021 showed and elevated Cr. 1.61 Patient was referred to our MTM program she would benefit from med boxes and home delivery of medications. Arthropathy 09/02/2011 Chronic obstructive pulmonary disease 07/03/2011 Assessment & Plan (04/28/2025 3:39 PM EST): Under the care of Dr. Barrera Last seen 03/30/2025 Resolved Problems Problem Noted Date Diagnosed Date Resolved Date Acute non-ST segment elevati on myocardial infarction 02/07/2017 09/18/2023 Encounters Date Type Department Care Team Description 05/26/2025 Orders Only [facility] External Provider, [facility] 05/26/2025 Telephone [facility] [address] [facility] [place] [facility] [place] [address] Dilshad Lorenzana MD 05/26/2025 Telephone [facility] [address] [facility] [place] [address] Dilshad Lorenzana MD 04/28/2025 3:30 PM EST Office Visit [facility] [address] [facility] [place] [address] Dilshad Lorenzana MD Type 2 diabetes mellitus without complication, without long-term current use of insulin (HCC) (Primary Dx); Essential hypertension; Mixed hyperlipidemia; Stage 3b chronic kidney disease (CMS/HCC) (HCC); Chronic obstructive pulmonary disease with emphysema, unspecified emphysema type (HCC); Implantable cardioverter-defibril lator (ICD) in situ; Elevated TSH; Dementia with behavioral disturbance (CMS/HCC) ([facility]); Preventative health care 04/28/2025 Travel 04/27/2025 Telephone [facility] [address] [place] [address] Dilshad Lorenzana MD CHART PREP 04/25/2025 Telephone [facility] [address] [place] [address] Dilshad Lorenzana MD R/S APPT 04/04/2025 Refill [facility] [address] [place] [address] Gabriella Goodwin MD 04/03/2025 Refill [facility] [address] [place], [place] [phone] Dilshad Lorenzana MD 03/01/2025 Refill [facility] [address] [place], [place] [phone] Dilshad Lorenzana MD from Last 3 Months Immunizations Immunization Administration [...] housing situation today? I have gianluca meza 11/04/[address] you li [...] Sign Reading Time Taken Comments Blood Pressure 100/82 04/28/2025 3:57 PM EST Pulse 76 04/28/2025 3:45 PM EST Temperature 35.9 C (96.6 F) 04/28/2025 3:45 PM EST Respiratory Rate 16 04/28/2025 3:45 PM EST Oxygen Saturation 98% 11/04/2024 2:09 PM EDT Inhaled Oxygen Concentration - - Weight 56 kg (123 lb 8 oz) 04/28/2025 3:45 PM ES T Height 154.9 cm (5' 1 ) 04/28/2025 3:45 PM EST Body Mass Index 23.34 04/28/2025 3:45 PM EST Plan of Treatment Health Maintenance Due Date Last Done Comments CT Colonography 1950 Colonoscopy 1950 FIT DNA/Cologuard 1950 FOBT 1950 Sigmoidoscopy 1950 Diabetes: Foot Exam 1960 Eye Exam 1960 Alcohol/Substance Use Screening 1962 RSV Patients and Patients Aged 60 years or older (1 - Risk 50-74 years 1-dose series) 2000 Zoster Vaccines (1 of 2) 2000 FIT 10/30/2022 10/30/2021 Tobacco Screening 01/28/2025 01/29/2024 Depression Monitoring 05/07/2025 11/04/2024, 025 Diabetes: Hemoglobin A1C 10/26/2025 025, 11/04/2024, 01/29/2024, Additional history exists SDOH Screening 11/04/2025 11/04/2024 Influenza Vaccine (#1) 2025 , 03/24/2020, 03/04/2019, Additional history exists Postponed from 02/07/2025 (Patient Refused) Mammogram 12/29/2025 12/29/2024, 1007/2022, 02/19/2022, Additional history exists Lipid Panel 01/18/2026 01/18/2025, 0807/2023, 09/27/2021, Additional history exists Diabetes: Urine Protein Screening 01/21/2026 01/21/2025, 03/28/2020 COVID-19 Vaccine ( season) 2026 09/01/2020, 08/04/2020 Postponed from 02/07/2025 (Patient Refused) Colorectal Cancer Screening 04/28/2026 Postponed from 1950 (Patient Refused) DTaP/Tdap/Td Vaccines (2 - Td or Tdap) [...] medication regimen General No Reyna Yanes, PharmD Help patients manage their type 2 diabetes Care Plan Help patients manage their type 2 diabetes Makeda Grande MA Weekly blood pressure task Care Plan Weekly blood pressure task Makeda Grande [place] Help patients manage their type 2 diabetes Care Plan Help patients manage their type 2 diabetes Makeda Grande [place] Patient has chronic kidney disease Care Plan Patient has chronic kidney disease No Makeda German MA Weekly blood pressure task Care Plan Weekly blood pressure task No Dilshad Lorenzana MD Patient has chronic kidney disease Care Plan Patient has chronic kidney disease No Dilshad Lorenzana MD Procedures Procedure Name Priority Date/Time Associated Diagnosis Comments CT ABDOMEN PELVIS WO CONTRAST Routine 05/26/2025 3:52 PM EST URINALYSIS, COMPLETE, WITH REFLEX TO CULTURE Routine 05/26/2025 3:47 PM EST Type 2 diabetes mellitus without complication, without long-term current use of insulin (HCC) POCT GLYCATED HEMOGLOBIN, TOTAL Routine 04/28/2025 3:47 PM EST Type 2 diabetes mellitus without complication, without long-term current use of insulin (HCC) POCT GLUCOSE Routine 04/28/2025 3:47 PM EST Type 2 diabetes mellitus without complication, without long-term current use of insulin (HCC) ALBUMIN, RANDOM URINE W/CREATININE Routine 01/21/2025 10:30 AM EDT Type 2 diabetes mellitus without complication, without long-term current use of insulin (CMS/HCC) LIPID PANEL, STANDARD Routine 01/18/2025 10:39 AM EDT Type 2 diabetes mellitus without complication, without long-term current use of insulin (CMS/HCC) Mixed hyperlipidemia BI MAMMOGRAM SCREENING TOMOSYNTHESIS BILATERAL Routine 12/29/2024 1:40 PM EDT Breast cancer screening by mammogram POCT FECAL IMMUNOCHEMICAL Routine 10/30/2021 11:51 AM EDT ZZZ HISTORICAL HEPATITIS C AB W/REFL TO HCV RNA, QN, PCR Routine 08/14/2021 10:54 AM EST from Last 3 Months or Most Recently Relevant to Health Maintenance Results * CT Abdomen Pelvis w/o Contrast (05/26/2025 3:52 PM EST) Anatomical Region Laterality Modality Body, Pelvis, Abdomen Computed T omography 05/26/2025 3:52 PM EST Narrative 05/26/2025 4:26 PM EST [place] [address] CT Scan Report Signed Patient: Florinda Oconnell MR #: [id number] : 1950 Acct:[id number] Age/Sex: 74 / F ADM Date: 05/26/25 Loc: HO.ED Attending Dr: Ordering Physician: Serge Trujillo MD Date of Service: 05/26/25 Procedure(s): CT abdomen pelvis wo IV con Accession Number(s): [id number] cc: Serge Trujillo MD; Dilshad Morrell MD Report Number: [id number]: Total DLP = 585.00 mGy-cm Reason for Exam: Limited historian, diffuse abd pain, R/O colitis EXAMINATION: CT ABDOMEN AND PELVIS WITHOUT CONTRAST CLINICAL INFORMATION: Limited historian, diffuse abd pain, R/O colitis COMPARISON: None available. TECHNIQUE: Multidetector volumetric imaging was performed from the superior aspect of the liver through the pubic symphysis. Sagittal and coronal reformatted images were obtained on the technologist's workstation. This CT examination was performed using dose optimization techniques as appropriate, variously including the following: *Automated exposure control *Adjustment of mA and/or kV according to patient size (this includes techniques or standardized protocols for targeted exams where dose is matched to indication/reason for exam; i.e. extremities or head) *Use of iterative reconstruction technique FINDINGS: Motion degrades many images. Pacemaker leads result in streak artifacts that limit local evaluation. LOWER CHEST: No confluent consolidation. No pleural effusion. Mild posterior atelectasis. Respiratory motion limits evaluation for pulmonary nodules. LIVER: No hepatomegaly. No obvious focal lesions. GALLBLADDER AND BILIARY TREE: Nondistended gallbladder. No gallstones. Evaluation for gallbladder wall thickening is limited due to motion. No biliary ductal dilatation. PANCREAS: Unremarkable. SPLEEN: No splenomegaly. ADRENAL GLANDS: No nodules. KIDNEYS AND URETERS: No obvious renal stones or renal lesions. No hydronephrosis on either side. GASTROINTESTINAL TRACT: Small hiatal hernia. No bowel distention. Small bowel and colonic loops appear to be filled with fluid. Normal appendix in the right lower quadrant. No obvious bowel wall thickening or surrounding inflammatory changes. PERITONEUM/RETROPERITONEUM: No free fluid or free air. ABDOMINAL WALL: No significant hernia is appreciated. LYMPH NODES: No lymphadenopathy. VASCULAR: No abdominal aortic aneurysm. Large amount of vascular calcifications. PELVIC VISCERA: Urinary bladder is decompressed. Uterus appear unremarkable. OSSEOUS STRUCTURES: No acute findings. CT/CT abdomen pelvis wo IV con IMPRESSION: Partially limited examination due to motion. 1. No acute findings in the abdomen/pelvis. 2. No obvious findings suggestive of colitis. Electronically signed by: Williams Farooq MD 05/26/2025 04:23 PM [facility] Dictated By: Williams Farooq MD Signed By: <Electronically signed by Williams Farooq MD in OV> 05/26/25 1623 DD/ 1552 TD/TT: 05/26/25 1603 Greens Laborer: Procedure Note Donotuseinterpreter, Image - 05/26/[address] [address] [address] Scan Report Signed Patient: Florinda Oconnell LMR #: [id number] : 1950cct:[id number] Age/Sex: 74 / FADM Date: 05/26/25 Loc: HO.ED Attending Dr: Ordering Physician: Serge Trujillo MD Date of Service: 05/26/25 Procedure(s): CT abdomen pelvis wo IV con Accession Number(s): [id number] cc: Serge Trujillo MD; Dilshad Morrell MD Report Number: [id number]: Total DLP = 585.00 mGy-cm Reason for Exam: Limited historian, diffuse abd pain, R/O colitis EXAMINATION: CT ABDOMEN AND PELVIS WITHOUT CONTRAST CLINICAL INFORMATION: Limited historian, diffuse abd pain, R/O colitis COMPARISON: None available. TECHNIQUE: Multidetector volumetric imaging was performed from the superior aspect of the liver through the pubic symphysis. Sagittal and coronal reformatted images were obtained on the technologist's workstation. This CT examination was performed using dose optimization techniques as appropriate, variously including the following: *Automated exposure control *Adjustment of mA and/or kV according to patient size (this includes techniques or standardized protocols for targeted exams where dose is matched to indication/reason for exam; i.e. extremities or head) *Use of iterative reconstruction technique FINDINGS: Motion degrades many images. Pacemaker leads result in streak artifacts that limit local evaluation. LOWER CHEST: No confluent consolidation. No pleural effusion. Mild posterior atelectasis. Respiratory motion limits evaluation for pulmonary nodules. LIVER: No hepatomegaly. No obvious focal lesions. GALLBLADDER AND BILIARY TREE: Nondistended gallbladder. No gallstones. Evaluation for gallbladder wall thickening is limited due to motion. No biliary ductal dilatation. PANCREAS: Unremarkable. SPLEEN: No splenomegaly. ADRENAL GLANDS: No nodules. KIDNEYS AND URETERS: No obvious renal stones or renal lesions. No hydronephrosis on either side. GASTROINTESTINAL TRACT: Small hiatal hernia. No bowel distention. Small bowel and colonic loops appear to be filled with fluid. Normal appendix in the right lower quadrant. No obvious bowel wall thickening or surrounding inflammatory changes. PERITONEUM/RETROPERITONEUM: No free fluid or free air. ABDOMINAL WALL: No significant hernia is appreciated. LYMPH NODES: No lymphadenopathy. VASCULAR: No abdominal aortic aneurysm. Large amount of vascular calcifications. PELVIC VISCERA: Urinary bladder is decompressed. Uterus appear unremarkable. OSSEOUS STRUCTURES: No acute findings. CT/CT abdomen pelvis wo IV con IMPRESSION: Partially limited examination due to motion. 1. No acute findings in the abdomen/pelvis. 2. No obvious findings suggestive of colitis. Electronically signed by: Williams Farooq MD 05/26/2025 04:23 PM EST RP Dictated By: Williams Farooq MD Signed By: <Electronically signed by Williams Farooq MD in OV> 05/26/25 1623 DD/ 1552 TD/TT: 05/26/25 1603 Greens Laborer: us [facility] External Provider IMG CT PROCEDURES Final Result * (ABNORMAL) Urinalysis, Complete, with Reflex to Culture (05/26/2025 3:47 PM EST) Color Urine Dark Yellow [facility] Appearance Urine Clear [facility] PH 5.5 5.0 - 9.0 [facility] Glucose Urine UA 500(A) Negative mg/dL [facility] Urine Blood Negative Negative [facility] Specific [place] - Urine 1.025 1.005 - 1.025 [facility] Urine Protein 30 (1+)(A) Neg-Trace mg/dL [facility] Urine Ketones Trace Negative mg/dL [facility] Nitrite Urine Negative Negative [facility] Leukocyte Esterase Urine Negative Negative [facility] RBC Urine 0-2 0 - 2 /HPF [facility] Urine WBC 0-5 0 - 5 /HPF [facility] Urine Squamous Epithelial Cell 0-2 0 - 2 /HPF [facility] Urine Bacteria None Seen None Seen [facility] Hyaline Casts, Urine 0-2 0 - 2 /LPF [facility] 05/26/2025 3:47 PM EST 05/26/2025 3:52 PM EST Narrative [facility] - 05/26/2025 4:27 PM EST [id number], Clean Catch Generic External Data Provider LAB URINE ORDERAB LES Final Result [facility] [address] [place] [phone] * (ABNORMAL) POCT Hgb A1c (04/28/2025 3:47 PM EST) Hemoglobin A1C 6.0(A) 4.0 - 5.7 % QC Media Lot # [id number] Lot# Expiration Date Blood 04/28/2025 3:47 PM EST Dilshad Amanda MD POINT OF CARE TEST EN TER/EDIT ORDERABLES Final Result * POCT Glucose (04/28/2025 3:47 PM EST) Glucose Blood, POC 125 60 - 200 mg/dL QC Media Lot # [id number] Lot# Expiration Date 83 Blood Capillary blood specimen / Unknown 04/28/2025 3:47 PM EST Dilshad Amanda MD POINT OF CARE TEST EN TER/EDIT ORDERABLES Final Result * Albumin, Random Urine W/Creatinine (01/21/2025 10:30 AM EDT) Creatinine, Urine 131.44 mg/dL [facility] Microalbumin Urine 7.0 mg/L [facility] Microalbum Creatinine Ratio Ur 5.3 <30 ug/mg cr [facility] Comment:Albumin/Creatinine R atio Reference Ranges: Normal: < 30 ug/mg creatinine Microalbuminuria: 30 - 300 ug/mg creatinineClinical Albuminuria: > 300 ug/mg creatinine Urine (Urine, Random) 01/21/2025 10:30 AM EDT 01/21/2025 1:05 PM EDT Dilshad Amanda MD LAB URINE ORDERABLES Final Result Performing Organization Address City/[facility] Co de Phone Number [facility] [address] [place] [address] [phone] * (ABNORMAL) Lipid Panel, Standard (01/18/2025 10:39 AM EDT) Triglycerides 94 <150 mg/dL [facility] Comment:Desirable Triglyceri de: less than 150 mg/dLBorderline High Triglyceride 150-199 mg/dLHigh Triglyceride: 200-499 mg/dLVery High Triglyceride: greater than or equal to 5OO mg/dL Cholesterol 81 <200 mg/dL [facility] Comment:Desirable Cholestero l: less than 200 mg/dLBorderline High Cholesterol: 200-239 mg/dLHigh Cholesterol: greater than 239 mg/dL LDL Cholesterol Calculated 26 <100 mg/dL [facility] Comment:Desirable LDL: less than 100 mg/dLNear Optimal/Above Optimal LDL: 110- 129 mg/dLBorderline High LDL: 130-159 mg/dLHigh LDL: 160-189 mg/dLVery High LDL: greater than or equal to 190 mg/dL HDL Cholesterol 37(L) >40 mg/dL [facility] Comment:Desirable HDL: grea ter than 40 mg/dL Note: This HDL assay may give artificially low results in patients with liver disease. Blood Venous blood specimen / Unknown 01/18/2025 10:39 AM EDT 01/18/2025 10:39 AM EDT Dilshad Amanda MD LAB BLOOD ORDERABLES Final Result [facility] [address] [place] [address] [phone] * BI Mammogram Screening Tomosynthesis Bilateral (12/29/2024 1:40 PM EDT) Anatomical Region Laterality Modality Breast Bilateral Mammography 12/29/2024 1:40 PM EDT Narrative 01/04/2025 7:21 PM EDT [facility] [address] [place] [address] Mammography Report Signed Patient: Florinda Oconnell MR #: [id number] : 1950 Acct:[id number] Age/Sex: 74 / F ADM Date: 12/29/24 Loc: FITO Attending Dr: Dilshad Morrell MD Ordering Physician: Dilshad Morrell MD Resu lts: 2Benign Findings Date of Service: 12/29/24 Follow Up: 1 Year From [facility] Mammogram Procedure(s): MM tomosynthesis screening BI Accession Number(s): [id number] cc: Dilshad Morrell MD EXAMINATION: MM SCREENING [...] 01/04/25 1918 DD/ 1340 TD/TT: 12/29/24 1403 Greens Laborer: Procedure Note Donotuseinterpreter, Image - 01/04/2025 [facility] [address] [place] [address] Mammography Report Signed Patient: Florinda Oconnell LMR #: [id number] : 1950cct:[id number] Age/Sex: 74 / FADM Date: 12/29/24 Loc: HO.MAMMO Attending Dr: Dilshad Morrell MD Ordering Physician: Dilshad Morrell MDResu lts: 2Benign Findings Date of Service: 12/29/24Follow Up: 1 Year From Orig ina Mammogram Procedure(s): MM tomosynthesis screening BI Accession Number(s): [id number] cc: Dilshad Morrell MD EXAMINATION: MM SCREENING [...] 01/04/25 1918 DD/ 1340 TD/TT: 12/29/24 1403 Greens Laborer: Dilshad Amanda MD IMG BI PROCEDURES Fin al Result * POCT Fecal Immunochemical Test (10/30/2021 11:51 AM EDT) Pathologist [facility] Fecal Immunochemical Test Nonreactive Stool Rectal contents / Unknown 10/30/2021 11:51 AM EDT Pat Yvette Mares - 10/30/2021 11:51 AM EDT Results were negative Historical Provider POINT OF CARE TEST ENTER/ EDIT ORDERABLES Final Result * HEPATITIS C AB W/REFL TO HCV RNA, QN, PCR (08/14/2021 10:54 AM EST) HEPATITIS C ANTIBODY NON-REACT [facility] NON-REACT [facility] INDEX 0.01 <1.00 [facility] Comment: HCV antibody was non-reactive. There is no laboratory evidence of HCV infection. In most cases, no further action is required. However, if recent HCV exposure is suspected, a test for HCV RNA (test code 55108) is suggested. For additional information please refer to [email or web address].[email or web address]/faq/[email or web address] (This link is being provided for informational/ educational purposes only.) 08/14/2021 10:5 4 AM EST us Dilshad Amanda MD HISTORICAL/NON ORDERA BLE LABS Final Result [facility] [address] from Last 3 Months or Most Recently Relevant to Health Maintenance Additional Health Concerns Active Problems Noted Date Diagnosed Date Help patients manage their type 2 diabetes 04/28 Weekly blood pressure task 04/28/2025 Help patients manage their type 2 diabetes 04/28 Patient has chronic kidney disease 04/28/2025 Weekly blood pressure task 04/28/2025 Patient has chronic kidney disease 04/28/2025 Insurance [facility] MEDIC[facility] Advance Directives Documents on File Type Date Recorded Patient Senior Technical Architect Expl anation Advance Directives and Living Will 04/29/2025 1:13 PM Health Care Proxy Care Teams Cage Manager Relationship Specialty Start Date End Date Dilshad Lorenzana MD [address] [place] [address] PCP - General Internal Medicine 04/11/14 Action 08/08/21
--- OUTSIDE RECORDS SUMMARY | 2025-05-26 18:21 | XMS_ITS | Encounter Summary ---
Author Organization [employer] Address [address] [facility] 7t [place] [address] Care Team Providers Care Veterinary Technician Name Role Phone Dilshad Lorenzana MD Primary Care Provide r Encounter Details Date Type Department Care Team (Late st Contact Info) Description 07/30/2022 Orders Only [facility] MED & PEDS [address] [place], [place] [phone] Adelita Hart LPN Social History Tobacco Use [...] filedocumented in this encounter Care Teams Veterinary Technician Relationship Specialty Start Date End Date Dilshad Lorenzana MD [address] [place] [address] PCP - General Internal Medicine 04/11/14 Flor Matthews Vigoureux Printer 03/27/23 06/27/23 [employer] 08/08/21 documented as of this encounter
--- OUTSIDE RECORDS SUMMARY | 2025-05-26 18:21 | XMS_ITS | Encounter Summary ---
Author Organization [employer] Address [address] [facility] 7t [place] [address] Care Team Providers Care Manager Med Surg Name Role Phone Dilshad Lorenzana MD Primary Care Provide r Encounter Details Date Type Department Care Team (Late st Contact Info) Description 09/11/2022 Orders Only [facility] CHC MED & PEDS [address] [place] [address] Adelita Hart LPN Social History Tobacco Use [...] on filedocumented in this encounter Care Teams Manager Med Surg Relationship Specialty Start Date End Date Dilshad Lorenzana MD [address] [place] [address] PCP - General Internal Medicine 04/11/14 Flor Matthews Neurodiagnostic Technologist 03/27/23 06/27/23 [place] 08/08/21 documented as of this encounter
--- OUTSIDE RECORDS SUMMARY | 2025-05-26 18:21 | XMS_ITS | Encounter Summary ---
Author Organization [employer] Address [address] [facility] 7t [place] [address] Care Team Providers Care Refrigeration Technician Name Role Phone Dilshad Lorenzana MD Primary Care Provide r Encounter Details Date Type Department Care Team ([facility] st Contact Info) Description 10/16/2022 Abstract [facility] MEDICINE [address] [place], [place] [phone] Dilshad Lorenzana MD [address] [place], [place] [phone] Social History Tobacco Use Types Packs/Day Years [...] on file documented as of this encounter Goals Goal Patient Goal Type Associated Problems Recent Progress Patient-Stated? Author Patient will adhere to medication regimen General No Puia, Reyna, PharmD documented as of this encounter Procedures Procedure [...] documented as of this encounter Care Teams Refrigeration Technician Relationship Specialty Start Date End Date Dilshad Lorenzana MD [address] [place] [address] PCP - General Internal Medicine 04/11/14 Flor Matthews Telephone Recorder 03/27/23 06/27/23 [employer] 08/08/21 documented as of this encounter
--- OUTSIDE RECORDS SUMMARY | 2025-05-26 18:21 | XMS_ITS | Encounter Summary ---
Author Organization [employer] Address [address] [facility] 7t [place] [address] Care Team Providers Care Lime Kiln Operator Name Role Phone Dilshad Lorenzana MD Primary Care Provide r Encounter Details Date Type Department Care Team ([facility] st Contact Info) Description 05/26/2025 Telephone [facility]INE [address] [place], [place] [phone] Dilshad Lorenzana MD [address] [place], [place] [phone] Social History Tobacco Use Types Packs/Day Years [...] to medication regimen General No Reyna Yanes, MalcomD Help patients manage their type 2 diabetes Care Plan Help patients manage their type 2 diabetes No Makeda German MA Weekly blood pressure task Care Plan Weekly blood pressure task No Makeda German [place] Help patients manage their type 2 diabetes Care Plan Help patients manage their type 2 diabetes No Makeda German MA Patient has chronic kidney disease Care Plan Patient has chronic kidney disease No Makeda German [place] Weekly blood pressure task Care Plan Weekly blood pressure task No Dilshad Lorenzana MD Patient has chronic kidney disease Care Plan Patient has chronic kidney disease No Dilshad Lorenzana MD documented as of this encounter Visit Diagnoses Not on filedocumented in this encounter Additional Health Concerns Active Problems Noted Date Diagnosed Date Help patients manage their type 2 diabetes 04/28 Weekly blood pressure task 04/28/2025 Help patients manage their type 2 diabetes 04/28 Patient has chronic kidney disease 04/28/2025 Weekly blood pressure task 04/28/2025 Patient has chronic kidney disease 04/28/2025 Assessment Noted Time PHQ-9 Depression Total Score: 15 025 2:49 PM EDT documented as of this encounter Care Teams Lime Kiln Operator Relationship Specialty Start Date End Date Dilshad Lorenzana MD [address] [place] [address] PCP - General Internal Medicine 04/11/14 [employer] 08/08/21 documented as of this encounter
--- OUTSIDE RECORDS SUMMARY | 2025-05-26 18:21 | XMS_ITS | Encounter Summary ---
Author Organization [employer] Address [address] [facility] 7t [place] [address] Care Team Providers Care Ferryboat Ticket Taker Name Role Phone Dilshad Lorenzana MD Primary Care Provide r Encounter Details Date Type Department Care Team (Late st Contact Info) Description 08/26/2022 Orders Only [facility] CHC MED & PEDS [address] [place] [address] Adelita Hart LPN Social History Tobacco Use [...] on filedocumented in this encounter Care Teams Ferryboat Ticket Taker Relationship Specialty Start Date End Date Dilshad Lorenzana MD [address] [place] [address] PCP - General Internal Medicine 04/11/14 Flor Matthews Mixing Roll Operator 03/27/23 06/27/23 [email or web address] 08/08/21 documented as of this encounter
--- OUTSIDE RECORDS SUMMARY | 2025-05-26 18:21 | XMS_ITS | Encounter Summary ---
Author Organization [employer] Address [address] [facility] 7t [place] [address] Care Team Providers Care Corporate Receptionist Name Role Phone Dilshad Lorenzana MD Primary Care Provide r Encounter Details Date Type Department Care Team ([facility] st Contact Info) Description 05/26/2025 Telephone [facility] MEDICINE [address] [place], [place] [phone] Dilsahd Lorenzana MD [address] [place], [place] [phone] Social History Tobacco Use Types Packs/Day Years [...] encounter Miscellaneous Notes * Telephone Encounter - Makeda German [place] - 05/26/2025 1:47 PM EST Telephone call to patient to schedule a recall appointment. No answer, Left voicemail to return call to clinic.. Recall letter sent. Visit type: Office visit Appointment notes: DM Month due: July With: Demetra Please schedule appointment above if patient returns call documented in this encounter Plan of Treatment Not on file documented as of this encounter Goals Goal Patient Goal Type Associated Problems Recent Progress Patient-Stated? Author Patient will adhere to medication regimen General Reyna Mariscal, Josué Help patients manage their type 2 diabetes [...] documented as of this encounter Care Teams Corporate Receptionist Relationship Specialty Start Date End Date Dilshad Lorenzana MD [address] [place] [address] PCP - General Internal Medicine 04/11/14 [email or web address] 08/08/21 documented as of this encounter
--- OUTSIDE RECORDS SUMMARY | 2025-05-26 18:21 | XMS_ITS | Encounter Summary ---
Author Organization [employer] Address [address] [facility] 7t [place] [address] Care Team Providers Care Laborer Construction Or Leak Gang Name Role Phone Dilshad Lorenzana MD Primary Care Provide r Encounter Details Date Type Department Care Team (Late st Contact Info) Description 05/26/2025 Orders Only [facility] External Provider, [facility] Social History Tobacco Use Types Packs/Day Years Used Date Smoking Tobacco: Never Passive Smoke Exposure: Never Smokeless Tobacco: Never Depression Answer Date Recorded Patient Health Questionnaire-9 Score 15 11/04/2024 Patient Health Questionnaire-9 Score 15 11/04/2024 Last PHQ-9: Questionnaire Data Not on file 0 11/04/2024 Housing Stability Answer Date Recorded What is your housing situation today? I have gianlucaevan meza 11/04/[address] you [...] medication regimen General No Reyna Yanes, Josué Help patients manage their type 2 [...] Lorenzana MD documented as of this encounter Procedures Procedure Name Priority Date/Time Associated Diagnosis Comments CT ABDOMEN PELVIS WO CONTRAST Routine 05/26/2025 3:52 PM EST documented in this encounter Results * CT Abdomen Pelvis w/o Contrast (05/26/2025 3:52 PM EST) Anatomical Region Laterality Modality Body, Pelvis, Abdomen Computed T omography 05/26/2025 3:52 PM EST Narrative 05/26/2025 4:26 PM EST [address] [address] [address] Scan Report Signed Patient: Florinda Oconnell MR #: [id number] : 1950 Acct:[id number] Age/Sex: 74 / F ADM Date: 05/26/25 Loc: HO.ED Attending Dr: Ordering Physician: Serge Trujillo MD Date of Service: 05/26/25 Procedure(s): CT abdomen pelvis wo IV con Accession Number(s): [id number] cc: Serge Trujillo MD; Dilshad Morrell MD Report Number: [id number]: Total DLP = 585.00 mGy-cm Reason for [...] Williams Farooq MD 05/26/2025 04:23 PM EST Dictated By: Williams Farooq MD Signed By: <Electronically signed by Williams Farooq MD in OV> 05/26/25 1623 DD/ 1552 TD/TT: 05/26/25 1603 Group Captain: Procedure Note Donotuseinterpreter, Image - 05/26/[address] [address] [address] Scan Report Signed Patient: Florinda Oconnell LMR #: [id number] : 1950cct:[id number] Age/Sex: 74 / FADM Date: 05/26/25 Loc: HO.ED Attending Dr: Ordering Physician: Serge Trujillo MD Date of Service: 05/26/25 Procedure(s): CT abdomen pelvis wo IV con Accession Number(s): [id number] cc: Serge Trujillo MD; Dilshad Morrell MD Report Number: [id number]: Total DLP = 585.00 mGy-cm Reason for [...] by: Williams Farooq MD 05/26/2025 04:23 PM [facility] Dictated By: Williams Farooq MD Signed By: <Electronically signed by Williams Farooq MD in OV> 05/26/25 1623 DD/ 1552 TD/TT: 05/26/25 1603 Group Captain: [facility] External Provider IMG CT PROCEDURES Final Result documented in this encounter Visit [...] Noted Time PHQ-9 Depression Total Score: 15 11/04/ 025 2:49 PM EDT documented as of this encounter Care Teams Laborer Construction Or Leak Gang Relationship Specialty Start Date End Date Dilshad Lorenzana MD [address] [place] [address] PCP - General Internal Medicine 04/11/14 [employer] 08/08/21 documented as of this encounter
--- OUTSIDE RECORDS SUMMARY | 2025-05-26 18:21 | XMS_ITS | Clinical Summary ---
Author Organization [facility] Address [address] [facility] [place] [address] Phone Care Team Providers Care Tissue Inserter Name Role Phone Dilshad Mccrary MD Primary [...] Active Problems Problem Noted Date Diagnosed Date Chronic kidney disease, stage 2 (mild) Stage 3a chronic kidney disease 02/25/2022 Malignant [...] Sign Reading Time Taken Comments Blood Pressure 112/59 01/24/2025 3:04 PM EDT Pulse 59 01/24/2025 3:04 PM EDT Temperature - - Respiratory Rate - - Oxygen Saturation 99% 01/24/2025 3:04 PM EDT Inhaled Oxygen Concentration - - Weight 54.7 kg (120 lb 9.6 oz) 01/24/2025 3:04 P M EDT Height - - Body Mass Index - - Plan of Treatment Health Maintenance Due Date Last Done Comments Breast Cancer Screening 1950 Colorectal Cancer Screening: Annual FOBT 1999 Colorectal Cancer Screening: Colonoscopy 1999 Colorectal Cancer Screening: Sigmoidoscopy 1999 Diabetes: Ophthalmology Exam 11/08/2024 Diabetes: Pedal Pulse Checked 11/08/2024 Diabetes: Sensory Foot Exam 11/08/2024 Diabetes: Visual Foot Exam 11/08/2024 Diabetes: Hemoglobin A1C 02/04/2025 11/04/2024, 09/07 Influenza Vaccine (#1) 2025 9, 03/03/2018, 03/18/2017, Additional history exists Pneumococcal Vaccine: 50+ Years Completed 10/29/2016, 10/30/2015, 04/10/2015, Additional history exists Hepatitis B Vaccine Aged Out No longe r eligible based on patient's age to complete this topic Insurance Medicare Medicaid [place] Medicare Medicaid [place] Care Teams Tissue Inserter Relationship Specialty Start Date End Date Dilshad Mccrary MD PCP - General Internal Medicine 09/26/21
[2025-05-26 19:06] LABS: OBS Int Ctl Valid YES; OBS1 POSITIVE (NEGATIVE)
[2025-05-26 19:17] VITALS: BP 120/65; PULSE 106; RESP 22; TEMP 37.2; O2SAT 94
--- NOTE | 2025-05-26 19:47 | PC.NURSE ---
Report taken from Kate PRIETO assumed care of pt at 1900. No active vomiting, no further diarrhea. MD to bedside for reeval, plan for discharge, pt and daughter aware of plan of care.
[2025-05-26 21:00] VITALS: BP 120/65; PULSE 106; RESP 22; TEMP 37.2; O2SAT 94
== END 2025-05-26 21:01 | disposition home or self-care (01) ==
PROVIDERS: Emergency Provider Emergency Medicine; PCP Internal Medicine
DX: K52.9 Noninfective gastroenteritis and colitis, unspecified (principal); R11.2 Nausea with vomiting, unspecified; Z03.818 Encounter for observation for suspected exposure to other biological agents ruled out; I10 Essential (primary) hypertension; E78.5 Hyperlipidemia, unspecified; Z79.82 Long term (current) use of aspirin; Z79.02 Long term (current) use of antithrombotics/antiplatelets; Z79.899 Other long term (current) drug therapy
CPT/HCPCS: 36415; 71046; 74176; 80053; 81001; 82248; 82272; 83690; 84484; 85025; 87637; 93005; 99284; 99285

== ENCOUNTER → 2025-05-26 13:38 | Outpatient (BNV) | payer MEDICARE, MEDICAID, SELFPAY | PROVIDERS: Emergency Provider Emergency Medicine; PCP Internal Medicine; Visit Provider Internal Medicine Cardiovascular Disease | DX: R00.0 Tachycardia, unspecified (principal); I49.3 Ventricular premature depolarization | CPT/HCPCS: 93010 ==

== ENCOUNTER → 2025-05-26 13:40 | Outpatient (BNV) | payer MEDICARE, MEDICAID, SELFPAY | PROVIDERS: Emergency Provider Emergency Medicine; PCP Internal Medicine; Visit Provider Radiology Diagnostic Radiology | DX: R07.9 Chest pain, unspecified (principal) | CPT/HCPCS: 71046 ==

== ENCOUNTER → 2025-06-03 16:12 | Outpatient (BNV) | payer MEDICARE, MEDICAID, SELFPAY | PROVIDERS: PCP Internal Medicine; Visit Provider Internal Medicine Cardiovascular Disease | DX: Z45.02 Encounter for adjustment and management of automatic implantable cardiac defibrillator (principal) | CPT/HCPCS: 93297 ==